=== PATIENT | male | born 1940 | race Caucasian/White ===

== ENCOUNTER 2019-06-27 17:51 | Emergency (ER) | payer OTHER, MEDICARE, SELFPAY ==
[2019-06-27 17:59] VITALS: BP 147/68; PULSE 63; RESP 18; TEMP 36.7; O2SAT 95; BMI 34.4
--- NOTE | 2019-06-27 18:07 | XRR_ITS ---
PROCEDURE INFORMATION: Exam: XR Chest, 1 View Exam date and time: 06/27/2019 6:09 PM Age: 79 years old Clinical indication: Shortness of breath; Prior surgery; Surgery date: 6+ months; Additional info: Chest pain TECHNIQUE: Imaging protocol: XR of the chest Views: 1 view. COMPARISON: CR Chest 1 [place] [id number] 08/31/2018 11:12 AM FINDINGS: Tubes, catheters and devices: Stable intact left subclavian pacemaker. Lungs: Linear atelectasis or scar in both lung bases. Pleural space: Unremarkable. No pleural effusion. No pneumothorax. Heart/Mediastinum: Unremarkable. No cardiomegaly. Bones/joints: Sternotomy changes. Degenerative left shoulder. XR/XR chest 1V portable [id number] IMPRESSION: No acute findings.
--- NOTE | 2019-06-27 18:07 | ECG_ITS ---
Measurements Intervals [place] Rate: 64 P: 171 [place]: 273 QRS: -37 QRSD: 97 T: 73 QT: 436 QTc: 451 ELECTRONIC ATRIAL PACEMAKER MARKED LEFT AXIS DEVIATION [QRS AXIS < -30] PATTERN CONSISTENT WITH PULMONARY DISEASE NONSPECIFIC T-WAVE ABNORMALITY Compared to ECG 08/31/2018 11:04:35 Left-axis deviation now present T-wave abnormality now present Incomplete right bundle-branch block no longer present Myocardial infarct finding no longer present Electronically Signed On 06-28-2019 11:27:41 HALF SOLE FITTER by Daniel Pena M.D. [id number]
[2019-06-27 18:33] LABS: Basophils % 0.6 %; Eosinophils # 0.3 10^3/uL (0.0-0.8); Eosinophils % 5.2 %; Lymphocytes # 1.7 10^3/uL (0.8-4.8); Mean Corpuscular HGB Conc 33.3 g/dL (30.0-36.0); Mean Corpuscular Hemoglobin 28.4 pg (28.0-34.0); Mean Corpuscular Volume 85.3 fL (80-94); Mean Platelet Volume 9.9 fL (7.4-10.4); Monocytes # 0.9 10^3/uL (0.2-0.9); Monocytes % 16.1 %; Neutrophils # 2.6 10^3/uL (1.8-7.7); Neutrophils % 46.9 %; Nucleated Red Blood Cells % 0 %; Platelet Count 145 10^3/cmm (130-400); Red Blood Count 5.63 10^6/uL (4.1-5.3); Red Cell Distribution Width 14.9 % (12.1-15.1); White Blood Count 5.4 10^3/uL (4.0-10.0)
[2019-06-27 18:45] LABS: Partial Thromboplastin Time 40.7 SECONDS (23.9-36.7)
[2019-06-27 18:55] LABS: Slide Review Slide Review Perform
[2019-06-27 19:08] LABS: Alanine Aminotransferase 18 U/L (0-41); Albumin Level 4.4 g/dL (3.5-5.2); Alkaline Phosphatase 49 IU/L (40-130); Anion Gap 17.2 (5-19); Blood Urea Nitrogen 38 mg/dL (8-23); Calcium 9.5 mg/Dl (8.8-10.2); Carbon Dioxide 23 mmol/L (22-29); Chloride 101 mmol/L (98-107); Creatine Phosphokinase 77 U/L (39-308); Globulin 3.3 g/dL (1.3-4.6); Glucose 170 mg/dL (74-106); NT Pro B Type Natriuretic Pept 449 pg/mL (0-450); Potassium 4.2 mmol/L (3.5-5.1); Sodium 137 mmol/L (136-145); Total Bilirubin 0.6 mg/dL (0.15-1.2); Total Protein 7.7 g/dL (6.6-8.7)
[2019-06-27 19:09] LABS: Aspartate Amino Transferase 23 U/L (0-40); Troponin(5th) Baseline 45 ng/mL (0-15)
[2019-06-27 19:14] LABS: Lipase 16 U/L (13-60)
--- NOTE | 2019-06-27 19:19 | ED_ITS ---
HPI - Chest Pain General: Chief Complaint: Chest Pain Stated Complaint: cp/sob Time Seen by Provider: 06/27/19 18:58 History of Present Illness: HPI narrative: Patient complains of chest pain x3 weeks. Patient does have daily chest pain/angina. Does take nitroglycerin. Patient episode yesterday where he sat on the commode and had vomiting and diarrhea and broke out in sweats. Feels better after that episode. Continues to have chest pain. 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 Onset (ago): week(s) Timing of current episode: constant Prior episodes: Yes Onset: during rest, during exertion and after eating Pain location: left chest and epigastric Pain radiation: none Relieving factors: nitroglycerin Exacerbating factors: exertion and eating Associated symptoms: Reports diaphoresis; Deny abdominal pain, dyspnea, nausea or vomiting Review of Systems Const: Reports: diaphoresis Eyes: Denies: change in vision or blurry vision ENMT: Denies: throat pain or nasal congestion Card: Reports: chest pain and swelling of feet/ankles; Denies: shortness of breath on exertion Resp: Denies: shortness of breath, productive cough or non-productive cough GI: Denies: abdominal pain, nausea or vomiting : Denies: difficulty urinating Musc: Denies: extremity pain Skin/Breast: Denies: rash Neuro: Denies: headache Psych: Denies: anxiety or depression Justin/Lymph: Denies: easy bruising PFSH ED PFSH: Statuses (acute, chronic, etc) shown below reflect problem list status as previously entered and may not be historically accurate Family History (Updated 06/18/19 @ 10:03 by Lisette Munson LPN) Other CAD (coronary artery disease) Cancer Diabetes Social History (Updated 06/18/19 @ 10:03 by Lisette Munson LPN) Smoking and tobacco status: former smoker Alcohol intake: never Physical Exam Const: COMMON NORMALS: no apparent distress, average body habitus and oriented x3 HENMT: COMMON NORMALS: normocephalic HEAD & SCALP: normal to inspection and normocephalic FACE & SINUS: normal facial exam Eye: COMMON NORMALS: conjunctivae normal GENERAL EYE: normal appearance of both eyes CONJUNCTIVA: Yes conjunctivae normal Neck/C-Spine: COMMON NORMALS: no JVD Chest: COMMONS NORMALS: inspection of chest normal Resp: COMMON NORMALS: normal respiratory effort and clear to auscultation bilaterally AUSCULTATION: clear to auscultation bilaterally Cardio: COMMON NORMALS: no JVD, regular rate and regular rhythm RATE: re gular rate RHYTHM: regular rhythm OTHER: 1+ bilateral pedal edema GI: COMMON NORMALS: normal to inspection, nondistended, normoactive bowel sounds Extremity: COMMON NORMALS: normal to inspection and full ROM Neuro: COMMON NORMALS: oriented x3 Course Vital Signs: Vital signs: Vital Signs Temperature 98.0 F 06/27/19 17:59 Pulse Rate 63 06/27/19 17:59 Respiratory Rate 18 06/27/19 17:59 Blood Pressure 147/68 06/27/19 17:59 Pulse Oximetry 95 06/27/19 17:59 MDM - Chest Pain Lab Data: Labs: Lab Results 06/27/19 06/27/19 06/27/19 Range/Units 18:20 18:20 18:20 WBC 5.4 (4.0-10.0) 10^3/ uL RBC 5.63 H (4.1-5.3) 10^6/u L Hgb 16.0 (11.7-16.6) g/dL Hct 48.0 (42.0-52.0) % MCV 85.3 (80-94) fL MCH 28.4 (28.0-34.0) pg MCHC 33.3 (30.0-36.0) g/dL RDW 14.9 (12.1-15.1) % Plt Count 145 (130-400) 10^3/c mm MPV 9.9 (7.4-10.4) fL Neut % (Auto) 46.9 % Lymph % (Auto) 31.0 % [place] % (Auto) 16.1 % Eos % (Auto) 5.2 % Baso % (Auto) 0.6 % Neut # (Auto) 2.6 (1.8-7.7) 10^3/u L Lymph # (Auto) 1.7 (0.8-4.8) 10^3/u L [place] # (Auto) 0.9 (0.2-0.9) 10^3/u L Eos # (Auto) 0.3 (0.0-0.8) 10^3/u L Baso # (Auto) 0.0 (0.0-0.1) 10^3/u L Nucleated RBC % (a uto) 0 % Nucleated RBCs # 0.0 /100WBC PT 15.60 H (10.5-13.3) SECO NDS INR 1.20 (0.8-1.2) APTT 40.7 H (23.9-36.7) SECO NDS Sodium 137 (136-145) mmol/L Potassium 4.2 (3.5-5.1) mmol/L Chloride 101 (98-107) mmol/L Carbon Dioxide 23 (22-29) mmol/L Anion Gap 17.2 (5-19) BUN 38 H (8-23) mg/dL Creatinine 1.6 H (0.7-1.2) mg/dL Glucose 170 H (74-106) mg/dL Calcium 9.5 (8.8-10.2) mg/Dl Total Bilirubin 0.6 (0.15-1.2) mg/dL AST 23 (0-40) U/L ALT 18 (0-41) U/L Alkaline Phosphata se 49 (40-130) IU/L Creatine Kinase 77 (39-308) U/L Troponin T Baselin e (0-15) ng/mL NT-Pro-B Natriuret Pep 449 (0-450) pg/mL Total Protein 7.7 (6.6-8.7) g/dL Albumin 4.4 (3.5-5.2) g/dL Globulin 3.3 (1.3-4.6) g/dL Lipase 16 (13-60) U/L 06/27/19 Range/Units 18:20 WBC (4.0-10.0) 10^3/ uL RBC (4.1-5.3) 10^6/u L Hgb (11.7-16.6) g/dL Hct (42.0-52.0) % MCV (80-94) fL MCH (28.0-34.0) pg MCHC (30.0-36.0) g/dL RDW (12.1-15.1) % Plt Count (130-400) 10^3/c mm MPV (7.4-10.4) fL Neut % (Auto) % Lymph % (Auto) % [place] % (Auto) % Eos % (Auto) % Baso % (Auto) % Neut # (Auto) (1.8-7.7) 10^3/u L Lymph # (Auto) (0.8-4.8) 10^3/u L [place] # (Auto) (0.2-0.9) 10^3/u L Eos # (Auto) (0.0-0.8) 10^3/u L Baso # (Auto) (0.0-0.1) 10^3/u L Nucleated RBC % (a uto) % Nucleated RBCs # /100WBC PT (10.5-13.3) SECO NDS INR (0.8-1.2) APTT (23.9-36.7) SECO NDS Sodium (136-145) mmol/L Potassium (3.5-5.1) mmol/L Chloride (98-107) mmol/L Carbon Dioxide (22-29) mmol/L Anion Gap (5-19) BUN (8-23) mg/dL Creatinine (0.7-1.2) mg/dL Glucose (74-106) mg/dL Calcium (8.8-10.2) mg/Dl Total Bilirubin (0.15-1.2) mg/dL AST (0-40) U/L ALT (0-41) U/L Alkaline Phosphata se (40-130) IU/L Creatine Kinase (39-308) U/L Troponin T Baselin e 45 H (0-15) ng/mL NT-Pro-B Natriuret Pep (0-450) pg/mL Total Protein (6.6-8.7) g/dL Albumin (3.5-5.2) g/dL Globulin (1.3-4.6) g/dL Lipase (13-60) U/L Discharge Plan Discharge Prescriptions: No Action furosemide 40 mg tablet 40 mg PO BID PRNRF: 0 tamsulosin 0.4 mg capsule 0.4 mg PO DAILY RF: 0 isosorbide mononitrate 60 mg tablet extended release 24 hr 60 mg PO QAM RF: 0 potassium chloride 20 mEq tablet,ER particles/crystals 20 meq PO DAILY RF: 0 epinephrine 0.3 mg/0.3 mL auto-injector 0.3 mg IM ONCE PRNRF: 0 azelastine 0.15 % (205.5 mcg) spray,non-aerosol 1 spray INTRANASAL BID RF: 0 Zyrtec 10 mg capsule PO DAILY PRNRF: 0 montelukast [Singulair] 10 mg tablet 10 mg PO DAILY RF: 0 albuterol sulfate 2.5 mg /3 mL (0.083 %) solution for nebulization 2.5 mg INHALATION Q4H PRNRF: 0 amlodipine 10 mg tablet 10 mg PO DAILY RF: 0 Symbicort 160-4.5 mcg/actuation HFA aerosol inhaler 2 puff INHALATION DAILY RF: 0 rivaroxaban 15 mg tablet 15 mg PO BID RF: 0 budesonide 0.5 mg/2 mL suspension for nebulization 0.25 mg INHALATION BID RF: 0 Lantus U-100 Insulin 100 unit/mL solution 42 unit SUBCUT DAILY RF: 0 cholecalciferol (vitamin D3) 2,000 unit tablet 2,000 unit PO DAILY RF: 0 sotalol 120 mg tablet 120 mg PO BID RF: 0 baclofen 10 mg tablet 10 mg PO DAILY RF: 0 Novolog U-100 Insulin aspart 100 unit/mL solution 5 unit SUBCUT TID RF: 0 lisinopril 5 mg tablet 5 mg PO DAILY RF: 0 isosorbide mononitrate 60 mg tablet extended release 24 hr 60 mg PO QAM RF: 0 glucosamine HCl 1,500 mg tablet 1,500 mg PO DAILY RF: 0 Coding Level of Care Code ED Mechanical Engineering Manager for Gudelia Stone
[2019-06-27 19:21] VITALS: O2SAT 94
--- NOTE | 2019-06-27 20:07 | ECG_ITS ---
Measurements Intervals [place] Rate: 61 P: 169 [place]: 260 QRS: -39 QRSD: 98 T: 74 QT: 469 QTc: 474 ELECTRONIC ATRIAL PACEMAKER LEFT AXIS DEVIATION [QRS AXIS < -30] PATTERN CONSISTENT WITH PULMONARY DISEASE NONSPECIFIC ST & T-WAVE ABNORMALITY PROLONGED QT INTERVAL Compared to ECG 08/31/2018 11:04:35 Left-axis deviation now present T-wave abnormality now present Prolonged QT interval now present Incomplete right bundle-branch block no longer present Myocardial infarct finding no longer present Electronically Signed On 06-28-2019 11:31:42 SMOKING TOBACCO PACKING MACHINE HAND by Daniel Pena M.D. [id number]
[2019-06-27 20:27] LABS: Troponin 5 2HR 44.64 ng/mL (0-15)
[2019-06-27 20:28] LABS: Troponin 5 2HR Delta -0.36 ABS# (0-10)
[2019-06-27 20:43] VITALS: BP 155/71; PULSE 68; RESP 16; O2SAT 96
== END 2019-06-27 20:48 | disposition home or self-care (01) ==
PROVIDERS: Emergency Medicine; Emergency Provider Nurse Practitioner Family; Family Provider Family Medicine; PCP Family Medicine
DX: R07.9 Chest pain, unspecified (principal); Z79.4 Long term (current) use of insulin; Z87.891 Personal history of nicotine dependence
CPT/HCPCS: 71045; 80053; 82550; 83690; 83880; 84484; 85025; 85610; 85730; 93005; 99282

== ENCOUNTER → 2019-08-07 08:35 | Outpatient (BNVA) | payer OTHER, SELFPAY | PROVIDERS: Family Provider Family Medicine; PCP Family Medicine; Visit Provider Specialist | DX: G43.711 Chronic migraine without aura, intractable, with status migrainosus (principal); Z87.891 Personal history of nicotine dependence | CPT/HCPCS: 64615; J0585 ==

== ENCOUNTER → 2019-10-30 08:41 | Outpatient (BNVA) | payer OTHER, SELFPAY | PROVIDERS: Family Provider Family Medicine; PCP Family Medicine; Visit Provider Specialist | DX: G43.711 Chronic migraine without aura, intractable, with status migrainosus (principal); Z87.891 Personal history of nicotine dependence | CPT/HCPCS: 64615; J0585 ==

== ENCOUNTER → 2019-11-04 09:08 | Outpatient (BNVA) | payer OTHER, SELFPAY | PROVIDERS: Family Provider Family Medicine; PCP Family Medicine; Visit Provider Urology | DX: N13.8 Other obstructive and reflux uropathy (principal); N40.1 Benign prostatic hyperplasia with lower urinary tract symptoms | CPT/HCPCS: 81001 ==

== ENCOUNTER → 2020-03-03 10:30 | Outpatient (BNVA) | payer MEDICARE, OTHER, SELFPAY | PROVIDERS: Family Provider Family Medicine; PCP Family Medicine; Visit Provider Nurse Practitioner Family | DX: J06.9 Acute upper respiratory infection, unspecified (principal); Z11.59 Encounter for screening for other viral diseases; Z20.828 Contact with and (suspected) exposure to other viral communicable diseases | CPT/HCPCS: 87635 ==

== ENCOUNTER → 2020-04-15 11:50 | Outpatient (BNVA) | payer MEDICARE, OTHER, SELFPAY | PROVIDERS: Family Provider Family Medicine; PCP Family Medicine; Visit Provider Specialist | DX: G43.711 Chronic migraine without aura, intractable, with status migrainosus (principal) | CPT/HCPCS: 64615; J0585 ==

== ENCOUNTER → 2020-05-18 08:53 | Outpatient (BNVA) | payer MEDICARE, OTHER, SELFPAY | PROVIDERS: Family Provider Family Medicine; PCP Family Medicine; Visit Provider Nurse Practitioner Family | DX: Z20.828 Contact with and (suspected) exposure to other viral communicable diseases (principal); J06.9 Acute upper respiratory infection, unspecified | CPT/HCPCS: 87635 ==

== ENCOUNTER 2020-05-20 11:40 | Emergency (ER) | payer OTHER, MEDICARE, SELFPAY ==
[2020-05-20] VITALS (11 sets, daily range): BP systolic 128–155; BP diastolic 62–73; PULSE 60–62; RESP 18–20; TEMP 36.3; O2SAT 87–94; BMI 31.1
--- NOTE | 2020-05-20 12:08 | XR_ITS ---
WS: [id number] PORTABLE CHEST HISTORY: sob COMPARISON: 06/27/2019 Dual lead LEFT subclavian pacer. Prior median sternotomy. Very minimal interstitial thickening at the lung bases. Otherwise no interval change. No pleural effu melissa or pneumothorax. Cardiac size: Normal. Mediastinum/Aorta: Mild atherosclerosis aorta. No osseous abnormality seen. XR/XR chest 1V portable [id number] IMPRESSION: 1. Minimal interstitial thickening at the lung bases is new. Probably on the b asis of edema. 2. No pneumonia.
--- NOTE | 2020-05-20 12:08 | ECG_ITS ---
[facility] Test Date: 2020-05-20 Pat Name: Panchito Macedo Department: Room: Gender: Male Perinatal Coordinator: : 1940 Requested By: Krystian Sher Order Number: [id number] Chey MD: Ashlyn Womack M.D. 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 [email or web address] ( [employer] ).[id number]
[2020-05-20] MEDS: sodium chloride 0.9% 1,000 ML 999 ML IV (12:25)
[2020-05-20 12:33] LABS: Basophils # 0.1 10^3/uL (0.0-0.1); Eosinophils # 0.6 10^3/uL (0.0-0.8); Eosinophils % 7.5 %; Hematocrit 39.8 % (42.0-52.0); Hemoglobin 13.2 g/dL (11.7-16.6); Lymphocytes # 1.6 10^3/uL (0.8-4.8); Lymphocytes % 21.4 %; Mean Corpuscular HGB Conc 33.2 g/dL (30.0-36.0); Mean Corpuscular Hemoglobin 28.3 pg (28.0-34.0); Mean Corpuscular Volume 85.2 fL (80-94); Mean Platelet Volume 9.7 fL (7.4-10.4); Neutrophils # 4.17 10^3/uL (1.8-7.7); Neutrophils % 56.8 %; Nucleated Red Blood Cells % 0 %; Platelet Count 217 10^3/cmm (130-400); Red Blood Count 4.67 10^6/uL (4.1-5.3); Red Cell Distribution Width 13.6 % (12.1-15.1); White Blood Count 7.3 10^3/uL (4.0-10.0)
--- NOTE | 2020-05-20 12:38 | W.ED.SOB ---
HPI - SOB/Dyspnea General: Chief Complaint: Shortness of Breath/Dyspnea Stated Complaint: FEVER, DIFF BREATHING Time Seen by Provider: 05/20/20 11:57 Source: patient Mode of arrival: ambulatory Limitations: no limitations History of Present Illness: HPI Narrative: 80-year-old male states he has a long history of COPD states that increasing slight cough and dyspnea over the last week. He states he had a Covid swab 2 days ago and today came back negative. States he is continued to have this dyspnea is worse with exertion. He is concerned he may have have pneumonia as he has had it in the past. Denies any fever. Associated symptoms: Deny abdominal pain, chest pain, fever(s), nausea or vomiting Review of Systems Const: Denies: fever(s), chills, body aches or change in appetite Eyes: Denies: blurry vision or eye discomfort ENMT: Denies: throat pain or dental pain Card: Denies: chest pain Resp: Reports: dyspnea and non-productive cough GI: Denies: abdominal pain, nausea, vomiting or diarrhea : Denies: dysuria Musc: Denies: neck pain or back pain Skin/Breast: Denies: rash Neuro: Denies: headache(s) Psych: Denies: depression Justin/Lymph: Denies: easy bruising All/Imm: Denies: urticaria PFSH ED PFSH: Medical History ASHD (arteriosclerotic heart disease) Atrial fibrillation Atypical chest pain BPH NOS w ur obs/LUTS Good response to TAMSULOSIN. Carotid stenosis CHF (congestive heart failure) Hyperlipemia Hypertension Leg swelling Pacemaker Peripheral vascular disease Sleep apnea TIA (transient ischemic attack) Trigeminal neuralgia Ventral hernia Surgical History H/O bilateral cataract extraction H/O four vessel coronary artery bypass graft H/O heart artery stent Status post cryoablation Family History Other CAD (coronary artery disease) Cancer Diabetes Family history of prostate cancer Social History Smoking and tobacco status: former smoker Alcohol intake: never Adopted: No Caregiver/support person: No Lives independently: No Household members: spouse Marital status: Current occupational status: retired History of recent travel: No Current gender identity: Male Physical Exam Const: COMMON NORMALS: no acute distress, patient oriented x3 and healthy appearing HENMT: COMMON NORMALS: normocephalic and atraumatic HEAD & SCALP: normocephalic and atraumatic Eye: COMMON NORMALS: Equal, round and reactive pupils present and EOMs intact bilaterally PUPIL: Yes Equal, round and reactive pupils present Neck/C-Spine: COMMON NORMALS: full ROM and supple Chest: COMMONS NORMALS: normal inspection of the chest and normal palpation of entire chest wall Resp: COMMON NORMALS: normal respiratory effort, No retractions, No use of accessory muscles and clear to auscultation bilaterally AUSCULTATION: clear to auscultation bilaterally Cardio: COMMON NORMALS: regular rate, regular rhythm and No murmurs present (Cardio) RATE: regular rate RHYTHM: regular rhythm GI: COMMON NORMALS: Normal to inspection, nondistended, normoactive bowel sounds present, Soft to palpation, non-tender and no masses PALPATION: Yes Soft to palpation Extremity: COMMON NORMALS: normal to inspection and full ROM Neuro: COMMON NORMALS: patient oriented x3, moves all extremities and no focal motor deficits Psych: COMMON NORMALS: mental status grossly normal, Normal thought process present and cooperative THOUGHT PROCESS: Normal thought process present Skin: COMMON NORMALS: no rashes or lesions noted and no wounds GENERAL SKIN EXAM: no rashes or lesions noted Course Vital Signs: Vital signs: Vital Signs Temperature 97.4 F L 05/20/20 11:51 Pulse Rate 62 05/20/20 13:11 Respiratory Rate 20 H 05/20/20 13:11 Blood Pressure 138/73 05/20/20 13:30 Pulse Oximetry 87 L 05/20/20 14:01 MDM - SOB/Dyspnea MDM Narrative: Medical decision making narrative: Patient presents here with dyspnea likely from chronic COPD and bronchitis. He states he used to be on oxygen did qualify for oxygen here again. I do not believe he needs to be admitted at this time and has no signs of any acute abnormalities. We will place him on steroids and set him up for home O2. He is to follow-up his PCP and return if worsening. Lab Data: Labs: Lab Results 05/20/20 05/20/20 05/20/20 Range/Units 12:23 12:23 12:23 WBC 7.3 (4.0-10.0) 10^3/ uL RBC 4.67 (4.1-5.3) 10^6/u L Hgb 13.2 (11.7-16.6) g/dL Hct 39.8 L (42.0-52.0) % MCV 85.2 (80-94) fL MCH 28.3 (28.0-34.0) pg MCHC 33.2 (30.0-36.0) g/dL RDW 13.6 (12.1-15.1) % Plt Count 217 (130-400) 10^3/c mm MPV 9.7 (7.4-10.4) fL Neut % (Auto) 56.8 % Lymph % (Auto) 21.4 % [place] % (Auto) 13.0 % Eos % (Auto) 7.5 % Baso % (Auto) 1.0 % Neut # (Auto) 4.17 (1.8-7.7) 10^3/u L Lymph # (Auto) 1.6 (0.8-4.8) 10^3/u L [place] # (Auto) 1.0 H (0.2-0.9) 10^3/u L Eos # (Auto) 0.6 (0.0-0.8) 10^3/u L Baso # (Auto) 0.1 (0.0-0.1) 10^3/u L Nucleated RBC % (a uto) 0 % Nucleated RBCs # 0.0 /100WBC PT 18.30 H (12.1-14.9) SECO NDS INR 1.47 H (0.8-1.2) Sodium 140 (136-145) mmol/L Potassium 4.0 (3.5-5.1) mmol/L Chloride 104 (98-107) mmol/L Carbon Dioxide 27 (22-29) mmol/L Anion Gap 13.0 (5-19) BUN 28 H (8-23) mg/dL Creatinine 1.1 (0.7-1.2) mg/dL GFR Calculation Not Reportable Glucose 133 H (65-115) mg/dL Calculated Osmolal ity 297 H (285-295) mOsm/k g Calcium 9.4 (8.5-10.5) mg/dL Total Bilirubin 0.5 (0.15-1.2) mg/dL AST 11 (0-40) U/L ALT < 5 (0-41) U/L Alkaline Phosphata se 58 (40-130) IU/L NT-Pro-B Natriuret Pep 1068 H (0-450) pg/mL Total Protein 6.9 (6.6-8.7) g/dL Albumin 3.3 L (3.5-5.2) g/dL Globulin 3.6 (1.3-4.6) g/dL Imaging Data^: CXR: Radiologist's impression: [address] [place] [address] XRay Report Signed Patient: Panchito Macedo Unit #: [id number] : 1940 Age/Sex: 80 / M ADM Date: 05/20/20 Loc: ER Room/Bed: Attending Dr: Ordering Provider/Ordering MD: Krystian Sher MD Date of Service: 05/20/20 Procedure(s): XR chest 1V portable [id number] Accession Number(s): [id number] Report Number: [id number] WS: [id number] PORTABLE CHEST HISTORY: sob COMPARISON: 06/27/2019 Dual lead LEFT subclavian pacer. Prior median sternotomy. Very minimal interstitial thickening at the lung bases. Otherwise no interval change. No pleural effusion or pneumothorax. Cardiac size: Normal. Mediastinum/Aorta: Mild atherosclerosis aorta. No osseous abnormality seen. XR/XR chest 1V portable [id number] IMPRESSION: 1. Minimal interstitial thickening at the lung bases is new. Probably on the basis of edema. 2. No pneumonia. EKG Data^: EKG 1: Attestation: I personally reviewed and interpreted this EKG as follows: EKG Interpretation Date: 05/20/20 EKG interpretation time: 12:25 Interpretation: paced no st or t wave abnormalities qrs 114 qtc 460 Discharge Plan Discharge Patient Disposition: Home Clinical Impression: Acute exacerbation of chronic obstructive airways disease Condition: Stable Prescriptions: New Keflex 500 mg capsule 500 mg PO Q6H 7 Days Qty: 28 RF: 0 prednisone 50 mg tablet 50 mg PO DAILY Qty: 5 RF: 0 No Action loteprednol etabonate [Lotemax] 0.5 % drops,suspension 1 drop ophthalmic (eye) BID RF: 0 Combigan 0.2-0.5 % drops 1 drop ophthalmic (eye) BID RF: 0 furosemide 40 mg tablet 40 mg PO BID PRNRF: 0 tamsulosin 0.4 mg capsule 0.4 mg PO DAILY RF: 0 isosorbide mononitrate 60 mg tablet extended release 24 hr 60 mg PO QAM RF: 0 potassium chloride 20 mEq tablet,ER particles/crystals 20 meq PO DAILY RF: 0 epinephrine 0.3 mg/0.3 mL auto-injector 0.3 mg IM ONCE PRNRF: 0 azelastine 0.15 % (205.5 mcg) spray,non-aerosol 1 spray INTRANASAL BID RF: 0 Zyrtec 10 mg capsule PO DAILY PRNRF: 0 montelukast [Singulair] 10 mg tablet 10 mg PO DAILY RF: 0 albuterol sulfate 2.5 mg /3 mL (0.083 %) solution for nebulization 2.5 mg INHALATION Q4H PRNRF: 0 amlodipine 10 mg tablet 10 mg PO DAILY RF: 0 Symbicort 160-4.5 mcg/actuation HFA aerosol inhaler 2 puff INHALATION DAILY RF: 0 rivaroxaban 15 mg tablet 15 mg PO BID RF: 0 budesonide 0.5 mg/2 mL suspension for nebulization 0.25 mg INHALATION BID RF: 0 Lantus U-100 Insulin 100 unit/mL solution 42 unit SUBCUT DAILY RF: 0 cholecalciferol (vitamin D3) 2,000 unit tablet 2,000 unit PO DAILY RF: 0 sotalol 120 mg tablet 120 mg PO BID RF: 0 baclofen 10 mg tablet 10 mg PO DAILY RF: 0 Novolog U-100 Insulin aspart 100 unit/mL solution 5 unit SUBCUT TID RF: 0 lisinopril 5 mg tablet 5 mg PO DAILY RF: 0 isosorbide mononitrate 60 mg tablet extended release 24 hr 60 mg PO QAM RF: 0 glucosamine HCl 1,500 mg tablet 1,500 mg PO DAILY RF: 0 Discharge Orders: Discharge ED (Routine); Ordered 05/20/20 Ordered By: Krystian Sher Other Ambulatory Orders: DME: Oxygen (Order) Location: None Selected Ordered By: Krystian Sher Referrals: Panchito Alston [Primary Care Provider] - 1-3 days Discharge Diet: Advance as tolerated Discharge Activity: Resume usual activity Patient Instructions: Chronic Obstructive Pulmonary Disease (ED) Coding Level of Care Code ED Customer Service Administrator for Tatog Fwd Exam Comprehensive
[2020-05-20 12:45] LABS: INR 1.47 (0.8-1.2)
[2020-05-20 13:02] LABS: Alanine Aminotransferase < 5 U/L (0-41); Albumin Level 3.3 g/dL (3.5-5.2); Alkaline Phosphatase 58 IU/L (40-130); Aspartate Amino Transferase 11 U/L (0-40); Blood Urea Nitrogen 28 mg/dL (8-23); Calcium 9.4 mg/dL (8.5-10.5); Carbon Dioxide 27 mmol/L (22-29); Chloride 104 mmol/L (98-107); Creatinine Clr Calc Pharmacy 57.3985; Globulin 3.6 g/dL (1.3-4.6); Glucose 133 mg/dL (65-115); NT Pro B Type Natriuretic Pept 1068 pg/mL (0-450); Osmolality Calculated 297 mOsm/kg (285-295); Sodium 140 mmol/L (136-145); Total Bilirubin 0.5 mg/dL (0.15-1.2); Total Protein 6.9 g/dL (6.6-8.7)
[2020-05-20] MEDS: ipratropium-albuterol 3 mL Neb INHALATION (13:02)
[2020-05-20 13:19] LABS: Slide Review Slide Review Perform
--- NOTE | 2020-05-20 14:16 | DCPLANNER ---
Addendum entered by Alisha Chopra 05/21/20 09:08: [facility] called rn case manager stating that they were not able to fill the order for home O2 due to the patient being in the ER with his medicare. When rn case manager went to speak with patient about this, that patient stated that he was a [facility], and that he wanted to go home. environmental programs manager spoke with physician and was told that patient would be ok to go home and that rn case manager could arrange oxygen for patient when he was at home. 05.21.20 - rn case manager emailed patients information to [facility] for the consult for oxygen to be started. Original Note: environmental programs manager was asked to arrange for home oxygen for patient. environmental programs manager spoke with patient, he stated that he would like to use [employer] for his oxygen, rn case manager signed Patient Choice letter for patient stating that he wanted to use [employer]. environmental programs manager faxed order and patients information to [employer]. The company will bring the oxygen to the ER.
== END 2020-05-20 16:07 | disposition home or self-care (01) ==
PROVIDERS: Emergency Provider Emergency Medicine; PCP Family Medicine
DX: J44.1 Chronic obstructive pulmonary disease with (acute) exacerbation (principal); Z79.4 Long term (current) use of insulin; I48.91 Unspecified atrial fibrillation; I11.0 Hypertensive heart disease with heart failure; I50.9 Heart failure, unspecified; E78.5 Hyperlipidemia, unspecified; Z95.0 Presence of cardiac pacemaker; Z86.73 Personal history of transient ischemic attack (TIA), and cerebral infarction without residual deficits; Z95.1 Presence of aortocoronary bypass graft; Z87.891 Personal history of nicotine dependence
CPT/HCPCS: 12345; 71045; 80053; 83880; 85025; 85610; 93005; 94640; 96361; 96374; 99282; 99283; J2930; J7030

== ENCOUNTER 2020-06-02 10:59 | Outpatient (CLI) | payer MEDICARE, OTHER, SELFPAY ==
--- NOTE | 2020-06-02 11:00 | USCV_ITS ---
Panchito Macedo Age: 80 Gender: M : 1940 Exam Date: 06/02/2020 11:25 Ordering Phys: Janett Lion MD ([email or web address]) Technologist: Gisselle Bernardo [place] [facility] [place] RT STENT Risk Factors: Previous Vascular Surgery: Right Brachial BP: / Left Brachial BP: / Right Left Velocity (cm/s) Spectral Plaque Velocity (cm/s) Spectral Plaque Syst/Diast Broadening Syst/Diast Broadening 70.10/ 7.70 Prox CCA 84.30 / 7.30 83.70/ 12.00 Mid CCA 110.30/ 11.10 61.80/ 10.50 Distal CCA 85.40 / 12.80 66.70/ 12.80 Prox ICA 96.70 / 10.40 75.60/ 13.90 Mid ICA 92.20 / 12.90 72.00/ 13.10 Distal ICA 63.70 / 10.10 201.10 ECA 143.60 0.90 ICA/CCA 0.88 Antegrade Vertebral Antegrade 38.80/ 7.90 cm/s 41.00/ 7.10 cm/s Tri Subclavian Tri 124.6 139.9 0 0 FINDINGS Moderate to heavy heterogeneous irregular plaques are noted in the right common carotid artery. The stent the right ICA was found to be patent Intimal thickening and minimal plaque in the left common carotid artery. Moderate intravenous plaquesnoted at the left bifurcation and proximal internal carotid artery Antegrade flow in the vertebral arteries bilaterally Elevated Doppler flow velocity in the right external carotid artery CONCLUSIONS The stent in the right internal carotid artery appeared to be patent with no significant stenosis. Moderate to heavy heterogeneous plaques were noted in the right common carotid artery. Moderate heterogeneous plaques at the left bifurcation and proximal internal carotid artery Elevated velocity in the external carotid artery on the right side, suggestive of hemodynamically significant stenosis. Compared to the study from 12/06/2017, there appears to be some worsening of stenosis in the right external carotid artery Dr Janett Lion MD [facility] (Electronically Signed) Final Date: 02 June 2020 20:19 S
== END 2020-06-02 11:00 | disposition home or self-care (01) ==
LOC: US 11:00
PROVIDERS: PCP Family Medicine; Visit Provider Internal Medicine Cardiovascular Disease
DX: I65.23 Occlusion and stenosis of bilateral carotid arteries (principal)
CPT/HCPCS: 93880

== ENCOUNTER 2020-06-08 14:32 | Emergency (ER) | payer OTHER, MEDICARE, SELFPAY ==
[2020-06-08] VITALS (7 sets, daily range): BP systolic 130–176; BP diastolic 49–85; PULSE 61–66; RESP 17–22; TEMP 36.3; O2SAT 93–97; BMI 30.8
--- NOTE | 2020-06-08 16:31 | XRR_ITS ---
PROCEDURE INFORMATION: Exam: XR Chest, 1 View Exam date and time: 06/08/2020 4:51 PM Age: 80 years old Clinical indication: Dyspnea and shortness of breath; Prior surgery; Surgery type: Pacemaker, open heart, stents TECHNIQUE: Imaging protocol: XR of the chest Views: 1 view. COMPARISON: CR XR chest 1V portable [id number] 05/20/2020 12:18 PM FINDINGS: Tubes, catheters and devices: A permanent sequential pacemaker is present intact. Lungs: There is stable interstitial fibrosis in the lung bases. No pneumonia is seen. Pleural space: Unremarkable. No pleural effusion. No pneumothorax. Heart/Mediastinum: Heart is normal for the AP projection. The patient has undergone coronary bypass surgery. Bones/joints: Unremarkable. XR/XR chest 1V portable [id number] IMPRESSION: No acute abnormalities are seen in the chest.
--- NOTE | 2020-06-08 16:37 | ED_ITS ---
HPI - SOB/Dyspnea General: Chief Complaint: Shortness of Breath/Dyspnea Stated Complaint: SOB Time Seen by Provider: 06/08/20 15:23 History of Present Illness: HPI Narrative: The patient is an 80-year-old male with past medical history COPD on 2 L nasal cannula, diabetes, congestive heart failure, CAD, A. fib, hypertension, pacemaker placement, TIAs. He comes to the ER complaining of 2 problems shortness of breath and abdominal pain. He has had abdominal cramping worse in the right lower quadrant for the past 5 days with soft serve consistency yellow feces. Yesterday evening he started to get short of breath as well and tried to take albuterol which did help his shortness of breath however this morning he tried that again and when he was walking around his saturation was 78% wearing his nasal cannula. MD elicited complaint: shortness of breath Pertinent past history: COPD, congestive heart failure and diabetes Context: recent illness Severity: moderate Exacerbating factors: exertion Relieving factors: bronchodilators Known history of: COPD, congestive heart failure and diabetes Associated symptoms: Reports abdominal pain; Deny chest pain, dizziness, extremity pain, orthopnea, palpitations or polyuria Review of Systems 2 General: Reports: 10 or more systems reviewed and unremarkable except in HPI and below Const: Denies: fatigue Eyes: Denies: change in vision, blurry vision or eye redness ENMT: Denies: throat pain, swelling of lips/tongue, ear or mastoid pain or nasal congestion Card: Denies: chest pain, palpitations, irregular heart rhythm, edema, dyspnea on exertion or orthopnea Resp: Reports: dyspnea; Denies: productive cough or non-productive cough GI: Reports: abdominal pain : Denies: flank pain, urinary frequency or urinary urgency Musc: Denies: neck pain, back pain, extremity pain, joint pain, joint redness, limited range of motion or muscle weakness Skin/Breast: Denies: rash, pruritus, erythema, skin pain or skin tenderness Neuro: Denies: headache(s), numbness in extremities, weakness in extremities, sensory changes, difficulty walking, dizziness, confusion or Slurred speech present Psych: Denies: anxiety or depression Endo: Denies: polyuria All/Imm: Denies: urticaria, throat swelling or tongue swelling PFSH ED PFSH: Medical History ASHD (arteriosclerotic heart disease) Atrial fibrillation Atypical chest pain BPH NOS w ur obs/LUTS Good response to TAMSULOSIN. Carotid stenosis CHF (congestive heart failure) Hyperlipemia Hypertension Leg swelling Pacemaker Peripheral vascular disease Sleep apnea TIA (transient ischemic attack) Trigeminal neuralgia Ventral hernia Surgical History H/O bilateral cataract extraction H/O four vessel coronary artery bypass graft H/O heart artery stent Status post cryoablation Family History Other CAD (coronary artery disease) Cancer Diabetes Family history of prostate cancer Social History Smoking and tobacco status: former smoker Alcohol intake: never Adopted: No Caregiver/support person: No Lives independently: No Household members: spouse Marital status: Current occupational status: retired History of recent travel: No Current gender identity: Male Physical Exam Const: COMMON NORMALS: no acute distress, average body habitus, patient oriented x3, no limitations, healthy appearing, alert and well nourished GENERAL APPEARANCE: cooperative, comfortable, well kempt and well developed ORIENTATION/CONSCIOUSNESS: Yes awake, Yes oriented to person, Yes oriented to place and Yes oriented to time HENMT: COMMON NORMALS: normocephalic, external ears normal and Normal external nose present HEAD & SCALP: normal to inspection and normocephalic NOSE: Normal external nose present EXTERNAL EAR: Yes external ears normal MOUTH: Normal oral and palatal mucosa present THROAT: posterior oropharynx normal Eye: COMMON NORMALS: Equal, round and reactive pupils present and EOMs intact bilaterally GENERAL EYE: appearance normal, both eyes and all related structures PUPIL: Yes Equal, round and reactive pupils present Neck/C-Spine: COMMON NORMALS: full ROM, no lymphadenopathy, no meningeal signs and no JVD GENERAL: Yes normal visual inspection Lymph: LYMPHATIC: no lymphadenopathy noted Chest: COMMONS NORMALS: normal inspection of the chest and normal palpation of entire chest wall Resp: COMMON NORMALS: normal respiratory effort, No retractions, No use of accessory muscles, clear to auscultation bilaterally and percussion normal EFFORT & INSPECTION: Yes able to speak in complete sentences AUSCULTATION: clear to auscultation bilaterally PERCUSSION: percussion normal Cardio: COMMON NORMALS: no JVD, regular rate, regular rhythm, S1 normal heart sound present, S2 normal heart sound present and Peripheral pulses 2+ throughout RATE: regular rate RHYTHM: regular rhythm HEART SOUNDS: S1 normal heart sound present and S2 normal heart sound present PERIPHERAL PULSES: Peripheral pulses 2+ throughout GI: COMMON NORMALS: Soft to palpation and no masses INSPECTION: Yes normal to inspection PALPATION: Yes Soft to palpation and Yes Tenderness to palpation present (GI) Details: RLQ GI image (male): 1. tenderness : COMMON NORMALS: Yes no CVA tenderness BLADDER/KIDNEY EXAM: Yes no CVA tenderness Back/Pelvis: COMMON NORMALS: no CVA tenderness, thoracic and lumbar spine normal to inspection, no thoracic nor lumbar tenderness and thoraco-lumbar ROM normal Extremity: COMMON NORMALS: normal to inspection, full ROM, capillary refill normal, no joint enlargement and no pedal edema GENERAL: Yes normal exam except as noted OTHER: 1+ edema to bilateral lower extremities to mid calf. Neuro: COMMON NORMALS: patient oriented x3, CN's II-XII intact bilaterally, moves all extremities, no focal motor deficits, no sensory deficits noted and gait normal SENSORIUM/ORIENTATION: Yes alert, Yes oriented to person, Yes oriented to place and Yes oriented to time MENINGEAL SIGNS: Yes no meningeal signs Psych: COMMON NORMALS: mental status grossly normal, Normal thought process present, cooperative, normal affect and speech normal APPEARANCE: Yes well kempt ATTITUDE: Yes calm SPEECH: Yes normal speech THOUGHT PROCESS: Normal thought process present Skin: COMMON NORMALS: no rashes or lesions noted GENERAL SKIN EXAM: no rashes or lesions noted Course Vital Signs: Vital signs: Vital Signs Temperature 97.4 F L 06/08/20 14:35 Pulse Rate 64 06/08/20 21:20 Respiratory Rate 18 06/08/20 21:20 Blood Pressure 176/49 06/08/20 21:20 Pulse Oximetry 93 06/08/20 21:20 MDM - SOB/Dyspnea MDM Narrative: Medical decision making narrative: The patient came in complaining of shortness of breath which she is just been recently placed on 2 L of oxygen. He was doing significant exertion which she had sats in the 80s. Recommended increasing oxygen for activities and limiting his significant activity so he does not get hypoxic. His diarrhea appears to be mild and manageable as an outpatient. Recommended drinking increased fluids during his diarrhea and stopping going back to his normal level of fluids after the diarrhea subsides. He may return to the ER at any time if his symptoms worsen of either of these conditions. Incidentally when evaluating his abdomen CT showed 2 masses which have increased in size significantly from a year ago imaging. Discussed with Dr. Yang oncology who recommended he see general surgery first for a biopsy. Discussed with Dr. Cook who will see him in office to evaluate for possible biopsy of mass. The patient and his understand the plan of care and will follow up. Lab Data: Labs: Lab Results 06/08/20 06/08/20 06/08/20 Range/Units 15:58 15:58 15:58 WBC 5.8 (4.0-10.0) 10^3/ uL RBC 4.03 L (4.1-5.3) 10^6/u L Hgb 11.5 L (11.7-16.6) g/dL Hct 35.5 L (42.0-52.0) % MCV 88.1 (80-94) fL MCH 28.5 (28.0-34.0) pg MCHC 32.4 (30.0-36.0) g/dL RDW 14.4 (12.1-15.1) % Plt Count 149 (130-400) 10^3/c mm MPV 10.8 H (7.4-10.4) fL Neut % (Auto) 48.0 % Lymph % (Auto) 31.4 % [place] % (Auto) 14.6 % Eos % (Auto) 5.3 % Baso % (Auto) 0.5 % Neut # (Auto) 2.80 (1.8-7.7) 10^3/u L Lymph # (Auto) 1.8 (0.8-4.8) 10^3/u L [place] # (Auto) 0.9 (0.2-0.9) 10^3/u L Eos # (Auto) 0.3 (0.0-0.8) 10^3/u L Baso # (Auto) 0.0 (0.0-0.1) 10^3/u L Nucleated RBC % (a uto) 0 % Nucleated RBCs # 0.0 /100WBC D-Dimer 0.72 H (0-0.59) ug/mIFE U Sodium 140 (136-145) mmol/L Potassium 3.9 (3.5-5.1) mmol/L Chloride 101 (98-107) mmol/L Carbon Dioxide 29 (22-29) mmol/L Anion Gap 13.9 (5-19) BUN 30 H (8-23) mg/dL Creatinine 1.2 (0.7-1.2) mg/dL GFR Calculation Not Reportable Glucose 125 H (65-115) mg/dL Calculated Osmolal ity 298 H (285-295) mOsm/k g Lactic Acid (0.5-2.2) mmol/L Calcium 8.7 (8.5-10.5) mg/dL Total Bilirubin 0.4 (0.15-1.2) mg/dL AST 14 (0-40) U/L ALT 11 (0-41) U/L Alkaline Phosphata se 61 (40-130) IU/L Troponin T Baselin e (0-15) ng/L Troponin T 120 Min osiel (0-15) ng/L Delta Troponin T (0-10) ABS# NT-Pro-B Natriuret Pep 984 H (0-450) pg/mL Total Protein 6.2 L (6.6-8.7) g/dL Albumin 3.2 L (3.5-5.2) g/dL Globulin 3.0 (1.3-4.6) g/dL Lipase 9 L (13-60) U/L 06/08/20 06/08/20 06/08/20 Range/Units 15:58 15:58 18:34 WBC (4.0-10.0) 10^3/ uL RBC (4.1-5.3) 10^6/u L Hgb (11.7-16.6) g/dL Hct (42.0-52.0) % MCV (80-94) fL MCH (28.0-34.0) pg MCHC (30.0-36.0) g/dL RDW (12.1-15.1) % Plt Count (130-400) 10^3/c mm MPV (7.4-10.4) fL Neut % (Auto) % Lymph % (Auto) % [place] % (Auto) % Eos % (Auto) % Baso % (Auto) % Neut # (Auto) (1.8-7.7) 10^3/u L Lymph # (Auto) (0.8-4.8) 10^3/u L [place] # (Auto) (0.2-0.9) 10^3/u L Eos # (Auto) (0.0-0.8) 10^3/u L Baso # (Auto) (0.0-0.1) 10^3/u L Nucleated RBC % (a uto) % Nucleated RBCs # /100WBC D-Dimer (0-0.59) ug/mIFE U Sodium (136-145) mmol/L Potassium (3.5-5.1) mmol/L Chloride (98-107) mmol/L Carbon Dioxide (22-29) mmol/L Anion Gap (5-19) BUN (8-23) mg/dL Creatinine (0.7-1.2) mg/dL GFR Calculation Glucose (65-115) mg/dL Calculated Osmolal ity (285-295) mOsm/k g Lactic Acid 1.4 (0.5-2.2) mmol/L Calcium (8.5-10.5) mg/dL Total Bilirubin (0.15-1.2) mg/dL AST (0-40) U/L ALT (0-41) U/L Alkaline Phosphata se (40-130) IU/L Troponin T Baselin e 41 H (0-15) ng/L Troponin T 120 Min osiel 40.50 H (0-15) ng/L Delta Troponin T -0.50 L (0-10) ABS# NT-Pro-B Natriuret Pep (0-450) pg/mL Total Protein (6.6-8.7) g/dL Albumin (3.5-5.2) g/dL Globulin (1.3-4.6) g/dL Lipase (13-60) U/L Discharge Plan Discharge Patient Disposition: Home Clinical Impression: Acute exacerbation of chronic obstructive airways disease Diarrhea Qualifiers: Diarrhea type: unspecified type Qualified Code(s): R19.7 - Diarrhea, unspecified Abdominal mass Qualifiers: Abdominal location: other location Qualified Code(s): R19.09 - Other intra- abdominal and pelvic swelling, mass and lump Condition: Stable Prescriptions: No Action loteprednol etabonate [Lotemax] 0.5 % drops,suspension 1 drop ophthalmic (eye) BID@0800,1800 RF: 0 Combigan 0.2-0.5 % drops 1 drop ophthalmic (eye) BID@0800,1800 RF: 0 furosemide 40 mg tablet 40 mg PO BID@0600,1800 PRN (Reason: Edema) RF: 0 tamsulosin 0.4 mg capsule 0.4 mg PO DAILY@0800 RF: 0 isosorbide mononitrate 60 mg tablet extended release 24 hr 60 mg PO DAILY@0800 RF: 0 potassium chloride 20 mEq tablet,ER particles/crystals 20 meq PO DAILY@0800 RF: 0 epinephrine 0.3 mg/0.3 mL auto-injector 0.3 mg IM ONCE PRN (Reason: UNKNOWN) RF: 0 Zyrtec 10 mg capsule 10 mg PO DAILY PRN (Reason: Allergy Symptoms) RF: 0 montelukast [Singulair] 10 mg tablet 10 mg PO DAILY@0800 RF: 0 albuterol sulfate 2.5 mg /3 mL (0.083 %) solution for nebulization 2.5 mg INHALATION Q4H PRN (Reason: Shortness Of Breath) RF: 0 amlodipine 10 mg tablet 10 mg PO DAILY@0800 RF: 0 Symbicort 160-4.5 mcg/actuation HFA aerosol inhaler 2 puff INHALATION DAILY@0800 RF: 0 rivaroxaban 15 mg tablet 15 mg PO BID@0800,1800 RF: 0 budesonide 0.5 mg/2 mL suspension for nebulization 0.25 mg INHALATION BID@0800,1800 RF: 0 Lantus U-100 Insulin 100 unit/mL solution 42 unit SUBCUT BEDTIME@2100 RF: 0 cholecalciferol (vitamin D3) 2,000 unit tablet 2,000 unit PO DAILY@0800 RF: 0 sotalol 120 mg tablet 120 mg PO BID@0800,1800 RF: 0 baclofen 10 mg tablet 10 mg PO DAILY@0800 RF: 0 Novolog U-100 Insulin aspart 100 unit/mL solution 5 unit SUBCUT TID@0800,1200,1700 RF: 0 lisinopril 5 mg tablet 5 mg PO DAILY@0800 RF: 0 glucosamine HCl 1,500 mg tablet 1,500 mg PO DAILY@0800 RF: 0 prednisone 50 mg tablet 50 mg PO DAILY@0800 RF: 0 Discharge Orders: Discharge ED (Routine); Ordered 06/08/20 Ordered By: Kurtis Salas Referrals: Panchito Alston [Primary Care Provider] - Discharge Diet: Advance as tolerated Discharge Activity: Increase activity as tolerated Patient Instructions: Chronic Obstructive Pulmonary Disease (ED), Acute Diarrhea (ED) Activity Restrictions/Additional Instructions: You have diarrhea. Please continue to drink lots of fluids to help with this temporarily until your diarrhea resolves. Return to the ER with worsening symptoms. You have chronic obstructive pulmonary disease, COPD, which is now requiring oxygen. Please continue to monitor your pulse ox at home and return to the ER with worsening symptoms. Follow-up with your primary care doctor in 3 to 5 days to monitor improvement of this condition and return to the ER with worsening symptoms such as shortness of breath, chest pain or any other worrisome symptoms. Also you have 2 abdominal masses. Each of which has increased in size. I discussed with Dr. Yang oncologist who will not see you until you have a biopsy of the tissue in question. I discussed with surgeon who is agreed to see you in his clinic to evaluate for a biopsy of this mass. Case management should be contacting you within a couple days to help you get an appointment with Dr. Cook. Coding Level of Care Code ED Behavioral Health Therapist for [place] Fwd Exam Comprehensive
--- NOTE | 2020-06-08 16:37 | ECG_ITS ---
[facility] Test Date: 2020-06-08 Pat Name: Panchito Macedo Department: Room: Gender: Male Check Processing Clerk: : 1940 Requested By: Kurtis Salas Order Number: [id number] Guerrier MD: Janett Lion M.D. Measurements Intervals [place] Rate: 62 P: 226 IA: 260 QRS: -30 QRSD: 96 T: 53 QT: 453 QTc: 461 Interpretive Statements A paced, V sensed rhythm INFERIOR MYOCARDIAL INFARCTION [40+ ms Q WAVE AND/OR ST/T ABNORMALITY IN II/aVF], OF INDETERMINATE AGE Compared to ECG 05/20/2020 12:25:26 Myocardial infarct finding now present Left-axis deviation no longer present Incomplete right bundle-branch block no longer present Electronically Signed On 06-08-2020 23:51:30 PUNCH CARD OPERATOR by Janett Lion M.D. [id number] f
[2020-06-08 17:01] LABS: Basophils % 0.5 %; Eosinophils # 0.3 10^3/uL (0.0-0.8); Eosinophils % 5.3 %; Hematocrit 35.5 % (42.0-52.0); Hemoglobin 11.5 g/dL (11.7-16.6); Lymphocytes # 1.8 10^3/uL (0.8-4.8); Lymphocytes % 31.4 %; Mean Corpuscular HGB Conc 32.4 g/dL (30.0-36.0); Mean Corpuscular Hemoglobin 28.5 pg (28.0-34.0); Mean Corpuscular Volume 88.1 fL (80-94); Mean Platelet Volume 10.8 fL (7.4-10.4); Monocytes # 0.9 10^3/uL (0.2-0.9); Monocytes % 14.6 %; Nucleated Red Blood Cells % 0 %; Platelet Count 149 10^3/cmm (130-400); Red Blood Count 4.03 10^6/uL (4.1-5.3); Red Cell Distribution Width 14.4 % (12.1-15.1); White Blood Count 5.8 10^3/uL (4.0-10.0)
[2020-06-08 17:08] LABS: D Dimer 0.72 ug/mIFEU (0-0.59)
[2020-06-08 17:16] LABS: Lactic Sepsis W/Reflex 1.4 mmol/L (0.5-2.2); Troponin(5th) Baseline 41 ng/L (0-15)
[2020-06-08 17:18] LABS: Slide Review Slide Review Perform
[2020-06-08 17:23] LABS: Alanine Aminotransferase 11 U/L (0-41); Albumin Level 3.2 g/dL (3.5-5.2); Alkaline Phosphatase 61 IU/L (40-130); Anion Gap 13.9 (5-19); Aspartate Amino Transferase 14 U/L (0-40); Blood Urea Nitrogen 30 mg/dL (8-23); Calcium 8.7 mg/dL (8.5-10.5); Carbon Dioxide 29 mmol/L (22-29); Chloride 101 mmol/L (98-107); Glucose 125 mg/dL (65-115); Lipase 9 U/L (13-60); NT Pro B Type Natriuretic Pept 984 pg/mL (0-450); Osmolality Calculated 298 mOsm/kg (285-295); Potassium 3.9 mmol/L (3.5-5.1); Sodium 140 mmol/L (136-145); Total Bilirubin 0.4 mg/dL (0.15-1.2); Total Protein 6.2 g/dL (6.6-8.7)
--- NOTE | 2020-06-08 18:06 | CTR_ITS ---
PROCEDURE INFORMATION: Exam: CT Abdomen And Pelvis With Contrast Exam date and time: 06/08/2020 6:31 PM Age: 80 years old Clinical indication: Abdominal pain; Localized; Right lower quadrant (rlq); Prior surgery; Surgery type: Cabg, stents; Additional info: Rlq abdominal tenderness TECHNIQUE: Imaging protocol: Computed tomography of the abdomen and pelvis with intravenous contrast. Radiation optimization: All CT scans at this facility use at least one of these dose optimization techniques: automated exposure control; mA and/or kV adjustment per patient size (includes targeted exams where dose is matched to clinical indication); or iterative reconstruction. Contrast material: VISI 320; Contrast volume: 95 ml; Contrast route: INTRAVENOUS (IV); COMPARISON: CT Abdomen/Pelvis Renal [id number] 09/06/2018 5:45 AM RADIATION DOSE METRICS: Total DLP (mGy-cm): 1271.93 FINDINGS: Lungs: There is bibasilar interstitial and ground-glass opacity in the lungs compatible with edema, pneumonitis and/or atelectasis. Liver: A few tiny hepatic hypodensities are too small to characterize. Gallbladder and bile ducts: Normal. No calcified stones. No ductal dilation. Pancreas: Normal. No ductal dilation. Spleen: The spleen is normal. An accessory splenule is present. Adrenal glands: Normal. No mass. Kidneys and ureters: There is no evidence of hydronephrosis. There is no evidence of renal calcifications. Stomach and bowel: There is also progressive reticular and soft tissue density in the mesentery with a mildly tethered appearance of the adjacent loops of bowel. The soft tissue density mass is poorly marginated but on image 38 for example, the mass measures approximately 13.2 x 6.3 cm compared to the prior exam where it measured 11.5 x 4.5 cm. There is no evidence of intestinal perforation or obstruction. There is moderately excessive colonic stool content. Extensive diverticulosis is present in the distal colon. There is no evidence of colitis/diverticulitis. Appendix: A normal appendix is identified. Intraperitoneal space: There is new/increased diffuse haziness of the fat in the mesentery that may reflect mild inflammatory changes/edema or desmoplastic type changes.. No free air. No significant fluid collection. Retroperitoneal space: The previously visualized retroperitoneal soft tissue density has increased since the prior exam now measuring on image 45 4.4 by 10.0 cm were previously at the same level it measured 4.3 x 6.8 cm. On sagittal images, the epicenter of the mass is superior to the L4-L5 disc space level and in particular is approximately anterior to the L3-L4 disc space level. 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 A small amount of soft tissue density associated with the mass is identified between the aorta and spine axial image 41. Vasculature: The aorta demonstrates moderate atherosclerotic calcification. Lymph nodes: Multiple subcentimeter lymph nodes are noted in the abdomen and pelvis. No pathologic adenopathy in the abdomen or pelvis. There is a pathologically enlarged right retrocrural lymph node image 2 measuring 1.5 cm in short axis. Urinary bladder: There is nonspecific bladder wall thickening. This may be related to incomplete distention. Reproductive: Unremarkable as visualized. Bones/joints: Osteopenia and moderate degenerative changes are noted. Soft tissues: There are small bilateral fat filled inguinal hernias. Other findings: There are moderate to severe emphysematous changes. CT/CT abdomen pelvis w con* [id number] IMPRESSION: 1. Increasing retroperitoneal soft tissue density mass and increasing infiltrative soft tissue density within the mesentery. There are several characteristics concerning for lymphoma including the involvement of the mesentery, after the center of the mass superior to the L4-L5 disc space level and soft tissue density between the aorta and spine. This is not a typical are classic appearance of retroperitoneal fibrosis. PET scan can be helpful for further evaluation. Right retrocrural adenopathy is noted in the lower chest. 2. No bowel thickening, ileus or obstruction. There is haziness of the mesenteric fat that may reflect trace edema or desmoplastic type changes concerning for lymphoma without definite colitis or bowel inflammatory changes. 3. There is bibasilar interstitial and ground-glass opacity in the lungs compatible with edema, pneumonitis and/or atelectasis. Radiation Dose CTDIVOL = (mGy): DLP = 1271.93 (mGy-cm)
--- NOTE | 2020-06-08 18:37 | ECG_ITS ---
Test Date: 2020-06-08 Pat Name: Panchito Macedo Department: Room: Gender: Male Pharmaceutical Officer: : 1940 Requested By: Kurtis Salas Order Number: [id number] Chey MD: Janett Lion M.D. Measurements Intervals [place] Rate: 62 P: 187 FL: 264 QRS: -33 QRSD: 103 T: 63 QT: 468 QTc: 478 Interpretive Statements ELECTRONIC ATRIAL PACEMAKER LEFT AXIS DEVIATION [QRS AXIS < -30] PATTERN CONSISTENT WITH PULMONARY DISEASE INCOMPLETE RIGHT BUNDLE BRANCH BLOCK [90+ ms QRS DURATION, TERMINAL R IN V1/V2, 40+ ms S IN I/aVL/V4/V5/V6] PROLONGED QT INTERVAL Compared to ECG 06/08/2020 14:43:24 Left-axis deviation now present Incomplete right bundle-branch block now present Prolonged QT interval now present Myocardial infarct finding no longer present Electronically Signed On 06-09-2020 0:11:29 MEDICAL DETAILIST by Janett Lion M.D. [id number]
[2020-06-08] MEDS: iodixanol 320 mg/mL 100mL Btl IV (19:07)
--- NOTE | 2020-06-09 08:45 | DCPLANNER ---
aquatic facility manager had message to schedule a follow up appointment for patient with general surgery. aquatic facility manager emailed Felix at general surgery, patients information. Patients information will be printed and reviewed. Clinic will call patient with appointment information.
--- NOTE | 2020-06-11 10:04 | DCPLANNER ---
Patient has a follow up appointment scheduled for , June 17, 2020 t 10:[address] Cook. Clinic will call patient with appointment information.
--- NOTE | 2020-07-15 13:51 | DCPLANNER ---
Patient had a follow up appointment scheduled for 06.17.20 with general surgery - patient did attend appointment.
== END 2020-06-08 21:29 | disposition home or self-care (01) ==
PROVIDERS: Emergency Provider Family Medicine; PCP Family Medicine
DX: J44.1 Chronic obstructive pulmonary disease with (acute) exacerbation (principal); R19.09 Other intra-abdominal and pelvic swelling, mass and lump; R19.7 Diarrhea, unspecified; Z79.4 Long term (current) use of insulin; I48.91 Unspecified atrial fibrillation; I11.0 Hypertensive heart disease with heart failure; I50.9 Heart failure, unspecified; E78.5 Hyperlipidemia, unspecified; Z95.0 Presence of cardiac pacemaker; Z86.73 Personal history of transient ischemic attack (TIA), and cerebral infarction without residual deficits; Z95.1 Presence of aortocoronary bypass graft; Z87.891 Personal history of nicotine dependence
CPT/HCPCS: 12345; 36415; 71045; 74177; 80053; 83605; 83690; 83880; 84484; 85025; 85378; 93005; 94640; 99283; 99284; J7611; Q9967

== ENCOUNTER 2020-06-28 10:10 | Outpatient (CLI) | payer MEDICARE, OTHER, SELFPAY ==
--- NOTE | 2020-06-28 10:30 | US_ITS ---
WS: [id number] ULTRASOUND SOFT TISSUES bilateral axilla. HISTORY: ENLARGED LYMPH NODES COMPARISON: None available. TECHNIQUE: 2-D and color Doppler imaging is submitted. Bilateral axillary lymph nodes are identified. These lymph nodes are mostly fatty replaced. Questiona ble enlargement of a lymph node in the LEFT axilla. This lymph node measures 2.1 x 1.5 x 0.9 cm. Not definitely abnormal. US/US soft tissue/extremity [id number] IMPRESSION: Bilateral small axillary lymph nodes. No definitely abnormal lymph nodes. One l ymph node in the LEFT axilla has very mild fatty replacement of nearly entire n ode but no replacement with tumor identified.
== END 2020-06-28 10:11 | disposition home or self-care (01) ==
LOC: RAD 10:15
PROVIDERS: PCP Family Medicine; Visit Provider Surgery
DX: R59.9 Enlarged lymph nodes, unspecified (principal)
CPT/HCPCS: 76882

== ENCOUNTER → 2020-07-08 11:56 | Outpatient (BNVA) | payer MEDICARE, OTHER, SELFPAY | PROVIDERS: PCP Family Medicine; Visit Provider Specialist | DX: G43.711 Chronic migraine without aura, intractable, with status migrainosus (principal); I65.23 Occlusion and stenosis of bilateral carotid arteries; Z87.891 Personal history of nicotine dependence | CPT/HCPCS: 64615; J0585 ==

== ENCOUNTER → 2020-07-15 08:55 | Outpatient (BNVA) | payer MEDICARE, OTHER, SELFPAY | PROVIDERS: PCP Family Medicine; Visit Provider Surgery | DX: Z20.828 Contact with and (suspected) exposure to other viral communicable diseases (principal); R19.00 Intra-abdominal and pelvic swelling, mass and lump, unspecified site | CPT/HCPCS: 87635 ==

== ENCOUNTER 2020-07-20 08:04 | Day surgery (SDC) | payer OTHER, MEDICARE, SELFPAY ==
[2020-07-19 11:07] VITALS: BMI 32.1
[2020-07-20] VITALS (14 sets, daily range): BP systolic 140–162; BP diastolic 65–85; PULSE 58–90; RESP 16–18; TEMP 36.1–36.4; O2SAT 90–97
[2020-07-20] MEDS: sodium chloride 0.9% 1,000 ML 30 ML IV (08:15)
[2020-07-20] MEDS: heparin 5,000 unit/mL INJ 1 mL 3000 UNIT SUBCUT (08:54)
[2020-07-20 09:09] LABS: Glucose Point of Care 117 mg/dL (70-110)
--- NOTE | 2020-07-20 09:29 | ANES.PREANE2 ---
Pre-Anesthetic Assessment Pre-Anesthetic Assessment: Height/Weight: Height 1.7 m Weight 92.986 kg Temp Pulse Resp BP Pulse Ox 97.6 F 73 18 140/65 97 07/20/20 08:40 07/20/20 08:40 07/20/20 08:40 07/20/20 08:40 07/20/20 08:40 Preop Diagnosis: ABDOMINAL MASS Proposed Procedure: Operation Date: 07/20/20 10:05 Proposed Procedures p Laparoscopy [id number] R19.00 poss open abdominal mass biopsy(Not Applicable) - Fransico Cook MD Was Beta Cabrera taken within 24 hours: Yes Last intake: Intake Last Liquid Date 07/19/20 Last Liquid Time 21:00 Last Solid Date 07/19/20 Last Solid Time 12:00 Social: Social History: No alcohol and No tobacco Exam: Pre-Anes Outpt Exam: alert, oriented x 3 and regular rate & rhythm Additional Exam Findings (including area of procedure): Decreased BS, rhonchi Airway: Submandibular: WNL Cervical ROM: WNL MP: 2 Dentition: False Pulmonary: Pulmonary: COPD Comments: Home O2 CV/HEM: CV/HEM: Afib, Anemia, Angina (Stable), Arrythmia, CAD, CHF, HTN and PVD : : Chronic renal Insufficiency Metabolic: Metabolic: Morbid obesity Musc/skel: Musc/skel: Weakness Neuropsych: Neuropsych: TIA Anesthetic Plan: ASA status: 4 Anesthesia: General Risk of > 500 ml blood loss (7ml/kg in children): No PFSH Anesthesia PFSH: Medical History ASHD (arteriosclerotic heart disease) Atrial fibrillation Atypical chest pain BPH NOS w ur obs/LUTS Good response to TAMSULOSIN. Carotid stenosis CHF (congestive heart failure) Hyperlipemia Hypertension Leg swelling Pacemaker Peripheral vascular disease Sleep apnea TIA (transient ischemic attack) Trigeminal neuralgia Ventral hernia Surgical History H/O bilateral cataract extraction H/O four vessel coronary artery bypass graft H/O heart artery stent Status post cryoablation Family History Other CAD (coronary artery disease) Cancer Diabetes Family history of prostate cancer Social History Smoking and tobacco status: former smoker Alcohol intake: never Adopted: No Caregiver/support person: No Lives independently: No Household members: spouse Marital status: Current occupational status: retired History of recent travel: No Current gender identity: Male Data Anesthesia Other Labs: Laboratory Results - last 48 hr 07/20/20 09:04 POC Glucose 117 H Cardiac Studies: No Data to Display
--- NOTE | 2020-07-20 09:55 | W.PM.OPSFHP ---
Same Day Surgery H&P Indication for Procedure/HPI DATE OF PROCEDURE: July 20, 2020 CHIEF COMPLAINT/INDICATIONFOR SURGICAL PROCEDURE: Am here for surgery PREOP DIAGNOSIS: ABDOMINAL MASS PLANNED PROCEDRUE: Operation Date: 07/20/20 10:05 Proposed Procedures p Laparoscopy [id number] R19.00 poss open abdominal mass biopsy(Not Applicable) - Fransico Cook MD This is a pleasant 80 years old gentleman with obesity and associated other medical morbidities COPD, diabetes, congestive heart failure, CAD, A. fib, hypertension, pacemaker placement, TIAs. on home O2. Presents to my practice as a referral from the emergency department as the patient did encounter some abdominal pain and went to the ER his pain was mostly cramping worse towards the right lower quadrant for few days in addition that he presented with shortness of breath. With regard to the abdominal pain nothing seems to make it better or worse A CT scan of the abdomen pelvis was obtained and showed: 1. Increasing retroperitoneal soft tissue density mass and increasing infiltrative soft tissue density within the mesentery. There are several characteristics concerning for lymphoma including the involvement of the mesentery, after the center of the mass superior to the L4-L5 disc space level and soft tissue density between the aorta and spine. This is not a typical are classic appearance of retroperitoneal fibrosis. PET scan can be helpful for further evaluation. Right retrocrural adenopathy is noted in the lower chest. 2. No bowel thickening, ileus or obstruction. There is haziness of the mesenteric fat that may reflect trace edema or desmoplastic type changes concerning for lymphoma without definite colitis or bowel inflammatory changes. 3. There is bibasilar interstitial and ground-glass opacity in the lungs compatible with edema, pneumonitis and/or atelectasis. According to the patient and his spouse that is escorting him today, he reports that he had about 5 years ago a mass that was found and apparently over time it grew and initially he had surgical consultation with CT surgery as he describes and was counseled to have follow-up imaging but apparently something along the line that there was disconnect in the patient did not have idea what happened after as [facility] But it does not seem that he had further follow-ups with any clinician there after with that regard. Patient comes today and apparently in comparison the mass has been increasing in size which involves retroperitoneal component. Patient is interested to have something done with that mass. Interim history 07/20/2020 Patient comes today for diagnostic laparoscopy possible laparotomy for a biopsy of the abdominal mass. This has been discussed at the tumor board and the consensus is to obtain soft tissue sample for diagnosis that likely matches with lymphoma. I did discuss with interventional radiology Dr. Mcintyre about trying to avoid the patient surgery and if were able to do the CT-guided and after looking into the images she felt that its not going to be safe trying to access and get the retroperitoneal lymph node as it is in the vicinity of the IVC. Certainly there would be no attempt to obtain tissues from the mesenteric adenopathy due to the nearby bowel. I did discuss with the patient and his spouse about the above dialogues and he agrees to proceed with surgery accordingly ROS All system review negative except as per the above or per problem list Medications/Allergies* Home Medications Medication Instructions Recorded Confirmed Type albuterol sulfate 2.5 mg INHALATION Q4H PRN 06/18/19 07/19/20 History amlodipine 10 mg tablet 10 mg PO DAILY@0800 tab 06/18/19 07/20/20 History baclofen 10 mg tablet 10 mg PO DAILY@0800 tab 06/18/19 07/20/20 History budesonide 0.5 mg/2 mL suspension 0.25 mg INHALATION BID@0800,1800 06/18/19 07/19/20 History for nebulization budesonide-formoterol HFA 160 2 puff INHALATION DAILY@0800 gm 06/18/19 07/19/20 History mcg-4.5 mcg/actuation aerosol inhaler cetirizine 10 mg capsule 10 mg PO DAILY PRN cap 06/18/19 07/20/20 History cholecalciferol (vitamin D3) 50 2,000 unit PO DAILY@0800 tab 06/18/19 07/20/20 History mcg (2,000 unit) tablet epinephrine 0.3 mg/0.3 mL 0.3 mg IM ONCE PRN 06/18/19 07/19/20 History injection, auto-injector furosemide 40 mg tablet 40 mg PO BID@0600,1800 PRN 06/18/19 07/20/20 History glucosamine HCl 1,500 mg tablet 1,500 mg PO DAILY@0800 tab 06/18/19 07/20/20 History insulin aspart U-100 100 unit/mL 5 unit SUBCUT TID@0800,1200,1700 06/18/19 07/20/20 History subcutaneous solution insulin glargine 100 unit/mL 42 unit SUBCUT BEDTIME@2100 ml 06/18/19 07/20/20 History subcutaneous solution isosorbide mononitrate 60 mg 60 mg PO DAILY@0800 06/18/19 07/20/20 History tablet,extended release 24 hr lisinopril 5 mg tablet 5 mg PO DAILY@0800 tab 06/18/19 07/20/20 History montelukast 10 mg tablet 10 mg PO DAILY@0800 tab 06/18/19 07/20/20 History potassium chloride 20 mEq 20 meq PO DAILY@0800 tab 06/18/19 07/20/20 History tablet,extended release(part/cryst) rivaroxaban 15 mg tablet 15 mg PO DAILY tab 06/18/19 07/19/20 History sotalol 120 mg tablet 120 mg PO BID@0800,1800 06/18/19 07/20/20 History tamsulosin 0.4 mg capsule 0.4 mg PO DAILY@0800 cap 06/18/19 07/20/20 History brimonidine 0.2 %-timolol 0.5 % 1 drop OPHTHALMIC (EYE) 11/04/19 07/20/20 History eye drops BID@0800,1800 loteprednol etabonate 0.5 % eye 1 drop OPHTHALMIC (EYE) 11/04/19 07/08/20 History drops,suspension BID@0800,1800 Allergies/Adverse Reactions Allergy/AdvReac Type Severity Reaction Status Date / Time acetaminophen [From Tylenol] Allergy unknown Verified 07/08/20 12:01 calcitriol Allergy unknown Verified 07/08/20 12:01 fish oil Allergy unknown Verified 07/08/20 12:01 gabapentin Allergy unknown Verified 07/08/20 12:01 hydrocodone Allergy itching Verified 07/08/20 12:01 rash oxycodone Allergy unknown Verified 07/08/20 12:01 red dye Allergy ALGY-Hives Verified 07/19/20 10:55 Vrlxpta-Tkb-Ozc Reductase Allergy unknown Verified 07/08/20 12:01 Inhibitor Sulfa (Sulfonamide Allergy urticaria Verified 07/08/20 12:01 Antibiotics) pruritis tramadol Allergy unknown Verified 07/08/20 12:01 Current Medications: Generic Name Dose Route Start Last Admin Trade Name Jennifer PRN Reason Stop Dose Admin Sodium Chloride 1,000 mls @ 30 mls/hr 07/20/20 08:15 07/20/20 08:15 Sodium Chloride 0.9% IV 07/21/20 08:14 30 mls/hr .Q24H CURRY Administration Pertinent History/Comorbid Conditions* Medical History (Updated 06/18/20 @ 12:26 by Fransico Cook MD) ASHD (arteriosclerotic heart disease) Atrial fibrillation Atypical chest pain BPH NOS w ur obs/LUTS Good response to TAMSULOSIN. Carotid stenosis CHF (congestive heart failure) Hyperlipemia Hypertension Leg swelling Pacemaker Peripheral vascular disease Sleep apnea TIA (transient ischemic attack) Trigeminal neuralgia Ventral hernia Surgical History (Updated 07/14/19 @ 11:09 by Janett Lion MD) H/O bilateral cataract extraction H/O four vessel coronary artery bypass graft H/O heart artery stent Status post cryoablation Family History (Updated 11/02/19 @ 15:29 by Kobe Hernandez MD) Family history of prostate cancer Diabetes CAD (coronary artery disease) Cancer Social History Smoking and tobacco status: former smoker Alcohol intake: never Adopted: No Caregiver/support person: No Lives independently: No Household members: spouse Marital status: Current occupational status: retired History of recent travel: No Current gender identity: Male Pertinent Exam Findings alert, oriented x 3, clear to auscultation bilaterally, regular rate & rhythm and procedure specific exam findings (Abdomen is soft nontender and left-sided abdominal masses appreciated, obes) Recommendations Surgery/Procedure today (Diagnostic laparoscopy possible laparotomy with biopsy of abdominal mass) Coding Level of Care Code Acute 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
--- NOTE | 2020-07-20 11:22 | PTH.FRZRPT ---
Frozen Section Notes Specimen(s): Mesenteric lymph node Gross: The specimen is received in 2 Telfa pads, labeled with the patient's name and MRN number and additionally labeled, mesenteric lymph node, abdominal mass and consists of 11-12 cores ranging in length from 0.7 to 0.9 cm, a couple of cores are sent for flow cytometry and the rest are submitted in formalin. Immediate touch prep interpretation is done on the telpha cores. Preliminary Impression: Lymph node, mesenteric, abdominal mass, immediate interpretation: ?Lymphoid tissue. ?No epithelial malignancy identified. ?Specimen sent for flow cytometry to rule out lymphoma. - Specimen Information Pathologist: Shahida Benavidez Date: 07/20/20 Specimen reported at what time: 11:16 - Clinician Specimen collection time: 11:07 Clinician reported to: Fransico Cook
[2020-07-20] MEDS: lidocaine 2% INJ 20 mL INJECTION (11:30)
--- NOTE | 2020-07-20 11:38 | P.OP_ITS ---
Operative Report Date of procedure: July 20, 2020 Pre-op Diagnosis: ABDOMINAL MASS Post-op Diagnosis: Mesenteric lymphadenopathy likely involving the mesentery of jejunal bowel loops Procedure Done: Diagnostic laparoscopy and biopsies of mesenteric mass Implants: Large piece of Surgicel Specimens removed/disposition: Multiple Miah-Cut needle biopsies of mesenteric mass sent for flow cytology and permanent pathology And more biopsies were sent for microbiology Surgeon: Fransico Cook Aircraft Systems Repairer: Anesthesia: General (Cici Leyva) Estimated blood loss (mL): 10 IV fluids (mL): 700 Urine output (mL): 500 Condition: stable Disposition: same day Procedure: After identifying the patient in the holding area, was taken to the operating room, placed in supine position, intubated by anesthesia, prophylactic IV antibiotics were given per protocol. Leung catheter was inserted by the circulating nurse revealing clear urine,time- out was done verifying the patient's name/date of /planned procedure and destination after the procedure, all were in agreement. Appropriate pharmacologic DVT prophylaxis were given to the patient with coordination with cardiac services. Patient was appropriately secured to the table, all pressure points were padded. Prep and drape of the abdomen was done under the usual sterile technique, a Veras trocar technique was used through an supraumbilical skin incision, to stay sutures were applied to the fascia, and safe entrance to the abdominal cavity was achieved, low flow followed by high flow of CO2 gas, started by 0 scope 10 mm, no injuries were detected, followed by that a 30? millimeter scope was inserted a.Flow at 30 L/min and pressure at 12 to 15 mmHg. A 5 mm trocar was inserted under direct vision in the right upper quadrant, followed by a another one at the right lower quadrant. There was no evidence of carcinomatosis or ascites or peritoneal deposits or liver metastatic disease Patient was noticed to have large mesenteric mass involving the mesentery of the jejunal loops and at that point I decided to perform Multiple Miah-Cut needle biopsies using 18-gauge needle 20 cm in length under direct visualization, multiple specimens were passed in saline for pathology for flow cytometry and the remaining of the specimens to be sent in formalin at the discretion of pathology. I did get a phone call from pathology that they have enough specimen to run for flow cytometry and permanent. Additional biopsies were sent for microbiology for cultures and sensitivities.And there is no need for additional biopsies. I was able to secure hemostasis alternating between Bovie cauterization and application of Surgicel.Followed by spreading the omentum on top of the site of the biopsies to keep the Surgicel in place. Final look laparoscopy showed no evidence of bleeding or injuries. Camera was switched to a 5 mm 30 degree and the Veras trocar fascial defect was closed using fascial closure device using #1 PDS sutures under direct visualization.All trochars were taken out under direct vision. And gas was allowed to escape. Leung catheter were taken out at the end of the procedure Patient tolerated the procedure well and got extubated, was taken to the recovery area in stable condition Count of instruments, needles and sponges were completed at the end of the procedure I was present for the whole entire procedure
--- NOTE | 2020-07-20 12:00 | SUR.PHASEI ---
PT SLEEPS IF NOT DISTURBED VSS MONITOR WITH MOSTLY PACED BEATS NOTED, OTHERWISE IRREGULAR BEATS, SATS ON 8L MASK 95% NO DISTRESS NOTED ABD SOFT WITH 3 SITES D/I BILAT SCDS ON.
[2020-07-20 12:16] LABS: Glucose Point of Care 127 mg/dL (70-110)
[2020-07-20] MEDS: fentaNYL 50 mcg/mL INJ 2mL IVP (12:22)
--- NOTE | 2020-07-20 12:34 | SUR.PHASEI ---
1222 PT MORE ALERT RATES PAIN AT 8 PT CANNOT TAKE PO PAIN MEDS, PT GIVEN FENTANYL IVP ORDERED PT HOPES TO TAKE MOTRIN AT HOME. PT HOB AT 30 PT INSTRUCTED TO COUGH AND DEEP BREATH SAT DOWN TO 85 BUT BACK UP NOW.TO 93
--- NOTE | 2020-07-20 13:19 | PC.NURSE ---
Pt stated is allergic to oxycodone, hydrocodone and tylenol and takes child dosage of Ibuprofen for pain relief. Bleeding risk regarding taking NSAIDS and lovenox given to pt and by Dr melton with me present. Teaching also done by me.pt stated understanding and written instructions given.
--- NOTE | 2020-07-20 15:06 | PC.NURSE ---
Pt vomited small amount of clear liquid when he sat on side of bed for the first time. He declined offer of oral Zofran. He stated he felt better and wanted to go home. Pt ambulated to bathroom with assistance and then discharged to home.
--- NOTE | 2020-07-20 16:10 | ANE.PACU2 ---
Inpatient post-anesthesia follow up: Airway intact: Yes Vital signs: Temperature 97 F Pulse Rate 75 Respiratory Rate 18 Blood Pressure 147/75 Pulse Oximetry 94 Oxygen Delivery Me thod Room Air Oxygen Flow Rate 3 Fraction of Inspir ed Oxygen Hydration adequate: Yes Nausea and vomiting: No Pain level: 1 Mental status: Baseline
[2020-07-22 09:20] LABS: Miscellaneous Test See Scanned Lab Rpt
== END 2020-07-20 14:45 | disposition home or self-care (01) ==
PROVIDERS: PCP Family Medicine; Visit Provider Surgery
PROC: (CPT 49320; principal; 2020-07-20 10:00)
DX: R19.09 Other intra-abdominal and pelvic swelling, mass and lump (principal); R59.1 Generalized enlarged lymph nodes; E66.01 Morbid (severe) obesity due to excess calories; Z68.32 Body mass index [BMI] 32.0-32.9, adult; J44.9 Chronic obstructive pulmonary disease, unspecified; I11.0 Hypertensive heart disease with heart failure; I50.9 Heart failure, unspecified; I25.10 Atherosclerotic heart disease of native coronary artery without angina pectoris; I48.91 Unspecified atrial fibrillation; Z95.0 Presence of cardiac pacemaker; Z86.73 Personal history of transient ischemic attack (TIA), and cerebral infarction without residual deficits; Z99.81 Dependence on supplemental oxygen; N40.1 Benign prostatic hyperplasia with lower urinary tract symptoms; N13.8 Other obstructive and reflux uropathy; E78.5 Hyperlipidemia, unspecified; G47.30 Sleep apnea, unspecified; Z87.891 Personal history of nicotine dependence; Z82.49 Family history of ischemic heart disease and other diseases of the circulatory system
CPT/HCPCS: 49320; 12345; 36416; 82962; 87070; 87176; 87205; 88184; 88185; 88309; 96372; J0690; J1100; J1644; J2405; J2704; J3010; J3490; J7030

== ENCOUNTER 2020-08-12 13:06 | Outpatient (CLI) | payer OTHER, MEDICARE, SELFPAY ==
--- NOTE | 2020-08-12 15:18 | ONC CON_ITS ---
Dr. Méndez New Patient Note Patient: Panchito Macedo Unit #: [id number]: [id number] Dicatated By: Kole Méndez M.D.Date of Visit: Aug 12, 2020 Onc MED New Patient/Consult Referring Physician: Dr. LA NENA COOK M.D. Chief Complaint: Lymphoma. History of Present Illness: This is an 80-year-old man who was recently diagnosed with marginal zone lymphoma. He had presented with abdominal pain which have been getting progressively worse over about [address] abdomen/pelvis on 06/08/2020 showed mesenteric mass with epicenter superior to the L4-L5 disc space level measuring 4.4 x 10.0 cm. It was noted to have enlarged compared to prior study from August 2018. Also noted was a pathologically enlarged right retrocrural lymph node measuring 1.5 cm. There was no associated bowel thickening, ileus, or obstruction. There was no hydronephrosis. Bibasilar interstitial and groundglass opacity in the lungs was felt to be compatible with edema, pneumonitis, and or atelectasis. He was referred to Dr. Cook. On 07/20/2020 he underwent diagnostic laparoscopy with biopsies of the mesenteric mass. 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 IHC stains showed positivity for CD20, and BCL-2. They were negative for CD10, BCL6, and cyclin D1. CD5 was negative in B cells and positive in T cells. The Ki-67 was low at less than 10%. He is seen now for further management. He has had limited activity tolerance since his stroke, and that has not changed significantly. He does walk regularly and he is able to do some light work. ECOG score is 1. His appetite has been good. He has been gaining weight. He has not had fever. For the past 3 months he has had night chills/sweating. They have been getting pretty bad during the past week or 2. He has shortness of breath and cough. He is on home oxygen. He has just occasional chest pain. He continues to have constant abdominal pain, and at times it is more severe. He has some nausea, and he has acid reflux. He also has constipation, but bowel function generally has been adequate with milk of magnesia. He has some hesitancy with urination, but bladder function also has been adequate. He has some joint pain, but it is managed pretty well with glucosamine. He is on Botox for chronic headaches. Recently he has been having episodes of dizziness. He has neuropathy in his hands and feet. Past Medical History: His medical history consists of atrial fibrillation, benign prostatic hypertrophy, carotid stenosis, cerebrovascular disease with history of TIAs and strokes, chronic obstructive pulmonary disease, congestive heart failure, coronary artery disease, gastroesophageal reflux disease, hypertension, obstructive sleep apnea, peripheral arterial disease, trigeminal neuralgia, and type II diabetes. Past Surgical History: His surgical/procedural history consists of cataract excision, coronary angioplasty/stent placement, coronary artery bypass surgery, placement of permanent pacemaker, and right carotid artery stent placement. Medications: Albuterol Sulfate ((2.5 mg/3ml) 0.083%) Nebulization solution Inhalation 8x/d, All Day Allergy Tablet Oral, Baclofen (10 mg) Tablet Oral daily, Betapace (120 mg) Tablet Oral b.i.d., Brimonidine Tartrate-Timolol (0.2-0.5 %) Solution Ophthalmic b.i.d., Budesonide (0.25 mg/2mL) Aerosol Powder, Breath Activated Inhalation b.i.d., Budesonide-Formoterol Fumarate (160-4.5 mcg/act) Aerosol Inhalation daily, Furosemide (40 mg) Tablet Oral b.i.d., Glucosamine HCl (1500 mg) Tablet Oral daily, Insulin Aspart (5 Units/mL) Subcutaneous ac (tid), Insulin Glargine (42 Units/mL) Subcutaneous at bedtime, Isosorbide Mononitrate ER (60 mg) Tablet SR 24 HR Oral daily, Klor-Con (20 meq) Capsule, controlled release Oral daily, Lisinopril (5 mg) Tablet Oral daily, Lotemax (0.5 %) Suspension Ophthalmic b.i.d., Montelukast Sodium (10 mg) Tablet Oral daily, Norvasc (10 mg) Tablet Oral daily, Rivaroxaban (15 mg) Tablet Oral daily, Tamsulosin HCl (0.4 mg) Capsule Oral daily, Vitamin D3 (2000 units ) Capsule Oral daily Allergies: Acetaminophen, Calcitriol, Fish Oil, Gabapentin, HYDROcodone-Acetaminophen, oxyCODONE HCl, Red Dye, Statins, Sulfa Antibiotics, and traMADol HCl. Social History: Mr. Macedo is . He had previously smoked 1 pack of cigarettes daily. He quit 35 years ago. He has had some alcohol use in the past, but never heavy. He quit drinking at least 50 years ago. Family History: Father of prostate cancer at age 77. Mother with lymphoma at age 76. A sister of lung cancer, also at age 76. 1 brother as result of a gunshot wound and another of suicide. Another brother with dementia at age 90. Review Of Symptoms: Constitutional - He has had limited activity tolerance since his strokes, but he does walk every day and he is able to do some light work. Appetite is good. He has been gaining weight. He has not had fever. For the past 3 months he has been having night chills/sweating, and for the past 1 to 2 weeks they have been getting bad. ECOG score is 1, Eyes - His vision is getting worse, ENMT - He has hearing loss and tinnitus. He has chronic sinus symptoms. No mouth sores. No sore throat or difficulty swallowing, Hematologic/Lymphatic - He has easy bruising., Respiratory - He has shortness of breath and cough. He is on oxygen at home. No pleuritic pain or hemoptysis, Cardiovascular - He has occasional chest pain. He has a pacemaker, Gastrointestinal - He has constant nausea pain. At times he gets worse. He has nausea, no vomiting. He is having acid reflux. He has some constipation, which is generally managed adequately with milk of magnesia. No blood in the stool or black stools, Genitourinary (M) - He has some hesitancy with urination. No dysuria or hematuria. No urinary frequency. No urgency or incontinence, Musculoskeletal - He has a little joint pain. It is managed adequately with glucosamine, Integumentary - No skin rash or other skin changes, Neurologic - He has headaches. He has been getting Botox injections. Recently he has been having dizziness which comes and goes. He has neuropathy in his hands and feet, Psychiatric - He has some anxiety. No depression. No insomnia. Vital Signs: Performed on Aug 12, 2020 13:56: 8, 6, 0.00, 0.00 sq.m, 93 % (LOW), 65 /min, 18 /min, 159/73 mm(hg) (HIGH), 97.8 F (LOW), and 217.2 lbs (HIGH). Physical Examination: Constitutional - He appears somewhat weak generally, Eyes - Sclerae nonicteric. Conjunctivae clear, ENMT - No lesions noted in the oral cavity, Neck - No mass or thyromegaly, Hematologic/Lymphatic - No cervical, clavicular, or axillary adenopathy, Respiratory - Lungs are clear with diminished air movement bilaterally, Cardiovascular - Heart rhythm is irregular. There is no murmur, gallop, or rub noted, Abdomen - Mildly distended but soft. There is mild abdominal tenderness. Liver and spleen are not enlarged. There is no abdominal mass or ascites noted and there is no inguinal adenopathy, Back/Spine - No spine or CVA tenderness noted, Extremities - Mild edema. Pedal pulses are palpable bilaterally, Integumentary - No rashes. No suspicious skin lesions noted, Neurologic - There is slight residual weakness on the left side. Problem List: 1. Patient with recently diagnosed marginal zone lymphoma presenting as large mesenteric mass. By CT scan there also appears to be involvement in a retrocrural lymph node, thus stage IIE. 2. Hypertension. 3. Type 2 diabetes with peripheral neuropathy. 4. Carotid stenosis with previous right carotid artery stent placement. 5. Coronary artery disease with history of coronary angioplasty/stent placement and subsequent coronary artery bypass surgery. 6. Atrial fibrillation. 7. Congestive heart failure. 8. Peripheral arterial disease. 9. GERD. 10. COPD. 11. Obstructive sleep apnea. 12. Benign prostatic hypertrophy. 13. Trigeminal neuralgia. Problems Addressed with this Encounter and Plan: Patient with recently diagnosed marginal zone lymphoma presenting as large mesenteric mass. By CT scan there also appears to be involvement in a retrocrural lymph node, thus stage IIE. Given the low Ki-67 and the interval from his prior CT scan, he does appear to have low-grade disease. The CT findings and pathology results were reviewed with the patient. We discussed the clinical implications. He has low-grade lymphoma, but it has shown significant progression and it is now clearly symptomatic. As such, he does require treatment. Under the circumstances I will recommend that he begin a course of chemotherapy with bendamustine/rituximab for 4-6 cycles. I reviewed anticipated side effects which may include nausea/vomiting, fatigue, alopecia, and low blood counts, among others. We discussed the risk of hypersensitivity type reactions associated with the rituximab and the fact that it will cause some degree of immunosuppression lasting at least 6 months after he completes treatment. He is advised that during that time period vaccinations may not be effective. He will have baseline laboratory studies today to include CBC, comprehensive metabolic profile, uric acid level, LDH level, and hepatitis B screening. He will need to start allopurinol prophylactically. I anticipate starting his treatment next week. Signed By: Kole Méndez M.D. <<Signature on File>>
[2020-08-12 15:36] LABS: Basophils # 0.1 10^3/uL (0.0-0.1); Basophils % 0.7 %; Eosinophils # 0.3 10^3/uL (0.0-0.8); Eosinophils % 3.4 %; Hemoglobin 12.9 g/dL (11.7-16.6); Lymphocytes % 25.7 %; Mean Corpuscular HGB Conc 33.1 g/dL (30.0-36.0); Mean Corpuscular Hemoglobin 28.9 pg (28.0-34.0); Mean Corpuscular Volume 87.2 fL (80-94); Mean Platelet Volume 10.4 fL (7.4-10.4); Monocytes # 0.7 10^3/uL (0.2-0.9); Monocytes % 9.5 %; Neutrophils # 4.64 10^3/uL (1.8-7.7); Neutrophils % 60.3 %; Nucleated Red Blood Cells % 0 %; Platelet Count 187 10^3/cmm (130-400); Red Blood Count 4.47 10^6/uL (4.1-5.3); Red Cell Distribution Width 14.7 % (12.1-15.1); White Blood Count 7.7 10^3/uL (4.0-10.0)
[2020-08-12 16:28] LABS: Alanine Aminotransferase 12 U/L (0-41); Albumin Level 3.8 g/dL (3.5-5.2); Alkaline Phosphatase 52 IU/L (40-130); Anion Gap 14.5 (5-19); Aspartate Amino Transferase 15 U/L (0-40); Blood Urea Nitrogen 27 mg/dL (8-23); Calcium 8.5 mg/dL (8.5-10.5); Carbon Dioxide 25 mmol/L (22-29); Chloride 106 mmol/L (98-107); Globulin 3.1 g/dL (1.3-4.6); Glucose 141 mg/dL (65-115); Lactate Dehydrogenase 160 U/L (135-225); Osmolality Calculated 301 mOsm/kg (285-295); Potassium 3.5 mmol/L (3.5-5.1); Sodium 142 mmol/L (136-145); Total Bilirubin 0.4 mg/dL (0.15-1.2); Total Protein 6.9 g/dL (6.6-8.7); Uric Acid 7.7 mg/dL (3.4-7.0)
[2020-08-12 17:13] LABS: Hepatitis B Core AB, Total Non-Reactive (Nonreactive); Hepatitis B Surface AB 3.5 (0-8.5); Hepatitis B Surface Antigen Non-Reactive (Nonreactive)
[2020-08-12 18:10] LABS: Slide Review Slide Review Perform
== END 2020-08-12 13:07 | disposition home or self-care (01) ==
LOC: ONCMED 13:08
PROVIDERS: PCP Family Medicine; Visit Provider Internal Medicine Medical Oncology
DX: C88.4 Extranodal marginal zone B-cell lymphoma of mucosa-associated lymphoid tissue [MALT-lymphoma] (principal); Z11.59 Encounter for screening for other viral diseases; Z01.812 Encounter for preprocedural laboratory examination
CPT/HCPCS: 36415; 80053; 83615; 84550; 85025; 86705; 86706; 87340; 99205

== ENCOUNTER 2020-08-24 13:08 | Outpatient (CLI) | payer OTHER, MEDICARE, SELFPAY ==
[2020-08-24 13:51] LABS: Hematocrit 40.8 % (42.0-52.0); Hemoglobin 13.6 g/dL (11.7-16.6); Mean Corpuscular HGB Conc 33.3 g/dL (30.0-36.0); Mean Corpuscular Hemoglobin 28.8 pg (28.0-34.0); Mean Corpuscular Volume 86.4 fL (80-94); Mean Platelet Volume 9.8 fL (7.4-10.4); Platelet Count 186 10^3/cmm (130-400); Red Blood Count 4.72 10^6/uL (4.1-5.3); Red Cell Distribution Width 14.6 % (12.1-15.1); White Blood Count 7.2 10^3/uL (4.0-10.0)
[2020-08-24 14:11] LABS: Alanine Aminotransferase 9 U/L (0-41); Albumin Level 3.9 g/dL (3.5-5.2); Alkaline Phosphatase 55 IU/L (40-130); Anion Gap 14.6 (5-19); Aspartate Amino Transferase 12 U/L (0-40); Blood Urea Nitrogen 26 mg/dL (8-23); Carbon Dioxide 27 mmol/L (22-29); Chloride 101 mmol/L (98-107); Globulin 3.2 g/dL (1.3-4.6); Glucose 140 mg/dL (65-115); Osmolality Calculated 295 mOsm/kg (285-295); Potassium 3.6 mmol/L (3.5-5.1); Sodium 139 mmol/L (136-145); Total Bilirubin 0.5 mg/dL (0.15-1.2); Total Protein 7.1 g/dL (6.6-8.7)
[2020-08-24 14:55] LABS: Slide Review Slide Review Perform
[2020-08-24 14:56] LABS: Absolute Eosinophils 0.5 10^3/cmm (0.0-0.7); Absolute Neutrophil 4.6 10^3/cmm (1.4-6.5); Absolute Segmented Neutrophil 4.6 10/cmm (1.6-7.1); Anisocytosis Trace; Basophils Absolute 0.1 10^3/cmm (0.0-0.2); Eosinophils 7 %; Lymphocytes 19 %; Monocytes Absolute 0.2 10^3/cmm (0.1-0.6); Platelet Estimate Normal (Normal); Segmented Neutrophils 64 %; Total Cells Counted 100 (0-100)
== END 2020-08-24 13:09 | disposition home or self-care (01) ==
LOC: ONCMED 13:12
PROVIDERS: PCP Family Medicine; Visit Provider Internal Medicine Hematology & Oncology
DX: C85.83 Other specified types of non-Hodgkin lymphoma, intra-abdominal lymph nodes (principal)
CPT/HCPCS: 36415; 80053; 85007; 85025

== ENCOUNTER 2020-09-01 05:30 | Outpatient (RCR) | payer OTHER, MEDICARE, SELFPAY ==
[2020-08-26] MEDS: sodium chloride 0.9% 1,000 ML 999 ML IV (09:57)
[2020-08-26] MEDS: ondansetron 2 mg/ML SDV 2 mL 8 MG IVP (09:57)
[2020-08-26] MEDS: diphenhydrAMINE 50 mg/mL SDV 1mL 25 MG IVP (10:23)
[2020-08-26] MEDS: sodium chloride 0.9% (100 ml) 100 ML 400 ML (10:23)
[2020-08-26] MEDS: ibuprofen Oral Susp 100 mg/5mL UDC 400 MG PO (11:20)
[2020-08-27] MEDS: sodium chloride 0.9% 250 ML 999 ML IV (09:15)
[2020-08-27] MEDS: palonosetron 0.25 mg/5 mL SDV IV (09:19)
[2020-09-01 13:47] LABS: Basophils % 0.5 %; Eosinophils # 0.4 10^3/uL (0.0-0.8); Eosinophils % 6.3 %; Hematocrit 36.8 % (42.0-52.0); Hemoglobin 12.1 g/dL (11.7-16.6); Lymphocytes # 0.2 10^3/uL (0.8-4.8); Lymphocytes % 3.2 %; Mean Corpuscular HGB Conc 32.9 g/dL (30.0-36.0); Mean Corpuscular Hemoglobin 28.7 pg (28.0-34.0); Mean Corpuscular Volume 87.2 fL (80-94); Mean Platelet Volume 10.5 fL (7.4-10.4); Monocytes # 0.7 10^3/uL (0.2-0.9); Monocytes % 10.4 %; Neutrophils % 79.1 %; Nucleated Red Blood Cells % 0 %; Platelet Count 176 10^3/cmm (130-400); Red Blood Count 4.22 10^6/uL (4.1-5.3); Red Cell Distribution Width 14.6 % (12.1-15.1); White Blood Count 6.6 10^3/uL (4.0-10.0)
[2020-09-01 14:24] LABS: Alanine Aminotransferase 6 U/L (0-41); Albumin Level 3.3 g/dL (3.5-5.2); Alkaline Phosphatase 46 IU/L (40-130); Anion Gap 14.2 (5-19); Aspartate Amino Transferase 8 U/L (0-40); Blood Urea Nitrogen 45 mg/dL (8-23); Calcium 8.8 mg/dL (8.5-10.5); Carbon Dioxide 26 mmol/L (22-29); Chloride 105 mmol/L (98-107); Globulin 2.8 g/dL (1.3-4.6); Glucose 207 mg/dL (65-115); Osmolality Calculated 310 mOsm/kg (285-295); Potassium 4.2 mmol/L (3.5-5.1); Sodium 141 mmol/L (136-145); Total Bilirubin 0.3 mg/dL (0.15-1.2); Total Protein 6.1 g/dL (6.6-8.7)
--- NOTE | 2020-09-09 09:27 | ONC FU_ITS ---
[facility] Patient Note Patient: Panchito Macedo Unit #: [id number]: [id number] Dictated By: Rayo KrishnanDate of Visit: Sep 01, 2020 Onc MED Follow-Up/Prog Note Chief Complaint: Lymphoma. History of Present Illness: Mr Macedo is an 80-year-old man who was recently diagnosed with marginal zone lymphoma. He had presented with abdominal pain which have been getting progressively worse over about [address] abdomen/pelvis on 06/08/2020 showed mesenteric mass with epicenter superior to the L4-L5 disc space level measuring 4.4 x 10.0 cm. It was noted to have enlarged compared to prior study from August 2018. Also noted was a pathologically enlarged right retrocrural lymph node measuring 1.5 cm. There was no associated bowel thickening, ileus, or obstruction. There was no hydronephrosis. Bibasilar interstitial and groundglass opacity in the lungs was felt to be compatible with edema, pneumonitis, and or atelectasis. He was referred to Dr. Cook. On 07/20/2020 he underwent diagnostic laparoscopy with biopsies of the mesenteric mass. 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 IHC stains showed positivity for CD20, and BCL-2. They were negative for CD10, BCL6, and cyclin D1. CD5 was negative in B cells and positive in T cells. The Ki-67 was low at less than 10%. He had PET/CT imaging on 08/14/2020 which reported mesenteric soft tissue thickenings that was reported on PET CT from 11/02/2018 was enlarged in size on the current study. Previously the area measured roughly 11 cm in the left/right axis and now measures 13.7 cm. Similarly retroperitoneal soft tissue was enlarged in the right and left para-aortic territories down to the level of the aortic bifurcation. There is low-grade activity in the lymphoma with an SUV of up to 3.6. It was negative for disease outside of the abdomen. Mr. Macedo was advised to pursue 4-6 cycles of chemotherapy with bendamustine rituximab. He began his first cycle on August 26, 2020. Then bendamustine was given over 2 doses on day 1 and 2. The Rituxan was given on day 1. Mr. Macedo is here today for follow-up. This is day 8. He is overall he is doing well. He states that the tumors are already gone . He states he had a little bit of nausea but it was controlled with taken a couple nausea meds here and there . He denies any fever or chills. He denies any cough or shortness of breath. He is eating good. His energy is fair. He denies any diarrhea or constipation. He states he has had no new pain. He states his sugars have been running high off and on but he has not symptoms and is currently utilizing his insulin. He denies any lower extremity edema. He denies any rash or skin changes. His ECOG is 1. Past Medical History: Atrial fibrillation Benign prostatic hypertrophy Carotid stenosis Cerebrovascular disease with history of TIAs and strokes Chronic obstructive pulmonary disease Congestive heart failure Coronary artery disease Gastroesophageal reflux disease Hypertension Obstructive sleep apnea Peripheral arterial disease Trigeminal neuralgia Type II diabetes Past Surgical History: Cataract excision Coronary angioplasty/stent placement Coronary artery bypass surgery Placement of permanent pacemaker Right carotid artery stent placement Allergies: Acetaminophen, Calcitriol, Fish Oil, Gabapentin, HYDROcodone-Acetaminophen, oxyCODONE HCl, Red Dye, Statins, Sulfa Antibiotics, and traMADol HCl. Medications: Albuterol Sulfate ((2.5 mg/3ml) 0.083%) Nebulization solution Inhalation 8x/d All Day Allergy Tablet Oral Amoxicillin 1 Tablet (of 875 mg) Oral b.i.d. Baclofen (10 mg) Tablet Oral daily Betapace (120 mg) Tablet Oral b.i.d. Brimonidine Tartrate-Timolol (0.2-0.5 %) Solution Ophthalmic b.i.d. Budesonide (0.25 mg/2mL) Aerosol Powder, Breath Activated Inhalation b.i.d. Budesonide-Formoterol Fumarate (160-4.5 mcg/act) Aerosol Inhalation daily Furosemide (40 mg) Tablet Oral b.i.d. Glucosamine HCl (1500 mg) Tablet Oral daily Insulin Aspart (5 Units/mL) Subcutaneous ac (tid) Insulin Glargine (42 Units/mL) Subcutaneous at bedtime Isosorbide Mononitrate ER (60 mg) Tablet SR 24 HR Oral daily Klor-Con (20 meq) Capsule, controlled release Oral daily levoFLOXacin (500 mg) Tablet Oral daily Lisinopril (5 mg) Tablet Oral daily Lotemax (0.5 %) Suspension Ophthalmic b.i.d. metroNIDAZOLE (500 mg) Tablet Oral t.i.d. Montelukast Sodium (10 mg) Tablet Oral daily Norvasc (10 mg) Tablet Oral daily Rivaroxaban (15 mg) Tablet Oral daily Tamsulosin HCl (0.4 mg) Capsule Oral daily Vitamin D3 (2000 units ) Capsule Oral daily Family History: Mr. Macedo's mother at age 76. Mr. Macedo's father at age 77: prostate canc. Mr. Macedo has 3 brothers: 3 . He has 1 sister who is . Father of prostate cancer at age 77. Mother with lymphoma at age 76. A sister of lung cancer, also at age 76. 1 brother as result of a gunshot wound and another of suicide. Another brother with dementia at age 90. Social History: Mr. Macedo is . Mr. Macedo no longer smokes. He has no history of drinking. He had previously smoked 1 pack of cigarettes daily. He quit 35 years ago. He has had some alcohol use in the past, but never heavy. He quit drinking at least 50 years ago. Review Of Symptoms: Constitutional Denies fevers, chills, night sweats, excessive fatigue or weight loss. Allergic/Immunologic No reactions. Eyes Denies significant visual changes. No diplopia. No amaurosis. ENMT Denies changes in hearing, sore throat, mouth sores, difficulty or changes in swallowing ability, and/or sinus drainage. Hematologic/Lymphatic Denies easy bruising or bleeding. The patient denies any tender or palpable lymph nodes. Respiratory Denies dyspnea on exertion, chest pain, cough or hemoptysis. Denies orthopnea. Cardiovascular Denies anginal chest pain, palpitations or orthopnea. Gastrointestinal see above Genitourinary (M) Denies hematuria, dysuria, increased frequency, urgency, hesitancy or incontinence. Musculoskeletal Denies joint pain, swelling or redness. No decreased range of motion. Integumentary Denies chronic rashes, inflammation, ulcerations or skin changes. Neurologic Denies headache, blurred vision, and no areas of focal weakness or numbness. Normal gait. No sensory problems. Psychiatric Denies insomnia, depression, donald or mood swings. Vital Signs: Performed on Sep 01, 2020 15:03 Height - 67.00 in Weight - 215.4 lbs (LOW) BSA - 2.09 sq.m BMI - 33.74 (HIGH) Temperature - 99.0 F (HIGH) Pulse - 72 /min Respiration - 19 /min BP - 148/74 mm(hg) (HIGH) O2 Sat - 93 % (LOW) Pain - 4,1 - No physically strenuous activity, but ambulatory and able to carry out light or sedentary work (e.g. office work, light house work). (ECOG) Physical Examination: Constitutional Alert, oriented, no acute distress. Skin pink, warm and dry. Head Normocephalic; atraumatic. Eyes Conjunctivae and sclerae are clear and without icterus. Pupils are reactive and equal. Neck Supple without masses or thyromegaly. No jugular venous distension. Hematologic/Lymphatic No petechiae or purpura. No tender or palpable lymph nodes in the cervical or supraclavicular areas. Respiratory Lungs are clear to auscultation without rhonchi or wheezing. Cardiovascular Regular rate and rhythm of heart without murmurs,clicks, gallops or rubs. Abdomen Non-tender, non-distended, no masses or ascites. Good bowel sounds noted in all quads. No guarding or rebound tenderness. No pulsatile masses. Back/Spine Non-tender to palpation. Extremities No visible deformities, no cyanosis, clubbing or edema. Musculoskeletal No tenderness or swelling, normal range of motion without obvious weakness. Integumentary No rashes or lesions. Neurologic No sensory or motor deficits, normal cerebellar function, normal gait. Psychiatric Alert and oriented times three. Coherent speech. Verbalizes understanding of our discussions today. Laboratory:Test performed on Sep 01, 2020 13:22 Sodium 141 mmol/L Potassium 4.2 mmol/L Chloride 105 mmol/L CO2 26 mmol/L Anion Gap 14.2 BUN 45 mg/dL Creatinine 1.3 mg/dL Cr Clearance (Est) 63.1600 mL/min Glucose 207 mg/dL Osmolality - Calculated 310 mOsm/kg Calcium 8.8 mg/dL Protein, Total 6.1 g/dL Albumin 3.3 g/dL Globulin 2.8 g/dL Bilirubin, Total 0.3 mg/dL ALT (SGPT) 6 U/L AST (SGOT) 8 U/L Alkaline Phosphatase 46 IU/L WBC 6.6 10 3/uL RBC 4.22 10 6/uL HGB 12.1 g/dL HCT 36.8 % MCV 87.2 fL MCH 28.7 pg MCHC 32.9 g/dL RDW 14.6 % Platelet Count 176 10 3/cmm MPV 10.5 fL Neutrophils 5.20 10 3/uL Lymphocytes 0.2 10 3/uL Monocytes 0.7 10 3/uL Eosinophils 0.4 10 3/uL Basophils 0.0 10 3/uL Neutrophil % 79.1 % Lymphocyte % 3.2 % Monocyte % 10.4 % Eosinophil % 6.3 % Basophils % 0.5 % NRBC % 0 % Test performed on Aug 12, 2020 15:00 LDH (Total) 160 U/L Uric Acid 7.7 mg/dL CBC Slide Review Slide Review Perform SLIDE REVIEW AGREES WITH AUTOMATED RESULTS Hepatitis B Surf Antigen Non-Reactive Hepatitis B Surface Ab 3.5 STATUS of IMMUINITY Inconsistent with Immunity 0.0 - 8.5 mIU/mL Consistent with Immunity >8.5 mIU/mL Hepatitis B Core Ab, Total Non-Reactive Impression: 1. Patient with recently diagnosed marginal zone lymphoma presenting as large mesenteric mass. By CT scan there also appears to be involvement in a retrocrural lymph node, thus stage IIE. 2. Hypertension. 3. Type 2 diabetes with peripheral neuropathy. 4. Carotid stenosis with previous right carotid artery stent placement. 5. Coronary artery disease with history of coronary angioplasty/stent placement and subsequent coronary artery bypass surgery. 6. Atrial fibrillation. 7. Congestive heart failure. 8. Peripheral arterial disease. 9. GERD. 10. COPD. 11. Obstructive sleep apnea. 12. Benign prostatic hypertrophy. 13. Trigeminal neuralgia. Plan: Patient with recently diagnosed marginal zone lymphoma presenting as large mesenteric mass. By CT scan there also appears to be involvement in a retrocrural lymph node, thus stage IIE. Given the low Ki-67 and the interval from his prior CT scan, he does appear to have low-grade disease. The CT findings, pathology results and the clinical implications were discussed with Mr Macedo per Dr Méndez. He has low-grade lymphoma, but it has shown significant progression and it is now clearly symptomatic. As such, he does require treatment. Under the circumstances Dr Méndez did recommend that he begin a course of chemotherapy with bendamustine/rituximab for 4-6 cycles. He began his first cycle on August 26, 2020. He has tolerated it well thus far. A. Proceed with cycle 1 bendamustine rituximab. This is day 8. Is a 28-day regimen. B. Today's labs reviewed in detail discussed with Mr. Boyd and a copy was given to him. WBC 6.6, hemoglobin 12.1, platelets 176,000 ANC is 5200. Potassium 4.2 random glucose 207 creatinine 1.3 which is stable on August 12, 2020 was 1.3. LFTs are normal. C. He may continue to take intermittent antiemetics as needed if he has further nausea. D. We will plan to see him back in 3 weeks with CBC CMP LDH. E. I have asked for interim CBC CMP weekly for monitoring of the bendamustine rituximab. F. Mr. Boyd was instructed to contact us in the interim should questions or problems arise. G. We did discuss diet and I have encouraged him to drink a lot of water/fluid if possible as his creatinine did increase a little from 08/24/2020 at which time was 1.1. Signed By: Rayo Krishnan-NADEEM, AOP Kole Méndez MD <<Signature on File>>
== END 2020-09-02 06:00 | disposition home or self-care (01) ==
LOC: ONCMED 05:30
PROVIDERS: PCP Family Medicine; Visit Provider Nurse Practitioner
DX: Z51.11 Encounter for antineoplastic chemotherapy (principal); Z51.12 Encounter for antineoplastic immunotherapy; C85.83 Other specified types of non-Hodgkin lymphoma, intra-abdominal lymph nodes; I10 Essential (primary) hypertension; E11.42 Type 2 diabetes mellitus with diabetic polyneuropathy; I65.23 Occlusion and stenosis of bilateral carotid arteries; E11.59 Type 2 diabetes mellitus with other circulatory complications; I25.10 Atherosclerotic heart disease of native coronary artery without angina pectoris; Z95.5 Presence of coronary angioplasty implant and graft; I48.91 Unspecified atrial fibrillation; I50.30 Unspecified diastolic (congestive) heart failure; I73.9 Peripheral vascular disease, unspecified; K21.9 Gastro-esophageal reflux disease without esophagitis; J44.9 Chronic obstructive pulmonary disease, unspecified; G47.33 Obstructive sleep apnea (adult) (pediatric); N40.0 Benign prostatic hyperplasia without lower urinary tract symptoms; G50.0 Trigeminal neuralgia; Z79.899 Other long term (current) drug therapy
CPT/HCPCS: 80053; 85025; 96367; 96372; 96375; 96413; 96415; 96417; 99214; J1100; J1200; J1815; J2405; J2469; J7030; J7040; J7050; J9034; J9312

== ENCOUNTER 2020-09-02 09:34 | Outpatient (CLI) | payer OTHER, MEDICARE, SELFPAY ==
--- NOTE | 2020-09-02 09:53 | USCV_ITS ---
Panchito Macedo Age: 80 Gender: M : 1940 Exam Date: 09/02/2020 10:03 Ordering Phys: Kole Mendoza MD Technologist: Sejal Ely Exam Location: [facility] [place] Indication: CORONARY ARTER DZ BP: / HR: 60 Rhythm: Sinus Technical Quality: Adequate MEASUREMENTS (Male / Female) Normal Values 2D ECHO LV Diastolic Diameter PLAX 5.0 cm 4.2 - 5.9 / 3.9 - 5.3 cm LV Systolic Diameter PLAX 3.1 cm LV Chamber Size 3.5 cm IVS Diastolic Thickness 1.5 cm 0.6 - 1.0 / 0.6 - 0.9 cm IVS Systolic Thickness 1.6 cm LVPW Diastolic Thickness 1.9 cm 0.6 - 1.0 / 0.6 - 0.9 cm LVPW Systolic Thickness 2.2 cm RV Chamber Size 3.0 cm LVOT Diameter 2.0 cm LV Ejection Fraction 2D Teich 66.8 % LV Ejection Fraction MOD 2C 54.7 % LV Ejection Fraction 2C AL 53.5 % LA Diameter 4.2 cm LA Width 3.7 cm LA Height 5.1 cm RA Width 3.9 cm RA Height 4.1 cm M-MODE LV Diastolic Diameter MM 6.0 cm 4.2 - 5.9 / 3.9 - 5.3 cm LV Systolic Diameter MM 3.8 cm LV Ejection Fraction MM Teich 64.9 % IVS Diastolic Thickness MM 0.8 cm 0.6 - 1.0 / 0.6 - 0.9 cm IVS Systolic Thickness MM 1.2 cm LVPW Diastolic Thickness MM 0.9 cm 0.6 - 1.0 / 0.6 - 0.9 cm LVPW Systolic Thickness MM 1.4 cm Aortic Annulus Diameter 3.5 cm LA Ao Ratio MM 1.4 MV E Point Septal Separation 0.7 cm DOPPLER AV Peak Velocity 126.0 cm/s LVOT Peak Velocity 99.0 cm/s AV Area Cont Eq vti 2.6 cm squared AV Area Cont Eq pk 2.5 cm squared MV Area PHT 4.1 cm squared Mitral E to A Ratio 3.5 MV E' Velocity 80.5 cm/s Mitral E to MV E' Ratio 14.7 Mitral E to LV E' Lateral Ratio 15.1 Mitral E to LV E' Septal Ratio 14.4 TR Peak Velocity 369.7 cm/s TR Peak Gradient 54.7 mmHg TR Mean Velocity 256.5 cm/s TR Mean Gradient 29.6 mmHg TR Velocity Time Integral 126.1 cm TV Peak E Velocity 65.0 cm/s Right Atrial Pressure 3.0 mmHg Pulmonary Artery Systolic Pressu 57.7 mmHg PV Peak Velocity 78.0 cm/s RV Acceleration Time 0.2 s RV Ejection Time 0.5 s RV AcT/ET 0.4 FINDINGS Left Ventricle Normal left ventricular size and systolic function, EF 59 %. Moderate left ventricular hypertrophy. Mild hypokinesia of the apical septal segment . grade III/IV diastolic dysfunction (restrictive filling pattern), severely elevated filling pressures. Right Ventricle Right Atrium Mildly increased right atrial size. Left Atrium Mildly increased left atrial size. Mitral Valve Thickened mitral valve. Moderate mitral annular calcification. Trace mitral valve regurgitation. Aortic Valve Thickened aortic valve. Tricuspid Valve Mild tricuspid valve regurgitation. Pulmonic Valve Mild pulmonary valve regurgitation. Pericardium No pericardial effusion. Aorta Normal aortic annulus size. CONCLUSIONS Normal left ventricular size and systolic function, EF 59 %. Moderate left ventricular hypertrophy. Mild hypokinesia of the apical septal segment . Grade III/IV diastolic dysfunction (restrictive filling pattern), severely elevated filling pressures. Thickened aortic and mitral valves. Moderate mitral annular calcification Mild tricuspid valve regurgitation. Trace mitral valve regurgitation. Moderate pulmonary hypertension with an estimated peak pulmonary artery systolic pressure of 58 mmHg with a mean pressure of 30 mm Hg There is no pericardial effusion. There are no intracardiac masses. Comparison to the previous study from 09/13/2016 is difficult because of the poor Doppler signals. The pulmonary hypertension appears to be new Dr Janett Lion MD FAC (Electronically Signed) Final Date: 02 September 2020 20:08 S
[2020-09-02 10:57] LABS: Add Urine Microscopic? NO
[2020-09-02 11:17] LABS: Alanine Aminotransferase 6 U/L (0-41); Albumin Level 3.6 g/dL (3.5-5.2); Alkaline Phosphatase 51 IU/L (40-130); Anion Gap 12.4 (5-19); Aspartate Amino Transferase 10 U/L (0-40); Blood Urea Nitrogen 40 mg/dL (8-23); Calcium 8.5 mg/dL (8.5-10.5); Carbon Dioxide 27 mmol/L (22-29); Chloride 103 mmol/L (98-107); Globulin 3.3 g/dL (1.3-4.6); Glucose 160 mg/dL (65-115); Osmolality Calculated 299 mOsm/kg (285-295); Potassium 4.4 mmol/L (3.5-5.1); Sodium 138 mmol/L (136-145); Total Bilirubin 0.4 mg/dL (0.15-1.2); Total Protein 6.9 g/dL (6.6-8.7)
[2020-09-02 11:21] LABS: Bilirubin Urine Neg (Negative); Blood Urine Neg (Negative); Glucose Urine UA Norm (Normal); Ketones Urine Negative (Negative); Leukocyte Esterase Urine Negative (Negative); Nitrate Urine Negative (Negative); Protein Urine Neg (Negative); Urine Appearance Clear (CLEAR); Urine Color Yellow (Yellow); Urobilinogen Urine Norm (Negative); pH Urine 5 (5-7)
== END 2020-09-02 09:35 | disposition home or self-care (01) ==
PROVIDERS: PCP Family Medicine; Visit Provider Orthopaedic Surgery
DX: I25.10 Atherosclerotic heart disease of native coronary artery without angina pectoris (principal); E11.9 Type 2 diabetes mellitus without complications
CPT/HCPCS: 36415; 80053; 81003; 93306

== ENCOUNTER 2020-09-04 19:05 | Emergency (ER) | payer OTHER, MEDICARE, SELFPAY ==
[2020-09-04 19:11] VITALS: BP 101/51; PULSE 97; RESP 18; TEMP 37.7; O2SAT 91; BMI 32.8
[2020-09-04 19:33] VITALS: TEMP 39.3
--- NOTE | 2020-09-04 19:56 | XRR_ITS ---
PROCEDURE INFORMATION: Exam: XR Chest Exam date and time: 09/04/2020 8:11 PM Age: 80 years old Clinical indication: Fever; Prior surgery; Surgery date: 6+ months; Surgery type: Cabg, stents, pacemaker; Patient HX: HX lymphoma, had first chemo treatment 2 weeks ago. TECHNIQUE: Imaging protocol: XR of the chest Views: 1 view. COMPARISON: CR XR chest 1V portable [id number] 06/08/2020 4:39 PM FINDINGS: Tubes, catheters and devices: Left chest ICD. Lungs: Mild central pulmonary vascular dilation. Mild scattered hazy bilateral infrahilar lung opacities. Pleural spaces: Unremarkable. No pleural effusion. No pneumothorax. Heart/Mediastinum: Moderate cardiac enlargement. Prior CABG. Vasculature: Scattered atherosclerosis. Bones/joints: Unremarkable. XR/XR chest 1V portable [id number] IMPRESSION: No significant changes in exam from prior seen although there are somewhat more conspicuous infrahilar bronchovascular lung markings. Pneumonia or pulmonary edema cannot be confidently excluded.
[2020-09-04 20:36] LABS: Basophils # 0.1 10^3/uL (0.0-0.1); Basophils % 0.6 %; Eosinophils # 0.4 10^3/uL (0.0-0.8); Hematocrit 38.6 % (42.0-52.0); Hemoglobin 12.9 g/dL (11.7-16.6); Lymphocytes # 0.3 10^3/uL (0.8-4.8); Lymphocytes % 2.8 %; Mean Corpuscular HGB Conc 33.4 g/dL (30.0-36.0); Mean Corpuscular Hemoglobin 28.9 pg (28.0-34.0); Mean Corpuscular Volume 86.4 fL (80-94); Mean Platelet Volume 10.9 fL (7.4-10.4); Monocytes # 0.9 10^3/uL (0.2-0.9); Monocytes % 9.9 %; Neutrophils # 7.31 10^3/uL (1.8-7.7); Neutrophils % 81.9 %; Nucleated Red Blood Cells % 0 %; Platelet Count 180 10^3/cmm (130-400); Red Blood Count 4.47 10^6/uL (4.1-5.3); Red Cell Distribution Width 14.9 % (12.1-15.1); White Blood Count 8.9 10^3/uL (4.0-10.0)
[2020-09-04 20:55] LABS: Influenza A by IFA Negative (Negative); Influenza B by IFA Negative (Negative); SARS Covid-2 Antigen Negative (Negative)
[2020-09-04 20:59] LABS: Procalcitonin 0.28 ng/mL (0-0.5)
[2020-09-04 21:05] LABS: Add Urine Microscopic? NO
[2020-09-04 21:07] LABS: Bilirubin Urine Neg (Negative); Blood Urine Neg (Negative); Glucose Urine UA Norm (Normal); Ketones Urine 1+ (Negative); Leukocyte Esterase Urine Negative (Negative); Nitrate Urine Negative (Negative); Protein Urine Neg (Negative); Specific Gravity, Urine 1.015 (1.005-1.030); Urine Appearance Clear (CLEAR); Urine Color Yellow (Yellow); Urobilinogen Urine Norm (Negative); pH Urine 5 (5-7)
[2020-09-04 21:10] LABS: Alanine Aminotransferase 9 U/L (0-41); Albumin Level 3.1 g/dL (3.5-5.2); Alkaline Phosphatase 51 IU/L (40-130); Anion Gap 15.5 (5-19); Aspartate Amino Transferase 10 U/L (0-40); Blood Urea Nitrogen 36 mg/dL (8-23); C Reactive Protein 78.9 mg/L (0.0-4.9); Calcium 8.1 mg/dL (8.5-10.5); Carbon Dioxide 21 mmol/L (22-29); Chloride 99 mmol/L (98-107); Creatine Phosphokinase 20 U/L (39-308); Globulin 3.1 g/dL (1.3-4.6); Glucose 190 mg/dL (65-115); Osmolality Calculated 285 mOsm/kg (285-295); Potassium 4.5 mmol/L (3.5-5.1); Sodium 131 mmol/L (136-145); Total Bilirubin 0.6 mg/dL (0.15-1.2); Total Protein 6.2 g/dL (6.6-8.7)
[2020-09-04 21:14] LABS: Lactate (Lactic Acid level) 1.5 mmol/L (0.5-2.2)
--- NOTE | 2020-09-04 21:16 | CTR_ITS ---
PROCEDURE INFORMATION: Exam: CT Maxillofacial Without Contrast, Sinus Exam date and time: 09/04/2020 9:32 PM Age: 80 years old Clinical indication: Fever; Face pain; Additional info: Sinusitis TECHNIQUE: Imaging protocol: CT Maxillofacial without contrast. Focus on the sinuses. Radiation optimization: All CT scans at this facility use at least one of these dose optimization techniques: automated exposure control; mA and/or kV adjustment per patient size (includes targeted exams where dose is matched to clinical indication); or iterative reconstruction. COMPARISON: No relevant prior studies available. RADIATION DOSE METRICS: Total DLP (mGy-cm): 572.46 FINDINGS: Frontal sinuses: Mostly opacified frontal sinuses. Ethmoid air cells: Diffuse mucosal thickening. Probably partial ethmoidectomy. Sphenoid sinuses: Diffuse opacification. Maxillary sinuses: Moderate to severe circumferential mucosal thickening. Evidence of medial wall antrostomy bilaterally. Nasal cavity/Septum: Mild leftward osseous nasal septal deviation. Chronic wall thickening of maxillary sinus william. No facial bone fractures. Middle turbinectomy. Orbital cavity: Bilateral lens replacements. Orbits are symmetric without acute finding. Bones/joints: Temporomandibular joints have unremarkable alignment. No aggressive bone lesions. Soft tissues: Unremarkable. Brain: Moderately atrophic brain parenchyma. CT/CT sinus wo con* [id number] IMPRESSION: Extensive nonspecific paranasal sinus disease. Evidence of prior paranasal sinus surgeries. Radiation Dose CTDIVOL = (mGy): DLP = 572.46 (mGy-cm)
--- NOTE | 2020-09-04 22:34 | ED_ITS ---
HPI - Fever General: Chief Complaint: Fever Stated Complaint: FEVER Time Seen by Provider: 09/04/20 19:12 Source: patient and family () Mode of arrival: EMS Limitations: no limitations History of Present Illness: HPI Narrative: Patient is an 80-year-old male with a history of COPD, recent diagnosis of lymphoma and completed his first round of chemotherapy about 2 weeks ago. He has a history of chronic sinusitis with recurrent flares for which she requires long episodes of antibiotics. He has been on amoxicillin for about a week now for sinus infection. He has greenish nasal discharge with headache. Denies he had a temperature of 103.5 and took some ibuprofen which dropped his temperature down to 99. He also reports myalgias. He feels the amoxicillin is not working and wants to be evaluated. MD elicited complaint: fever Pertinent past history: diabetes and immunosuppression Onset (ago): day(s) (1) Context: on chemotherapy Exacerbating factors: nothing Relieving factors: ibuprofen Associated symptoms: Reports chills, headache(s), myalgias and nasal congestion; Deny abdominal pain, flank pain, chest pain, confusion, cough, diarrhea, dysuria, extremity pain, nausea, night sweats, rash, rhinorrhea, short of breath, sinus pain, stiffness, sore throat, vaginal discharge, vomiting or weight loss Treatments prior to arrival fever: ibuprofen Review of Systems General: Reports: 10 or more systems reviewed and unremarkable except in HPI and below Const: Reports: chills; Denies: night sweats ENMT: Reports: nasal congestion; Denies: sinus pain Card: Denies: chest pain GI: Denies: abdominal pain, nausea, vomiting or diarrhea : Denies: flank pain or dysuria Musc: Denies: extremity pain Neuro: Reports: headache(s); Denies: confusion PFSH ED PFSH: Medical History (Reviewed 09/04/20 @ 23:55 by Gela Sanchez MD, [facility] [place]) ASHD (arteriosclerotic heart disease) Atrial fibrillation Atypical chest pain BPH NOS w ur obs/LUTS Good response to TAMSULOSIN. Carotid stenosis CHF (congestive heart failure) Hyperlipemia Hypertension Leg swelling Pacemaker Peripheral vascular disease Sleep apnea TIA (transient ischemic attack) Trigeminal neuralgia Ventral hernia Surgical History (Reviewed 09/04/20 @ 23:55 by Gela Sanchez MD, [facility] [place]) H/O bilateral cataract extraction H/O four vessel coronary artery bypass graft H/O heart artery stent Status post cryoablation Family History (Reviewed 09/04/20 @ 23:55 by Gela Sanchez MD, [facility] [place]) Other CAD (coronary artery disease) Cancer Diabetes Family history of prostate cancer Social History (Reviewed 09/04/20 @ 23:55 by Gela Sanchez MD, [facility] [place]) Smoking and tobacco status: former smoker Alcohol intake: never Adopted: No Caregiver/support person: No Lives independently: No Household members: spouse Marital status: Current occupational status: retired History of recent travel: No Current gender identity: Male Physical Exam Const: COMMON NORMALS: no acute distress, average body habitus, patient oriented x3, no limitations, healthy appearing, alert and well nourished HENMT: COMMON NORMALS: normocephalic, atraumatic and moist oral mucous membranes HEAD & SCALP: normocephalic and atraumatic FACE & SINUS: sinuses nontender Eye: COMMON NORMALS: Equal, round and reactive pupils present, EOMs intact bilaterally, conjunctivae normal and no scleral icterus CONJUNCTIVA: Yes conjunctivae normal PUPIL: Yes Equal, round and reactive pupils present Neck/C-Spine: COMMON NORMALS: full ROM, supple, no meningeal signs, no JVD and No carotid bruits Resp: COMMON NORMALS: normal respiratory effort, No retractions, No use of accessory muscles, clear to auscultation bilaterally and percussion normal AUSCULTATION: clear to auscultation bilaterally PERCUSSION: percussion normal Cardio: COMMON NORMALS: no JVD, regular rate, regular rhythm, S1 normal heart sound present, S2 normal heart sound present, No gallops present (Cardio), No clicks present (Cardio), No murmurs present (Cardio), No rub (Cardio) and Peripheral pulses 2+ throughout RATE: regular rate RHYTHM: regular rhythm HEART SOUNDS: S1 normal heart sound present and S2 normal heart sound present PERIPHERAL PULSES: Peripheral pulses 2+ throughout GI: COMMON NORMALS: Normal to inspection, nondistended, normoactive bowel sounds present, Soft to palpation, non-tender, No hepatosplenomegaly present, no masses and no bruits PALPATION: Yes Soft to palpation and Yes No hepatosplenomegaly present Extremity: COMMON NORMALS: normal to inspection, full ROM, capillary refill normal, no calf tenderness and no pedal edema Neuro: COMMON NORMALS: patient oriented x3 SENSORIUM/ORIENTATION: Yes alert MENINGEAL SIGNS: Yes no meningeal signs Skin: COMMON NORMALS: no rashes or lesions noted, no wounds, turgor normal, no jaundice, no petechiae and no mottling GENERAL SKIN EXAM: no rashes or lesions noted and turgor normal Course Reevaluation(s): Reevaluation #1: Discussed his lab and imaging findings with him. Unremarkable findings so far. CT scan shows sinusitis. Since he is not improving with amoxicillin, and since there is a question of pneumonia on chest x-ray we will discharge him home with a prescription for Levaquin and metronidazole. He voiced understanding and is in agreement with the plan. He is to follow-up with his primary care provider Time: 22:34 Vital Signs: Vital signs: Vital Signs Temperature 98.2 F 09/04/20 23:43 Pulse Rate 74 09/04/20 23:43 Respiratory Rate 18 09/04/20 23:43 Blood Pressure 119/64 09/04/20 23:43 Pulse Oximetry 92 09/04/20 23:43 MDM - Fever MDM Narrative: Medical decision making narrative: 80-year-old male with a history of lymphoma and chronic sinusitis presents to the emergency department with a fever. He has been on antibiotics for sinusitis but he feels it is not working. In the emergency department his evaluation was negative for influenza and COVID- 19, chest x-ray shows possible pneumonia, CT scan of his sinuses show sinusitis. He is discharged home on his antibiotics change to Levaquin and metronidazole. He will follow-up with his primary care provider. Medical Records: Attestation: I reviewed the patient's medical records. Lab Data: Attestation: I reviewed the patient's lab results. Labs: Lab Results 09/04/20 09/04/20 09/04/20 Range/Units 18:48 18:48 20:26 WBC 8.9 (4.0-10.0) 10^3/ uL RBC 4.47 (4.1-5.3) 10^6/u L Hgb 12.9 (11.7-16.6) g/dL Hct 38.6 L (42.0-52.0) % MCV 86.4 (80-94) fL MCH 28.9 (28.0-34.0) pg MCHC 33.4 (30.0-36.0) g/dL RDW 14.9 (12.1-15.1) % Plt Count 180 (130-400) 10^3/c mm MPV 10.9 H (7.4-10.4) fL Neut % (Auto) 81.9 % Lymph % (Auto) 2.8 % Kay % (Auto) 9.9 % Eos % (Auto) 4.0 % Baso % (Auto) 0.6 % Neut # (Auto) 7.31 (1.8-7.7) 10^3/u L Lymph # (Auto) 0.3 L (0.8-4.8) 10^3/u L Kay # (Auto) 0.9 (0.2-0.9) 10^3/u L Eos # (Auto) 0.4 (0.0-0.8) 10^3/u L Baso # (Auto) 0.1 (0.0-0.1) 10^3/u L Nucleated RBC % (a uto) 0 % Nucleated RBCs # 0.0 /100WBC Sodium 131 L (136-145) mmol/L Potassium 4.5 (3.5-5.1) mmol/L Chloride 99 (98-107) mmol/L Carbon Dioxide 21 L (22-29) mmol/L Anion Gap 15.5 (5-19) BUN 36 H (8-23) mg/dL Creatinine 1.5 H (0.7-1.2) mg/dL GFR Calculation Not Reportable Glucose 190 H (65-115) mg/dL Calculated Osmolal ity 285 (285-295) mOsm/k g Lactate (0.5-2.2) mmol/L Calcium 8.1 L (8.5-10.5) mg/dL Total Bilirubin 0.6 (0.15-1.2) mg/dL AST 10 (0-40) U/L ALT 9 (0-41) U/L Alkaline Phosphata se 51 (40-130) IU/L Creatine Kinase 20 L (39-308) U/L C-Reactive Protein 78.9 H (0.0-4.9) mg/L Total Protein 6.2 L (6.6-8.7) g/dL Albumin 3.1 L (3.5-5.2) g/dL Globulin 3.1 (1.3-4.6) g/dL Procalcitonin 0.28 (0-0.5) ng/mL Urine Color (Yellow) Urine Appearance (CLEAR) Urine pH (5-7) Ur Specific Gravit y (1.005-1.030) Urine Protein (Negative) Urine Glucose (UA) (Normal) Urine Ketones (Negative) Urine Blood (Negative) Urine Nitrate (Negative) Urine Bilirubin (Negative) Urine Urobilinogen (Negative) mg/dL Ur Leukocyte Alayna ase (Negative) Influenza Type A A g Negative (Negative) Influenza Type B A g Negative (Negative) SARS-CoV-2 Ag (Rap id) (Negative) 09/04/20 09/04/20 09/04/20 Range/Units 20:26 20:30 20:50 WBC (4.0-10.0) 10^3/ uL RBC (4.1-5.3) 10^6/u L Hgb (11.7-16.6) g/dL Hct (42.0-52.0) % MCV (80-94) fL MCH (28.0-34.0) pg MCHC (30.0-36.0) g/dL RDW (12.1-15.1) % Plt Count (130-400) 10^3/c mm MPV (7.4-10.4) fL Neut % (Auto) % Lymph % (Auto) % Kay % (Auto) % Eos % (Auto) % Baso % (Auto) % Neut # (Auto) (1.8-7.7) 10^3/u L Lymph # (Auto) (0.8-4.8) 10^3/u L Kay # (Auto) (0.2-0.9) 10^3/u L Eos # (Auto) (0.0-0.8) 10^3/u L Baso # (Auto) (0.0-0.1) 10^3/u L Nucleated RBC % (a uto) % Nucleated RBCs # /100WBC Sodium (136-145) mmol/L Potassium (3.5-5.1) mmol/L Chloride (98-107) mmol/L Carbon Dioxide (22-29) mmol/L Anion Gap (5-19) BUN (8-23) mg/dL Creatinine (0.7-1.2) mg/dL GFR Calculation Glucose (65-115) mg/dL Calculated Osmolal ity (285-295) mOsm/k g Lactate 1.5 (0.5-2.2) mmol/L Calcium (8.5-10.5) mg/dL Total Bilirubin (0.15-1.2) mg/dL AST (0-40) U/L ALT (0-41) U/L Alkaline Phosphata se (40-130) IU/L Creatine Kinase (39-308) U/L C-Reactive Protein (0.0-4.9) mg/L Total Protein (6.6-8.7) g/dL Albumin (3.5-5.2) g/dL Globulin (1.3-4.6) g/dL Procalcitonin (0-0.5) ng/mL Urine Color Yellow (Yellow) Urine Appearance Clear (CLEAR) Urine pH 5 (5-7) Ur Specific Gravit y 1.015 (1.005-1.030) Urine Protein Neg (Negative) Urine Glucose (UA) Norm (Normal) Urine Ketones 1+ H (Negative) Urine Blood Neg (Negative) Urine Nitrate Negative (Negative) Urine Bilirubin Neg (Negative) Urine Urobilinogen Norm (Negative) mg/dL Ur Leukocyte Alayna ase Negative (Negative) Influenza Type A A g (Negative) Influenza Type B A g (Negative) SARS-CoV-2 Ag (Rap id) Negative (Negative) Imaging Data^: Other CT: Attestation: I personally reviewed and interpreted this imaging study as follows: Radiologist's impression: [address] [place] [address] CT Scan Report Signed Patient: Panchito Macedo #: [id number] : 1940Acct#:[id number] Age/Sex: 80 / MADM Date: 09/04/20 Loc: ERRoom/Bed: Attending Dr: Ordering Provider/Ordering MD: Gela Sanchez MD, [facility] [place] Date of Service: 09/04/20 Procedure(s): CT sinus wo con* [id number] Accession Number(s): [id number] Report Number: [id number] PROCEDURE INFORMATION: Exam: CT Maxillofacial Without Contrast, Sinus Exam date and time: 09/04/2020 9:32 PM Age: 80 years old Clinical indication: Fever; Face pain; Additional info: Sinusitis TECHNIQUE: Imaging protocol: CT Maxillofacial without contrast. Focus on the sinuses. Radiation optimization: All CT scans at this facility use at least one of these dose optimization techniques: automated exposure control; mA and/or kV adjustment per patient size (includes targeted exams where dose is matched to clinical indication); or iterative reconstruction. COMPARISON: No relevant prior studies available. RADIATION DOSE METRICS: Total DLP (mGy-cm): 572.46 FINDINGS: Frontal sinuses: Mostly opacified frontal sinuses. Ethmoid air cells: Diffuse mucosal thickening. Probably partial ethmoidectomy. Sphenoid sinuses: Diffuse opacification. Maxillary sinuses: Moderate to severe circumferential mucosal thickening. Evidence of medial wall antrostomy bilaterally. Nasal cavity/Septum: Mild leftward osseous nasal septal deviation. Chronic wall thickening of maxillary sinus william. No facial bone fractures. Middle turbinectomy. Orbital cavity: Bilateral lens replacements. Orbits are symmetric without acute finding. Bones/joints: Temporomandibular joints have unremarkable alignment. No aggressive bone lesions. Soft tissues: Unremarkable. Brain: Moderately atrophic brain parenchyma. CT/CT sinus wo con* [id number] IMPRESSION: Extensive nonspecific paranasal sinus disease. Evidence of prior paranasal sinus surgeries. Radiation Dose CTDIVOL = (mGy): DLP = 572.46 (mGy-cm) Dictated By:Daniel Mercado Signed By:Hannah Mercado Date/Time:09/04/202208 DD/ 07 CXR: Attestation: I personally reviewed and interpreted this imaging study as follows: Radiologist's impression: [address] [address] XRay Report Signed Patient: Panchito Macedo #: [id number] : 1940Acct#:[id number] Age/Sex: 80 / MADM Date: 09/04/20 Loc: ERRoom/Bed: Attending Dr: Ordering Provider/Ordering MD: Gela Sanchez MD, [facility] [place] Date of Service: 09/04/20 Procedure(s): XR chest 1V portable [id number] Accession Number(s): [id number] Report Number: [id number] PROCEDURE INFORMATION: Exam: XR Chest Exam date and time: 09/04/2020 8:11 PM Age: 80 years old Clinical indication: Fever; Prior surgery; Surgery date: 6+ months; Surgery type: Cabg, stents, pacemaker; Patient HX: HX lymphoma, had first chemo treatment 2 weeks ago. TECHNIQUE: Imaging protocol: XR of the chest Views: 1 view. COMPARISON: CR XR chest 1V portable [id number] 06/08/2020 4:39 PM FINDINGS: Tubes, catheters and devices: Left chest ICD. Lungs: Mild central pulmonary vascular dilation. Mild scattered hazy bilateral infrahilar lung opacities. Pleural spaces: Unremarkable. No pleural effusion. No pneumothorax. Heart/Mediastinum: Moderate cardiac enlargement. Prior CABG. Vasculature: Scattered atherosclerosis. Bones/joints: Unremarkable. XR/XR chest 1V portable [id number] IMPRESSION: No significant changes in exam from prior seen although there are somewhat more conspicuous infrahilar bronchovascular lung markings. Pneumonia or pulmonary edema cannot be confidently excluded. Dictated By:Daniel Mercado Signed By:Hannah Mercado Date/Time:09/04/202052 DD/ 51 Discharge Plan Discharge Patient Disposition: Home Clinical Impression: Chronic recurrent sinusitis Community acquired pneumonia Qualifiers: Laterality: unspecified laterality Qualified Code(s): J18.9 - Pneumonia, unspecified organism Condition: Stable Prescriptions: New metronidazole 500 mg tablet 500 mg PO TID 7 Days Qty: 21 RF: 0 levofloxacin 750 mg tablet 750 mg PO DAILY 7 Days Qty: 7 RF: 0 Continued allopurinol 100 mg tablet 100 mg PO DAILY RF: 0 loteprednol etabonate [Lotemax] 0.5 % drops,suspension 1 drop ophthalmic (eye) BID@0800,1800 RF: 0 Combigan 0.2-0.5 % drops 1 drop ophthalmic (eye) BID@0800,1800 RF: 0 furosemide 40 mg tablet 40 mg PO BID@0600,1800 PRN (Reason: Edema) RF: 0 tamsulosin 0.4 mg capsule 0.4 mg PO DAILY@0800 RF: 0 isosorbide mononitrate 60 mg tablet extended release 24 hr 60 mg PO DAILY@0800 RF: 0 potassium chloride 20 mEq tablet,ER particles/crystals 20 meq PO DAILY@0800 RF: 0 epinephrine 0.3 mg/0.3 mL auto-injector 0.3 mg IM ONCE PRN (Reason: UNKNOWN) RF: 0 Zyrtec 10 mg capsule 10 mg PO DAILY PRN (Reason: Allergy Symptoms) RF: 0 montelukast [Singulair] 10 mg tablet 10 mg PO DAILY@0800 RF: 0 albuterol sulfate 2.5 mg /3 mL (0.083 %) solution for nebulization 2.5 mg INHALATION Q4H PRN (Reason: Shortness Of Breath) RF: 0 amlodipine 10 mg tablet 10 mg PO DAILY@0800 RF: 0 Symbicort 160-4.5 mcg/actuation HFA aerosol inhaler 2 puff INHALATION DAILY@0800 RF: 0 rivaroxaban 15 mg tablet 15 mg PO DAILY RF: 0 Hold Instructions: Resume on 07/23/20. budesonide 0.5 mg/2 mL suspension for nebulization 0.25 mg INHALATION BID@0800,1800 RF: 0 Lantus U-100 Insulin 100 unit/mL solution 42 unit SUBCUT BEDTIME@2100 RF: 0 cholecalciferol (vitamin D3) 2,000 unit tablet 2,000 unit PO DAILY@0800 RF: 0 sotalol 120 mg tablet 120 mg PO BID@0800,1800 RF: 0 baclofen 10 mg tablet 10 mg PO DAILY@0800 RF: 0 Novolog U-100 Insulin aspart 100 unit/mL solution 5 unit SUBCUT TID@0800,1200,1700 RF: 0 lisinopril 5 mg tablet 5 mg PO DAILY@0800 RF: 0 glucosamine HCl 1,500 mg tablet 1,500 mg PO DAILY@0800 RF: 0 Discharge Orders: Discharge ED (Routine); Ordered 09/04/20 Ordered By: Gela Sanchez Referrals: Sandrita Almaguer MD [Primary Care Provider] - 1-3 days Discharge Diet: Usual diet Discharge Activity: Increase activity as tolerated Patient Instructions: Acute Bacterial Rhinosinusitis (ED), Community-acquired Pneumonia (ED), Sinusitis - Chronic Activity Restrictions/Additional Instructions: Return for any new or worsening symptoms. Follow-up with your primary care provider within 3 days. Take the antibiotics as prescribed. Drink plenty of fluids to keep well-hydrated. Coding Level of Care Code ED Medical Care Evaluation Specialist for Gudelia Stone
[2020-09-04] MEDS: cefTRIAXone 1,000 MG in sodium chloride 0.9% (plus) 50 ML 100 MG IV (22:52)
--- NOTE | 2020-09-04 23:10 | PC.NURSE ---
report received from edmundo soto and care transferred to EDMUNDO Lopez
[2020-09-04 23:15] VITALS: BP 101/51; PULSE 79; RESP 18; O2SAT 92
[2020-09-04 23:43] VITALS: BP 119/64; PULSE 74; RESP 18; TEMP 36.8; O2SAT 92
--- NOTE | 2020-09-06 03:37 | PC.NURSE ---
Dr. Bales notified of 2 of 4 blood cultures with gram positive cocci & cluster; patient discharged on ABX; will wait for final report.
[2020-09-06 14:05] LABS: Coronavirus Test Green County Not Detected
--- NOTE | 2020-09-07 09:27 | PC.NURSE ---
PT WAS CALLED AND GIVEN THE RESULTS OF HIS COVID TEST
== END 2020-09-04 23:35 | disposition home or self-care (01) ==
PROVIDERS: Emergency Provider Family Medicine; PCP Family Medicine
DX: J18.9 Pneumonia, unspecified organism (principal); J32.8 Other chronic sinusitis; Z79.4 Long term (current) use of insulin; I48.91 Unspecified atrial fibrillation; I11.0 Hypertensive heart disease with heart failure; I50.9 Heart failure, unspecified; E78.5 Hyperlipidemia, unspecified; Z95.0 Presence of cardiac pacemaker; Z86.73 Personal history of transient ischemic attack (TIA), and cerebral infarction without residual deficits; Z95.1 Presence of aortocoronary bypass graft; Z87.891 Personal history of nicotine dependence
CPT/HCPCS: 70486; 71045; 80053; 81003; 82550; 83605; 84145; 85025; 86140; 87040; 87186; 87205; 87426; 87635; 87804; 96365; 99284; J0696

== ENCOUNTER 2020-09-08 06:18 | Outpatient (RCR) | payer OTHER, MEDICARE, SELFPAY ==
[2020-09-08 15:35] LABS: Basophils % 0.3 %; Eosinophils # 0.5 10^3/uL (0.0-0.8); Eosinophils % 6.2 %; Hematocrit 33.6 % (42.0-52.0); Hemoglobin 11.2 g/dL (11.7-16.6); Lymphocytes # 0.2 10^3/uL (0.8-4.8); Lymphocytes % 3.1 %; Mean Corpuscular HGB Conc 33.3 g/dL (30.0-36.0); Mean Corpuscular Hemoglobin 28.6 pg (28.0-34.0); Mean Corpuscular Volume 85.7 fL (80-94); Mean Platelet Volume 10.7 fL (7.4-10.4); Monocytes # 0.8 10^3/uL (0.2-0.9); Monocytes % 10.7 %; Neutrophils # 5.89 10^3/uL (1.8-7.7); Neutrophils % 79.6 %; Nucleated Red Blood Cells % 0 %; Platelet Count 151 10^3/cmm (130-400); Red Blood Count 3.92 10^6/uL (4.1-5.3); Red Cell Distribution Width 15.4 % (12.1-15.1); White Blood Count 7.4 10^3/uL (4.0-10.0)
[2020-09-08 15:58] LABS: Alanine Aminotransferase 31 U/L (0-41); Alkaline Phosphatase 111 IU/L (40-130); Anion Gap 16.3 (5-19); Aspartate Amino Transferase 18 U/L (0-40); Blood Urea Nitrogen 77 mg/dL (8-23); Carbon Dioxide 20 mmol/L (22-29); Chloride 98 mmol/L (98-107); Globulin 2.8 g/dL (1.3-4.6); Glucose 170 mg/dL (65-115); Osmolality Calculated 297 mOsm/kg (285-295); Potassium 4.3 mmol/L (3.5-5.1); Sodium 130 mmol/L (136-145); Total Bilirubin 0.3 mg/dL (0.15-1.2); Total Protein 5.8 g/dL (6.6-8.7)
== END 2020-09-08 23:59 | disposition home or self-care (01) ==
LOC: ONCMED 06:18
PROVIDERS: PCP Family Medicine; Visit Provider Nurse Practitioner
DX: C85.83 Other specified types of non-Hodgkin lymphoma, intra-abdominal lymph nodes (principal); Z51.81 Encounter for therapeutic drug level monitoring; Z79.899 Other long term (current) drug therapy
CPT/HCPCS: 36415; 80053; 85025

== ENCOUNTER 2020-09-09 08:04 | Outpatient (RCR) | payer OTHER, MEDICARE, SELFPAY ==
--- NOTE | 2020-09-09 09:36 | ONC CON_ITS ---
Dr. Méndez New Patient Note Patient: Panchito Macedo Unit #: [id number]: 1940 Dicatated By: Kole Méndez M.D.Date of Visit: Sep 09, 2020 Onc MED New Patient/Consult Referring Physician: Dr. LA NENA COOK M.D. Chief Complaint: Lymphoma. 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 He had presented with abdominal pain which have been getting progressively worse over about [address] abdomen/pelvis on 06/08/2020 showed mesenteric mass with epicenter superior to the L4-L5 disc space level measuring 4.4 x 10.0 cm. It was noted to have enlarged compared to prior study from August 2018. Also noted was a pathologically enlarged right retrocrural lymph node measuring 1.5 cm. There was no associated bowel thickening, ileus, or obstruction. There was no hydronephrosis. Bibasilar interstitial and groundglass opacity in the lungs was felt to be compatible with edema, pneumonitis, and or atelectasis. He was referred to Dr. Cook. On 07/20/2020 he underwent diagnostic laparoscopy with biopsies of the mesenteric mass. 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 IHC stains showed positivity for CD20, and BCL-2. They were negative for CD10, BCL6, and cyclin D1. CD5 was negative in B cells and positive in T cells. The Ki-67 was low at less than 10%. I had seen him initially on 08/12/2020. By clinical evaluation his disease appeared to be stage IIE and in the setting of a low-grade lymphoma, he was recommended to begin treatment with bendamustine/rituximab for 4-6 cycles. He began cycle 1 on 08/26/2020. He was administered via peripheral IV. He tolerated his first 2 days of treatment without acute toxicity. On 09/04/2020 he was seen in the emergency room with fever of 103.1 degrees. His CBC showed normal white count of 8900 with 81% neutrophils, so that he was clearly not neutropenic. Chest x-ray showed no acute findings. His sinus CT showed extensive nonspecific paranasal sinus disease. He began empiric antibiotic therapy with Levaquin with a presumptive diagnosis of sinusitis. He now has multiple positive blood cultures growing coagulase-negative staph. He is feeling very weak generally. He has virtually no activity. ECOG score is 3. Appetite has not been good. He has been forcing himself to eat. He has been gaining weight, though, presumably from fluid retention. He has continued to run fever every night up to 102.7 degrees. He has chills and sweating. He has had sore mouth and throat. He also has cough and he complains that his breathing is labored. He has had a couple of episodes of chest pain. He has been having nausea and constipation. Bladder function has been okay, he has noted decreased urine output. He is having intermittent severe pain in multiple areas, though just transiently. He has sharp pains in his head. Is a lot of dizziness/lightheadedness. He has tingling all throughout his body. Past Medical History: His medical history includes atrial fibrillation, benign prostatic hypertrophy, carotid stenosis, cerebrovascular disease with history of TIAs and strokes, chronic obstructive pulmonary disease, congestive heart failure, coronary artery disease, gastroesophageal reflux disease, hypertension, obstructive sleep apnea, peripheral arterial disease, trigeminal neuralgia, and type II diabetes. Past Surgical History: His surgical/procedural history includes cataract excision, coronary angioplasty/stent placement, coronary artery bypass surgery, placement of permanent pacemaker, and right carotid artery stent placement. Medications: Albuterol Sulfate ((2.5 mg/3ml) 0.083%) Nebulization solution Inhalation 8x/d, All Day Allergy Tablet Oral, Amoxicillin 1 Tablet (of 875 mg) Oral b.i.d., Baclofen (10 mg) Tablet Oral daily, Betapace (120 mg) Tablet Oral b.i.d., Brimonidine Tartrate-Timolol (0.2-0.5 %) Solution Ophthalmic b.i.d., Budesonide (0.25 mg/2mL) Aerosol Powder, Breath Activated Inhalation b.i.d., Budesonide-Formoterol Fumarate (160-4.5 mcg/act) Aerosol Inhalation daily, Furosemide (40 mg) Tablet Oral b.i.d., Glucosamine HCl (1500 mg) Tablet Oral daily, Insulin Aspart (5 Units/mL) Subcutaneous ac (tid), Insulin Glargine (42 Units/mL) Subcutaneous at bedtime, Isosorbide Mononitrate ER (60 mg) Tablet SR 24 HR Oral daily, Klor-Con (20 meq) Capsule, controlled release Oral daily, levoFLOXacin (500 mg) Tablet Oral daily, Lisinopril (5 mg) Tablet Oral daily, Lotemax (0.5 %) Suspension Ophthalmic b.i.d., metroNIDAZOLE (500 mg) Tablet Oral t.i.d., Montelukast Sodium (10 mg) Tablet Oral daily, Norvasc (10 mg) Tablet Oral daily, Rivaroxaban (15 mg) Tablet Oral daily, Tamsulosin HCl (0.4 mg) Capsule Oral daily, Vitamin D3 (2000 units ) Capsule Oral daily Allergies: Acetaminophen, Calcitriol, Fish Oil, Gabapentin, HYDROcodone-Acetaminophen, oxyCODONE HCl, Red Dye, Statins, Sulfa Antibiotics, and traMADol HCl. Social History: Mr. Macedo is . He had previously smoked 1 pack of cigarettes daily. He quit 35 years ago. He has had some alcohol use in the past, but never heavy. He quit drinking at least 50 years ago. Family History: Father of prostate cancer at age 77. Mother with lymphoma at age 76. A sister of lung cancer, also at age 76. 1 brother as result of a gunshot wound and another of suicide. Another brother with dementia at age 90. Review Of Symptoms: As above. Vital Signs: Performed on Sep 09, 2020 09:00: 10, 4, 35.40 (HIGH), 2.13 sq.m, 67.00 in, 94 % (LOW), 84 /min, 18 /min, 116/71 mm(hg), 98.1 F (LOW), and 226 lbs (HIGH). Physical Examination: Constitutional - He appears generally weak, Eyes - Sclerae nonicteric. Conjunctivae clear, ENMT - No lesions noted in the oral cavity, Hematologic/Lymphatic - No cervical, clavicular, or axillary adenopathy, Respiratory - Lungs are clear with diminished air movement bilaterally, Cardiovascular - Heart tones are distant. The rhythm is irregular. There is no murmur, gallop, or rub noted, Abdomen - Soft. There is mild abdominal tenderness. Liver and spleen are not enlarged. There is no abdominal mass or ascites noted and there is no inguinal adenopathy, Extremities - There is 1 to 2+ lower extremity edema, Neurologic - There is slight residual weakness on the left side. Lab/Imaging: Test performed on Sep 01, 2020 13:22 Sodium 141 mmol/L Potassium 4.2 mmol/L Chloride 105 mmol/L CO2 26 mmol/L Anion Gap 14.2 BUN 45 mg/dL Creatinine 1.3 mg/dL Cr Clearance (Est) 63.1600 mL/min Glucose 207 mg/dL Osmolality - Calculated 310 mOsm/kg Calcium 8.8 mg/dL Protein, Total 6.1 g/dL Albumin 3.3 g/dL Globulin 2.8 g/dL Bilirubin, Total 0.3 mg/dL ALT (SGPT) 6 U/L AST (SGOT) 8 U/L Alkaline Phosphatase 46 IU/L WBC 6.6 10 3/uL RBC 4.22 10 6/uL HGB 12.1 g/dL HCT 36.8 % MCV 87.2 fL MCH 28.7 pg MCHC 32.9 g/dL RDW 14.6 % Platelet Count 176 10 3/cmm MPV 10.5 fL Neutrophils 5.20 10 3/uL Lymphocytes 0.2 10 3/uL Monocytes 0.7 10 3/uL Eosinophils 0.4 10 3/uL Basophils 0.0 10 3/uL Neutrophil % 79.1 % Lymphocyte % 3.2 % Monocyte % 10.4 % Eosinophil % 6.3 % Basophils % 0.5 % NRBC % 0 % Problem List: 1. Patient with recently diagnosed marginal zone lymphoma presenting as large mesenteric mass. By CT scan there also appears to be involvement in a retrocrural lymph node, thus stage IIE. 2. Hypertension. 3. Type 2 diabetes with peripheral neuropathy. 4. Carotid stenosis with previous right carotid artery stent placement. 5. Coronary artery disease with history of coronary angioplasty/stent placement and subsequent coronary artery bypass surgery. 6. Atrial fibrillation. 7. Congestive heart failure. 8. Peripheral arterial disease. 9. GERD. 10. COPD. 11. Obstructive sleep apnea. 12. Benign prostatic hypertrophy. 13. Trigeminal neuralgia. Problems Addressed with this Encounter and Plan: 1. Patient with marginal zone lymphoma presenting as large mesenteric mass. By CT scan there also appears to be involvement in a retrocrural lymph node, thus stage IIE. Given the low Ki-67 and the interval from his prior CT scan, he does appear to have low-grade disease. He began cycle 1 of chemotherapy with bendamustine/Rituxan on 08/25/2020. He tolerated it without acute toxicity. He has not yet been evaluated for response. 2. He was seen in the emergency room on 09/04/2020 with fever of 103.1 degrees. He has been on empiric antibiotic coverage with Levaquin. He now has multiple blood cultures growing coagulase-negative staph. The source of this is uncertain, as he was not neutropenic and he does not have a Port-A-Cath. Nonetheless, his fever has persisted and he has had a significant decline in his renal function. Arrangements are being made for direct admission to the hospital. Signed By: Kole Méndez M.D. <<Signature on File>>
== END 2020-09-09 11:30 | disposition home or self-care (01) ==
LOC: ONCMED 08:04
PROVIDERS: PCP Family Medicine; Visit Provider Internal Medicine Medical Oncology
DX: C85.83 Other specified types of non-Hodgkin lymphoma, intra-abdominal lymph nodes (principal); Z51.81 Encounter for therapeutic drug level monitoring; Z79.899 Other long term (current) drug therapy; R50.9 Fever, unspecified; N28.9 Disorder of kidney and ureter, unspecified; B95.7 Other staphylococcus as the cause of diseases classified elsewhere
CPT/HCPCS: 99215

== ENCOUNTER 2020-09-09 11:47 | Inpatient (IN) | payer OTHER, MEDICARE, SELFPAY ==
--- NOTE | 2020-09-09 12:34 | XR_ITS ---
WS: [id number] PA and lateral chest, 09/09/2020 Clinical Data: fever Comparison: Portable chest, 09/04/2020. Findings: No nodules, masses or effusions are seen. The heart is normal. Bilateral lower lobe opaciti es are present and these could represent atelectasis and/or minimal pneumonia. No pneumothorax is see n. The aortic arch and descending aorta show calcification and tortuosity. A 2-lead pacemaker is in g ood position with the generator overlying the lateral left chest. Midline sternotomy sutures are pres ent. XR/XR chest 2V* [id number] Impression: 1. No change in bilateral lower lobe pulmonary opacities. 2. Atherosclerosis and permanent pacemaker.
--- NOTE | 2020-09-09 12:43 | CT_ITS ---
WS: [id number] CT HEAD NONCONTRAST HISTORY: confusion TECHNIQUE: Contiguous axial imaging performed through the brain in 2.5 mm imaging. Bone and soft tiss ue windows. Sagittal and coronal reformats reviewed. All CT scans at [facility] use at le ast one of these dose optimization techniques: automated exposure control; mA and/or kV adjustment pe r patient size (includes targeted exams where dose is matched to clinical indication); or iterative r econstruction. DLP: 1007.21 mGy.cm COMPARISON: 03/18/2017 No acute intracranial hemorrhage, midline shift or mass effect. Mild atrophy and mild chronic microvascular ischemic disease. Prior infarcts in the RIGHT frontal and RIGHT parieto-occipital lobes. These have not changed. No new area of sulcal effacement. Ventricles: Normal size with no hydrocephalus. Paranasal sinuses: Prior endoscopic sinus surgery. There is continued diffuse mucoperiosteal thickeni ng throughout the sinus cavities. No air-fluid levels. Mastoid air cells: Well pneumatized. Calvarium and scalp: Skull is intact with no soft tissue edema or swelling. Severe atherosclerosis intracranial carotid arteries. CT/CT head wo con* [id number] IMPRESSION: 1. No acute intracranial hemorrhage or edema. 2. 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 3. Mild atrophy and chronic ischemic disease. 4. Chronic sinusitis.
--- NOTE | 2020-09-09 12:49 | PM.HP ---
Providers/Chief Complaint Admitting Physician: Ricky Green MD Primary Care Provider: Sandrita Almaguer MD Chief Complaint: bacteria chemo therapy History of Present Illness Panchito Macedo is a 80 year old male with history of marginal cell lymphoma who is undergoing chemotherapy with bendamustine and rituximab with his last treatment being either August 26 or September 01 who presents with history of fever. He has felt ill for the last week with intermittent fevers, one as high as 103 ?F. He has had nasal congestion and a cough. He has been seen in the emergency department, on September 04. Blood culture from that date demonstrated staph epidermidis 4 out of 4 bottles. He has no port, or foreign bodies other than his pacemaker which was placed 4 to 5 years ago. He reports he has had some hallucinations. Mild headache. No neck pain. Some generalized body aching. Lots of nasal congestion. In the emergency department a sinus CT was done demonstrating significant sinus disease/sinusitis. He was tested for Covid with a PCR which was negative as well. Occasional cough. No vomiting. Some constipation. Some sore throat lately. He reports he believes he has thrush. Review of Systems General: Reports: 10 or more systems reviewed and unremarkable except in HPI and below Const: Reports: chills, body aches, fatigue and change in sleep pattern; Denies: fever(s) Eyes: Denies: change in vision ENMT: Denies: throat pain Card: Denies: chest pain Resp: Reports: non-productive cough; Denies: dyspnea GI: Denies: abdominal pain : Denies: flank pain Musc: Denies: neck pain Skin/Breast: Denies: rash Neuro: Reports: headache(s) Psych: Denies: anxiety Endo: Denies: polyuria Justin/Lymph: Denies: easy bruising All/Imm: Denies: urticaria Medications/Allergies Home Medications Medication Instructions Recorded Confirmed Last Taken Type albuterol sulfate 2.5 mg INHALATION Q4H PRN 06/18/19 08/19/20 Unknown History amlodipine 10 mg tablet 10 mg PO DAILY@0800 tab 06/18/19 08/19/20 1 Day Ago History ~07/19/20 baclofen 10 mg tablet 10 mg PO DAILY@0800 tab 06/18/19 08/19/20 1 Day Ago History ~07/19/20 budesonide 0.5 mg/2 mL suspension 0.25 mg INHALATION BID@0800,1800 06/18/19 08/19/20 06/08/20 History for nebulization budesonide-formoterol HFA 160 2 puff INHALATION DAILY@0800 gm 06/18/19 08/19/20 06/08/20 History mcg-4.5 mcg/actuation aerosol inhaler cetirizine 10 mg capsule 10 mg PO DAILY PRN cap 06/18/19 08/19/20 1 Day Ago History ~07/19/20 cholecalciferol (vitamin D3) 50 2,000 unit PO DAILY@0800 tab 06/18/19 08/19/20 1 Day Ago History mcg (2,000 unit) tablet ~07/19/20 epinephrine 0.3 mg/0.3 mL 0.3 mg IM ONCE PRN 06/18/19 08/19/20 Unknown History injection, auto-injector furosemide 40 mg tablet 40 mg PO BID@0600,1800 PRN 06/18/19 08/19/20 1 Day Ago History ~07/19/20 glucosamine HCl 1,500 mg tablet 1,500 mg PO DAILY@0800 tab 06/18/19 08/19/20 1 Day Ago History ~07/19/20 insulin aspart U-100 100 unit/mL 5 unit SUBCUT TID@0800,1200,1700 06/18/19 08/19/20 07/19/20 08:00 History subcutaneous solution insulin glargine 100 unit/mL 42 unit SUBCUT BEDTIME@2100 ml 06/18/19 08/19/20 07/19/20 18:00 History subcutaneous solution isosorbide mononitrate 60 mg 60 mg PO DAILY@0800 06/18/19 08/19/20 07/19/20 History tablet,extended release 24 hr lisinopril 5 mg tablet 5 mg PO DAILY@0800 tab 06/18/19 08/19/20 07/20/20 07:00 History montelukast 10 mg tablet 10 mg PO DAILY@0800 tab 06/18/19 08/19/20 07/19/20 History potassium chloride 20 mEq 20 meq PO DAILY@0800 tab 06/18/19 08/19/20 07/19/20 History tablet,extended release(part/cryst) rivaroxaban 15 mg tablet 15 mg PO DAILY tab 06/18/19 08/19/20 07/15/20 22:00 History sotalol 120 mg tablet 120 mg PO BID@0800,1800 06/18/19 08/19/20 07/19/20 07:00 History tamsulosin 0.4 mg capsule 0.4 mg PO DAILY@0800 cap 06/18/19 08/19/20 07/19/20 History brimonidine 0.2 %-timolol 0.5 % 1 drop OPHTHALMIC (EYE) 11/04/19 08/19/20 1 Day Ago History eye drops BID@0800,1800 ~07/19/20 loteprednol etabonate 0.5 % eye 1 drop OPHTHALMIC (EYE) 11/04/19 08/19/20 07/19/20 History drops,suspension BID@0800,1800 allopurinol 100 mg tablet 100 mg PO DAILY 08/18/20 08/19/20 Unknown History levofloxacin 750 mg PO DAILY 7 Days #7 tab 09/04/20 Unknown Rx metronidazole 500 mg PO TID 7 Days #21 tab 09/04/20 Unknown Rx Allergies Allergy/AdvReac Type Severity Reaction Status Date / Time acetaminophen [From Tylenol] Allergy unknown Verified 09/04/20 19:18 calcitriol Allergy unknown Verified 09/04/20 19:18 fish oil Allergy unknown Verified 09/04/20 19:18 gabapentin Allergy unknown Verified 09/04/20 19:18 hydrocodone Allergy itching Verified 09/04/20 19:18 rash oxycodone Allergy unknown Verified 09/04/20 19:18 red dye Allergy ALGY-Hives Verified 09/04/20 19:18 Pgjrxjd-Dec-Dhj Reductase Allergy unknown Verified 09/04/20 19:18 Inhibitor Sulfa (Sulfonamide Allergy urticaria Verified 09/04/20 19:18 Antibiotics) pruritis tramadol Allergy unknown Verified 09/04/20 19:18 PFSH Acute PFSH: Medical History (Updated 09/09/20 @ 13:33 by Ricky Green MD) ASHD (arteriosclerotic heart disease) Atrial fibrillation Atypical chest pain BPH NOS w ur obs/LUTS Good response to TAMSULOSIN. Carotid stenosis CHF (congestive heart failure) Hyperlipemia Hypertension Leg swelling Pacemaker Peripheral vascular disease Sleep apnea TIA (transient ischemic attack) Trigeminal neuralgia Ventral hernia Surgical History (Updated 09/09/20 @ 13:29 by Ricky Green MD) H/O bilateral cataract extraction H/O four vessel coronary artery bypass graft H/O heart artery stent History of pacemaker Status post cryoablation Family History Other CAD (coronary artery disease) Cancer Diabetes Family history of prostate cancer Social History Smoking and tobacco status: former smoker Alcohol intake: never Adopted: No Caregiver/support person: No Lives independently: No Household members: spouse Marital status: Current occupational status: retired History of recent travel: No Current gender identity: Male Physical Exam Narrative: EXAM NARRATIVE: General exam is a male in no apparent distress, who appears weak HEENT: Pupils equally round. Oropharynx clear. Some erythema in hard palate and scattered whitish material consistent with thrush Neck is supple no lymphadenopathy or thyromegaly Cardiovascular regular rate and rhythm without murmur. No S3 or S4. Pacemaker site without erythema or fluctuance Lungs clear no wheezing or crackles. Abdomen is soft nontender with positive bowel sounds. No obvious organomegaly this deferred Extremities trace edema bilaterally. No cyanosis or clubbing Skin no rash Neuro no obvious focal deficits Data Other data: Laboratory from the was reviewed with creatinine of 2.8 up from his baseline of 1.3. White blood cell count was 7.4 and platelet count 151. All previous labs from the and the of this month were reviewed in detail in addition to other studies. A&P Assessment and plan (1) Bacteremia: Repeat blood cultures Initiate vancomycin Continue his Levaquin which was started for sinusitis demonstrated on CT Status: Acute (2) Fever: Likely secondary to above but cannot rule out the possibility lymphoma is causing fevers as well. Check chest x-ray, CBC, CMP, UA with micro Status: Acute (3) Chronic recurrent sinusitis: Continue Levaquin Status: Acute (4) Hallucinations: This may herald some encephalopathy. Check CT head. Status: Acute (5) Thrush: Nystatin 4 times daily swish and swallow Status: Acute (6) CHF (congestive heart failure): Recent echocardiogram was performed September 02 demonstrating EF of 60%, 3/4 diastolic dysfunction, hypokinesis apical septal segment, moderate pulmonary hypertension. Status: Acute Qualifiers: Heart failure type: diastolic Heart failure chronicity: chronic Qualified Code(s): I50.32 - Chronic diastolic (congestive) heart failure (7) Acute kidney injury: Noted on laboratory yesterday. Cautious hydration and holding diuresis. Bladder scan as needed Check urinalysis Status: Acute Additional A&P Information Allow natural Heparin will suffice for DVT prophylaxis Attestations Medical Necessity Statement*: Will need greater than 2 midnight stay for treatment of acute kidney injury, bacteremia, fever. Coding Level of Care Code Acute Healthcare Network Consultant for [facility] Fwd Diagnoses Bacteremia R78.81 Fever R50.9 Chronic recurrent sinusitis J32.9 Hallucinations R44.3 Thrush B37.0 CHF (congestive heart failure) I50.32 Heart failure type: diastolic Heart failure chronicity: chronic Acute kidney injury N17.9
[2020-09-09 13:18] VITALS: BMI 35.4
[2020-09-09 14:17] LABS: Basophils # 0.1 10^3/uL (0.0-0.1); Basophils % 0.6 %; Eosinophils # 0.5 10^3/uL (0.0-0.8); Eosinophils % 5.9 %; Hematocrit 36.7 % (42.0-52.0); Hemoglobin 12.1 g/dL (11.7-16.6); Lymphocytes # 0.1 10^3/uL (0.8-4.8); Lymphocytes % 1.7 %; Mean Corpuscular Hemoglobin 28.5 pg (28.0-34.0); Mean Corpuscular Volume 86.4 fL (80-94); Mean Platelet Volume 10.4 fL (7.4-10.4); Monocytes # 0.9 10^3/uL (0.2-0.9); Monocytes % 11.4 %; Neutrophils # 6.57 10^3/uL (1.8-7.7); Neutrophils % 80.2 %; Nucleated Red Blood Cells % 0 %; Platelet Count 176 10^3/cmm (130-400); Red Blood Count 4.25 10^6/uL (4.1-5.3); Red Cell Distribution Width 15.4 % (12.1-15.1); White Blood Count 8.2 10^3/uL (4.0-10.0)
[2020-09-09 14:48] LABS: Alanine Aminotransferase 23 U/L (0-41); Albumin Level 3.1 g/dL (3.5-5.2); Alkaline Phosphatase 106 IU/L (40-130); Anion Gap 16.4 (5-19); Aspartate Amino Transferase 12 U/L (0-40); Calcium 9.2 mg/dL (8.5-10.5); Carbon Dioxide 21 mmol/L (22-29); Chloride 99 mmol/L (98-107); Globulin 2.7 g/dL (1.3-4.6); Glucose 194 mg/dL (65-115); Magnesium 2.2 mg/dL (1.7-2.3); Osmolality Calculated 304 mOsm/kg (285-295); Potassium 4.4 mmol/L (3.5-5.1); Sodium 132 mmol/L (136-145); Total Bilirubin 0.3 mg/dL (0.15-1.2); Total Protein 5.8 g/dL (6.6-8.7)
[2020-09-09] MEDS: heparin 5,000 unit/mL INJ 1 mL 5000 UNIT SUBCUT (15:19)
[2020-09-09 15:28] VITALS: BP 104/57; PULSE 82; RESP 18; TEMP 36.4; O2SAT 91
[2020-09-09 15:29] LABS: Blood Urea Nitrogen 82 mg/dL (8-23)
[2020-09-09] MEDS: sodium chloride 0.9% 1,000 ML 50 ML IV (15:36)
[2020-09-09 16:51] VITALS: PULSE 72; RESP 17; O2SAT 93
[2020-09-09 17:05] LABS: Glucose Point of Care 259 mg/dL (70-110)
[2020-09-09 17:11] LABS: Bacteria Urine TRACE /hpf; Bilirubin Urine Neg (Negative); Blood Urine Neg (Negative); Glucose Urine UA Norm (Normal); Ketones Urine Negative (Negative); Leukocyte Esterase Urine Negative (Negative); Nitrate Urine Negative (Negative); Protein Urine Neg (Negative); RBC Urine RARE /hpf (0-2); Squamous Epithelial Cell Urine RARE /hpf (0-5); Urine Appearance Clear (CLEAR); Urine Color Yellow (Yellow); Urobilinogen Urine Norm (Negative); WBC Urine RARE /hpf (0-5); pH Urine 5 (5-7)
--- NOTE | 2020-09-09 19:16 | PC.NURSE ---
Pt informed this nurse he had taken all of his medications for the day. Pt had medication box at bedside along with baclofen. This nurse locked meds in Pyxis and informed Dr. Green of refused PM meds.
[2020-09-09 19:57] VITALS: BP 112/69; PULSE 66; RESP 17; TEMP 36.3; O2SAT 94
[2020-09-09 20:48] LABS: Glucose Point of Care 308 mg/dL (70-110)
[2020-09-10] VITALS (11 sets, daily range): BP systolic 101–108; BP diastolic 57–66; PULSE 60–83; RESP 17–18; TEMP 36.3–36.8; O2SAT 86–93
[2020-09-10 06:12] LABS: Basophils % 0.5 %; Eosinophils # 0.5 10^3/uL (0.0-0.8); Eosinophils % 6.1 %; Hematocrit 33.3 % (42.0-52.0); Hemoglobin 10.9 g/dL (11.7-16.6); Lymphocytes # 0.1 10^3/uL (0.8-4.8); Lymphocytes % 1.6 %; Mean Corpuscular HGB Conc 32.7 g/dL (30.0-36.0); Mean Corpuscular Hemoglobin 28.6 pg (28.0-34.0); Mean Corpuscular Volume 87.4 fL (80-94); Mean Platelet Volume 10.1 fL (7.4-10.4); Monocytes % 12.8 %; Neutrophils # 6.29 10^3/uL (1.8-7.7); Neutrophils % 78.5 %; Nucleated Red Blood Cells % 0 %; Platelet Count 182 10^3/cmm (130-400); Red Blood Count 3.81 10^6/uL (4.1-5.3); Red Cell Distribution Width 15.6 % (12.1-15.1)
[2020-09-10 06:30] LABS: Anion Gap 16.6 (5-19); Blood Urea Nitrogen 80 mg/dL (8-23); Calcium 8.6 mg/dL (8.5-10.5); Carbon Dioxide 20 mmol/L (22-29); Chloride 103 mmol/L (98-107); Glucose 180 mg/dL (65-115); Osmolality Calculated 309 mOsm/kg (285-295); Potassium 4.6 mmol/L (3.5-5.1); Sodium 135 mmol/L (136-145)
[2020-09-10 06:38] LABS: Glucose Point of Care 193 mg/dL (70-110)
--- NOTE | 2020-09-10 09:31 | USR_ITS ---
PROCEDURE INFORMATION: Exam: US Retroperitoneal; Complete; Kidneys and Bladder Exam date and time: 09/10/2020 3:42 PM Age: 80 years old Clinical indication: Other: Renal failure TECHNIQUE: Imaging protocol: Real-time ultrasound of the retroperitoneum with image documentation. Complete exam focused on the kidneys and bladder. COMPARISON: CT abdomen w con* [id number] 04/09/2019 9:25 AM FINDINGS: Right kidney: 11.3 cm in length. No stones. No hydronephrosis. Left kidney: 11.6 cm in length. No stones. No hydronephrosis. Urinary bladder: Unremarkable. US/US renal BI* [id number] IMPRESSION: No acute sonographic findings.
[2020-09-10] MEDS: sotalol 80 mg Tablet 120 MG PO ×2 (10:08→18:42)
[2020-09-10] MEDS: rivaroxaban 10 mg Tablet 15 MG PO (10:09)
[2020-09-10] MEDS: tamsulosin 0.4 mg Capsule PO (10:09)
[2020-09-10] MEDS: allopurinol 100 mg Tablet PO (10:09)
[2020-09-10] MEDS: linezolid premix 600 MG/300 ML PREMIX 300 MG IV ×2 (10:15→22:53)
[2020-09-10 10:40] LABS: C Reactive Protein 44.9 mg/L (0.0-4.9)
[2020-09-10 10:43] LABS: Glucose Point of Care 346 mg/dL (70-110)
[2020-09-10 10:57] LABS: Erythrocyte Sedimentation Rate 47 mm/hr (0-10)
--- NOTE | 2020-09-10 12:21 | P.PN_ITS ---
Subjective Subjective: Interval history: Panchito reports he is doing okay with the exception of swelling. He reports his legs are more swollen, and he is short of breath when he lays down. No fever or chills last night. Medications: Reviewed: Yes Vitals/I&O/Wt Last Vital Signs Temp 97.7 F 09/10/20 12:00 Pulse 68 09/10/20 12:00 Resp 18 09/10/20 12:00 BP 108/61 09/10/20 12:00 Pulse Ox 90 09/10/20 12:00 09/09/20 09/10/20 09/10/20 22:59 06:59 14:59 Intake Total 500 / 500 240 / 740 360 / 360 Output Total 300 / 300 100 / 100 Balance 500 / 500 -60 / 440 260 / 260 Weight last 48 hrs Weight 102.739 kg Weight 102.739 kg Physical Exam Narrative: EXAM NARRATIVE: General exam is a male in no apparent distress, appears stronger today Neck is supple no lymphadenopathy or thyromegaly Cardiovascular regular rate and rhythm without murmur. No S3 or S4. Pacemaker site without erythema or fluctuance Lungs diminished breath sounds at the bases. Abdomen is soft nontender with positive bowel sounds. No obvious organomegaly this deferred Extremities 2+ bilateral edema Data : 09/10/20 06:00 09/10/20 06:00 Micro: Microbiology 09/09/20 14:00 Blood Culture - Preliminary Blood SPECIMEN COLLECTED 09/09/20 14:00 Blood Culture - Preliminary Blood SPECIMEN COLLECTED A&P Assessment and plan (1) Bacteremia: Repeat blood cultures drawn yesterday no growth at this time Discontinue vancomycin secondary to worsening renal function and initiate linezolid Continue his Levaquin which was started for sinusitis demonstrated on CT ESR 47, CRP 45 Cardiology consult for ALEN Status: Acute (2) Fever: Likely secondary to above but cannot rule out the possibility lymphoma is causing fevers as well. Chest x-ray did not demonstrate new changes. UA with micro negative Status: Acute (3) Chronic recurrent sinusitis: Continue Levaquin Status: Acute (4) Hallucinations: This may herald some encephalopathy. CT head was checked and prior occipital strokes noted but no hemorrhage or new changes. Denies any hallucinations currently. Status: Acute (5) Thrush: Initiate fluconazole Status: Acute (6) CHF (congestive heart failure): Recent echocardiogram was performed September 02 demonstrating EF of 60%, 3/4 diastolic dysfunction, hypokinesis apical septal segment, moderate pulmonary hypertension. He has some acute decompensation secondary fluids given. Discontinue fluids. Lasix 40 mg IV x1. Holding long-acting nitrates secondary to lower blood pressures Status: Acute Qualifiers: Heart failure type: diastolic Heart failure chronicity: chronic Qualified Code(s): I50.32 - Chronic diastolic (congestive) heart failure (7) Acute kidney injury: Cautious hydration did not help. Check renal ultrasound Change vancomycin to linezolid Status: Acute Additional A&P Information Diabetes mellitus. I had Levemir 10 units at night. Continue sliding scale. Much lower dose than used at home secondary to concern of renal dysfunction History of hypertension. Holding amlodipine secondary to lower blood pressures Allow natural Xarelto will suffice for DVT prophylaxis Continue physical therapy Attestations Medical Necessity Statement*: Needs continued hospitalization for further treatment of acute kidney injury, superimposed on chronic renal failure as well as treatment of bacteremia. Coding Level of Care Code Acute Nutrition Representative for [facility] Diagnoses Bacteremia R78.81 Fever R50.9 Chronic recurrent sinusitis J32.9 Hallucinations R44.3 Thrush B37.0 CHF (congestive heart failure) I50.32 Heart failure type: diastolic Heart failure chronicity: chronic Acute kidney injury N17.9
--- NOTE | 2020-09-10 12:30 | PC.CHAP ---
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 [] Patient/Family/Request visit [] Outpatient visit [] Follow-up visit [] Physician referral [] Code/Alert [xx] Routine visit [] Staff referral [] Actively dying [] Patient sleeping [] Family support [] [] Out of room [] Palliative care [] [] Receiving care in room [] Pre-surgical visit [] Trauma [] Long length of stay [] ICU visit [] Other: Relational/Emotional Strength [xx] Patient feels connected with others/family/visitors/staff [] Distress [] Loneliness/isolation [] Abandonment Spirituality of Patient [xx] Person of Brianna [xx] Attends [employer] of their [place] [xx] Believes in Prayer [xx] Reads Bible or Orthodoxy materials [] There are Spiritual issues to be addressed Skein Drier Interventions [xx] Prayer [xx] Active listening [xx] Non-anxious presence [] Spiritual/emotional support [] Crisis/trauma care [] Spiritual counseling [] Bereavement support [] Provided bereavement packet [xx] Provided Bible/devotional materials [] Provided toy/stuffed animal, coloring book to patient or family member [] Provided Communion [] Anointing/Moffat [] Salvation [xx] Completed spiritual assessment [] Other: Impact on Illness or Injury [] Angry [] Fearful [] Anxious [] Often cries [] Exhaustion [] Unable to work [] Unable to attend latter-day [] Unable to walk/stand [] Unable to read [] Unable to drive [] Unable to eat/drink [] Unable to sleep [] Unable to be with family [] Patient intubated [] Other: Summary Great man of God. Author, keeley pederson, loves to witness and talk. Expects to visit this day. He accepted [employer] devotional. Time spent with patient 30 minutes.
[2020-09-10] MEDS: fluconazole 100 mg Tablet PO (12:35)
[2020-09-10] MEDS: FUROsemide 10 mg/mL SDV 4mL 40 MG IVP (12:35)
[2020-09-10 16:52] LABS: Glucose Point of Care 294 mg/dL (70-110)
--- NOTE | 2020-09-10 18:42 | PM.CONSULT ---
Providers/Reason For Consult Consulting Physican/Specialty*: GEMMA Lion MD/audiology Reason for Consult*: Patient with a history of coronary artery disease, symptomatic bradycardia, status post permanent pacer implantation, atrial fibrillation, diastolic heart failure, is admitted to hospital with intermittent fever and gram-positive bacteremia. He was found to have some features of decompensated heart failure. He also is complaining of left-sided chest pain. Cardiology consult is requested for further cardiac evaluation and recommendations. Consider ALEN to rule out endocarditis Mr. Boyd is known to have coronary artery disease, multiple PCI's and coronary artery bypass surgery. He had a three-vessel bypass surgery in 2003-a SANTIAGO to the left anterior descending artery, free radial arterial graft to the obtuse marginal and a saphenous venous graft to the posterior descending artery. The most recent cardiac catheterization in 2014 revealed patent venous graft and the arterial grafts. He has severe three-vessel coronary artery disease. No other revascularizable lesions were noted. He had a myocardial perfusion imaging in 2017 which was essentially unremarkable. 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 He has a large mesenteric mass and retroperitoneal lymphadenopathy. He was started on chemotherapy with bendamustine/rituximab. He received his first dose 2 weeks ago. According the patient, he has been having a low-grade fever for the last more than a week. He presented to the emergency room with fever and shortness of breath. His temperature was 103. Blood culture from the emergency room showed staph epidermidis growth in all the 4 bottles. Currently he is on IV antibiotics. Patient also is having shortness of breath and increasing swelling of the extremities. He has the baseline shortness of breath for a long time. But for the last more than a week, the shortness of breath seems to be getting worse. He has some epigastric discomfort. Also has some amount of orthopnea. He is complaining of tight feeling in the left side of the chest, especially at night when he lies down. This is a feeling of constant tightness. Usually as he gets up and move around, it goes away. Denies any nausea or vomiting. No sweating, dizziness or syncopal episode. He had the permanent pacer implantation for symptomatic bradycardia and atrial fibrillation. He has been compliant with the pacemaker follow-ups. Function was found to be appropriate. He is known to have multiple other medical problems including COPD, obstructive sleep apnea, carotid artery disease, status post right carotid stenting, history of CVA, high blood pressure and dyslipidemia. Attending Physician: Ricky Green MD Primary Care Provider: Sandrita Almaguer MD History of Present Illness History of Present Illness Panchito Macedo is a 80 year old male Review of Systems Narrative: CONSTITUTIONAL: Intermittent fever and chills as mentioned above. Has not had any fever for the last 24 hours. Generalized weakness/fatigue EYES: No blurring of vision or other visual disturbances lately. ENT: No hoarseness of voice, auditory disturbances or sore throat. CARDIOVASCULAR: As mentioned above. RESPIRATORY: Shortness of breath present GASTROINTESTINAL: No hematemesis or melena. GENITOURINARY: No dysuria or hematuria. INTEGUMENTARY: No skin rashes or history of skin cancer. NEURO: History of CVA PSYCHIATRIC: No history of psychosis or major depression. HEMATOLOGIC: No bleeding disorders or significant anemia. ENDOCRINE: No history of polyuria or polydipsia. MUSCULOSKELETAL: No recent joint pain or swelling. ALLERGY/IMMUNOLOGY: As mentioned above. Meds/Allergies Home Medications and Allergies Home Medications Medication Instructions Recorded Confirmed Last Taken Type albuterol sulfate 2.5 mg INHALATION Q4H PRN 06/18/19 09/09/20 09/09/20 08:00 History amlodipine 10 mg tablet 10 mg PO DAILY@0800 tab 06/18/19 09/09/20 09/09/20 08:00 History baclofen 10 mg tablet 10 mg PO DAILY@0800 tab 06/18/19 09/09/20 09/09/20 08:00 History budesonide 0.5 mg/2 mL suspension 0.25 mg INHALATION BID@0800,1800 06/18/19 09/09/20 09/09/20 08:00 History for nebulization budesonide-formoterol HFA 160 2 puff INHALATION DAILY@0800 gm 06/18/19 09/09/20 09/09/20 08:00 History mcg-4.5 mcg/actuation aerosol inhaler cetirizine 10 mg capsule 10 mg PO DAILY PRN cap 06/18/19 09/09/20 09/09/20 08:00 History cholecalciferol (vitamin D3) 50 2,000 unit PO DAILY@0800 tab 06/18/19 09/09/20 09/09/20 08:00 History mcg (2,000 unit) tablet epinephrine 0.3 mg/0.3 mL 0.3 mg IM ONCE PRN 06/18/19 09/09/20 Unknown History injection, auto-injector furosemide 40 mg tablet 40 mg PO BID@0600,1800 PRN 06/18/19 09/09/20 09/09/20 08:00 History glucosamine HCl 1,500 mg tablet 1,500 mg PO DAILY@0800 tab 06/18/19 09/09/20 09/09/20 08:00 History insulin aspart U-100 100 unit/mL 5 unit SUBCUT TID@0800,1200,1700 06/18/19 09/09/20 09/09/20 08:00 History subcutaneous solution insulin glargine 100 unit/mL 42 unit SUBCUT BEDTIME@2100 ml 06/18/19 09/09/20 09/08/20 20:00 History subcutaneous solution isosorbide mononitrate 60 mg 60 mg PO DAILY@0800 06/18/19 09/09/20 09/09/20 08:00 History tablet,extended release 24 hr lisinopril 5 mg tablet 5 mg PO DAILY@0800 tab 06/18/19 09/09/20 09/09/20 08:00 History montelukast 10 mg tablet 10 mg PO DAILY@0800 tab 06/18/19 09/09/20 09/09/20 08:00 History potassium chloride 20 mEq 20 meq PO DAILY@0800 tab 06/18/19 09/09/20 09/09/20 08:00 History tablet,extended release(part/cryst) rivaroxaban 15 mg tablet 15 mg PO DAILY tab 06/18/19 09/09/20 09/09/20 08:00 History sotalol 120 mg tablet 120 mg PO BID@0800,1800 06/18/19 09/09/20 09/09/20 08:00 History tamsulosin 0.4 mg capsule 0.4 mg PO DAILY@0800 cap 06/18/19 09/09/20 09/09/20 08:00 History brimonidine 0.2 %-timolol 0.5 % 1 drop OPHTHALMIC (EYE) 11/04/19 09/09/20 09/09/20 08:00 History eye drops BID@0800,1800 loteprednol etabonate 0.5 % eye 1 drop OPHTHALMIC (EYE) 11/04/19 09/09/20 09/09/20 08:00 History drops,suspension BID@0800,1800 allopurinol 100 mg tablet 100 mg PO DAILY 08/18/20 09/09/20 09/09/20 08:00 History levofloxacin 750 mg PO DAILY 7 Days #7 tab 09/04/20 09/09/20 09/09/20 08:00 Rx metronidazole 500 mg PO TID 7 Days #21 tab 09/04/20 09/09/20 09/09/20 08:00 Rx Allergies Allergy/AdvReac Type Severity Reaction Status Date / Time acetaminophen [From Tylenol] Allergy unknown Verified 09/04/20 19:18 calcitriol Allergy unknown Verified 09/04/20 19:18 fish oil Allergy unknown Verified 09/04/20 19:18 gabapentin Allergy unknown Verified 09/04/20 19:18 hydrocodone Allergy itching Verified 09/04/20 19:18 rash oxycodone Allergy unknown Verified 09/04/20 19:18 red dye Allergy ALGY-Hives Verified 09/04/20 19:18 Hrarjre-Xob-Mpy Reductase Allergy unknown Verified 09/04/20 19:18 Inhibitor Sulfa (Sulfonamide Allergy urticaria Verified 09/04/20 19:18 Antibiotics) pruritis tramadol Allergy unknown Verified 09/04/20 19:18 Current Medications Current Medications Generic Name Dose Route Start Last Admin Trade Name Freq PRN Reason Stop Dose Admin Allopurinol 100 mg 09/10/20 09:00 09/10/20 10:09 Allopurinol 100 Mg Tablet PO 100 mg DAILY [facility] Administration Fluconazole 100 mg 09/10/20 12:30 09/10/20 12:35 Fluconazole 100 Mg Tablet PO 100 mg DAILY [facility] Administration Linezolid 600 mg in 300 mls @ 300 mls/hr 09/10/20 10:30 09/10/20 12:36 Zyvox Premix IV Infused Q12H [facility] Infusion Protocol Insulin Aspart 0 unit 09/09/20 18:00 09/10/20 12:35 Insulin Aspart 100 Unit/1 Ml SUBCUT 10 unit WM&BEDTIME [facility] Administration Protocol Insulin Detemir 10 unit 09/10/20 12:30 09/10/20 12:36 Insulin Detemir 100 Units/1 Ml SUBCUT Not Given BEDTIME [facility] Nystatin 500,000 unit 09/09/20 17:00 09/10/20 12:36 Nystatin 100,000 Unit/Ml Udc 5 Ml PO Not Given QID [facility]RY Rivaroxaban 15 mg 09/10/20 09:00 09/10/20 10:09 Rivaroxaban 10 Mg Tablet PO 15 mg DAILY [facility] Administration Fluticasone/Salmeterol 1 puff 09/10/20 08:00 09/10/20 07:42 Fluticasone-Salmeterol 500-50 Diskus INHALATION 1 puff DAILY.RESPIRATORY [facility]RY Administration Sotalol HCl 120 mg 09/09/20 18:00 09/10/20 10:08 Sotalol 80 Mg Tablet PO 120 mg BID@0800,1800 [facility] Administration Tamsulosin HCl 0.4 mg 09/10/20 08:00 09/10/20 10:09 Tamsulosin 0.4 Mg Capsule PO 0.4 mg DAILY@0800 [facility] Administration PFSH Acute PFSH: Medical History (Updated 09/10/20 @ 18:59 by Janett Lion MD) ASHD (arteriosclerotic heart disease) Atrial fibrillation Atypical chest pain BPH NOS w ur obs/LUTS Good response to TAMSULOSIN. Carotid stenosis CHF (congestive heart failure) Hyperlipemia Hypertension Leg swelling Pacemaker Peripheral vascular disease Sleep apnea TIA (transient ischemic attack) Trigeminal neuralgia Ventral hernia Surgical History (Updated 09/10/20 @ 18:59 by Janett Lion MD) H/O bilateral cataract extraction H/O four vessel coronary artery bypass graft H/O heart artery stent History of pacemaker Status post cryoablation Family History Other CAD (coronary artery disease) Cancer Diabetes Family history of prostate cancer Social History Smoking and tobacco status: former smoker Alcohol intake: never Adopted: No Caregiver/support person: No Lives independently: No Household members: spouse Marital status: Current occupational status: retired History of recent travel: No Current gender identity: Male Vitals/I&O/Wt Last Vital Signs Temp 97.4 F L 09/10/20 15:26 Pulse 60 09/10/20 15:26 Resp 18 09/10/20 15:26 BP 101/57 09/10/20 15:26 Pulse Ox 90 09/10/20 15:26 09/10/20 09/10/20 09/10/20 06:59 14:59 22:59 Intake Total 240 / 740 1900 / 1900 120 / 2020 Output Total 300 / 300 100 / 100 Balance -60 / 440 1800 / 1800 120 / 1920 Weight last 48 hrs Weight 226 lb 8 oz Weight 226 lb 8 oz Physical Exam Narrative: EXAM NARRATIVE: GENERAL: The patient is alert and oriented times three. Not in any acute distress. Somewhat ill looking. HEENT: Moderate pallor, no icterus or lymphadenopathy. The pupils are reactant to light. Oral cavity: There are no mucous membrane lesions. Funduscopic examination: Fundus is not visualized NECK: Trachea appears to be central. No masses noted. No JVD or thyromegaly appreciated. No carotid bruit. RESPIRATORY: Chest is symmetrical. No intercostals muscle retraction or any accessory muscle activation. There is no chest wall tenderness. Breath sounds are heard bilaterally. Diminished density of breath sounds in the bases. Few fine rales BREASTS: Deferred. HEART: The PMI could not be palpated. First and second heart sounds are normal. No S3. Short systolic murmur in the left sternal border. No diastolic murmurs. No pericardial rub or any click heard. ABDOMEN: No vessel pulsations or distention. Minimal tenderness in the epigastric area no organomegaly appreciated. No abdominal bruit. Bowel sounds are normally heard. : Deferred. RECTAL: Deferred. LYMPHATIC: No lymphadenopathy noted in the neck . EXTREMITIES: 2+ edema both lower extremities. No cyanosis. MUSCULOSKELETAL: No acute joint deformities or swelling SKIN: There are no significant scars or skin rash noted. NEUROPSYCHIATRIC: The patient is alert and oriented x3. Appears to be in a good mood. The higher functions are grossly within normal limits. No tremors or rigidity noted. Data Labs: Other Labs: Laboratory Last Values WBC 8.0 10^3/uL (4.0- 10.0) 09/10/20 06:00 RBC 3.81 10^6/uL (4.1 -5.3) L 09/10/20 06:00 Hgb 10.9 g/dL (11.7-1 6.6) L 09/10/20 06:00 Hct 33.3 % (42.0-52.0 ) L 09/10/20 06:00 MCV 87.4 fL (80-94) 09/10/20 06:00 MCH 28.6 pg (28.0-34. 0) 09/10/20 06:00 MCHC 32.7 g/dL (30.0-3 6.0) 09/10/20 06:00 RDW 15.6 % (12.1-15.1 ) H 09/10/20 06:00 Plt Count 182 10^3/cmm (130 -400) 09/10/20 06:00 MPV 10.1 fL (7.4-10.4 ) 09/10/20 06:00 Neut % (Auto) 78.5 % 09/10/20 06:00 Lymph % (Auto) 1.6 % 09/10/20 06:00 [place] % (Auto) 12.8 % 09/10/20 06:00 Eos % (Auto) 6.1 % 09/10/20 06:00 Baso % (Auto) 0.5 % 09/10/20 06:00 Neut # (Auto) 6.29 10^3/uL (1.8 -7.7) 09/10/20 06:00 Lymph # (Auto) 0.1 10^3/uL (0.8- 4.8) L 09/10/20 06:00 [place] # (Auto) 1.0 10^3/uL (0.2- 0.9) H 09/10/20 06:00 Eos # (Auto) 0.5 10^3/uL (0.0- 0.8) 09/10/20 06:00 Baso # (Auto) 0.0 10^3/uL (0.0- 0.1) 09/10/20 06:00 Nucleated RBC % (a uto) 0 % 09/10/20 06:00 Nucleated RBCs # 0.0 /100WBC 09/10/20 06:00 ESR 47 mm/hr (0-10) H 09/10/20 06:00 Sodium 135 mmol/L (136-1 45) L 09/10/20 06:00 Potassium 4.6 mmol/L (3.5-5 .1) 09/10/20 06:00 Chloride 103 mmol/L (98-10 7) 09/10/20 06:00 Carbon Dioxide 20 mmol/L (22-29) L 09/10/20 06:00 Anion Gap 16.6 (5-19) 09/10/20 06:00 BUN 80 mg/dL (8-23) H 09/10/20 06:00 Creatinine 2.8 mg/dL (0.7-1. 2) H 09/10/20 06:00 GFR Calculation Not Reportable 09/10/20 06:00 Glucose 180 mg/dL (65-115 ) H 09/10/20 06:00 POC Glucose 242 mg/dL (70-110 ) H 09/10/20 19:49 Calculated Osmolal ity 309 mOsm/kg (285- 295) H 09/10/20 06:00 Calcium 8.6 mg/dL (8.5-10 .5) 09/10/20 06:00 Magnesium 2.2 mg/dL (1.7-2. 3) 09/09/20 14:00 Total Bilirubin 0.3 mg/dL (0.15-1 .2) 09/09/20 14:00 AST 12 U/L (0-40) 09/09/20 14:00 ALT 23 U/L (0-41) 09/09/20 14:00 Alkaline Phosphata se 106 IU/L (40-130) 09/09/20 14:00 C-Reactive Protein 44.9 mg/L (0.0-4. 9) H 09/10/20 06:00 Total Protein 5.8 g/dL (6.6-8.7 ) L 09/09/20 14:00 Albumin 3.1 g/dL (3.5-5.2 ) L 09/09/20 14:00 Globulin 2.7 g/dL (1.3-4.6 ) 09/09/20 14:00 TSH 1.60 uIU/mL (0.27 -4.20) 09/09/20 14:00 Urine Color Yellow (Yellow) 09/09/20 17:00 Urine Appearance Clear (CLEAR) 09/09/20 17:00 Urine pH 5 (5-7) 09/09/20 17:00 Ur Specific Gravit y 1.010 (1.005-1.0 30) 09/09/20 17:00 Urine Protein Neg (Negative) 09/09/20 17:00 Urine Glucose (UA) Norm (Normal) 09/09/20 17:00 Urine Ketones Negative (Negati ve) 09/09/20 17:00 Urine Blood Neg (Negative) 09/09/20 17:00 Urine Nitrate Negative (Negati ve) 09/09/20 17:00 Urine Bilirubin Neg (Negative) 09/09/20 17:00 Urine Urobilinogen Norm mg/dL (Negat shanell) 09/09/20 17:00 Ur Leukocyte Alayna ase Negative (Negati ve) 09/09/20 17:00 Urine RBC Rare /hpf (0-2) 09/09/20 17:00 Urine WBC Rare /hpf (0-5) 09/09/20 17:00 Ur Squamous Epith Cells Rare /hpf (0-5) 09/09/20 17:00 Amorphous Sediment Not Reportable 09/09/20 17:00 Urine Bacteria Trace /hpf (NONE) 09/09/20 17:00 Micro: Micro: Microbiology 09/09/20 14:00 Blood Culture - Pr eliminary Blood NEGATIVE TO OLIVIER E 09/09/20 14:00 Blood Culture - Pr eliminary Blood NEGATIVE TO OLIVIER E A&P Assessment and plan (1) Bacteremia: The source of infection is not clear at this time. The pacemaker wire could be a nidus for the bacteremia. This may need to be looked into. Status: Acute (2) Acute kidney injury: This could be multifactorial. Since he is on the sotalol, we will be watching the QTC closely. We will do an EKG now and the dose of the sotalol may need to be adjusted The QTC was found to be 523. I may hold the sotalol tonight. Repeat EKG in the morning. The dose of the medicine will be adjusted accordingly Status: Acute (3) Acute on chronic diastolic heart failure: Patient may be carefully treated with IV diuretics. We will go ahead and do a BNP Status: Acute (4) Carotid stenosis: Status post stenting in the right ICA. May continue on the current management. Consider doing a repeat Doppler examination, if he has not had one recently. Status: Acute Qualifiers: Laterality: bilateral Qualified Code(s): I65.23 - Occlusion and stenosis of bilateral carotid arteries (5) Atrial fibrillation: May continue on the current medications. Heart rate is under control. Currently he is in a regular rhythm. Status: Acute Qualifiers: Atrial fibrillation type: unspecified Qualified Code(s): I48.91 - Unspecified atrial fibrillation (6) ASHD (arteriosclerotic heart disease): Patient has some atypical chest pain. Most likely is noncardiac. I may do a troponin T to evaluate for any significant elevation Status: Acute (7) History of pacemaker: Pacemaker function appears to be appropriate. Will consider ALEN, to look for any vegetations in the pacemaker wire Status: Acute Additional A&P Information Based on the patient's clinical progress, further recommendations will be made. 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
--- NOTE | 2020-09-10 19:05 | ECG_ITS ---
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 Measurements Intervals [place] Rate: 61 P: [place]: QRS: 197 QRSD: 196 T: 45 QT: 525 QTc: 532 Interpretive Statements ELECTRONIC VENTRICULAR PACEMAKER ABNORMAL RHYTHM ECG Compared to ECG 06/08/2020 18:25:18 Atrial-paced complex(es) or rhythm no longer present Left-axis deviation no longer present Incomplete right bundle-branch block no longer present Prolonged QT interval no longer present Electronically Signed On 09-16-2020 22:40:08 CDT by Ashlyn Womack M.D. [id number]
[2020-09-10 20:07] LABS: Glucose Point of Care 242 mg/dL (70-110)
[2020-09-10 20:54] LABS: Troponin T (5th) Once 40 ng/L (0-15)
[2020-09-10 21:02] LABS: NT Pro B Type Natriuretic Pept 10567 pg/mL (0-450)
[2020-09-11] VITALS (11 sets, daily range): BP systolic 106–115; BP diastolic 51–74; PULSE 60–70; RESP 17–18; TEMP 36.3–36.6; O2SAT 92–97
[2020-09-11 06:28] LABS: Basophils # 0.1 10^3/uL (0.0-0.1); Basophils % 0.7 %; Eosinophils # 0.6 10^3/uL (0.0-0.8); Eosinophils % 7.7 %; Hematocrit 35.1 % (42.0-52.0); Hemoglobin 11.5 g/dL (11.7-16.6); Lymphocytes # 0.2 10^3/uL (0.8-4.8); Lymphocytes % 2.1 %; Mean Corpuscular HGB Conc 32.8 g/dL (30.0-36.0); Mean Corpuscular Hemoglobin 28.8 pg (28.0-34.0); Mean Corpuscular Volume 87.8 fL (80-94); Mean Platelet Volume 9.6 fL (7.4-10.4); Monocytes # 1.2 10^3/uL (0.2-0.9); Monocytes % 17.2 %; Neutrophils # 5.08 10^3/uL (1.8-7.7); Neutrophils % 71.6 %; Nucleated Red Blood Cells % 0 %; Platelet Count 199 10^3/cmm (130-400); Red Cell Distribution Width 15.4 % (12.1-15.1); White Blood Count 7.1 10^3/uL (4.0-10.0)
[2020-09-11 06:48] LABS: Glucose Point of Care 116 mg/dL (70-110)
[2020-09-11 06:49] LABS: Anion Gap 13.6 (5-19); Carbon Dioxide 19 mmol/L (22-29); Chloride 106 mmol/L (98-107); Glucose 112 mg/dL (65-115); Potassium 4.6 mmol/L (3.5-5.1); Sodium 134 mmol/L (136-145)
[2020-09-11 06:50] LABS: Calcium 8.7 mg/dL (8.5-10.5); Osmolality Calculated 304 mOsm/kg (285-295)
[2020-09-11 06:56] LABS: Blood Urea Nitrogen 83 mg/dL (8-23)
--- NOTE | 2020-09-11 10:00 | ECG_ITS ---
[facility] ED Test Date: 2020-09-11 Pat Name: Panchito Macedo Department: Room: 257 Gender: Male Entry Level: : 1940 Requested By: Janett Lion Order Number: [id number] Guerrier MD: Ashlyn Womack M.D. Measurements Intervals [place] Rate: 67 P: [place]: QRS: -44 QRSD: 110 T: 93 QT: 427 QTc: 453 Interpretive Statements ATRIAL FIBRILLATION MARKED LEFT AXIS DEVIATION [QRS AXIS < -30] POSSIBLE ANTERIOR MYOCARDIAL INFARCTION, OF INDETERMINATE AGE Compared to ECG 09/10/2020 19:36:12 Left-axis deviation now present Myocardial infarct finding now present Ventricular-paced complex(es) or rhythm no longer present Electronically Signed On 10-19-2020 17:49:29 CDT by Ashlyn Womack M.D. [id number]
--- NOTE | 2020-09-11 11:19 | P.PN_ITS ---
Subjective Subjective: Interval history: The patient reports peripheral severe swelling. Denies any chest pain, shortness of breath, cough, palpitations. No fever or chills. No nausea or vomiting. Medications: Reviewed: Yes Medication Review Details: Generic Name Dose Route Start Last Admin Trade Name Jennifer PRN Reason Stop Dose Admin Allopurinol 100 mg 09/10/20 09:00 09/10/20 10:09 Allopurinol 100 Mg Tablet PO 100 mg DAILY CURRY Administration Fluconazole 100 mg 09/10/20 12:30 09/10/20 12:35 Fluconazole 100 Mg Tablet PO 100 mg DAILY CURRY Administration Linezolid 600 mg in 300 mls @ 300 mls/hr 09/10/20 10:30 09/11/20 00:00 Zyvox Premix IV Infused Q12H [facility] Infusion Protocol Insulin Aspart 0 unit 09/09/20 18:00 09/11/20 08:37 Insulin Aspart 1 00 Unit/1 Ml SUBCUT Not Given WM&BEDTIME [facility] Protocol Insulin Detemir 10 unit 09/10/20 21:00 09/10/20 22:54 Insulin Detemir 100 Units/1 Ml SUBCUT Not Given BEDTIME CURRY Nystatin 500,000 unit 09/09/20 17:00 09/10/20 22:47 Nystatin 100,000 Unit/Ml Udc 5 Ml PO Not Given QID CURRY Rivaroxaban 15 mg 09/10/20 09:00 09/10/20 10:09 Rivaroxaban 10 M g Tablet PO 15 mg DAILY CURRY Administration Fluticasone/Salmet cindy 1 puff 09/10/20 08:00 09/11/20 09:20 Fluticasone-Salm eterol 500-50 Disk us INHALATION 1 puff DAILY.RESPIRATORY CURRY Administration Sotalol HCl 120 mg 09/09/20 18:00 09/10/20 18:42 Sotalol 80 Mg Ta blet PO 120 mg BID@0800,1800 CURRY Administration Tamsulosin HCl 0.4 mg 09/10/20 08:00 09/10/20 10:09 Tamsulosin 0.4 M g Capsule PO 0.4 mg DAILY@0800 CURRY Administration Vitals/I&O/Wt Last Vital Signs Temp 97.4 F L 09/11/20 08:00 Pulse 70 09/11/20 09:24 Resp 18 09/11/20 09:24 BP 115/72 09/11/20 08:00 Pulse Ox 94 09/11/20 09:24 09/10/20 09/11/20 09/11/20 22:59 06:59 14:59 Intake Total 2019 300 / 2320 420 / 420 Output Total 0 / 100 Balance 120 / 1920 300 / 2220 420 / 420 Weight last 48 hrs Weight 102.739 kg Weight 102.739 kg Physical Exam Narrative: EXAM NARRATIVE: Awake alert oriented. No acute distress. Mood and affect are appropriate. Skin is warm and dry. Moist mucous membranes. Tongue is pink without white patches. Neck supple. No JVD Lungs clear. No respiratory distress Heart S1, S2, regular. No murmur. Abdomen soft, obese, nontender, bowel sounds are present Extremities 3+ pitting edema. No cyanosis or calf tenderness bilaterally Eyes PERRL, extraocular muscles are intact Normal speech No focal muscle weakness. Data : 09/11/20 06:14 09/11/20 06:14 Micro: Microbiology 09/09/20 14:00 Blood Culture - Preliminary Blood NEGATIVE TO DATE 09/09/20 14:00 Blood Culture - Preliminary Blood NEGATIVE TO DATE A&P Assessment and plan (1) Bacteremia: Repeat blood cultures drawn yesterday no growth at this time Discontinue vancomycin secondary to worsening renal function and initiate linezolid Continue his Levaquin which was started for sinusitis demonstrated on CT ESR 47, CRP 45 Cardiology consult for ALEN Status: Acute (2) Fever: Likely secondary to above but cannot rule out the possibility lymphoma is causing fevers as well. Chest x-ray did not demonstrate new changes. UA with micro negative Status: Acute (3) Chronic recurrent sinusitis: Continue Levaquin Status: Acute (4) Hallucinations: This may herald some encephalopathy. CT head was checked and prior occipital strokes noted but no hemorrhage or new changes. Denies any hallucinations currently. Status: Acute (5) Thrush: Initiate fluconazole Status: Acute (6) CHF (congestive heart failure): Recent echocardiogram was performed September 02 demonstrating EF of 60%, 3/4 diastolic dysfunction, hypokinesis apical septal segment, moderate pulmonary hypertension. He has some acute decompensation secondary fluids given. Discontinue fluids. Lasix 40 mg IV x1. Holding long-acting nitrates secondary to lower blood pressures Status: Acute Qualifiers: Heart failure type: diastolic Heart failure chronicity: chronic Qualified Code(s): I50.32 - Chronic diastolic (congestive) heart failure (7) Acute kidney injury: Cautious hydration did not help. Check renal ultrasound Change vancomycin to linezolid Status: Acute Additional A&P Information Diabetes mellitus. I had Levemir 10 units at night. Continue sliding scale. Much lower dose than used at home secondary to concern of renal dysfunction History of hypertension. Holding amlodipine secondary to lower blood pressures Allow natural Xarelto will suffice for DVT prophylaxis Continue physical therapy [place] Staph epi bacteremia. The source is suspected to be sinus infection. Currently on linezolid and Levaquin. Repeat cultures are pending. Dr. Lion is consulted for ALEN. His recommendations are pending. Original transthoracic echo was negative for vegetations. Thrush. Improving. Currently on fluconazole and nystatin. Acute kidney injury. Improving. Diastolic dysfunction. EF is within normal range. Continue gentle diuresis. Pulmonary hypertension. Currently respiratory function is stable. No evidence of respiratory failure. Anemia. Stable. Continue monitoring. Diabetes. Continue current insulin management. Acute metabolic encephalopathy. Could be due to infection. Currently resolved. History of lymphoma and chemotherapy. Immunosuppressed state. Serial atrial fibrillation. Rate controlled. Continue Xarelto. DVT prophylaxis. On Xarelto. The plan of care was discussed with the patient. He verbalized understanding and agreement. Attestations Medical Necessity Statement*: Requires IV antibiotics, follow-up testing, ALEN. Coding Level of Care Code Acute Financial Aid Counselor for [facility] Fwd Diagnoses Bacteremia R78.81 Fever R50.9 Chronic recurrent sinusitis J32.9 Hallucinations R44.3 Thrush B37.0 CHF (congestive heart failure) I50.32 Heart failure type: diastolic Heart failure chronicity: chronic Acute kidney injury N17.9
[2020-09-11] MEDS: nystatin 100,000 unit/mL UDC 5 mL 500000 UNIT PO ×3 (11:25→21:59)
[2020-09-11] MEDS: allopurinol 100 mg Tablet PO (11:26)
[2020-09-11] MEDS: tamsulosin 0.4 mg Capsule PO (11:27)
[2020-09-11] MEDS: fluconazole 100 mg Tablet PO (11:27)
[2020-09-11] MEDS: rivaroxaban 10 mg Tablet 15 MG PO (11:28)
[2020-09-11] MEDS: linezolid premix 600 MG/300 ML PREMIX 300 MG IV ×2 (11:32→21:58)
[2020-09-11 11:58] LABS: Glucose Point of Care 304 mg/dL (70-110)
--- NOTE | 2020-09-11 12:17 | PM.PN ---
Subjective Subjective: Interval history: Patient denies any chest pain or unusual shortness of breath. Continues to have swelling of the lower extremities. Medications: Reviewed: Yes Medication Review Details: Current Medications Albuterol Sulfate (Albuterol 2.5 Mg/0.5 Ml Neb) 2.5 mg INHALATION Q4H PRN PRN Reason: Shortness Of Breath Allopurinol (Allopurinol 100 Mg Tablet) 100 mg PO DAILY [facility] Last Admin: 09/11/20 11:26 Dose: 100 mg Documented by: Dextrose (Dextrose 50% Syringe 50 Ml) 25 ml IVP ONCE PRN; Protocol PRN Reason: hypoglycemia protocol Dextrose (Dextrose 50% Syringe 50 Ml) 50 ml IVP PRN PRN; Protocol PRN Reason: hypoglycemia protocol Fluconazole (Fluconazole 100 Mg Tablet) 100 mg PO DAILY [facility] Last Admin: 09/11/20 11:27 Dose: 100 mg Documented by: Furosemide (Furosemide 20 Mg Tablet) 20 mg PO BID@08,16 CURRY Glucagon (Glucagon 1 Mg/Ml Inj 1 Ml) 1 mg IM ONCE PRN; Protocol PRN Reason: Adult Acute Hypoglycemia Prot. Dextrose (D5w) 500 mls @ 100 mls/hr IV ONCE PRN; Protocol PRN Reason: Adult Acute Hypoglycemia Prot Linezolid (Zyvox Premix) 600 mg in 300 mls @ 300 mls/hr IV Q12H [facility]RY; Protocol Last Admin: 09/11/20 11:32 Dose: 300 mls/hr Documented by: Insulin Aspart (Insulin Aspart 100 Unit/1 Ml) 0 unit SUBCUT WM&BEDTIME CURRY; Protocol Last Admin: 09/11/20 08:37 Dose: Not Given Documented by: Insulin Detemir (Insulin Detemir 100 Units/1 Ml) 10 unit SUBCUT BEDTIME CURRY Last Admin: 09/10/20 22:54 Dose: Not Given Documented by: Levofloxacin (Levofloxacin 750 Mg Tablet) 750 mg PO Q48H [facility]RY; Protocol Nystatin (Nystatin 100,000 Unit/Ml Udc 5 Ml) 500,000 unit PO QID [facility] Last Admin: 09/11/20 11:25 Dose: 500,000 unit Documented by: Rivaroxaban (Rivaroxaban 10 Mg Tablet) 15 mg PO DAILY [facility] Last Admin: 09/11/20 11:28 Dose: 15 mg Documented by: Fluticasone/Salmeterol (Fluticasone-Salmeterol 500-50 Diskus) 1 puff INHALATION DAILY.RESPIRATORY [facility] Last Admin: 09/11/20 09:20 Dose: 1 puff Documented by: Sotalol HCl (Sotalol 80 Mg Tablet) 120 mg PO BID@0800,1800 [facility] Last Admin: 09/10/20 18:42 Dose: 120 mg Documented by: Tamsulosin HCl (Tamsulosin 0.4 Mg Capsule) 0.4 mg PO DAILY@0800 [facility] Last Admin: 09/11/20 11:27 Dose: 0.4 mg Documented by: Vitals/I&O/Wt Last Vital Signs Temp 97.4 F L 09/11/20 11:56 Pulse 65 09/11/20 11:56 Resp 18 09/11/20 11:56 BP 112/74 09/11/20 11:56 Pulse Ox 95 09/11/20 11:56 09/10/20 09/11/20 09/11/20 22:59 06:59 14:59 Intake Total 120 / 2020 300 / 2320 420 / 420 Output Total 0 / 100 Balance 120 / 1920 300 / 2220 420 / 420 Weight last 48 hrs Weight 226 lb 8 oz Weight 226 lb 8 oz Physical Exam Narrative: EXAM NARRATIVE: GENERAL: The patient is alert and oriented times three. Not in any acute distress. Somewhat ill looking. HEENT: Moderate pallor, no icterus or lymphadenopathy. The pupils are reactant to light. Oral cavity: There are no mucous membrane lesions. NECK: Trachea appears to be central. No masses noted. No JVD or thyromegaly appreciated. No carotid bruit. RESPIRATORY: Chest is symmetrical. No intercostals muscle retraction or any accessory muscle activation. There is no chest wall tenderness. Breath sounds are heard bilaterally. Diminished density of breath sounds in the bases. Few fine rales BREASTS: Deferred. HEART: The PMI could not be palpated. First and second heart sounds are normal. No S3. Short systolic murmur in the left sternal border. No diastolic murmurs. No pericardial rub or any click heard. ABDOMEN: No vessel pulsations or distention. Minimal tenderness in the epigastric area no organomegaly appreciated. No abdominal bruit. Bowel sounds are normally heard. : Deferred. RECTAL: Deferred. LYMPHATIC: No lymphadenopathy noted in the neck . EXTREMITIES: 2+ edema both lower extremities. No cyanosis. MUSCULOSKELETAL: No acute joint deformities or swelling SKIN: There are no significant scars or skin rash noted. NEUROPSYCHIATRIC: The patient is alert and oriented x3. Appears to be in a good mood. The higher functions are grossly within normal limits. No tremors or rigidity noted. Data : 09/11/20 06:14 09/11/20 06:14 Other Labs: Laboratory Last Values WBC 7.1 10^3/uL (4.0-10.0) 09/11/20 06:14 RBC 4.00 10^6/uL (4.1-5.3) L 09/11/20 06:14 Hgb 11.5 g/dL (11.7-16.6) L 09/11/20 06:14 Hct 35.1 % (42.0-52.0) L 09/11/20 06:14 MCV 87.8 fL (80-94) 09/11/20 06:14 MCH 28.8 pg (28.0-34.0) 09/11/20 06:14 MCHC 32.8 g/dL (30.0-36.0) 09/11/20 06:14 RDW 15.4 % (12.1-15.1) H 09/11/20 06:14 Plt Count 199 10^3/cmm (130-400) 09/11/20 06:14 MPV 9.6 fL (7.4-10.4) 09/11/20 06:14 Neut % (Auto) 71.6 % 09/11/20 06:14 Lymph % (Auto) 2.1 % 09/11/20 06:14 Moody % (Auto) 17.2 % 09/11/20 06:14 Eos % (Auto) 7.7 % 09/11/20 06:14 Baso % (Auto) 0.7 % 09/11/20 06:14 Neut # (Auto) 5.08 10^3/uL (1.8-7.7) 09/11/20 06:14 Lymph # (Auto) 0.2 10^3/uL (0.8-4.8) L 09/11/20 06:14 Moody # (Auto) 1.2 10^3/uL (0.2-0.9) H 09/11/20 06:14 Eos # (Auto) 0.6 10^3/uL (0.0-0.8) 09/11/20 06:14 Baso # (Auto) 0.1 10^3/uL (0.0-0.1) 09/11/20 06:14 Nucleated RBC % (auto) 0 % 09/11/20 06:14 Nucleated RBCs # 0.0 /100WBC 09/11/20 06:14 ESR 47 mm/hr (0-10) H 09/10/20 06:00 Sodium 134 mmol/L (136-145) L 09/11/20 06:14 Potassium 4.6 mmol/L (3.5-5.1) 09/11/20 06:14 Chloride 106 mmol/L (98-107) 09/11/20 06:14 Carbon Dioxide 19 mmol/L (22-29) L 09/11/20 06:14 Anion Gap 13.6 (5-19) 09/11/20 06:14 BUN 83 mg/dL (8-23) H* 09/11/20 06:14 Creatinine 2.3 mg/dL (0.7-1.2) H 09/11/20 06:14 GFR Calculation Not Reportable 09/11/20 06:14 Glucose 112 mg/dL (65-115) 09/11/20 06:14 POC Glucose 304 mg/dL (70-110) H 09/11/20 11:52 Calculated Osmolality 304 mOsm/kg (285-295) H 09/11/20 06:14 Calcium 8.7 mg/dL (8.5-10.5) 09/11/20 06:14 Magnesium 2.2 mg/dL (1.7-2.3) 09/09/20 14:00 Total Bilirubin 0.3 mg/dL (0.15-1.2) 09/09/20 14:00 AST 12 U/L (0-40) 09/09/20 14:00 ALT 23 U/L (0-41) 09/09/20 14:00 Alkaline Phosphatase 106 IU/L (40-130) 09/09/20 14:00 Troponin T Gen 5 ng/L 40 ng/L (0-15) H 09/10/20 20:36 C-Reactive Protein 44.9 mg/L (0.0-4.9) H 09/10/20 06:00 NT-Pro-B Natriuret Pep 94399 pg/mL (0-450) H 09/10/20 20:36 Total Protein 5.8 g/dL (6.6-8.7) L 09/09/20 14:00 Albumin 3.1 g/dL (3.5-5.2) L 09/09/20 14:00 Globulin 2.7 g/dL (1.3-4.6) 09/09/20 14:00 TSH 1.60 uIU/mL (0.27-4.20) 09/09/20 14:00 Urine Color Yellow (Yellow) 09/09/20 17:00 Urine Appearance Clear (CLEAR) 09/09/20 17:00 Urine pH 5 (5-7) 09/09/20 17:00 Ur Specific [place] 1.010 (1.005-1.030) 09/09/20 17:00 Urine Protein Neg (Negative) 09/09/20 17:00 Urine Glucose (UA) Norm (Normal) 09/09/20 17:00 Urine Ketones Negative (Negative) 09/09/20 17:00 Urine Blood Neg (Negative) 09/09/20 17:00 Urine Nitrate Negative (Negative) 09/09/20 17:00 Urine Bilirubin Neg (Negative) 09/09/20 17:00 Urine Urobilinogen Norm mg/dL (Negative) 09/09/20 17:00 Ur Leukocyte Esterase Negative (Negative) 09/09/20 17:00 Urine RBC Rare /hpf (0-2) 09/09/20 17:00 Urine WBC Rare /hpf (0-5) 09/09/20 17:00 Ur Squamous Epith Cells Rare /hpf (0-5) 09/09/20 17:00 Amorphous Sediment Not Reportable 09/09/20 17:00 Urine Bacteria Trace /hpf (NONE) 09/09/20 17:00 Micro: Microbiology 09/09/20 14:00 Blood Culture - Preliminary Blood NEGATIVE TO DATE 09/09/20 14:00 Blood Culture - Preliminary Blood NEGATIVE TO DATE A&P Assessment and plan (1) Bacteremia: The source of infection is not clear at this time. The pacemaker wire could be a nidus for the bacteremia. This may need to be looked into. He also has sinusitis. Dr. Dutton is planning to get an E consult, for further management. This seems to be appropriate. I do not strongly feel that the patient has endocarditis. After the ID consult, we may discuss the need for ALEN. Status: Acute (2) Acute kidney injury: Patient has consistently high BUN/creatinine ratio. The Betapace was held last night because of the prolonged QTC. The repeat EKG from this morning is pending. Status: Acute (3) Acute on chronic diastolic heart failure: Patient may be carefully treated with IV diuretics. The BNP was 10,567. The dose of the IV diuretics need to be adjusted based on the clinical response. Status: Acute (4) Carotid stenosis: Status post stenting in the right ICA. May continue on the current management. Consider doing a repeat Doppler examination, if he has not had one recently. Status: Acute Qualifiers: Laterality: bilateral Qualified Code(s): I65.23 - Occlusion and stenosis of bilateral carotid arteries (5) Atrial fibrillation: May continue on the current medications. Heart rate is under control. Currently he is in a regular rhythm. Status: Acute Qualifiers: Atrial fibrillation type: unspecified Qualified Code(s): I48.91 - Unspecified atrial fibrillation (6) ASHD (arteriosclerotic heart disease): Patient has some atypical chest pain. Most likely is noncardiac. I may do a troponin T to evaluate for any significant elevation Status: Acute (7) History of pacemaker: Pacemaker function appears to be appropriate. May continue on the current measures. Status: Acute Additional A&P Information Based on the patient's clinical progress, further recommendations will be made. Attestations Medical Necessity Statement*: Deferred to the primary. Coding Level of Care Code Acute Superintendent Compressor Stations for Chg Fwd History Detailed Exam Detailed Medical Decision Making Moderate Complexity Diagnoses Bacteremia R78.81 Acute kidney injury N17.9 Acute on chronic diastolic heart failure I50.33 Carotid stenosis I65.23 Laterality: bilateral Atrial fibrillation I48.91 Atrial fibrillation type: unspecified ASHD (arteriosclerotic heart disease) I25.10 History of pacemaker Z95.0
[2020-09-11] MEDS: levoFLOXacin 750 mg Tablet PO (15:09)
[2020-09-11] MEDS: FUROsemide 10 mg/mL SDV 10mL 80 MG IVP ×2 (15:09→23:51)
[2020-09-11 16:50] LABS: Glucose Point of Care 389 mg/dL (70-110)
[2020-09-11 21:21] LABS: Glucose Point of Care 270 mg/dL (70-110)
[2020-09-12] VITALS (10 sets, daily range): BP systolic 116–137; BP diastolic 68–79; PULSE 64–82; RESP 18; TEMP 36.3–36.4; O2SAT 91–96
--- NOTE | 2020-09-12 06:00 | ECG_ITS ---
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 Measurements Intervals [place] Rate: 58 P: ME: QRS: -49 QRSD: 96 T: 98 QT: 442 QTc: 438 Interpretive Statements ATRIAL FIBRILLATION ELECTRONIC VENTRICULAR PACEMAKER LEFT ANTERIOR FASCICULAR BLOCK ANTEROSEPTAL MYOCARDIAL INFARCTION, OF INDETERMINATE AGE MODERATE T-WAVE ABNORMALITY, CONSIDER LATERAL ISCHEMIA Compared to ECG 09/11/2020 12:50:51 Left anterior fascicular block now present T-wave abnormality now present Left-axis deviation no longer present Myocardial infarct finding still present Electronically Signed On 10-05-2020 21:36:55 CDT by Ashlyn Womack M.D. [email or web address]
[2020-09-12 06:51] LABS: Glucose Point of Care 150 mg/dL (70-110)
[2020-09-12 07:04] LABS: Basophils # 0.1 10^3/uL (0.0-0.1); Basophils % 0.7 %; Eosinophils # 0.5 10^3/uL (0.0-0.8); Eosinophils % 6.4 %; Hematocrit 35.3 % (42.0-52.0); Hemoglobin 11.5 g/dL (11.7-16.6); Lymphocytes # 0.2 10^3/uL (0.8-4.8); Lymphocytes % 2.6 %; Mean Corpuscular HGB Conc 32.6 g/dL (30.0-36.0); Mean Corpuscular Hemoglobin 28.5 pg (28.0-34.0); Mean Corpuscular Volume 87.4 fL (80-94); Mean Platelet Volume 10.2 fL (7.4-10.4); Monocytes # 1.5 10^3/uL (0.2-0.9); Monocytes % 20.4 %; Neutrophils # 4.95 10^3/uL (1.8-7.7); Neutrophils % 69.1 %; Nucleated Red Blood Cells % 0 %; Platelet Count 209 10^3/cmm (130-400); Red Blood Count 4.04 10^6/uL (4.1-5.3); Red Cell Distribution Width 15.6 % (12.1-15.1); White Blood Count 7.2 10^3/uL (4.0-10.0)
--- NOTE | 2020-09-12 07:13 | PC.SOCIAL ---
*IMM* Patient received IMM, copy placed in the chart, initialled by SS.
[2020-09-12 07:37] LABS: Albumin Level 3.1 g/dL (3.5-5.2); Anion Gap 12.2 (5-19); Blood Urea Nitrogen 77 mg/dL (8-23); C Reactive Protein 16.7 mg/L (0.0-4.9); Calcium 8.8 mg/dL (8.5-10.5); Carbon Dioxide 22 mmol/L (22-29); Chloride 106 mmol/L (98-107); Glucose 144 mg/dL (65-115); Magnesium 2.1 mg/dL (1.7-2.3); NT Pro B Type Natriuretic Pept 6053 pg/mL (0-450); Phosphorus 4.1 mg/dL (2.5-4.5); Potassium 4.2 mmol/L (3.5-5.1); Sodium 136 mmol/L (136-145)
--- NOTE | 2020-09-12 08:32 | PC.SOCIAL ---
*IMM* Patient received IMM. Copy gave to patient. Initialled by SS in chart.
[2020-09-12] MEDS: nystatin 100,000 unit/mL UDC 5 mL 500000 UNIT PO ×4 (09:21→21:47)
[2020-09-12] MEDS: fluconazole 100 mg Tablet PO (09:21)
[2020-09-12] MEDS: rivaroxaban 10 mg Tablet 15 MG PO (09:21)
[2020-09-12] MEDS: allopurinol 100 mg Tablet PO (09:21)
[2020-09-12] MEDS: tamsulosin 0.4 mg Capsule PO (09:22)
[2020-09-12] MEDS: linezolid premix 600 MG/300 ML PREMIX 300 MG IV ×2 (09:22→21:51)
--- NOTE | 2020-09-12 11:11 | P.PN_ITS ---
Subjective Subjective: Interval history: The patient reports feeling better. Lost 5 pounds since yesterday. Reports improved swelling. Reports improved breathing. Was able to sleep on a straight bed last night. No fever or chills. No nausea or vomiting. Medications: Reviewed: Yes Medication Review Details: Generic Name Dose Route Start Last Admin Trade Name Jennifer PRN Reason Stop Dose Admin Allopurinol 100 mg 09/10/20 09:00 09/12/20 09:21 Allopurinol 100 Mg Tablet PO 100 mg DAILY [facility] Administration Fluconazole 100 mg 09/10/20 12:30 09/12/20 09:21 Fluconazole 100 Mg Tablet PO 100 mg DAILY [facility] Administration Furosemide 80 mg 09/11/20 12:30 09/11/20 23:51 Furosemide 10 Mg /Ml Sdv 10ml IVP 80 mg Q12H CURRY Administration Linezolid 600 mg in 300 mls @ 300 mls/hr 09/10/20 10:30 09/12/20 10:52 Zyvox Premix IV Infused Q12H [facility] Infusion Protocol Insulin Aspart 0 unit 09/09/20 18:00 09/12/20 09:23 Insulin Aspart 1 00 Unit/1 Ml SUBCUT 2 unit WM&BEDTIME [facility]RY Administration Protocol Insulin Detemir 10 unit 09/10/20 21:00 09/11/20 21:59 Insulin Detemir 100 Units/1 Ml SUBCUT 10 unit BEDTIME [facility] Administration Nystatin 500,000 unit 09/09/20 17:00 09/12/20 09:21 Nystatin 100,000 Unit/Ml Udc 5 Ml PO 500,000 unit QID [facility] Administration Rivaroxaban 15 mg 09/10/20 09:00 09/12/20 09:21 Rivaroxaban 10 M g Tablet PO 15 mg DAILY [facility] Administration Fluticasone/Salmet cindy 1 puff 09/10/20 08:00 09/12/20 09:28 Fluticasone-Salm eterol 500-50 Disk us INHALATION Not Given DAILY.RESPIRATORY CURRY Tamsulosin HCl 0.4 mg 09/10/20 08:00 09/12/20 09:22 Tamsulosin 0.4 M g Capsule PO 0.4 mg DAILY@0800 [facility]RY Administration Vitals/I&O/Wt Last Vital Signs Temp 97.4 F L 09/12/20 08:00 Pulse 66 09/12/20 08:00 Resp 18 09/12/20 08:00 BP 119/69 09/12/20 08:00 Pulse Ox 94 09/12/20 04:00 09/11/20 09/12/20 09/12/20 22:59 06:59 14:59 Intake Total 240 / 1560 550 / 2110 300 / 300 Output Total 2500 / 2850 Balance 240 / 1210 -1950 / -740 300 / 300 Physical Exam Narrative: EXAM NARRATIVE: Awake alert oriented. No acute distress. Mood and affect are appropriate. Skin is warm and dry. Moist mucous membranes. Tongue is pink without white patches. Neck supple. No JVD Lungs clear. No respiratory distress Heart S1, S2, regular. No murmur. Abdomen soft, obese, nontender, bowel sounds are present Extremities 2+ pitting edema. No cyanosis or calf tenderness bilaterally Eyes PERRL, extraocular muscles are intact Normal speech No focal muscle weakness. Data : 09/12/20 06:16 09/12/20 06:16 A&P Assessment and plan (1) Bacteremia: Repeat blood cultures drawn yesterday no growth at this time Discontinue vancomycin secondary to worsening renal function and initiate linezolid Continue his Levaquin which was started for sinusitis demonstrated on CT ESR 47, CRP 45 Cardiology consult for ALEN Status: Acute (2) Fever: Likely secondary to above but cannot rule out the possibility lymphoma is causing fevers as well. Chest x-ray did not demonstrate new changes. UA with micro negative Status: Acute (3) Chronic recurrent sinusitis: Continue Levaquin Status: Inactive (4) Hallucinations: This may herald some encephalopathy. CT head was checked and prior occipital strokes noted but no hemorrhage or new changes. Denies any hallucinations currently. Status: Acute (5) Thrush: Initiate fluconazole Status: Acute (6) CHF (congestive heart failure): Recent echocardiogram was performed September 02 demonstrating EF of 60%, 3/4 diastolic dysfunction, hypokinesis apical septal segment, moderate pulmonary hy pertension. He has some acute decompensation secondary fluids given. Discontinue fluids. Lasix 40 mg IV x1. Holding long-acting nitrates secondary to lower blood pressures Status: Acute Qualifiers: Heart failure type: diastolic Heart failure chronicity: chronic Qualified Code(s): I50.32 - Chronic diastolic (congestive) heart failure (7) Acute kidney injury: Cautious hydration did not help. Check renal ultrasound Change vancomycin to linezolid Status: Acute Additional A&P Information Diabetes mellitus. I had Levemir 10 units at night. Continue sliding scale. Much lower dose than used at home secondary to concern of renal dysfunction History of hypertension. Holding amlodipine secondary to lower blood pressures Allow natural Xarelto will suffice for DVT prophylaxis Continue physical therapy [place] Staph epi bacteremia. The source is suspected to be sinus infection. Stop Levaquin. Concerned about possible arrhythmias. We will continue linezolid. Repeat cultures are pending. Discussed with Dr. Lion yesterday: His TTE was negative for vegetations. We are not completely sure about need for ALEN. Will wait for Dr. Michael's recommendations. Thrush. Improving. Currently on fluconazole and nystatin. Acute kidney injury. Improving. Continue monitoring. Diastolic dysfunction. EF is within normal range. Continuing diuresis per Dr. Duff recommendations. Improving. Pulmonary hypertension. Currently respiratory function is stable. No evidence of respiratory failure. Anemia. Stable. Continue monitoring. Diabetes. Continue current insulin management. Acute metabolic encephalopathy. Could be due to infection. Currently resolved. History of lymphoma and chemotherapy. Immunosuppressed state. Serial atrial fibrillation. Rate controlled. Continue Xarelto. DVT prophylaxis. On Xarelto. The plan of care was discussed with the patient. He verbalized understanding and agreement. Attestations Medical Necessity Statement*: Still requires aggressive diuresis and IV antibiotics. Requires additional testing and close monitoring. Coding Level of Care Code Acute Gas Appliance Servicer Helper for [facility] Fwd Diagnoses Bacteremia R78.81 Fever R50.9 Chronic recurrent sinusitis J32.9 Hallucinations R44.3 Thrush B37.0 CHF (congestive heart failure) I50.32 Heart failure type: diastolic Heart failure chronicity: chronic Acute kidney injury N17.9
[2020-09-12 11:13] LABS: Glucose Point of Care 354 mg/dL (70-110)
--- NOTE | 2020-09-12 13:02 | PC.NURSE ---
patient refuses his sotalol and said I want to know why he wants me to take it since my blood pressure and heart rate are fine.
[2020-09-12] MEDS: FUROsemide 10 mg/mL SDV 10mL 80 MG IVP (13:54)
--- NOTE | 2020-09-12 14:40 | PC.NURSE ---
Dr Lion talked to patient and patient agrees to take the sotalol. put order in for one time sotalol to start now.
[2020-09-12] MEDS: sotalol 80 mg Tablet PO ×2 (14:50→21:48)
[2020-09-12 17:30] LABS: Glucose Point of Care 288 mg/dL (70-110)
--- NOTE | 2020-09-12 20:50 | P.PN_ITS ---
Subjective Subjective: Interval history: Patient denies any chest pain or chest tightness. No unusual shortness of breath. He seems to be diuresing properly. Medications: Reviewed: Yes Medication Review Details: Current Medications Albuterol Sulfate (Albuterol 2.5 Mg/0.5 Ml Neb) 2.5 mg INHALATION Q4H PRN PRN Reason: Shortness Of Breath Allopurinol (Allopurinol 100 Mg Tablet) 100 mg PO DAILY [facility] Last Admin: 09/12/20 09:21 Dose: 100 mg Documented by: Dextrose (Dextrose 50% Syringe 50 Ml) 25 ml IVP ONCE PRN; Protocol PRN Reason: hypoglycemia protocol Dextrose (Dextrose 50% Syringe 50 Ml) 50 ml IVP PRN PRN; Protocol PRN Reason: hypoglycemia protocol Fluconazole (Fluconazole 100 Mg Tablet) 100 mg PO DAILY [facility] Last Admin: 09/12/20 09:21 Dose: 100 mg Documented by: Furosemide (Furosemide 10 Mg/Ml Sdv 10ml) 80 mg IVP Q12H [facility] Last Admin: 09/12/20 13:54 Dose: 80 mg Documented by: Glucagon (Glucagon 1 Mg/Ml Inj 1 Ml) 1 mg IM ONCE PRN; Protocol PRN Reason: Adult Acute Hypoglycemia Prot. Dextrose (D5w) 500 mls @ 100 mls/hr IV ONCE PRN; Protocol PRN Reason: Adult Acute Hypoglycemia Prot Linezolid (Zyvox Premix) 600 mg in 300 mls @ 300 mls/hr IV Q12H [facility]; Protocol Last Infusion: 09/12/20 10:52 Dose: Infused Documented by: Insulin Aspart (Insulin Aspart 100 Unit/1 Ml) 0 unit SUBCUT WM&BEDTIME [facility]; Protocol Last Admin: 09/12/20 17:53 Dose: 8 unit Documented by: Insulin Detemir (Insulin Detemir 100 Units/1 Ml) 10 unit SUBCUT BEDTIME [facility] Last Admin: 09/11/20 21:59 Dose: 10 unit Documented by: Nystatin (Nystatin 100,000 Unit/Ml Udc 5 Ml) 500,000 unit PO QID [facility] Last Admin: 09/12/20 17:54 Dose: 500,000 unit Documented by: Rivaroxaban (Rivaroxaban 10 Mg Tablet) 15 mg PO DAILY [facility] Last Admin: 09/12/20 09:21 Dose: 15 mg Documented by: Fluticasone/Salmeterol (Fluticasone-Salmeterol 500-50 Diskus) 1 puff INHALATION DAILY.RESPIRATORY [facility] Last Admin: 09/12/20 09:28 Dose: Not Given Documented by: Sotalol HCl (Sotalol 80 Mg Tablet) 80 mg PO BID@0900,2100 [facility] Last Admin: 09/12/20 13:30 Dose: Not Given Documented by: Tamsulosin HCl (Tamsulosin 0.4 Mg Capsule) 0.4 mg PO DAILY@0800 [facility] Last Admin: 09/12/20 09:22 Dose: 0.4 mg Documented by: Vitals/I&O/Wt Last Vital Signs Temp 97.5 F L 09/12/20 17:54 Pulse 70 09/12/20 20:43 Resp 18 09/12/20 20:43 BP 116/73 09/12/20 17:54 Pulse Ox 92 09/12/20 20:43 09/12/20 09/12/20 09/12/20 06:59 14:59 22:59 Intake Total 550 / 2110 300 / 300 120 / 420 Output Total 2500 / 2850 950 / 950 Balance -1950 / -740 -650 / -650 120 / -530 Physical Exam Narrative: EXAM NARRATIVE: GENERAL: The patient is alert and oriented times three. Not in any acute distress. Somewhat ill looking. HEENT: Moderate pallor, no icterus or lymphadenopathy. NECK: Trachea appears to be central. No masses noted. No JVD or thyromegaly appreciated. No carotid bruit. RESPIRATORY: Chest is symmetrical. No intercostals muscle retraction or any accessory muscle activation. There is no chest wall tenderness. Breath sounds are heard bilaterally. Diminished density of breath sounds in the bases. No rales or rhonchi BREASTS: Deferred. HEART: The PMI could not be palpated. First and second heart sounds are normal. No S3. Short systolic murmur in the left sternal border. No diastolic murmurs. No pericardial rub or any click heard. ABDOMEN: No vessel pulsations or distention. Minimal tenderness in the epigastric area no organomegaly appreciated. No abdominal bruit. Bowel sounds are normally heard. : Deferred. RECTAL: Deferred. LYMPHATIC: No lymphadenopathy noted in the neck . EXTREMITIES: 2+ edema both lower extremities. No cyanosis. MUSCULOSKELETAL: No acute joint deformities or swelling SKIN: There are no significant scars or skin rash noted. NEUROPSYCHIATRIC: The patient is alert and oriented x3. Appears to be in a good mood. The higher functions are grossly within normal limits. No tremors or rigidity noted. Data : 09/12/20 06:16 09/12/20 06:16 A&P Assessment and plan (1) High risk medication use: The repeat EKG showed normal QTC. The dose of the Betapace was cut back to 80 mg p.o. twice daily and was started this morning. May continue on this dose for the time being. We will repeat the EKG tomorrow. Status: Acute (2) Bacteremia: Source of infection is not clear. Repeat blood culture results are pending. ID consult is pending. May continue on the current medications. Will decide on ALEN after the ID consult. Status: Acute (3) Acute kidney injury: The etiology of the abnormal kidney function could be multifactorial. His baseline chronic kidney disease coupled with the recent chemotherapy could be a major contributing factor. It appears to be stable Status: Acute (4) Acute on chronic diastolic heart failure: Patient seems to be appropriately responding to the IV diuretics. We will continue the Lasix for the time being. BMP in the morning Status: Acute (5) Carotid stenosis: Status post stenting in the right ICA. May continue on the current management. The most recent duplex admission was done on 05/30/2020 the findings are as follows Status: Acute Qualifiers: Laterality: bilateral Qualified Code(s): I65.23 - Occlusion and stenosis of bilateral carotid arteries (6) Atrial fibrillation: Continue on the Betapace as mentioned above Status: Acute Qualifiers: Atrial fibrillation type: unspecified Qualified Code(s): I48.91 - Unspecified atrial fibrillation (7) ASHD (arteriosclerotic heart disease): Patient has some atypical chest pain. Most likely is noncardiac. The troponin T was slightly elevated. Repeat it in the morning Status: Acute (8) History of pacemaker: Pacemaker function appears to be appropriate. May continue on the current measures. Status: Acute Additional A&P Information Based on the patient's clinical progress, further recommendations will be made. 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
[2020-09-12 21:32] LABS: Glucose Point of Care 303 mg/dL (70-110)
[2020-09-13] VITALS (13 sets, daily range): BP systolic 104–157; BP diastolic 52–85; PULSE 62–78; RESP 16–18; TEMP 36.4–36.7; O2SAT 90–99
[2020-09-13] MEDS: FUROsemide 10 mg/mL SDV 10mL 80 MG IVP ×2 (00:24→11:48)
[2020-09-13 06:35] LABS: Glucose Point of Care 183 mg/dL (70-110)
[2020-09-13 07:01] LABS: Basophils # 0.1 10^3/uL (0.0-0.1); Basophils % 1.2 %; Eosinophils # 0.4 10^3/uL (0.0-0.8); Eosinophils % 7.3 %; Hematocrit 35.9 % (42.0-52.0); Hemoglobin 11.5 g/dL (11.7-16.6); Lymphocytes # 0.2 10^3/uL (0.8-4.8); Mean Corpuscular Hemoglobin 28.3 pg (28.0-34.0); Mean Corpuscular Volume 88.4 fL (80-94); Mean Platelet Volume 9.2 fL (7.4-10.4); Monocytes # 1.4 10^3/uL (0.2-0.9); Monocytes % 24.3 %; Neutrophils # 3.56 10^3/uL (1.8-7.7); Nucleated Red Blood Cells % 0 %; Platelet Count 181 10^3/cmm (130-400); Red Blood Count 4.06 10^6/uL (4.1-5.3); Red Cell Distribution Width 15.5 % (12.1-15.1); White Blood Count 5.8 10^3/uL (4.0-10.0)
[2020-09-13 07:21] LABS: Albumin Level 3.1 g/dL (3.5-5.2); Anion Gap 14.7 (5-19); Blood Urea Nitrogen 63 mg/dL (8-23); Calcium 8.7 mg/dL (8.5-10.5); Carbon Dioxide 22 mmol/L (22-29); Chloride 103 mmol/L (98-107); Glucose 169 mg/dL (65-115); Magnesium 2.1 mg/dL (1.7-2.3); Phosphorus 4.1 mg/dL (2.5-4.5); Potassium 3.7 mmol/L (3.5-5.1); Sodium 136 mmol/L (136-145)
[2020-09-13 07:23] LABS: Troponin T (5th) Once 41 ng/L (0-15)
--- NOTE | 2020-09-13 08:54 | P.PN_ITS ---
Subjective Subjective: Interval history: Patient continues to remain afebrile. He was seen by the ID today. Denies any chest pain or chest tightness. No unusual shortness of breath. No other specific complaints. Medications: Reviewed: Yes Medication Review Details: Current Medications Albuterol Sulfate (Albuterol 2.5 Mg/0.5 Ml Neb) 2.5 mg INHALATION Q4H PRN PRN Reason: Shortness Of Breath Allopurinol (Allopurinol 100 Mg Tablet) 100 mg PO DAILY [facility] Last Admin: 09/12/20 09:21 Dose: 100 mg Documented by: Dextrose (Dextrose 50% Syringe 50 Ml) 25 ml IVP ONCE PRN; Protocol PRN Reason: hypoglycemia protocol Dextrose (Dextrose 50% Syringe 50 Ml) 50 ml IVP PRN PRN; Protocol PRN Reason: hypoglycemia protocol Fluconazole (Fluconazole 100 Mg Tablet) 100 mg PO DAILY [facility] Last Admin: 09/12/20 09:21 Dose: 100 mg Documented by: Furosemide (Furosemide 10 Mg/Ml Sdv 10ml) 80 mg IVP Q12H [facility] Last Admin: 09/13/20 00:24 Dose: 80 mg Documented by: Glucagon (Glucagon 1 Mg/Ml Inj 1 Ml) 1 mg IM ONCE PRN; Protocol PRN Reason: Adult Acute Hypoglycemia Prot. Dextrose (D5w) 500 mls @ 100 mls/hr IV ONCE PRN; Protocol PRN Reason: Adult Acute Hypoglycemia Prot Linezolid (Zyvox Premix) 600 mg in 300 mls @ 300 mls/hr IV Q12H [facility]; Protocol Last Infusion: 09/12/20 23:06 Dose: Infused Documented by: Insulin Aspart (Insulin Aspart 100 Unit/1 Ml) 0 unit SUBCUT WM&BEDTIME [facility]; Protocol Last Admin: 09/12/20 21:46 Dose: 10 unit Documented by: Insulin Detemir (Insulin Detemir 100 Units/1 Ml) 10 unit SUBCUT BEDTIME [facility] Last Admin: 09/12/20 21:47 Dose: 10 unit Documented by: Nystatin (Nystatin 100,000 Unit/Ml Udc 5 Ml) 500,000 unit PO QID [facility] Last Admin: 09/12/20 21:47 Dose: 500,000 unit Documented by: Rivaroxaban (Rivaroxaban 10 Mg Tablet) 15 mg PO DAILY [facility] Last Admin: 09/12/20 09:21 Dose: 15 mg Documented by: Fluticasone/Salmeterol (Fluticasone-Salmeterol 500-50 Diskus) 1 puff INHALATION DAILY.RESPIRATORY [facility] Last Admin: 09/13/20 08:00 Dose: 1 puff Documented by: Sotalol HCl (Sotalol 80 Mg Tablet) 80 mg PO BID@0900,2100 [facility] Last Admin: 09/12/20 21:48 Dose: 80 mg Documented by: Tamsulosin HCl (Tamsulosin 0.4 Mg Capsule) 0.4 mg PO DAILY@0800 [facility] Last Admin: 09/12/20 09:22 Dose: 0.4 mg Documented by: Vitals/I&O/Wt Last Vital Signs Temp 97.8 F 09/13/20 07:57 Pulse 78 09/13/20 08:03 Resp 16 09/13/20 08:01 BP 134/85 09/13/20 07:57 Pulse Ox 97 09/13/20 08:01 09/12/20 09/13/20 09/13/20 22:59 06:59 14:59 Intake Total 120 / 420 300 / 720 360 / 360 Output Total 900 / 1850 650 / 2500 Balance -780 / -1430 -350 / -1780 360 / 360 Physical Exam Narrative: EXAM NARRATIVE: GENERAL: The patient is alert and oriented times three. Not in any acute distress. HEENT: Moderate pallor, no icterus or lymphadenopathy. NECK: Trachea appears to be central. No masses noted. No JVD or thyromegaly appreciated. No carotid bruit. RESPIRATORY: Chest is symmetrical. No intercostals muscle retraction or any accessory muscle activation. There is no chest wall tenderness. Breath sounds are heard bilaterally. Diminished density of breath sounds in the bases. No rales or rhonchi BREASTS: Deferred. HEART: The PMI could not be palpated. First and second heart sounds are normal. No S3. Short systolic murmur in the left sternal border. No diastolic murmurs. No pericardial rub or any click heard. ABDOMEN: No vessel pulsations or distention. Minimal tenderness in the epig astric area no organomegaly appreciated. No abdominal bruit. Bowel sounds are normally heard. : Deferred. RECTAL: Deferred. LYMPHATIC: No lymphadenopathy noted in the neck . EXTREMITIES:1- 2+ edema both lower extremities. No cyanosis. MUSCULOSKELETAL: No acute joint deformities or swelling SKIN: There are no significant scars or skin rash noted. NEUROPSYCHIATRIC: The patient is alert and oriented x3. Appears to be in a good mood. The higher functions are grossly within normal limits. No tremors or rigidity noted. Data : 09/13/20 06:49 09/13/20 06:49 Other Labs: Laboratory Last Values WBC 5.8 10^3/uL (4.0-10.0) 09/13/20 06:49 RBC 4.06 10^6/uL (4.1-5.3) L 09/13/20 06:49 Hgb 11.5 g/dL (11.7-16.6) L 09/13/20 06:49 Hct 35.9 % (42.0-52.0) L 09/13/20 06:49 MCV 88.4 fL (80-94) 09/13/20 06:49 MCH 28.3 pg (28.0-34.0) 09/13/20 06:49 MCHC 32.0 g/dL (30.0-36.0) 09/13/20 06:49 RDW 15.5 % (12.1-15.1) H 09/13/20 06:49 Plt Count 181 10^3/cmm (130-400) 09/13/20 06:49 MPV 9.2 fL (7.4-10.4) 09/13/20 06:49 Neut % (Auto) 62.0 % 09/13/20 06:49 Lymph % (Auto) 4.0 % 09/13/20 06:49 [place] % (Auto) 24.3 % 09/13/20 06:49 Eos % (Auto) 7.3 % 09/13/20 06:49 Baso % (Auto) 1.2 % 09/13/20 06:49 Neut # (Auto) 3.56 10^3/uL (1.8-7.7) 09/13/20 06:49 Lymph # (Auto) 0.2 10^3/uL (0.8-4.8) L 09/13/20 06:49 [place] # (Auto) 1.4 10^3/uL (0.2-0.9) H 09/13/20 06:49 Eos # (Auto) 0.4 10^3/uL (0.0-0.8) 09/13/20 06:49 Baso # (Auto) 0.1 10^3/uL (0.0-0.1) 09/13/20 06:49 Nucleated RBC % (auto) 0 % 09/13/20 06:49 Nucleated RBCs # 0.0 /100WBC 09/13/20 06:49 ESR 47 mm/hr (0-10) H 09/10/20 06:00 Sodium 136 mmol/L (136-145) 09/13/20 06:49 Potassium 3.7 mmol/L (3.5-5.1) 09/13/20 06:49 Chloride 103 mmol/L (98-107) 09/13/20 06:49 Carbon Dioxide 22 mmol/L (22-29) 09/13/20 06:49 Anion Gap 14.7 (5-19) 09/13/20 06:49 BUN 63 mg/dL (8-23) H 09/13/20 06:49 Creatinine 1.7 mg/dL (0.7-1.2) H 09/13/20 06:49 GFR Calculation Not Reportable 09/13/20 06:49 Glucose 169 mg/dL (65-115) H 09/13/20 06:49 POC Glucose 183 mg/dL (70-110) H 09/13/20 06:29 Calculated Osmolality 304 mOsm/kg (285-295) H 09/11/20 06:14 Calcium 8.7 mg/dL (8.5-10.5) 09/13/20 06:49 Phosphorus 4.1 mg/dL (2.5-4.5) 09/13/20 06:49 Magnesium 2.1 mg/dL (1.7-2.3) 09/13/20 06:49 Total Bilirubin 0.3 mg/dL (0.15-1.2) 09/09/20 14:00 AST 12 U/L (0-40) 09/09/20 14:00 ALT 23 U/L (0-41) 09/09/20 14:00 Alkaline Phosphatase 106 IU/L (40-130) 09/09/20 14:00 Troponin T Gen 5 ng/L 41 ng/L (0-15) H 09/13/20 06:49 C-Reactive Protein 16.7 mg/L (0.0-4.9) H 09/12/20 06:16 NT-Pro-B Natriuret Pep 6053 pg/mL (0-450) H 09/12/20 06:16 Total Protein 5.8 g/dL (6.6-8.7) L 09/09/20 14:00 Albumin 3.1 g/dL (3.5-5.2) L 09/13/20 06:49 Globulin 2.7 g/dL (1.3-4.6) 09/09/20 14:00 TSH 1.60 uIU/mL (0.27-4.20) 09/09/20 14:00 Urine Color Yellow (Yellow) 09/09/20 17:00 Urine Appearance Clear (CLEAR) 09/09/20 17:00 Urine pH 5 (5-7) 09/09/20 17:00 Ur Specific [place] 1.010 (1.005-1.030) 09/09/20 17:00 Urine Protein Neg (Negative) 09/09/20 17:00 Urine Glucose (UA) Norm (Normal) 09/09/20 17:00 Urine Ketones Negative (Negative) 09/09/20 17:00 Urine Blood Neg (Negative) 09/09/20 17:00 Urine Nitrate Negative (Negative) 09/09/20 17:00 Urine Bilirubin Neg (Negative) 09/09/20 17:00 Urine Urobilinogen Norm mg/dL (Negative) 09/09/20 17:00 Ur Leukocyte Esterase Negative (Negative) 09/09/20 17:00 Urine RBC Rare /hpf (0-2) 09/09/20 17:00 Urine WBC Rare /hpf (0-5) 09/09/20 17:00 Ur Squamous Epith Cells Rare /hpf (0-5) 09/09/20 17:00 Amorphous Sediment Not Reportable 09/09/20 17:00 Urine Bacteria Trace /hpf (NONE) 09/09/20 17:00 A&P Assessment and plan (1) High risk medication use: Patient had a follow-up EKG this morning. EKG showed normal sinus rhythm with a QTC of 467. Occasional PVCs. Some nonspecific T wave changes. We will continue on the current dose of Betapace. Repeat EKG in the morning. Status: Acute (2) Bacteremia: Discussed with Dr. Ledesma. Most likely the source of infection might be the skin. Clinically the patient does not appear to have endocarditis. But th at possibility cannot be excluded. According the patient, he has a difficult time to recover from anesthesia from the past experience. He prefers not to have the ALEN if at all possible. In view of the patient multiple comorbidities, it was thought to be appropriate to continue IV antibiotics for 6 weeks . If the patient has any recurrence of fever afterwards, it might be worthwhile considering the ALEN. Since he is remaining afebrile with no recurrence of fever after 24 hours of antibiotics, it might be appropriate to hold off on the ALEN at this point. Status: Acute (3) Acute kidney injury: The etiology of the abnormal kidney function could be multifactorial. His baseline chronic kidney disease coupled with the recent chemotherapy could be a major contributing factor. It appears to be stable Status: Acute (4) Acute on chronic diastolic heart failure: Patient seems to be appropriately responding to the IV diuretics. We will continue the Lasix for the time being. BMP in the morning Status: Acute (5) Carotid stenosis: Status post stenting in the right ICA. May continue on the current management. The most recent duplex examination was done on 05/30/2020- the findings are as follows Status: Acute Qualifiers: Laterality: bilateral Qualified Code(s): I65.23 - Occlusion and stenosis of bilateral carotid arteries (6) Atrial fibrillation: Continue on the Betapace as mentioned above. He is remaining in sinus rhythm Status: Acute Qualifiers: Atrial fibrillation type: unspecified Qualified Code(s): I48.91 - Unspecified atrial fibrillation (7) ASHD (arteriosclerotic heart disease): Patient has some atypical chest pain. Most likely is noncardiac. May continue on the current measures Status: Acute (8) History of pacemaker: Pacemaker function appears to be appropriate. May continue on the current measures. Status: Acute Additional A&P Information Based on the patient's clinical progress, further recommendations will be made. 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
[2020-09-13] MEDS: tamsulosin 0.4 mg Capsule PO (08:56)
[2020-09-13] MEDS: nystatin 100,000 unit/mL UDC 5 mL 500000 UNIT PO ×3 (08:56→17:37)
[2020-09-13] MEDS: allopurinol 100 mg Tablet PO (08:56)
[2020-09-13] MEDS: sotalol 80 mg Tablet PO ×2 (08:56→22:07)
[2020-09-13] MEDS: fluconazole 100 mg Tablet PO (08:56)
[2020-09-13] MEDS: rivaroxaban 10 mg Tablet 15 MG PO (08:56)
--- NOTE | 2020-09-13 10:00 | ECG_ITS ---
[facility] ED Test Date: 2020-09-13 Pat Name: Panchito Macedo Department: Room: 257 Gender: Male Mri Tech: : 1940 Requested By: Janett Lion Order Number: [id number] Chey MD: Ashlyn Womack M.D. Measurements Intervals [place] Rate: 76 P: NC: QRS: -38 QRSD: 106 T: 99 QT: 415 QTc: 468 Interpretive Statements SINUS RHYTHM WITH VENTRICULAR PREMATURE COMPLEXES MARKED LEFT AXIS DEVIATION [QRS AXIS < -30] MODERATE T-WAVE ABNORMALITY, CONSIDER LATERAL ISCHEMIA Compared to ECG 09/12/2020 06:29:16 Left-axis deviation now present Incomplete right bundle-branch block no longer present Left anterior fascicular block no longer present Myocardial infarct finding no longer present T-wave abnormality still present Possible ischemia still present Electronically Signed On 09-16-2020 22:39:26 CDT by Ashlyn Womack M.D. [email or web address]
[2020-09-13 10:54] LABS: Glucose Point of Care 268 mg/dL (70-110)
[2020-09-13] MEDS: linezolid premix 600 MG/300 ML PREMIX 300 MG IV (11:34)
[2020-09-13 17:14] LABS: Glucose Point of Care 265 mg/dL (70-110)
--- NOTE | 2020-09-13 17:52 | P.PN_ITS ---
Subjective Subjective: Interval history: Afebrile, hemodynamically stable, blood culture remains negative from September 09, 2020. Creatinine improving to 1.7 today. Complains of generalized weakness Medications: Reviewed: Yes Medication Review Details: Current Medications Albuterol Sulfate (Albuterol 2.5 Mg/0.5 Ml Neb) 2.5 mg INHALATION Q4H PRN PRN Reason: Shortness Of Breath Allopurinol (Allopurinol 100 Mg Tablet) 100 mg PO DAILY [facility] Last Admin: 09/12/20 09:21 Dose: 100 mg Documented by: Dextrose (Dextrose 50% Syringe 50 Ml) 25 ml IVP ONCE PRN; Protocol PRN Reason: hypoglycemia protocol Dextrose (Dextrose 50% Syringe 50 Ml) 50 ml IVP PRN PRN; Protocol PRN Reason: hypoglycemia protocol Fluconazole (Fluconazole 100 Mg Tablet) 100 mg PO DAILY [facility] Last Admin: 09/12/20 09:21 Dose: 100 mg Documented by: Furosemide (Furosemide 10 Mg/Ml Sdv 10ml) 80 mg IVP Q12H [facility] Last Admin: 09/13/20 00:24 Dose: 80 mg Documented by: Glucagon (Glucagon 1 Mg/Ml Inj 1 Ml) 1 mg IM ONCE PRN; Protocol PRN Reason: Adult Acute Hypoglycemia Prot. Dextrose (D5w) 500 mls @ 100 mls/hr IV ONCE PRN; Protocol PRN Reason: Adult Acute Hypoglycemia Prot Linezolid (Zyvox Premix) 600 mg in 300 mls @ 300 mls/hr IV Q12H [facility]; Protocol Last Infusion: 09/12/20 23:06 Dose: Infused Documented by: Insulin Aspart (Insulin Aspart 100 Unit/1 Ml) 0 unit SUBCUT WM&BEDTIME [facility]; Protocol Last Admin: 09/12/20 21:46 Dose: 10 unit Documented by: Insulin Detemir (Insulin Detemir 100 Units/1 Ml) 10 unit SUBCUT BEDTIME [facility] Last Admin: 09/12/20 21:47 Dose: 10 unit Documented by: Nystatin (Nystatin 100,000 Unit/Ml Udc 5 Ml) 500,000 unit PO QID [facility] Last Admin: 09/12/20 21:47 Dose: 500,000 unit Documented by: Rivaroxaban (Rivaroxaban 10 Mg Tablet) 15 mg PO DAILY [facility] Last Admin: 09/12/20 09:21 Dose: 15 mg Documented by: Fluticasone/Salmeterol (Fluticasone-Salmeterol 500-50 Diskus) 1 puff INHALATION DAILY.RESPIRATORY [facility] Last Admin: 09/13/20 08:00 Dose: 1 puff Documented by: Sotalol HCl (Sotalol 80 Mg Tablet) 80 mg PO BID@0900,2100 [facility] Last Admin: 09/12/20 21:48 Dose: 80 mg Documented by: Tamsulosin HCl (Tamsulosin 0.4 Mg Capsule) 0.4 mg PO DAILY@0800 [facility] Last Admin: 09/12/20 09:22 Dose: 0.4 mg Documented by: Vitals/I&O/Wt Last Vital Signs Temp 97.6 F 09/13/20 16:00 Pulse 76 09/13/20 16:00 Resp 18 09/13/20 16:00 BP 138/76 09/13/20 16:00 Pulse Ox 90 09/13/20 16:00 09/13/20 09/13/20 09/13/20 06:59 14:59 22:59 Intake Total 300 / 720 660 / 660 Output Total 650 / 2500 975 / 975 Balance -350 / -1780 660 / 660 -975 / -315 Physical Exam Narrative: EXAM NARRATIVE: GEN: Awake, alert and oriented, no acute distress CVS: S1S2 N RS: CTA B/L Abd: Soft, nt/nd , bs+ [employer]: no focal neuro deficits Data : 09/13/20 06:49 09/13/20 06:49 A&P Assessment and plan (1) Bacteremia: Blood culture from September 04 4 out of 4 positive for staph epidermidis. Possibly skin source from extensive excoriation in bilateral groin from candidiasis versus mucositis after recent chemotherapy. Blood culture clear as of September 09, 2020 Lower suspicion for possibility of pacemaker infection given that bacteremia cleared quickly, ESR and CRP not significantly elevated, TTE without any gross vegetations. Patient reports he has had issues with getting anesthesia in the past, has required prolonged intubation thereafter. His current goals of care are DNR/DNI. Think this in mind we will defer ALEN for now, and plan to treat patient as a possible endovascular infection with course of IV vancomycin over the next 4 to 6 weeks. In case patient is to get any port for chemotherapy in the future, would like to give him an extended course of antibiotics to ensure clear cultures. At the end of 4-week course, will plan for surveillance culture 2 weeks off of antibiotics to ensure clearance. A WBC tagged study is unlikely to be helpful in the presence of. We will try to obtain PET scan that was recently obtained prior to starting chemotherapy. PICC line placement to facilitate above. Above discussed with Dr. Lion. ESR 47, CRP 45 Status: Acute (2) Fever: Patient reports he has been having ongoing fevers at least since April 2020, usually up to 101 Fahrenheit at home, recently worsened today which prompted visit to the ER. Uncertain if this is related to underlying lymphoma versus acute infection at this present time. Patient has been afebrile during course of admission here. Status: Acute (3) Chronic recurrent sinusitis: Discontinue levofloxacin. Status: Inactive (4) Hallucinations: This may herald some encephalopathy. CT head was checked and prior occipital strokes noted but no hemorrhage or new changes. Denies any hallucinations currently. Status: Acute (5) Thrush: Initiate fluconazole, add Chlortrimazole ointment locally Status: Acute (6) CHF (congestive heart failure): Recent echocardiogram was performed September 02 demonstrating EF of 60%, 3/4 diastolic dysfunction, hypokinesis apical septal segment, moderate pulmonary hypertension. He has some acute decompensation secondary fluids given. Currently on 80 mg IV every 12 of Lasix, appears to be better today, reduce Lasix to 60 IV every 12 Status: Acute Qualifiers: Heart failure type: diastolic Heart failure chronicity: chronic Qualified Code(s): I50.32 - Chronic diastolic (congestive) heart failure (7) Acute kidney injury: Renal ultrasound without evidence of hydronephrosis Status: Acute Additional A&P Information Diabetes mellitus: Requiring between 38 to 40 units of insulin over 24 hours, change to Lantus 20 units at nighttime, 5 units premeal insulin, change sliding scale to mild insulin sliding scale. Change linezolid to vancomycin, would avoid linezolid for long-term use in this patient given that he is planned to undergo more chemotherapy, possibility of developing neutropenia and thrombocytopenia will be exacerbated with linezolid compared to vancomycin. Will dose according to renal function. 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
[2020-09-13] MEDS: clotrimazole 1% cream 30 gm 1 APPLIC TOPICAL (18:21)
[2020-09-13] MEDS: vancomycin 1,500 MG/300 ML PIGGYBACK 200 MG IV (20:37)
[2020-09-13 21:45] LABS: Glucose Point of Care 243 mg/dL (70-110)
[2020-09-13] MEDS: insulin glargine 100 units/1 mL 20 UNIT SUBCUT (22:07)
[2020-09-14] VITALS (10 sets, daily range): BP systolic 107–145; BP diastolic 57–76; PULSE 63–80; RESP 17–18; TEMP 36.4–36.7; O2SAT 92–97
[2020-09-14] MEDS: FUROsemide 10 mg/mL SDV 10mL 60 MG IVP ×2 (00:33→13:33)
[2020-09-14 05:13] LABS: Basophils # 0.1 10^3/uL (0.0-0.1); Basophils % 0.9 %; Eosinophils # 0.4 10^3/uL (0.0-0.8); Eosinophils % 6.5 %; Hematocrit 35.4 % (42.0-52.0); Hemoglobin 11.6 g/dL (11.7-16.6); Lymphocytes # 0.2 10^3/uL (0.8-4.8); Lymphocytes % 3.1 %; Mean Corpuscular HGB Conc 32.8 g/dL (30.0-36.0); Mean Corpuscular Hemoglobin 28.2 pg (28.0-34.0); Mean Corpuscular Volume 86.1 fL (80-94); Mean Platelet Volume 9.3 fL (7.4-10.4); Monocytes # 1.3 10^3/uL (0.2-0.9); Monocytes % 24.3 %; Neutrophils # 3.54 10^3/uL (1.8-7.7); Neutrophils % 64.1 %; Nucleated Red Blood Cells % 0 %; Platelet Count 160 10^3/cmm (130-400); Red Blood Count 4.11 10^6/uL (4.1-5.3); Red Cell Distribution Width 15.3 % (12.1-15.1); White Blood Count 5.5 10^3/uL (4.0-10.0)
[2020-09-14 05:32] LABS: Alanine Aminotransferase 11 U/L (0-41); Albumin Level 3.1 g/dL (3.5-5.2); Alkaline Phosphatase 70 IU/L (40-130); Anion Gap 14.7 (5-19); Aspartate Amino Transferase 11 U/L (0-40); Blood Urea Nitrogen 57 mg/dL (8-23); Calcium 8.8 mg/dL (8.5-10.5); Carbon Dioxide 24 mmol/L (22-29); Chloride 101 mmol/L (98-107); Globulin 2.6 g/dL (1.3-4.6); Glucose 195 mg/dL (65-115); Osmolality Calculated 303 mOsm/kg (285-295); Potassium 3.7 mmol/L (3.5-5.1); Sodium 136 mmol/L (136-145); Total Bilirubin 0.3 mg/dL (0.15-1.2); Total Protein 5.7 g/dL (6.6-8.7)
[2020-09-14 06:40] LABS: Glucose Point of Care 254 mg/dL (70-110)
--- NOTE | 2020-09-14 08:56 | XR_ITS ---
WS: [id number] CHEST XRAY TECHNIQUE: Portable chest. CLINICAL INFORMATION: PICC PLACEMENT COMPARISON: None. FINDINGS: Right PICC line with tip in the mid SVC. No pneumothorax. Cardiac pacer. Sternotomy. Bypass grafting. Heart: Cardiomegaly. Lungs: Chronic emphysematous changes bibasilar atelectasis. Bones: Normal visualized bony structures. XR/XR chest 1V portable [id number] IMPRESSION: Right PICC line with tip in the mid SVC
--- NOTE | 2020-09-14 09:06 | P.PN_ITS ---
Subjective Subjective: Interval history: Patient denies any chest pain or chest tightness. No unusual shortness of breath. No fever or chills. No cough. He had the PICC line placement today Medications: Reviewed: Yes Medication Review Details: Current Medications Albuterol Sulfate (Albuterol 2.5 Mg/0.5 Ml Neb) 2.5 mg INHALATION Q4H PRN PRN Reason: Shortness Of Breath Allopurinol (Allopurinol 100 Mg Tablet) 100 mg PO DAILY [facility] Last Admin: 09/13/20 08:56 Dose: 100 mg Documented by: Clotrimazole (Clotrimazole 1% Cream 30 Gm) 1 applic TOPICAL BID [facility] Last Admin: 09/13/20 18:21 Dose: 1 applic Documented by: Dextrose (Dextrose 50% Syringe 50 Ml) 25 ml IVP ONCE PRN; Protocol PRN Reason: hypoglycemia protocol Dextrose (Dextrose 50% Syringe 50 Ml) 50 ml IVP PRN PRN; Protocol PRN Reason: hypoglycemia protocol Fluconazole (Fluconazole 100 Mg Tablet) 100 mg PO DAILY [facility] Last Admin: 09/13/20 08:56 Dose: 100 mg Documented by: Furosemide (Furosemide 10 Mg/Ml Sdv 10ml) 60 mg IVP Q12H [facility] Last Admin: 09/14/20 00:33 Dose: 60 mg Documented by: Glucagon (Glucagon 1 Mg/Ml Inj 1 Ml) 1 mg IM ONCE PRN; Protocol PRN Reason: Adult Acute Hypoglycemia Prot. Dextrose (D5w) 500 mls @ 100 mls/hr IV ONCE PRN; Protocol PRN Reason: Adult Acute Hypoglycemia Prot Vancomycin/PEG/[place]/Lysine/Water (Vancocin) 1,500 mg in 300 mls @ 200 mls/hr IV Q24H [facility] Last Infusion: 09/13/20 23:01 Dose: Infused Documented by: Insulin Aspart (Insulin Aspart 100 Unit/1 Ml) 0 unit SUBCUT WM&BEDTIME [facility]; Protocol Last Admin: 09/13/20 22:07 Dose: 6 unit Documented by: Insulin Aspart (Insulin Aspart 100 Unit/1 Ml) 5 unit SUBCUT AC [facility] Last Admin: 09/14/20 06:36 Dose: 5 unit Documented by: Insulin Glargine (Insulin Glargine 100 Units/1 Ml) 20 unit SUBCUT BEDTIME [facility] Last Admin: 09/13/20 22:07 Dose: 20 unit Documented by: Rivaroxaban (Rivaroxaban 10 Mg Tablet) 15 mg PO DAILY [facility] Last Admin: 09/13/20 08:56 Dose: 15 mg Documented by: Fluticasone/Salmeterol (Fluticasone-Salmeterol 500-50 Diskus) 1 puff INHALATION DAILY.RESPIRATORY [facility] Last Admin: 09/14/20 08:08 Dose: 1 puff Documented by: Sotalol HCl (Sotalol 80 Mg Tablet) 80 mg PO BID@0900,2100 [facility] Last Admin: 09/13/20 22:07 Dose: 80 mg Documented by: Tamsulosin HCl (Tamsulosin 0.4 Mg Capsule) 0.4 mg PO DAILY@0800 [facility] Last Admin: 09/13/20 08:56 Dose: 0.4 mg Documented by: Vitals/I&O/Wt Last Vital Signs Temp 97.6 F 09/14/20 07:52 Pulse 79 09/14/20 08:10 Resp 18 09/14/20 08:08 BP 130/74 09/14/20 07:52 Pulse Ox 96 09/14/20 08:08 09/13/20 09/14/20 09/14/20 22:59 06:59 14:59 Intake Total 120 / 780 300 / 1080 Output Total 1375 / 1375 1125 / 2500 Balance -1255 / -595 -825 / -1420 Physical Exam Narrative: EXAM NARRATIVE: GENERAL: The patient is alert and oriented times three. Not in any acute distress. HEENT: Moderate pallor, no icterus or lymphadenopathy. NECK: Trachea appears to be central. No masses noted. No JVD or thyromegaly appreciated. No carotid bruit. RESPIRATORY: Chest is symmetrical. No intercostals muscle retraction or any accessory muscle activation. There is no chest wall tenderness. Breath sounds are heard bilaterally. Diminished density of breath sounds in the bases. No rales or rhonchi BREASTS: Deferred. HEART: The PMI could not be palpated. First and second heart sounds are normal. No S3. Short systolic murmur in the left sternal border. No diastolic murmurs. No pericardial rub or any click heard. ABDOMEN: No vessel pulsations or distention. Minimal tenderness in the epigast elizabet area no organomegaly appreciated. No abdominal bruit. Bowel sounds are normally heard. : Deferred. RECTAL: Deferred. LYMPHATIC: No lymphadenopathy noted in the neck . EXTREMITIES:1- 2+ edema both lower extremities. No cyanosis. MUSCULOSKELETAL: No acute joint deformities or swelling SKIN: There are no significant scars or skin rash noted. NEUROPSYCHIATRIC: The patient is alert and oriented x3. Appears to be in a good mood. The higher functions are grossly within normal limits. No tremors or rigidity noted. Data : 09/14/20 04:50 09/14/20 04:50 Other Labs: Laboratory Last Values WBC 5.5 10^3/uL (4.0-10.0) 09/14/20 04:50 RBC 4.11 10^6/uL (4.1-5.3) 09/14/20 04:50 Hgb 11.6 g/dL (11.7-16.6) L 09/14/20 04:50 Hct 35.4 % (42.0-52.0) L 09/14/20 04:50 MCV 86.1 fL (80-94) 09/14/20 04:50 MCH 28.2 pg (28.0-34.0) 09/14/20 04:50 MCHC 32.8 g/dL (30.0-36.0) 09/14/20 04:50 RDW 15.3 % (12.1-15.1) H 09/14/20 04:50 Plt Count 160 10^3/cmm (130-400) 09/14/20 04:50 MPV 9.3 fL (7.4-10.4) 09/14/20 04:50 Neut % (Auto) 64.1 % 09/14/20 04:50 Lymph % (Auto) 3.1 % 09/14/20 04:50 [place] % (Auto) 24.3 % 09/14/20 04:50 Eos % (Auto) 6.5 % 09/14/20 04:50 Baso % (Auto) 0.9 % 09/14/20 04:50 Neut # (Auto) 3.54 10^3/uL (1.8-7.7) 09/14/20 04:50 Lymph # (Auto) 0.2 10^3/uL (0.8-4.8) L 09/14/20 04:50 [place] # (Auto) 1.3 10^3/uL (0.2-0.9) H 09/14/20 04:50 Eos # (Auto) 0.4 10^3/uL (0.0-0.8) 09/14/20 04:50 Baso # (Auto) 0.1 10^3/uL (0.0-0.1) 09/14/20 04:50 Nucleated RBC % (auto) 0 % 09/14/20 04:50 Nucleated RBCs # 0.0 /100WBC 09/14/20 04:50 ESR 47 mm/hr (0-10) H 09/10/20 06:00 Sodium 136 mmol/L (136-145) 09/14/20 04:50 Potassium 3.7 mmol/L (3.5-5.1) 09/14/20 04:50 Chloride 101 mmol/L (98-107) 09/14/20 04:50 Carbon Dioxide 24 mmol/L (22-29) 09/14/20 04:50 Anion Gap 14.7 (5-19) 09/14/20 04:50 BUN 57 mg/dL (8-23) H 09/14/20 04:50 Creatinine 1.6 mg/dL (0.7-1.2) H 09/14/20 04:50 GFR Calculation Not Reportable 09/14/20 04:50 Glucose 195 mg/dL (65-115) H 09/14/20 04:50 POC Glucose 254 mg/dL (70-110) H 09/14/20 06:26 Calculated Osmolality 303 mOsm/kg (285-295) H 09/14/20 04:50 Calcium 8.8 mg/dL (8.5-10.5) 09/14/20 04:50 Phosphorus 4.1 mg/dL (2.5-4.5) 09/13/20 06:49 Magnesium 2.1 mg/dL (1.7-2.3) 09/13/20 06:49 Total Bilirubin 0.3 mg/dL (0.15-1.2) 09/14/20 04:50 AST 11 U/L (0-40) 09/14/20 04:50 ALT 11 U/L (0-41) 09/14/20 04:50 Alkaline Phosphatase 70 IU/L (40-130) 09/14/20 04:50 Troponin T Gen 5 ng/L 41 ng/L (0-15) H 09/13/20 06:49 C-Reactive Protein 16.7 mg/L (0.0-4.9) H 09/12/20 06:16 NT-Pro-B Natriuret Pep 6053 pg/mL (0-450) H 09/12/20 06:16 Total Protein 5.7 g/dL (6.6-8.7) L 09/14/20 04:50 Albumin 3.1 g/dL (3.5-5.2) L 09/14/20 04:50 Globulin 2.6 g/dL (1.3-4.6) 09/14/20 04:50 TSH 1.60 uIU/mL (0.27-4.20) 09/09/20 14:00 Urine Color Yellow (Yellow) 09/09/20 17:00 Urine Appearance Clear (CLEAR) 09/09/20 17:00 Urine pH 5 (5-7) 09/09/20 17:00 Ur Specific [place] 1.010 (1.005-1.030) 09/09/20 17:00 Urine Protein Neg (Negative) 09/09/20 17:00 Urine Glucose (UA) Norm (Normal) 09/09/20 17:00 Urine Ketones Negative (Negative) 09/09/20 17:00 Urine Blood Neg (Negative) 09/09/20 17:00 Urine Nitrate Negative (Negative) 09/09/20 17:00 Urine Bilirubin Neg (Negative) 09/09/20 17:00 Urine Urobilinogen Norm mg/dL (Negative) 09/09/20 17:00 Ur Leukocyte Esterase Negative (Negative) 09/09/20 17:00 Urine RBC Rare /hpf (0-2) 09/09/20 17:00 Urine WBC Rare /hpf (0-5) 09/09/20 17:00 Ur Squamous Epith Cells Rare /hpf (0-5) 09/09/20 17:00 Amorphous Sediment Not Reportable 09/09/20 17:00 Urine Bacteria Trace /hpf (NONE) 09/09/20 17:00 A&P Assessment and plan (1) High risk medication use: The EKG was not done today. We will go ahead and do one. The dose of the medication will be adjusted accordingly Status: Acute (2) Bacteremia: Discussed with Dr. Ledesma. Most likely the source of infection might be the skin. Clinically the patient does not appear to have endocarditis. But that possibility cannot be excluded. According the patient, he has a difficult time to recover from anesthesia from the past experience. He prefers not to have the ALEN if at all possible. In view of the patient multiple comorbidities, it was thought to be appropriate to continue IV antibiotics for 6 weeks . If the patient has any recurrence of fever afterwards, it might be worthwhile considering the ALEN. Since he is remaining afebrile with no recurrence of fever after 24 hours of antibiotics, it might be appropriate to hold off on the ALEN at this point. Status: Acute (3) Acute kidney injury: The etiology of the abnormal kidney function could be multifactorial. His baseline chronic kidney disease coupled with the recent chemotherapy could be a major contributing factor. It appears to be stable Status: Acute (4) Acute on chronic diastolic heart failure: May discontinue IV Lasix and change to p.o. 60 mg twice daily. Status: Acute (5) Carotid stenosis: Status post stenting in the right ICA. May continue on the current management. The most recent duplex examination was done on 05/30/2020- the findings are as follows Status: Acute Qualifiers: Laterality: bilateral Qualified Code(s): I65.23 - Occlusion and stenosis of bilateral carotid arteries (6) Atrial fibrillation: Continue on the [place] as mentioned above. He is remaining in sinus rhythm. Continue the oral anticoagulation Status: Acute Qualifiers: Atrial fibrillation type: unspecified Qualified Code(s): I48.91 - Unspecified atrial fibrillation (7) ASHD (arteriosclerotic heart disease): Patient currently has no specific symptoms. Advised to continue on the current treatment measures. Status: Acute (8) History of pacemaker: Pacemaker function appears to be appropriate. May continue on the current measures. Status: Acute Additional A&P Information If the patient continues remain stable, may be discharged home from a cardiac standpoint. I may see him in the office in 2 weeks. 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
[2020-09-14] MEDS: tamsulosin 0.4 mg Capsule PO (09:13)
[2020-09-14] MEDS: allopurinol 100 mg Tablet PO (09:13)
[2020-09-14] MEDS: fluconazole 100 mg Tablet PO (09:13)
[2020-09-14] MEDS: sotalol 80 mg Tablet PO ×2 (09:13→20:40)
--- NOTE | 2020-09-14 10:48 | PC.SOCIAL ---
IMM Update Pg.2 of IMM updated and reviewed with patient, who verbalized understanding. Copy provided.
[2020-09-14 12:17] LABS: Glucose Point of Care 253 mg/dL (70-110)
[2020-09-14] MEDS: clotrimazole 1% cream 30 gm 1 APPLIC TOPICAL ×2 (12:23→18:08)
[2020-09-14 17:05] LABS: Glucose Point of Care 196 mg/dL (70-110)
--- NOTE | 2020-09-14 17:21 | P.PN_ITS ---
Subjective Subjective: Interval history: Received PICC line earlier this morning, hemodynamically stable, afebrile, blood culture thus far remaining negative from September 09 Medications: Reviewed: Yes Medication Review Details: Current Medications Albuterol Sulfate (Albuterol 2.5 Mg/0.5 Ml Neb) 2.5 mg INHALATION Q4H PRN PRN Reason: Shortness Of Breath Allopurinol (Allopurinol 100 Mg Tablet) 100 mg PO DAILY [facility] Last Admin: 09/13/20 08:56 Dose: 100 mg Documented by: Clotrimazole (Clotrimazole 1% Cream 30 Gm) 1 applic TOPICAL BID [facility] Last Admin: 09/13/20 18:21 Dose: 1 applic Documented by: Dextrose (Dextrose 50% Syringe 50 Ml) 25 ml IVP ONCE PRN; Protocol PRN Reason: hypoglycemia protocol Dextrose (Dextrose 50% Syringe 50 Ml) 50 ml IVP PRN PRN; Protocol PRN Reason: hypoglycemia protocol Fluconazole (Fluconazole 100 Mg Tablet) 100 mg PO DAILY [facility] Last Admin: 09/13/20 08:56 Dose: 100 mg Documented by: Furosemide (Furosemide 10 Mg/Ml Sdv 10ml) 60 mg IVP Q12H [facility] Last Admin: 09/14/20 00:33 Dose: 60 mg Documented by: Glucagon (Glucagon 1 Mg/Ml Inj 1 Ml) 1 mg IM ONCE PRN; Protocol PRN Reason: Adult Acute Hypoglycemia Prot. Dextrose (D5w) 500 mls @ 100 mls/hr IV ONCE PRN; Protocol PRN Reason: Adult Acute Hypoglycemia Prot Vancomycin/PEG/NADA/Lysine/Water (Vancocin) 1,500 mg in 300 mls @ 200 mls/hr IV Q24H [facility] Last Infusion: 09/13/20 23:01 Dose: Infused Documented by: Insulin Aspart (Insulin Aspart 100 Unit/1 Ml) 0 unit SUBCUT WM&BEDTIME CURRY; Pr otocol Last Admin: 09/13/20 22:07 Dose: 6 unit Documented by: Insulin Aspart (Insulin Aspart 100 Unit/1 Ml) 5 unit SUBCUT AC [facility] Last Admin: 09/14/20 06:36 Dose: 5 unit Documented by: Insulin Glargine (Insulin Glargine 100 Units/1 Ml) 20 unit SUBCUT BEDTIME [facility] Last Admin: 09/13/20 22:07 Dose: 20 unit Documented by: Rivaroxaban (Rivaroxaban 10 Mg Tablet) 15 mg PO DAILY [facility] Last Admin: 09/13/20 08:56 Dose: 15 mg Documented by: Fluticasone/Salmeterol (Fluticasone-Salmeterol 500-50 Diskus) 1 puff INHALATION DAILY.RESPIRATORY [facility] Last Admin: 09/14/20 08:08 Dose: 1 puff Documented by: Sotalol HCl (Sotalol 80 Mg Tablet) 80 mg PO BID@0900,2100 [facility] Last Admin: 09/13/20 22:07 Dose: 80 mg Documented by: Tamsulosin HCl (Tamsulosin 0.4 Mg Capsule) 0.4 mg PO DAILY@0800 [facility] Last Admin: 09/13/20 08:56 Dose: 0.4 mg Documented by: Vitals/I&O/Wt Last Vital Signs Temp 98.0 F 09/14/20 15:57 Pulse 79 09/14/20 15:57 Resp 18 09/14/20 15:57 BP 145/69 09/14/20 15:57 Pulse Ox 96 09/14/20 15:57 09/14/20 09/14/20 09/14/20 06:59 14:59 22:59 Intake Total 300 / 1080 230 / 230 Output Total 1125 / 2500 300 / 300 Balance -825 / -1420 -70 / -70 Physical Exam Narrative: EXAM NARRATIVE: GEN: Awake, alert and oriented, no acute distress CVS: S1S2 N RS: CTA B/L Abd: Soft, nt/nd , bs+ 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 Possibly skin source from extensive excoriation in bilateral groin from candidiasis versus mucositis after recent chemotherapy. Blood culture clear as of September 09, 2020 Lower suspicion for possibility of pacemaker infection given that bacteremia cleared quickly, ESR and CRP not significantly elevated, TTE without any gross vegetations. Patient reports he has had issues with getting anesthesia in the past, has requi red prolonged intubation thereafter. His current goals of care are DNR/DNI. Think this in mind we will defer ALEN for now, and plan to treat patient as a possible endovascular infection with course of IV vancomycin over the next 4 to 6 weeks. In case patient is to get any port for chemotherapy in the future, would like to give him an extended course of antibiotics to ensure clear cultures. At the end of 4-week course, will plan for surveillance culture 2 weeks off of antibiotics to ensure clearance. PICC line placement to facilitate above. Plan discharge with daptomycin 6 mg/kg IV every 24 hours for total 6 weeks (09/09- 10/23) ESR 47, CRP 45 Status: Acute (2) Fever: Patient reports he has been having ongoing fevers at least since April 2020, usually up to 101 Fahrenheit at home, recently worsened today which prompted visit to the ER. Uncertain if this is related to underlying lymphoma versus acute infection at this present time. Patient has been afebrile during course of admission here. Status: Acute (3) Chronic recurrent sinusitis: Discontinue levofloxacin. Status: Inactive (4) Hallucinations: This may herald some encephalopathy. CT head was checked and prior occipital strokes noted but no hemorrhage or new changes. Denies any hallucinations currently. Status: Acute (5) Thrush: Initiate fluconazole, add Chlortrimazole ointment locally Status: Acute (6) CHF (congestive heart failure): Recent echocardiogram was performed September 02 demonstrating EF of 60%, 3/4 diastolic dysfunction, hypokinesis apical septal segment, moderate pulmonary hyp ertension. He has some acute decompensation secondary fluids given. Currently on 80 mg IV every 12 of Lasix, appears to be better today, reduce Lasix to 60 IV every 12 Status: Acute Qualifiers: Heart failure type: diastolic Heart failure chronicity: chronic Qualified Code(s): I50.32 - Chronic diastolic (congestive) heart failure (7) Acute kidney injury: Renal ultrasound without evidence of hydronephrosis Status: Acute Additional A&P Information Diabetes mellitus: Requiring between 38 to 40 units of insulin over 24 hours, change to Lantus 20 units at nighttime, 5 units premeal insulin, change sliding scale to mild insulin sliding scale. Change linezolid to vancomycin, would avoid linezolid for long-term use in this patient given that he is planned to undergo more chemotherapy, possibility of developing neutropenia and thrombocytopenia will be exacerbated with linezolid c ompared to vancomycin. Will dose according to renal function. DVT prophylaxis resume Xarelto Attestations Medical Necessity Statement*: PICC line placed today, plan discharged on IV daptomycin, sent over to insurance for approval, awaiting arranging home health prior to discharge, likely in the upcoming 24 hours Coding Level of Care Code Acute [facility]ment Folder for [facility] Fwd Diagnoses Bacteremia R78.81 Fever R50.9 Chronic recurrent sinusitis J32.9 Hallucinations R44.3 Thrush B37.0 CHF (congestive heart failure) I50.32 Heart failure type: diastolic Heart failure chronicity: chronic Acute kidney injury N17.9
[2020-09-14 20:18] LABS: Glucose Point of Care 303 mg/dL (70-110)
[2020-09-14] MEDS: vancomycin 1,500 MG/300 ML PIGGYBACK 200 MG IV (20:39)
[2020-09-14] MEDS: trazodone 50 mg Tablet PO (20:40)
[2020-09-14] MEDS: insulin glargine 100 units/1 mL 20 UNIT SUBCUT (20:41)
[2020-09-15] VITALS (8 sets, daily range): BP systolic 126–162; BP diastolic 74–78; PULSE 68–78; RESP 16–18; TEMP 36.5–37.3; O2SAT 94–97
[2020-09-15 06:32] LABS: Glucose Point of Care 202 mg/dL (70-110)
[2020-09-15 06:51] LABS: Alanine Aminotransferase 11 U/L (0-41); Alkaline Phosphatase 64 IU/L (40-130); Anion Gap 14.7 (5-19); Aspartate Amino Transferase 15 U/L (0-40); Blood Urea Nitrogen 44 mg/dL (8-23); Calcium 9.1 mg/dL (8.5-10.5); Carbon Dioxide 24 mmol/L (22-29); Chloride 103 mmol/L (98-107); Globulin 2.5 g/dL (1.3-4.6); Glucose 208 mg/dL (65-115); Osmolality Calculated 303 mOsm/kg (285-295); Potassium 3.7 mmol/L (3.5-5.1); Sodium 138 mmol/L (136-145); Total Bilirubin 0.3 mg/dL (0.15-1.2); Total Protein 5.5 g/dL (6.6-8.7)
--- NOTE | 2020-09-15 07:00 | ECG_ITS ---
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1940 Requested By: Janett Lion Order Number: [id number] Reading MD: LORIE CASTILLO Measurements Intervals [place] Rate: 73 P: [place]: QRS: -44 QRSD: 105 T: 73 QT: 427 QTc: 471 Interpretive Statements ATRIAL FIBRILLATION WITH ABERRANT CONDUCTION OR VENTRICULAR PREMATURE COMPLEXES MARKED LEFT AXIS DEVIATION [QRS AXIS < -30] PATTERN CONSISTENT WITH PULMONARY DISEASE INCOMPLETE RIGHT BUNDLE BRANCH BLOCK [90+ ms QRS DURATION, TERMINAL R IN V1/V2, 40+ ms S IN I/aVL/V4/V5/V6] NONSPECIFIC T-WAVE ABNORMALITY Compared to ECG 09/13/2020 10:35:14 Incomplete right bundle-branch block now present Atrial flutter no longer present Possible ischemia no longer present T-wave abnormality still present Electronically Signed On 09-15-2020 20:27:00 CDT by LORIE CASTILLO [id number]
[2020-09-15] MEDS: tamsulosin 0.4 mg Capsule PO (10:29)
[2020-09-15] MEDS: fluconazole 100 mg Tablet PO (10:29)
[2020-09-15] MEDS: allopurinol 100 mg Tablet PO (10:29)
[2020-09-15] MEDS: sotalol 80 mg Tablet PO (10:29)
[2020-09-15] MEDS: FUROsemide 40 mg Tablet 60 MG PO (10:30)
[2020-09-15] MEDS: rivaroxaban 10 mg Tablet 15 MG PO (10:32)
[2020-09-15] MEDS: clotrimazole 1% cream 30 gm 1 APPLIC TOPICAL (10:33)
[2020-09-15 10:46] LABS: Glucose Point of Care 220 mg/dL (70-110)
--- NOTE | 2020-09-15 12:20 | P.DS_ITS ---
Discharge Providers Date of Admission: 09/09/20 11:47 Date of Discharge: September 15, 2020 Attending Provider at Admission: Ricky Green MD Attending Provider at Discharge: Pauline Michael MD Primary Care Provider: Sandrita Almaguer MD Diagnoses at Discharge Discharge Diagnosis (1) High risk medication use: Status: Acute (2) Bacteremia: Status: Acute (3) Acute kidney injury: Status: Acute (4) Acute on chronic diastolic heart failure: Status: Acute (5) Carotid stenosis: Status: Acute Permanent problem details: Doppler examination on 05/30/2020 The stent in the right internal carotid artery appeared to be patent with no significant stenosis. Moderate to heavy heterogeneous plaques were noted in the right common carotid artery. Moderate heterogeneous plaques at the left bifurcation and proximal internal carotid artery Elevated velocity in the external carotid artery on the right side, suggestive of hemodynamically significant stenosis. Compared to the study from 12/06/2017, there appears to be some worsening of stenosis in the right external carotid artery Qualifiers: Laterality: bilateral Qualified Code(s): I65.23 - Occlusion and stenosis of bilateral carotid arteries (6) Atrial fibrillation: Status: Acute Qualifiers: Atrial fibrillation type: unspecified Qualified Code(s): I48.91 - Unspecified atrial fibrillation (7) ASHD (arteriosclerotic heart disease): Status: Acute (8) History of pacemaker: Status: Acute Reason for Visit Reason for Visit: bacteria chemo therapy Hospital Course Hospital Course Panchito Macedo is a 80 year old male with history of marginal cell lymphoma who is undergoing chemotherapy with bendamustine and rituximab with his last treatment being either August 26 or September 01 who presented with history of fever up to 103 Fahrenheit at home.He has been seen in the emergency department, on September 04. Blood culture from that date demonstrated staph epidermidis 4 out of 4 bottles. He has no port, or foreign bodies other than his pacemaker which was placed 4 to 5 years ago. Hospital course as noted below: (1) CoNs Bacteremia: Blood culture from September 04 4 out of 4 positive for staph epidermidis. Possibly skin source from extensive excoriation in bilateral groin from candidiasis versus mucositis after recent chemotherapy. Blood culture clear as of September 09, 2020 Lower suspicion for possibility of pacemaker infection given that bacteremia cleared quickly, ESR and CRP not significantly elevated, TTE without any gross vegetations. However fever resolved quickly after initiation of abx, therefore possibility of endocarditis/lead infection cannot completely be excluded with certainty. Patient reports he has had issues with getting anesthesia in the past, has required prolonged intubation thereafter. His current goals of care are DNR/DNI. with this in mind we will defer ALEN for now to evalute for PPM infection, and plan to treat patient as a possible endovascular infection with course of IV daptomycin 6mg/kg q24h over the next 6 weeks(09/09-10/23). In case patient is to get any port for chemotherapy in the future, would like to give him an extended course of antibiotics to ensure clear cultures prior to any line placement. Daptomycin chosen over vancomycin given fluctuating renal function and difficul ty with trough monitoring after discharge to home. PICC line placement to facilitate above course of abx weekly CBC, CMP and CPK while on above abx. Baseline CPK at 16 F/up in ID clinic on 10/19. (2) Fever: Patient reports he has been having ongoing fevers at least since April 2020, usually up to 101 Fahrenheit at home, recently worsened which prompted visit to the ER. Uncertain if this is related to underlying lymphoma versus acute infection at this present time. Patient has been afebrile during course of admission here. \ (3) Chronic recurrent sinusitis: Discontinue levofloxacin as had appropriate treatment course for the same. (4) Hallucinations: This may herald some encephalopathy. CT head was checked and prior occipital strokes noted but no hemorrhage or new changes. Denies any hallucinations currently. (5) Thrush: treated with fluconazole, nystatin swish and swallow Clotrimazole recommnded for application to groin folds (6) CHF (congestive heart failure), acute on chronic diastolic : Recent echocardiogram was performed September 02 demonstrating EF of 60%, 3/4 diastolic dysfunction, hypokinesis apical septal segment, moderate pulmonary hypertension. He has some acute decompensation secondary fluids given. 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 Discharge Data Data Completed and Pending: Completed Studies During Hospitalization Category Date Time Status CT head wo con* 7 0450 Routine Cat Scan 09/09/20 12:43 Completed CXRP [XR chest 1V portable 29281] R outine Exams 09/14/20 08:56 Completed XR chest 2V* 7104 6 Routine Exams 09/09/20 12:34 Completed US renal BI* 7677 0 Routine Ultrasound 09/10/20 09:31 Completed Pending at discharge Category Date Time Status Creatine Phosphok inase Routine Lab 09/15/20 12:11 Ordered Labs from last 24 hours 09/15/20 09/15/20 09/15/20 10:41 06:27 05:36 Sodium 138 Potassium 3.7 Chloride 103 Carbon Dioxide 24 Anion Gap 14.7 BUN 44 H Creatinine 1.3 H GFR Calculation Not Reportable Glucose 208 H POC Glucose 220 H 202 H Calculated Osmolal ity 303 H Calcium 9.1 Total Bilirubin 0.3 AST 15 ALT 11 Alkaline Phosphata se 64 Total Protein 5.5 L Albumin 3.0 L Globulin 2.5 09/14/20 09/14/20 20:11 17:02 Sodium Potassium Chloride Carbon Dioxide Anion Gap BUN Creatinine GFR Calculation Glucose POC Glucose 303 H 196 H Calculated Osmolal ity Calcium Total Bilirubin AST ALT Alkaline Phosphata se Total Protein Albumin Globulin Addt'l Data from Hospital Stay: Laboratory Results WBC 5.5 10^3/uL (4.0- 10.0) 09/14/20 04:50 RBC 4.11 10^6/uL (4.1 -5.3) 09/14/20 04:50 Hgb 11.6 g/dL (11.7-1 6.6) L 09/14/20 04:50 Hct 35.4 % (42.0-52.0 ) L 09/14/20 04:50 MCV 86.1 fL (80-94) 09/14/20 04:50 MCH 28.2 pg (28.0-34. 0) 09/14/20 04:50 MCHC 32.8 g/dL (30.0-3 6.0) 09/14/20 04:50 RDW 15.3 % (12.1-15.1 ) H 09/14/20 04:50 Plt Count 160 10^3/cmm (130 -400) 09/14/20 04:50 MPV 9.3 fL (7.4-10.4) 09/14/20 04:50 Neut % (Auto) 64.1 % 09/14/20 04:50 Lymph % (Auto) 3.1 % 09/14/20 04:50 [place] % (Auto) 24.3 % 09/14/20 04:50 Eos % (Auto) 6.5 % 09/14/20 04:50 Baso % (Auto) 0.9 % 09/14/20 04:50 Neut # (Auto) 3.54 10^3/uL (1.8 -7.7) 09/14/20 04:50 Lymph # (Auto) 0.2 10^3/uL (0.8- 4.8) L 09/14/20 04:50 [place] # (Auto) 1.3 10^3/uL (0.2- 0.9) H 09/14/20 04:50 Eos # (Auto) 0.4 10^3/uL (0.0- 0.8) 09/14/20 04:50 Baso # (Auto) 0.1 10^3/uL (0.0- 0.1) 09/14/20 04:50 Nucleated RBC % (a uto) 0 % 09/14/20 04:50 Nucleated RBCs # 0.0 /100WBC 09/14/20 04:50 ESR 47 mm/hr (0-10) H 09/10/20 06:00 Sodium 138 mmol/L (136-1 45) 09/15/20 05:36 Potassium 3.7 mmol/L (3.5-5 .1) 09/15/20 05:36 Chloride 103 mmol/L (98-10 7) 09/15/20 05:36 Carbon Dioxide 24 mmol/L (22-29) 09/15/20 05:36 Anion Gap 14.7 (5-19) 09/15/20 05:36 BUN 44 mg/dL (8-23) H 09/15/20 05:36 Creatinine 1.3 mg/dL (0.7-1. 2) H 09/15/20 05:36 GFR Calculation Not Reportable 09/15/20 05:36 Glucose 208 mg/dL (65-115 ) H 09/15/20 05:36 POC Glucose 220 mg/dL (70-110 ) H 09/15/20 10:41 Calculated Osmolal ity 303 mOsm/kg (285- 295) H 09/15/20 05:36 Calcium 9.1 mg/dL (8.5-10 .5) 09/15/20 05:36 Phosphorus 4.1 mg/dL (2.5-4. 5) 09/13/20 06:49 Magnesium 2.1 mg/dL (1.7-2. 3) 09/13/20 06:49 Total Bilirubin 0.3 mg/dL (0.15-1 .2) 09/15/20 05:36 AST 15 U/L (0-40) 09/15/20 05:36 ALT 11 U/L (0-41) 09/15/20 05:36 Alkaline Phosphata se 64 IU/L (40-130) 09/15/20 05:36 Creatine Kinase 16 U/L (39-308) L 09/15/20 05:36 Troponin T Gen 5 n g/L 41 ng/L (0-15) H 09/13/20 06:49 C-Reactive Protein 16.7 mg/L (0.0-4. 9) H 09/12/20 06:16 NT-Pro-B Natriuret Pep 6053 pg/mL (0-450 ) H 09/12/20 06:16 Total Protein 5.5 g/dL (6.6-8.7 ) L 09/15/20 05:36 Albumin 3.0 g/dL (3.5-5.2 ) L 09/15/20 05:36 Globulin 2.5 g/dL (1.3-4.6 ) 09/15/20 05:36 TSH 1.60 uIU/mL (0.27 -4.20) 09/09/20 14:00 Urine Color Yellow (Yellow) 09/09/20 17:00 Urine Appearance Clear (CLEAR) 09/09/20 17:00 Urine pH 5 (5-7) 09/09/20 17:00 Ur Specific Gravit y 1.010 (1.005-1.0 30) 09/09/20 17:00 Urine Protein Neg (Negative) 09/09/20 17:00 Urine Glucose (UA) Norm (Normal) 09/09/20 17:00 Urine Ketones Negative (Negati ve) 09/09/20 17:00 Urine Blood Neg (Negative) 09/09/20 17:00 Urine Nitrate Negative (Negati ve) 09/09/20 17:00 Urine Bilirubin Neg (Negative) 09/09/20 17:00 Urine Urobilinogen Norm mg/dL (Negat shanell) 09/09/20 17:00 Ur Leukocyte Alayna ase Negative (Negati ve) 09/09/20 17:00 Urine RBC Rare /hpf (0-2) 09/09/20 17:00 Urine WBC Rare /hpf (0-5) 09/09/20 17:00 Ur Squamous Epith Cells Rare /hpf (0-5) 09/09/20 17:00 Amorphous Sediment Not Reportable 09/09/20 17:00 Urine Bacteria Trace /hpf (NONE) 09/09/20 17:[address] 09/09/20 12:43 IMPRESSION: 1. No acute intracranial hemorrhage or edema. 2. 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 3. Mild atrophy and chronic ischemic disease. 4. Chronic sinusitis. Renal Ultrasound 09/10/20 09:31 IMPRESSION: No acute sonographic findings. Chest X-Ray 09/14/20 08:56 IMPRESSION: Right PICC line with tip in the mid SVC Microbiology 09/09/20 14:00 Blood Blood Culture - Final NO GROWTH AFTER 5 DAYS 09/09/20 14:00 Blood Blood Culture - Final NO GROWTH AFTER 5 DAYS 09/04: 4/ staph epidermidis M.I.C. RX --------- ------ * Ampicillin 8 R * Ciprofloxacin <=1 S * Clindamycin <=0.5 S * Erythromycin >4 R * Gentamicin <=4 S * Levofloxacin <=1 S * Linezolid 2 S * Oxacillin >2 R * Penicillin >8 R * Rifampin <=1 S * Tetracycline <=4 S * Trimethoprim/Sulfamethoxazole <=0.5/9.5 S Vancomycin 2 S Daptomycin <=0.5 S Vitals: Last Vital Signs Temp 99.2 F 09/15/20 11:00 Pulse 76 09/15/20 11:00 Resp 18 04/07/21 08:38 BP 162/74 09/15/20 11:00 Pulse Ox 97 09/15/20 11:00 Discharge Plan Discharge Patient Disposition: Home Health Service Condition: Stable Prescriptions: New clotrimazole 1 % Cream 1 applic topical BID 30 Days Qty: 100 RF: 0 nystatin 500,000 unit tablet 500,000 unit PO TID Qty: 14 RF: 0 sotalol 80 mg tablet 80 mg PO BID 30 Days Qty: 60 RF: 0 Continued allopurinol 100 mg tablet 100 mg PO DAILY RF: 0 loteprednol etabonate [Lotemax] 0.5 % drops,suspension 1 drop ophthalmic (eye) BID@0800,1800 RF: 0 Combigan 0.2-0.5 % drops 1 drop ophthalmic (eye) BID@0800,1800 RF: 0 tamsulosin 0.4 mg capsule 0.4 mg PO DAILY@0800 RF: 0 isosorbide mononitrate 60 mg tablet extended release 24 hr 60 mg PO DAILY@0800 RF: 0 potassium chloride 20 mEq tablet,ER particles/crystals 20 meq PO DAILY@0800 RF: 0 epinephrine 0.3 mg/0.3 mL auto-injector 0.3 mg IM ONCE PRN (Reason: UNKNOWN) RF: 0 Zyrtec 10 mg capsule 10 mg PO DAILY PRN (Reason: Allergy Symptoms) RF: 0 montelukast [Singulair] 10 mg tablet 10 mg PO DAILY@0800 RF: 0 albuterol sulfate 2.5 mg /3 mL (0.083 %) solution for nebulization 2.5 mg INHALATION Q4H PRN (Reason: Shortness Of Breath) RF: 0 amlodipine 10 mg tablet 10 mg PO DAILY@0800 RF: 0 Symbicort 160-4.5 mcg/actuation HFA aerosol inhaler 2 puff INHALATION DAILY@0800 RF: 0 rivaroxaban 15 mg tablet 15 mg PO DAILY RF: 0 Hold Instructions: Resume on 07/23/20. budesonide 0.5 mg/2 mL suspension for nebulization 0.25 mg INHALATION BID@0800,1800 RF: 0 Lantus U-100 Insulin 100 unit/mL solution 42 unit SUBCUT BEDTIME@2100 RF: 0 cholecalciferol (vitamin D3) 2,000 unit tablet 2,000 unit PO DAILY@0800 RF: 0 baclofen 10 mg tablet 10 mg PO DAILY@0800 RF: 0 Novolog U-100 Insulin aspart 100 unit/mL solution 5 unit SUBCUT TID@0800,1200,1700 RF: 0 glucosamine HCl 1,500 mg tablet 1,500 mg PO DAILY@0800 RF: 0 Changed furosemide 40 mg tablet 60 mg PO BID@0600,1800 PRN (Reason: Edema) Qty: 0 RF: 0 Discontinued sotalol 120 mg tablet 120 mg PO BID@0800,1800 RF: 0 lisinopril 5 mg tablet 5 mg PO DAILY@0800 RF: 0 metronidazole 500 mg tablet 500 mg PO TID 7 Days Qty: 21 RF: 0 levofloxacin 750 mg tablet 750 mg PO DAILY 7 Days Qty: 7 RF: 0 Discharge Orders: Discharge Order (Routine); Ordered 09/15/20 Ordered By: Pauline Michael Other Ambulatory Orders: DME: Miscellaneous (Order) Location: None Selected Ordered By: Ricky Green Referrals: [facility] [Outside] Pauline Michael MD [Hospitalist] - 10/19/20 10:20 am ([address] [facility] [phone] ) Kole Méndez MD [Hospitalist] - 09/22/20 8:00 am (LABS AT 8:00 THEN APPOINTMENT AT 9:30 ON SEPTEMBER 12) [facility] - 09/22/20 9:00 am Discharge Diet: Usual diet Discharge Activity: Resume usual activity Patient Instructions: Nystatin (By mouth), Clotrimazole (Into the mouth), Peripherally Inserted Central Catheters and Midline Catheters (GEN) Discharge Attestations Time Spent in Discharge Care*: greater than 30 min Quality Metrics Clinical Quality Measures During this hospital stay, did patient experience: None Coding Level of Care Code Acute Chg FW DC note Diagnoses High risk medication use Z79.899 Bacteremia R78.81 Acute kidney injury N17.9 Acute on chronic diastolic heart failure I50.33 Carotid stenosis I65.23 Laterality: bilateral Atrial fibrillation I48.91 Atrial fibrillation type: unspecified ASHD (arteriosclerotic heart disease) I25.10 History of pacemaker Z95.0
[2020-09-15] MEDS: DAPTOmycin 500 MG in sodium chloride 0.9% (100 ml) 100 ML 100 MG IV (12:58)
[2020-09-15 13:17] LABS: Creatine Phosphokinase 16 U/L (39-308)
== END 2020-09-15 14:50 | disposition home health service (06) | DRG 682 ==
PROVIDERS: Internal Medicine; Internal Medicine Cardiovascular Disease; Admitting Provider Internal Medicine; PCP Family Medicine; Visit Provider Student in an Organized Health Care Education/Training Program
DX: N17.9 Acute kidney failure, unspecified (principal); I50.33 Acute on chronic diastolic (congestive) heart failure; G93.41 Metabolic encephalopathy; C83.03 Small cell B-cell lymphoma, intra-abdominal lymph nodes; B37.0 Candidal stomatitis; I13.0 Hypertensive heart and chronic kidney disease with heart failure and stage 1 through stage 4 chronic kidney disease, or unspecified chronic kidney disease; Z79.899 Other long term (current) drug therapy; Z95.0 Presence of cardiac pacemaker; J32.9 Chronic sinusitis, unspecified; K59.00 Constipation, unspecified; T45.1X5A Adverse effect of antineoplastic and immunosuppressive drugs, initial encounter; I25.10 Atherosclerotic heart disease of native coronary artery without angina pectoris; Z95.5 Presence of coronary angioplasty implant and graft; Z95.1 Presence of aortocoronary bypass graft; I48.91 Unspecified atrial fibrillation; N40.1 Benign prostatic hyperplasia with lower urinary tract symptoms; I65.23 Occlusion and stenosis of bilateral carotid arteries; N18.9 Chronic kidney disease, unspecified; E11.22 Type 2 diabetes mellitus with diabetic chronic kidney disease; E78.5 Hyperlipidemia, unspecified; E11.51 Type 2 diabetes mellitus with diabetic peripheral angiopathy without gangrene; G47.33 Obstructive sleep apnea (adult) (pediatric); Z86.73 Personal history of transient ischemic attack (TIA), and cerebral infarction without residual deficits; G50.0 Trigeminal neuralgia; Z79.4 Long term (current) use of insulin; B37.2 Candidiasis of skin and nail; S30.811A Abrasion of abdominal wall, initial encounter; X58.XXXA Exposure to other specified factors, initial encounter; D63.1 Anemia in chronic kidney disease; I27.20 Pulmonary hypertension, unspecified; B95.8 Unspecified staphylococcus as the cause of diseases classified elsewhere; J44.9 Chronic obstructive pulmonary disease, unspecified; Z66 Do not resuscitate; Z87.891 Personal history of nicotine dependence; K43.9 Ventral hernia without obstruction or gangrene
CPT/HCPCS: 36415; 36416; 36569; 70450; 71045; 71046; 76770; 76857; 80048; 80053; 80069; 81001; 82550; 82962; 83735; 83880; 84443; 84484; 85025; 85651; 86140; 87040; 93005; 94640; 96372; 97110; 97116; 97161; 97530; J0878; J1644; J1815 ×2; J1940; J2020; J3370; J7030; J7040

== ENCOUNTER 2020-09-22 05:50 | Outpatient (RCR) | payer OTHER, MEDICARE, SELFPAY ==
[2020-09-21 09:52] LABS: Basophils # 0.1 10^3/uL (0.0-0.1); Basophils % 1.3 %; Eosinophils # 0.3 10^3/uL (0.0-0.8); Eosinophils % 6.9 %; Hematocrit 35.3 % (42.0-52.0); Hemoglobin 11.6 g/dL (11.7-16.6); Lymphocytes # 0.2 10^3/uL (0.8-4.8); Lymphocytes % 4.8 %; Mean Corpuscular HGB Conc 32.9 g/dL (30.0-36.0); Mean Corpuscular Hemoglobin 28.6 pg (28.0-34.0); Mean Corpuscular Volume 87.2 fL (80-94); Mean Platelet Volume 10.4 fL (7.4-10.4); Monocytes # 0.7 10^3/uL (0.2-0.9); Monocytes % 17.5 %; Neutrophils # 2.72 10^3/uL (1.8-7.7); Nucleated Red Blood Cells % 0 %; Platelet Count 64 10^3/cmm (130-400); Red Blood Count 4.05 10^6/uL (4.1-5.3); Red Cell Distribution Width 16.2 % (12.1-15.1); White Blood Count 3.9 10^3/uL (4.0-10.0)
[2020-09-21 10:12] LABS: Alanine Aminotransferase 15 U/L (0-41); Albumin Level 3.2 g/dL (3.5-5.2); Alkaline Phosphatase 65 IU/L (40-130); Anion Gap 9.9 (5-19); Aspartate Amino Transferase 24 U/L (0-40); Blood Urea Nitrogen 23 mg/dL (8-23); Calcium 8.5 mg/dL (8.5-10.5); Carbon Dioxide 33 mmol/L (22-29); Chloride 97 mmol/L (98-107); Globulin 2.2 g/dL (1.3-4.6); Glucose 189 mg/dL (65-115); Lactate Dehydrogenase 182 U/L (135-225); Osmolality Calculated 291 mOsm/kg (285-295); Potassium 3.9 mmol/L (3.5-5.1); Sodium 136 mmol/L (136-145); Total Bilirubin 0.6 mg/dL (0.15-1.2); Total Protein 5.4 g/dL (6.6-8.7)
[2020-09-21 16:02] LABS: Basophils % 0.6 %; Eosinophils # 0.2 10^3/uL (0.0-0.8); Eosinophils % 6.3 %; Hematocrit 34.2 % (42.0-52.0); Hemoglobin 11.3 g/dL (11.7-16.6); Lymphocytes # 0.2 10^3/uL (0.8-4.8); Lymphocytes % 5.7 %; Mean Corpuscular Volume 87.7 fL (80-94); Mean Platelet Volume 11.3 fL (7.4-10.4); Monocytes # 0.7 10^3/uL (0.2-0.9); Monocytes % 19.6 %; Neutrophils # 2.26 10^3/uL (1.8-7.7); Neutrophils % 67.2 %; Nucleated Red Blood Cells % 0 %; Platelet Count 66 10^3/cmm (130-400); Red Cell Distribution Width 16.2 % (12.1-15.1); White Blood Count 3.4 10^3/uL (4.0-10.0)
[2020-09-21 17:16] LABS: Alanine Aminotransferase 15 U/L (0-41); Albumin Level 3.1 g/dL (3.5-5.2); Alkaline Phosphatase 64 IU/L (40-130); Anion Gap 10.7 (5-19); Aspartate Amino Transferase 23 U/L (0-40); Blood Urea Nitrogen 24 mg/dL (8-23); Calcium 8.5 mg/dL (8.5-10.5); Carbon Dioxide 33 mmol/L (22-29); Chloride 98 mmol/L (98-107); Creatine Phosphokinase 20 U/L (39-308); Globulin 1.9 g/dL (1.3-4.6); Glucose 114 mg/dL (65-115); Osmolality Calculated 291 mOsm/kg (285-295); Potassium 3.7 mmol/L (3.5-5.1); Sodium 138 mmol/L (136-145); Total Bilirubin 0.5 mg/dL (0.15-1.2)
--- NOTE | 2020-09-23 06:06 | ONC FU_ITS ---
Dr. Méndez Patient Follow-Up Note Patient: Panchito Macedo Unit #: [id number]: 1940 Dicatated By: Kole Méndze M.D.Date of Visit:Sep 22, 2020 Onc Med Follow-up/Prog Note Chief Complaint: Lymphoma. 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 He had presented with abdominal pain which have been getting progressively worse over about [address] abdomen/pelvis on 06/08/2020 showed mesenteric mass with epicenter superior to the L4-L5 disc space level measuring 4.4 x 10.0 cm. It was noted to have enlarged compared to prior study from August 2018. Also noted was a pathologically enlarged right retrocrural lymph node measuring 1.5 cm. There was no associated bowel thickening, ileus, or obstruction. There was no hydronephrosis. Bibasilar interstitial and groundglass opacity in the lungs was felt to be compatible with edema, pneumonitis, and or atelectasis. He was referred to Dr. Cook. On 07/20/2020 he underwent diagnostic laparoscopy with biopsies of the mesenteric mass. 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 IHC stains showed positivity for CD20, and BCL-2. They were negative for CD10, BCL6, and cyclin D1. CD5 was negative in B cells and positive in T cells. The Ki-67 was low at less than 10%. I had seen him initially on 08/12/2020. By clinical evaluation his disease appeared to be stage IIE and in the setting of a low-grade lymphoma, he was recommended to begin treatment with bendamustine/rituximab for 4-6 cycles. He began cycle 1 on 08/26/2020. It was administered via peripheral IV. He tolerated his first 2 days of treatment without acute toxicity. On 09/04/2020 he was seen in the emergency room with fever of 103.1 degrees. His CBC showed normal white count of 8900 with 81% neutrophils, so that he was clearly not neutropenic. Chest x-ray showed no acute findings. His sinus CT showed extensive nonspecific paranasal sinus disease. He began empiric antibiotic therapy with Levaquin with a presumptive diagnosis of sinusitis. He was seen for a follow-up visit on 09/09/2020. At that point he is still having fever up to 102.7 degrees. Multiple blood cultures were growing coagulase-negative staph, which turned out to be staph epidermidis. The source of the infection was uncertain, though the possibility of infection associated with his pacemaker or endocarditis were entertained. During the hospitalization he underwent placement of a PICC line to continue a 6-week course of outpatient antibiotic therapy with daptomycin. His medical history is otherwise significant for coronary artery disease, congestive heart failure, and atrial fibrillation and for cerebrovascular disease with prior TIAs and strokes. His other medical illnesses include hypertension, type 2 diabetes, peripheral arterial disease, carotid stenosis, COPD, obstructive sleep apnea, GERD, trigeminal neuralgia, and benign prostatic hypertrophy. He has had prior coronary angioplasty/stent placement and coronary artery bypass surgery, pacemaker implantation, and right carotid artery stent placement. He has a history of smoking 1 pack of cigarettes daily, but he quit smoking 35 years ago. He is seen for a follow-up visit. He is feeling a little better generally, though he still has very limited activity. He is able to ambulate with a walker, but he is mostly sedentary. ECOG score is 3. Appetite is a little better now. He is not having fever now, but he does have sweating at night. He still has big time sinus symptoms, but that is chronic. His breathing is pretty good on oxygen. He says he always has a little cough. He does not complain of chest pain. He has a little bit of acid reflux. Bowel function is fair. He has pretty good bladder function. He has generalized pain, which is chronic. He also complains that he has a lot of head pain, described as a sharp pain in his sikhism area. He has dizziness he also reports having numbness/paresthesia, but that is also a longstanding complaint. Medications: Albuterol Sulfate ((2.5 mg/3ml) 0.083%) Nebulization solution Inhalation 8x/d, All Day Allergy Tablet Oral, Amoxicillin 1 Tablet (of 875 mg) Oral b.i.d., Baclofen (10 mg) Tablet Oral daily, Brimonidine Tartrate-Timolol (0.2-0.5 %) Solution Ophthalmic b.i.d., Budesonide (0.25 mg/2mL) Aerosol Powder, Breath Activated Inhalation b.i.d., Budesonide-Formoterol Fumarate (160-4.5 mcg/act) Aerosol Inhalation daily, Furosemide 1 (60 mg) Tablet Oral b.i.d. PRN, Glucosamine HCl (1500 mg) Tablet Oral daily, Insulin Aspart (5 Units/mL) Subcutaneous ac (tid), Insulin Glargine (42 Units/mL) Subcutaneous at bedtime, Isosorbide Mononitrate ER (60 mg) Tablet SR 24 HR Oral daily, Klor-Con (20 meq) Capsule, controlled release Oral daily, Lotemax (0.5 %) Suspension Ophthalmic b.i.d., Montelukast Sodium (10 mg) Tablet Oral daily, Norvasc (10 mg) Tablet Oral daily, Rivaroxaban (15 mg) Tablet Oral daily, Sotalol HCl 1 (80 mg) Tablet Oral b.i.d., Tamsulosin HCl (0.4 mg) Capsule Oral daily, Vitamin D3 (2000 units ) Capsule Oral daily Allergies: Acetaminophen, Calcitriol, Fish Oil, Gabapentin, HYDROcodone-Acetaminophen, oxyCODONE HCl, Red Dye, Statins, Sulfa Antibiotics, and traMADol HCl. Vital Signs: Performed on Sep 22, 2020 09:31 Height - 67.00 in Weight - 209.8 lbs (LOW) BSA - 2.06 sq.m BMI - 32.86 (HIGH) Temperature - 98.2 F (LOW) Pulse - 94 /min Respiration - 18 /min BP - 132/68 mm(hg) O2 Sat - 98 % Pain - 1 Fatigue - 8 Physical Examination: Constitutional - He still appears generally weak, Eyes - Sclerae nonicteric. Conjunctivae clear, ENMT - No lesions noted in the oral cavity, Hematologic/Lymphatic - No cervical, clavicular, or axillary adenopathy, Respiratory - Lungs are clear with diminished air movement bilaterally, Cardiovascular - Heart rhythm is irregular. There is no murmur, gallop, or rub noted, Abdomen - Soft. Liver and spleen are not enlarged. There is no abdominal mass or ascites noted and there is no inguinal adenopathy, Extremities - There is currently no edema, Neurologic - He has mild weakness on the left side. Lab/Imaging: CBC shows hemoglobin 11.6 g, white blood cell count 3900, and platelet count 64,000. Comprehensive metabolic profile shows stable renal function with BUN 23 and creatinine 1.1 mg/dL. Bilirubin and liver enzymes are normal. The LDH is normal at 182 U/L. Problem List: 1. Marginal zone lymphoma presenting as large mesenteric mass. By CT scan there also appears to be involvement in a retrocrural lymph node, thus stage IIE. 2. Hypertension. 3. Type 2 diabetes with peripheral neuropathy. 4. Carotid stenosis with previous right carotid artery stent placement. 5. Coronary artery disease with history of coronary angioplasty/stent placement and subsequent coronary artery bypass surgery. 6. Atrial fibrillation. 7. Congestive heart failure. 8. Peripheral arterial disease. 9. GERD. 10. COPD. 11. Obstructive sleep apnea. 12. Benign prostatic hypertrophy. 13. Trigeminal neuralgia. Problems Addressed with this Encounter and Plan: Patient with marginal zone lymphoma presenting as large mesenteric mass. By CT scan there also appeared to be involvement in a retrocrural lymph node, thus stage IIE. Given the low Ki-67 and the interval from his prior CT scan, he appeared to have low-grade disease. He began cycle 1 of chemotherapy with bendamustine/Rituxan on 08/25/2020. He tolerated it without acute toxicity. He had subsequently presented with fever up to 103 degrees. He was admitted to the hospital after multiple blood cultures were found to be positive for staph epidermidis. The source of the infection is not known for certain, as he was not neutropenic and he did not have any type of indwelling device other than his pacemaker. He has now completing a 6-course of outpatient IV antibiotic therapy with daptomycin administered through a PICC line. He has not yet been evaluated for response to the chemotherapy. Concerning his overall condition, his further treatment will be deferred until he completes his antibiotic therapy. As such, I will just plan to see him again in 6 weeks. I did request that the PICC line be left in place, if possible, for further chemotherapy administration. Signed By: Kole Méndez M.D. <<Signature on File>>
== END 2020-10-08 23:59 | disposition home or self-care (01) ==
LOC: ONCMED 05:50
PROVIDERS: Internal Medicine Hematology & Oncology; PCP Family Medicine; Visit Provider Internal Medicine Medical Oncology
DX: C85.83 Other specified types of non-Hodgkin lymphoma, intra-abdominal lymph nodes (principal); I10 Essential (primary) hypertension; E11.42 Type 2 diabetes mellitus with diabetic polyneuropathy; E11.59 Type 2 diabetes mellitus with other circulatory complications; I25.10 Atherosclerotic heart disease of native coronary artery without angina pectoris; I65.23 Occlusion and stenosis of bilateral carotid arteries; Z95.5 Presence of coronary angioplasty implant and graft; I48.20 Chronic atrial fibrillation, unspecified; I50.9 Heart failure, unspecified; I73.9 Peripheral vascular disease, unspecified; K21.9 Gastro-esophageal reflux disease without esophagitis; J44.9 Chronic obstructive pulmonary disease, unspecified; G47.33 Obstructive sleep apnea (adult) (pediatric); N40.0 Benign prostatic hyperplasia without lower urinary tract symptoms; G50.0 Trigeminal neuralgia; Z79.899 Other long term (current) drug therapy
CPT/HCPCS: 36592; 80053; 82550; 83615; 85025; 99214

== ENCOUNTER 2020-11-04 08:00 | Outpatient (RCR) | payer OTHER, MEDICARE, SELFPAY ==
[2020-11-03] MEDS: acetaminophen 325 mg Tablet 650 MG PO (09:34)
[2020-11-03] MEDS: sodium chloride 0.9% 1,000 ML 999 ML IV (09:40)
[2020-11-03] MEDS: diphenhydrAMINE 50 mg/mL SDV 1mL 25 MG IVP (09:41)
[2020-11-03] MEDS: ondansetron 2 mg/ML SDV 2 mL 8 MG IVP (09:45)
[2020-11-04] MEDS: sodium chloride 0.9% 250 ML 999 ML IV (11:10)
[2020-11-04] MEDS: palonosetron 0.25 mg/5 mL SDV IVP (11:10)
--- NOTE | 2020-11-06 14:32 | ONC FU_ITS ---
Dr. Méndez Patient Follow-Up Note Patient: Panchito Macedo Unit #: [id number]: 1940 Dicatated By: Kole Méndez M.D.Date of Visit:November 03, 2020 Onc Med Follow-up/Prog Note Chief Complaint: Lymphoma. 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 He had presented with abdominal pain which have been getting progressively worse over about [address] abdomen/pelvis on 06/08/2020 showed mesenteric mass with epicenter superior to the L4-L5 disc space level measuring 4.4 x 10.0 cm. It was noted to have enlarged compared to prior study from August 2018. Also noted was a pathologically enlarged right retrocrural lymph node measuring 1.5 cm. There was no associated bowel thickening, ileus, or obstruction. There was no hydronephrosis. Bibasilar interstitial and groundglass opacity in the lungs was felt to be compatible with edema, pneumonitis, and or atelectasis. He was referred to Dr. Cook. On 07/20/2020 he underwent diagnostic laparoscopy with biopsies of the mesenteric mass. 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 IHC stains showed positivity for CD20, and BCL-2. They were negative for CD10, BCL6, and cyclin D1. CD5 was negative in B cells and positive in T cells. The Ki-67 was low at less than 10%. I had seen him initially on 08/12/2020. By clinical evaluation his disease appeared to be stage IIE and in the setting of a low-grade lymphoma, he was recommended to begin treatment with bendamustine/rituximab for 4-6 cycles. He began cycle 1 on 08/26/2020. It was administered via peripheral IV. He tolerated his first 2 days of treatment without acute toxicity. On 09/04/2020 he was seen in the emergency room with fever of 103.1 degrees. His CBC showed normal white count of 8900 with 81% neutrophils, so that he was clearly not neutropenic. Chest x-ray showed no acute findings. His sinus CT showed extensive nonspecific paranasal sinus disease. He began empiric antibiotic therapy with Levaquin with a presumptive diagnosis of sinusitis. He was seen for a follow-up visit on 09/09/2020. At that point he was still having fever up to 102.7 degrees. Multiple blood cultures were growing coagulase-negative staph, which turned out to be staph epidermidis. A specific source of the infection was not deterimined. During the hospitalization he underwent placement of a PICC line and he subsequently completed a 6-week course of outpatient antibiotic therapy with daptomycin. His medical history is otherwise significant for coronary artery disease, congestive heart failure, and atrial fibrillation and for cerebrovascular disease with prior TIAs and strokes. His other medical illnesses include hypertension, type 2 diabetes, peripheral arterial disease, carotid stenosis, COPD, obstructive sleep apnea, GERD, trigeminal neuralgia, and benign prostatic hypertrophy. He has had prior coronary angioplasty/stent placement and coronary artery bypass surgery, pacemaker implantation, and right carotid artery stent placement. He has a history of smoking 1 pack of cigarettes daily, but he quit smoking 35 years ago. He is seen for a follow-up visit. He is feeling better now after completing 6 weeks of antibiotic therapy, though at times he still has slight fever up to 99 degrees and he is still having sweating every night. He continues to have limited activity, though he is doing some walking. His ECOG score is 2. He has pretty good appetite. He has had some decline in vision. He says he always has sinus drainage and he has a little bit of cough with it. He has shortness of breath, and he is on continuous oxygen. He does not complain of chest pain. He has acid reflux, which he manages with Pepto-Bismol and Rolaids. He has no other GI or complaints. He has a neuropathic quality pain which he describes as a severe pain lasting only a nanosecond. The pain occurs here and there , but in a generalized distribution. He has headaches and he sometimes has dizziness. He has a little bit of numbness/tingling in his hands and feet and he also describes having a chronic buzzing sensation throughout his whole body. Medications: Albuterol Sulfate ((2.5 mg/3ml) 0.083%) Nebulization solution Inhalation 8x/d, All Day Allergy Tablet Oral, Baclofen (10 mg) Tablet Oral daily, Brimonidine Tartrate-Timolol (0.2-0.5 %) Solution Ophthalmic b.i.d., Budesonide (0.25 mg/2mL) Aerosol Powder, Breath Activated Inhalation b.i.d., Budesonide-Formoterol Fumarate (160-4.5 mcg/act) Aerosol Inhalation daily, Furosemide 1 (60 mg) Tablet Oral b.i.d. PRN, Glucosamine HCl (1500 mg) Tablet Oral daily, Insulin Aspart (5 Units/mL) Subcutaneous ac (tid), Insulin Glargine (42 Units/mL) Subcutaneous at bedtime, Isosorbide Mononitrate ER (60 mg) Tablet SR 24 HR Oral daily, Klor-Con (20 meq) Capsule, controlled release Oral daily, Lotemax (0.5 %) Suspension Ophthalmic b.i.d., Montelukast Sodium (10 mg) Tablet Oral daily, Norvasc (10 mg) Tablet Oral daily, Rivaroxaban (15 mg) Tablet Oral daily, Sotalol HCl 1 (80 mg) Tablet Oral b.i.d., Tamsulosin HCl (0.4 mg) Capsule Oral daily, Vitamin D3 (2000 units ) Capsule Oral daily Allergies: Acetaminophen, Calcitriol, Fish Oil, Gabapentin, HYDROcodone-Acetaminophen, oxyCODONE HCl, Red Dye, Statins, Sulfa Antibiotics, and traMADol HCl. Vital Signs: Performed on November 03, 2020 09:01 Height - 67.00 in Weight - 211.2 lbs (HIGH) BSA - 2.07 sq.m BMI - 33.08 (HIGH) Temperature - 98.6 F Pulse - 69 /min Respiration - 18 /min BP - 149/72 mm(hg) (HIGH) O2 Sat - 93 % (LOW) Pain - 2 Physical Examination: Constitutional - He appears generally weak, but not acutely ill, Eyes - Sclerae nonicteric. Conjunctivae clear, ENMT - No lesions noted in the oral cavity, Hematologic/Lymphatic - No cervical, clavicular, or axillary adenopathy, Respiratory - Lungs are clear with diminished air movement bilaterally, Cardiovascular - Heart rhythm is irregular. There is no murmur, gallop, or rub noted, Abdomen - Soft. Liver and spleen are not enlarged. There is no abdominal mass or ascites noted and there is no inguinal adenopathy, Extremities - Mild edema, Neurologic - He has mild weakness on the left side. Lab/Imaging: Test performed on October 25, 2020 12:05 Glucose 169 mg/dL BUN 25 mg/dL Creatinine 1.38 mg/dL Cr Clearance (Est) 59.49 mL/min Sodium 139 mmol/L Potassium 4.2 mmol/L Chloride 102 mmol/L CO2 25 mmol/L Calcium 8.3 mg/dL Protein, Total 6.1 g/dL Albumin 3.8 g/dL Bilirubin, Total 0.5 mg/dL Alkaline Phosphatase 71 IU/L AST (SGOT) 25 IU/L ALT (SGPT) 25 IU/L WBC 7.3 10^9/L RBC 4.05 10^12/L HGB 11.8 g/dL HCT 35.2 % MCV 86.9 fl MCH 29.1 pg MCHC 33.5 g/dL RDW 15.9 % Platelet Count 213 10^9/L MPV 11.2 fL Neutrophils (Gran) 2.70 10^9/L Lymphocytes 2.44 10^9/L Monocytes 1.34 10^9/L Eosinophils 0.74 10^9/L Basophils 0.06 10^9/L Manual Lymphocytes 33.3 % Manual Monocytes 18.3 % Manual Eosinophils 10.1 % Manual Basophils 0.8 % Problem List: 1. Marginal zone lymphoma presenting as large mesenteric mass. By CT scan there also appears to be involvement in a retrocrural lymph node, thus stage IIE. 2. Hypertension. 3. Type 2 diabetes with peripheral neuropathy. 4. Carotid stenosis with previous right carotid artery stent placement. 5. Coronary artery disease with history of coronary angioplasty/stent placement and subsequent coronary artery bypass surgery. 6. Atrial fibrillation. 7. Congestive heart failure. 8. Peripheral arterial disease. 9. GERD. 10. COPD. 11. Obstructive sleep apnea. 12. Benign prostatic hypertrophy. 13. Trigeminal neuralgia. Problems Addressed with this Encounter and Plan: Patient with marginal zone lymphoma presenting as large mesenteric mass. By CT scan there also appeared to be involvement in a retrocrural lymph node, thus stage IIE. Given the low Ki-67 and the interval from his prior CT scan, he appeared to have low-grade disease. He began cycle 1 of chemotherapy with bendamustine/Rituxan on 08/25/2020. He tolerated it without acute toxicity. He had subsequently presented with fever up to 103 degrees. He was admitted to the hospital after multiple blood cultures were found to be positive for staph epidermidis. The source of the infection wa not determined, but he was not neutropenic and he did not have any type of indwelling device other than his pacemaker. He has completed a 6-course of outpatient IV antibiotic therapy with daptomycin administered through a PICC line. He has not yet been evaluated for response to the chemotherapy. However, since he completed only 1 cycle of treatment, he will continue now with a second cycle of bendamustine/rituximab. The dosages will remain the same. He will call if there is any recurrence of fever or other significant change in his condition. He will be scheduled for a follow-up visit in 4 weeks. Signed By: Kole Méndez M.D. <<Signature on File>>
== END 2020-11-08 23:59 | disposition home or self-care (01) ==
LOC: ONCMED 08:00
PROVIDERS: PCP Family Medicine; Visit Provider Internal Medicine Medical Oncology
DX: Z51.12 Encounter for antineoplastic immunotherapy (principal); Z51.11 Encounter for antineoplastic chemotherapy; C85.83 Other specified types of non-Hodgkin lymphoma, intra-abdominal lymph nodes; E11.42 Type 2 diabetes mellitus with diabetic polyneuropathy; I65.23 Occlusion and stenosis of bilateral carotid arteries; E11.59 Type 2 diabetes mellitus with other circulatory complications; I25.10 Atherosclerotic heart disease of native coronary artery without angina pectoris; Z95.5 Presence of coronary angioplasty implant and graft; I48.20 Chronic atrial fibrillation, unspecified; I50.9 Heart failure, unspecified; I73.9 Peripheral vascular disease, unspecified; K21.9 Gastro-esophageal reflux disease without esophagitis; J44.9 Chronic obstructive pulmonary disease, unspecified; G47.33 Obstructive sleep apnea (adult) (pediatric); N40.0 Benign prostatic hyperplasia without lower urinary tract symptoms; G50.0 Trigeminal neuralgia; Z79.899 Other long term (current) drug therapy
CPT/HCPCS: 96367; 96375; 96413; 96415; 96417; 99214; J1100; J1200; J2405; J2469; J7030; J7040; J7050; J9034; J9312

== ENCOUNTER 2020-11-26 09:51 | Outpatient (CLI) | payer OTHER, SELFPAY ==
--- NOTE | 2020-11-26 10:41 | ECG_ITS ---
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 Measurements Intervals [place] Rate: 65 P: MA: QRS: -79 QRSD: 175 T: 79 QT: 479 QTc: 502 Interpretive Statements ELECTRONIC VENTRICULAR PACEMAKER ABNORMAL RHYTHM ECG WARNING: DATA QUALITY MAY AFFECT INTERPRETATION Compared to ECG 09/15/2020 06:20:54 Atrial fibrillation no longer present Ventricular premature complex(es) no longer present Aberrant conduction of supraventricular beat(s) no longer present Left-axis deviation no longer present Incomplete right bundle-branch block no longer present T-wave abnormality no longer present Electronically Signed On 11-26-2020 22:25:38 CDT by Ashlyn Womack M.D. [id number]
== END 2020-11-26 09:52 | disposition home or self-care (01) ==
PROVIDERS: PCP Family Medicine; Visit Provider Orthopaedic Surgery
DX: I25.10 Atherosclerotic heart disease of native coronary artery without angina pectoris (principal); R94.31 Abnormal electrocardiogram [ECG] [EKG]; Z95.0 Presence of cardiac pacemaker
CPT/HCPCS: 93005

== ENCOUNTER 2020-12-07 05:52 | Outpatient (RCR) | payer OTHER, MEDICARE, SELFPAY ==
[2020-11-29 11:02] LABS: Basophils % 0.5 %; Eosinophils # 0.3 10^3/uL (0.0-0.8); Hematocrit 35.3 % (42.0-52.0); Hemoglobin 11.5 g/dL (11.7-16.6); Lymphocytes # 0.5 10^3/uL (0.8-4.8); Lymphocytes % 12.6 %; Mean Corpuscular HGB Conc 32.6 g/dL (30.0-36.0); Mean Corpuscular Hemoglobin 27.2 pg (28.0-34.0); Mean Corpuscular Volume 83.5 fL (80-94); Mean Platelet Volume 10.5 fL (7.4-10.4); Monocytes % 23.9 %; Neutrophils # 2.37 10^3/uL (1.8-7.7); Neutrophils % 56.5 %; Nucleated Red Blood Cells % 0 %; Platelet Count 94 10^3/cmm (130-400); Red Blood Count 4.23 10^6/uL (4.1-5.3); Red Cell Distribution Width 13.7 % (12.1-15.1); White Blood Count 4.2 10^3/uL (4.0-10.0)
[2020-11-29 11:27] LABS: Alanine Aminotransferase 19 U/L (0-41); Albumin Level 3.8 g/dL (3.5-5.2); Alkaline Phosphatase 54 IU/L (40-130); Anion Gap 13.9 (5-19); Aspartate Amino Transferase 21 U/L (0-40); Blood Urea Nitrogen 29 mg/dL (8-23); Calcium 8.1 mg/dL (8.5-10.5); Carbon Dioxide 28 mmol/L (22-29); Chloride 102 mmol/L (98-107); Globulin 1.8 g/dL (1.3-4.6); Glucose 246 mg/dL (65-115); Osmolality Calculated 304 mOsm/kg (285-295); Potassium 3.9 mmol/L (3.5-5.1); Sodium 140 mmol/L (136-145); Total Bilirubin 0.5 mg/dL (0.15-1.2); Total Protein 5.6 g/dL (6.6-8.7)
[2020-11-29 11:43] LABS: Lactate Dehydrogenase 200 U/L (135-225)
[2020-12-01] MEDS: acetaminophen 325 mg Tablet 650 MG PO (09:53)
[2020-12-01] MEDS: sodium chloride 0.9% 1,000 ML 999 ML IV (09:53)
[2020-12-01] MEDS: diphenhydrAMINE 50 mg/mL SDV 1mL 25 MG IVP (09:53)
[2020-12-01] MEDS: ondansetron 2 mg/ML SDV 2 mL 8 MG IVP (09:53)
[2020-12-02] MEDS: sodium chloride 0.9% (100 ml) 100 ML 30 ML (08:41)
[2020-12-02] MEDS: palonosetron 0.25 mg/5 mL SDV IV (08:41)
--- NOTE | 2020-12-05 07:59 | ONC FU_ITS ---
Dr. Méndez Patient Follow-Up Note Patient: Panchito Macedo Unit #: [id number]: 1940 Dicatated By: Kole Méndez M.D.Date of Visit:Dec 01, 2020 Onc Med Follow-up/Prog Note Chief Complaint: Lymphoma. 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 He had presented with abdominal pain which have been getting progressively worse over about [address] abdomen/pelvis on 06/08/2020 showed mesenteric mass with epicenter superior to the L4-L5 disc space level measuring 4.4 x 10.0 cm. It was noted to have enlarged compared to prior study from August 2018. Also noted was a pathologically enlarged right retrocrural lymph node measuring 1.5 cm. There was no associated bowel thickening, ileus, or obstruction. There was no hydronephrosis. Bibasilar interstitial and groundglass opacity in the lungs was felt to be compatible with edema, pneumonitis, and or atelectasis. He was referred to Dr. Cook. On 07/20/2020 he underwent diagnostic laparoscopy with biopsies of the mesenteric mass. 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 IHC stains showed positivity for CD20, and BCL-2. They were negative for CD10, BCL6, and cyclin D1. CD5 was negative in B cells and positive in T cells. The Ki-67 was low at less than 10%. I had seen him initially on 08/12/2020. By clinical evaluation his disease appeared to be stage IIE and in the setting of a low-grade lymphoma, he was recommended to begin treatment with bendamustine/rituximab for 4-6 cycles. He began cycle 1 on 08/26/2020. It was administered via peripheral IV. He tolerated his first 2 days of treatment without acute toxicity. On 09/04/2020 he was seen in the emergency room with fever of 103.1 degrees. His CBC showed normal white count of 8900 with 81% neutrophils, so that he was clearly not neutropenic. Chest x-ray showed no acute findings. His sinus CT showed extensive nonspecific paranasal sinus disease. He began empiric antibiotic therapy with Levaquin with a presumptive diagnosis of sinusitis. He was seen for a follow-up visit on 09/09/2020. At that point he was still having fever up to 102.7 degrees. Multiple blood cultures were growing coagulase-negative staph, which turned out to be staph epidermidis. A specific source of the infection was not deterimined. During the hospitalization he underwent placement of a PICC line and he subsequently completed a 6-week course of outpatient antibiotic therapy with daptomycin. His medical history is otherwise significant for coronary artery disease, congestive heart failure, and atrial fibrillation and for cerebrovascular disease with prior TIAs and strokes. His other medical illnesses include hypertension, type 2 diabetes, peripheral arterial disease, carotid stenosis, COPD, obstructive sleep apnea, GERD, trigeminal neuralgia, and benign prostatic hypertrophy. He has had prior coronary angioplasty/stent placement and coronary artery bypass surgery, pacemaker implantation, and right carotid artery stent placement. He has a history of smoking 1 pack of cigarettes daily, but he quit smoking 35 years ago. INTERIM HISTORY: He returned and continued with cycle 2 of bendamustine/rituximab on on 11/03/2020. He again tolerated the treatment without acute toxicity. He is seen for a follow-up visit. He has been feeling pretty good generally. He still does not have a whole lot of energy and his activity is also limited by his vision. His ECOG score is 2. He has good appetite now. He has gained a little weight. He has not had any recurrence of fever. He still has some sweating, but not a lot. He has some sinus drainage and cough. His breathing is fair. He is using oxygen as needed. He does not complain of chest pain. He has not been having nausea. He is still having some abdominal pain and constipation. He is managing it adequately with milk of magnesia. He has some hesitancy with urination, but bladder function remains adequate. He has no significant joint or bone pain. He has been having headache and he complains that he is really dizzy. He has mild neuropathy symptoms associated with his diabetes. Medications: Albuterol Sulfate ((2.5 mg/3ml) 0.083%) Nebulization solution Inhalation 8x/d, All Day Allergy Tablet Oral, Baclofen (10 mg) Tablet Oral daily, Brimonidine Tartrate-Timolol (0.2-0.5 %) Solution Ophthalmic b.i.d., Budesonide (0.25 mg/2mL) Aerosol Powder, Breath Activated Inhalation b.i.d., Budesonide-Formoterol Fumarate (160-4.5 mcg/act) Aerosol Inhalation daily, Furosemide 1 (60 mg) Tablet Oral b.i.d. PRN, Glucosamine HCl (1500 mg) Tablet Oral daily, Insulin Aspart (5 Units/mL) Subcutaneous ac (tid), Insulin Glargine (42 Units/mL) Subcutaneous at bedtime, Isosorbide Mononitrate ER (60 mg) Tablet SR 24 HR Oral daily, Klor-Con (20 meq) Capsule, controlled release Oral daily, Lotemax (0.5 %) Suspension Ophthalmic b.i.d., Montelukast Sodium (10 mg) Tablet Oral daily, Norvasc (10 mg) Tablet Oral daily, Rivaroxaban (15 mg) Tablet Oral daily, Sotalol HCl 1 (80 mg) Tablet Oral b.i.d., Tamsulosin HCl (0.4 mg) Capsule Oral daily, Vitamin D3 (2000 units ) Capsule Oral daily Allergies: Acetaminophen, Calcitriol, Fish Oil, Gabapentin, HYDROcodone-Acetaminophen, oxyCODONE HCl, Red Dye, Statins, Sulfa Antibiotics, and traMADol HCl. Vital Signs: Performed on Dec 01, 2020 09:22 Height - 67.00 in Weight - 314.2 lbs (HIGH) BSA - 2.45 sq.m BMI - 49.21 (HIGH) Temperature - 98.2 F (LOW) Pulse - 68 /min Respiration - 18 /min BP - 121/66 mm(hg) O2 Sat - 95 % (LOW) Pain - 2 Fatigue - 8 Physical Examination: Constitutional - He appears somewhat weak generally, Eyes - Sclerae nonicteric. Conjunctivae clear, ENMT - No lesions noted in the oral cavity, Hematologic/Lymphatic - No cervical, clavicular, or axillary adenopathy, Respiratory - Lungs are clear with diminished air movement bilaterally, Cardiovascular - Heart rhythm is irregular. There is no murmur, gallop, or rub noted, Abdomen - Soft. Liver and spleen are not enlarged. There is no abdominal mass or ascites noted and there is no inguinal adenopathy, Extremities - No edema, Neurologic - No focal neurologic deficits noted. Lab/Imaging: CBC shows hemoglobin 11.5 g, white blood cell count 4200, and platelet count 94,000. Comprehensive metabolic profile shows stable renal function with BUN 29 and creatinine 1.3 mg/dL. Bilirubin and liver enzymes are normal. LDH is normal at 200 U/L. Problem List: 1. Marginal zone lymphoma presenting as large mesenteric mass. By CT scan there also appears to be involvement in a retrocrural lymph node, thus stage IIE. 2. Hypertension. 3. Type 2 diabetes with peripheral neuropathy. 4. Carotid stenosis with previous right carotid artery stent placement. 5. Coronary artery disease with history of coronary angioplasty/stent placement and subsequent coronary artery bypass surgery. 6. Atrial fibrillation. 7. Congestive heart failure. 8. Peripheral arterial disease. 9. GERD. 10. COPD. 11. Obstructive sleep apnea. 12. Benign prostatic hypertrophy. 13. Trigeminal neuralgia. Problems Addressed with this Encounter and Plan: Patient with marginal zone lymphoma presenting as large mesenteric mass. By CT scan there also appeared to be involvement in a retrocrural lymph node, thus stage IIE. Given the low Ki-67 and the interval from his prior CT scan, he appeared to have low-grade disease. He began cycle 1 of chemotherapy with bendamustine/Rituxan on 08/25/2020. He tolerated it without acute toxicity. He had subsequently presented with fever up to 103 degrees. He was admitted to the hospital after multiple blood cultures were found to be positive for staph epidermidis. The source of the infection wa not determined, but he was not neutropenic and he did not have any type of indwelling device other than his pacemaker. He has completed a 6-course of outpatient IV antibiotic therapy with daptomycin administered through a PICC line. He continued with cycle 2 of bendamustine/rituximab on 11/03/2020. He tolerated that treatment with acceptable toxicity. He has not been evaluated for objective response, but he has been showing clinical improvement. He will continue now with cycle 3 of bendamustine/rituximab. Dosages remain the same. His blood counts will be monitored weekly. He will be scheduled for follow-up visit in 4 weeks. Signed By: Kole Méndez M.D. <<Signature on File>>
[2020-12-07 13:37] LABS: Basophils % 0.5 %; Eosinophils # 0.2 10^3/uL (0.0-0.8); Hematocrit 37.1 % (42.0-52.0); Hemoglobin 11.8 g/dL (11.7-16.6); Lymphocytes # 0.2 10^3/uL (0.8-4.8); Lymphocytes % 9.3 %; Mean Corpuscular HGB Conc 31.8 g/dL (30.0-36.0); Mean Corpuscular Hemoglobin 25.9 pg (28.0-34.0); Mean Corpuscular Volume 81.4 fL (80-94); Mean Platelet Volume 9.1 fL (7.4-10.4); Monocytes # 0.5 10^3/uL (0.2-0.9); Monocytes % 25.1 %; Neutrophils % 52.6 %; Nucleated Red Blood Cells % 0 %; Platelet Count 117 10^3/cmm (130-400); Red Blood Count 4.56 10^6/uL (4.1-5.3); Red Cell Distribution Width 13.6 % (12.1-15.1); White Blood Count 1.8 10^3/uL (4.0-10.0)
[2020-12-07 13:49] LABS: Neutrophils # 0.96 10^3/uL (1.8-7.7)
== END 2020-12-08 23:59 | disposition home or self-care (01) ==
LOC: ONCMED 05:52
PROVIDERS: PCP Family Medicine; Visit Provider Internal Medicine Medical Oncology
DX: Z51.12 Encounter for antineoplastic immunotherapy (principal); C83.03 Small cell B-cell lymphoma, intra-abdominal lymph nodes; I25.10 Atherosclerotic heart disease of native coronary artery without angina pectoris; Z95.5 Presence of coronary angioplasty implant and graft; Z95.1 Presence of aortocoronary bypass graft; I50.9 Heart failure, unspecified; I11.0 Hypertensive heart disease with heart failure; I48.91 Unspecified atrial fibrillation; Z86.73 Personal history of transient ischemic attack (TIA), and cerebral infarction without residual deficits; E11.42 Type 2 diabetes mellitus with diabetic polyneuropathy; E11.51 Type 2 diabetes mellitus with diabetic peripheral angiopathy without gangrene; I65.21 Occlusion and stenosis of right carotid artery; J44.9 Chronic obstructive pulmonary disease, unspecified; G47.33 Obstructive sleep apnea (adult) (pediatric); K21.9 Gastro-esophageal reflux disease without esophagitis; G50.0 Trigeminal neuralgia; N40.1 Benign prostatic hyperplasia with lower urinary tract symptoms; R39.11 Hesitancy of micturition; Z87.891 Personal history of nicotine dependence; Z99.81 Dependence on supplemental oxygen; Z79.4 Long term (current) use of insulin; Z79.51 Long term (current) use of inhaled steroids
CPT/HCPCS: 36415; 36592; 80053; 83615; 85025; 96367; 96375; 96413; 96415; 96417; 99214; J1100; J1200; J2405; J2469; J7030; J7040; J9034; J9312

== ENCOUNTER 2020-12-30 08:16 | Outpatient (RCR) | payer OTHER, MEDICARE, SELFPAY ==
[2020-12-14 13:35] LABS: Basophils % 0.7 %; Eosinophils # 0.1 10^3/uL (0.0-0.8); Eosinophils % 3.2 %; Hematocrit 35.5 % (42.0-52.0); Hemoglobin 11.2 g/dL (11.7-16.6); Lymphocytes # 0.5 10^3/uL (0.8-4.8); Lymphocytes % 18.9 %; Mean Corpuscular HGB Conc 31.5 g/dL (30.0-36.0); Mean Corpuscular Hemoglobin 26.1 pg (28.0-34.0); Mean Corpuscular Volume 82.8 fL (80-94); Mean Platelet Volume 9.8 fL (7.4-10.4); Monocytes # 0.7 10^3/uL (0.2-0.9); Monocytes % 26.3 %; Neutrophils # 1.42 10^3/uL (1.8-7.7); Neutrophils % 50.5 %; Nucleated Red Blood Cells % 0 %; Platelet Count 110 10^3/cmm (130-400); Red Blood Count 4.29 10^6/uL (4.1-5.3); Red Cell Distribution Width 14.9 % (12.1-15.1); White Blood Count 2.8 10^3/uL (4.0-10.0)
[2020-12-21 13:42] LABS: Basophils % 1.1 %; Eosinophils # 0.1 10^3/uL (0.0-0.8); Eosinophils % 3.2 %; Hematocrit 38.1 % (42.0-52.0); Lymphocytes # 0.9 10^3/uL (0.8-4.8); Lymphocytes % 25.1 %; Mean Corpuscular HGB Conc 31.5 g/dL (30.0-36.0); Mean Corpuscular Hemoglobin 26.1 pg (28.0-34.0); Monocytes % 25.6 %; Neutrophils # 1.66 10^3/uL (1.8-7.7); Neutrophils % 44.7 %; Nucleated Red Blood Cells % 0 %; Platelet Count 108 10^3/cmm (130-400); Red Blood Count 4.59 10^6/uL (4.1-5.3); Red Cell Distribution Width 15.5 % (12.1-15.1); White Blood Count 3.7 10^3/uL (4.0-10.0)
[2020-12-27 13:40] LABS: Basophils # 0.1 10^3/uL (0.0-0.1); Eosinophils # 0.2 10^3/uL (0.0-0.8); Hemoglobin 12.5 g/dL (11.7-16.6); Lymphocytes # 1.3 10^3/uL (0.8-4.8); Lymphocytes % 26.4 %; Mean Corpuscular HGB Conc 32.1 g/dL (30.0-36.0); Mean Corpuscular Hemoglobin 26.1 pg (28.0-34.0); Mean Corpuscular Volume 81.4 fL (80-94); Mean Platelet Volume 10.2 fL (7.4-10.4); Monocytes # 1.2 10^3/uL (0.2-0.9); Monocytes % 24.1 %; Neutrophils # 2.21 10^3/uL (1.8-7.7); Neutrophils % 43.9 %; Nucleated Red Blood Cells % 0 %; Platelet Count 123 10^3/cmm (130-400); Red Blood Count 4.79 10^6/uL (4.1-5.3); Red Cell Distribution Width 15.8 % (12.1-15.1)
--- NOTE | 2020-12-29 18:23 | ONC FU_ITS ---
Dr. Méndez Patient Follow-Up Note Patient: Panchito Macedo Unit #: [id number]: 1940 Dicatated By: Kole Méndez M.D.Date of Visit:Dec 29, 2020 Onc Med Follow-up/Prog Note Chief Complaint: Lymphoma. 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 He had presented with abdominal pain which have been getting progressively worse over about [address] abdomen/pelvis on 06/08/2020 showed mesenteric mass with epicenter superior to the L4-L5 disc space level measuring 4.4 x 10.0 cm. It was noted to have enlarged compared to prior study from August 2018. Also noted was a pathologically enlarged right retrocrural lymph node measuring 1.5 cm. There was no associated bowel thickening, ileus, or obstruction. There was no hydronephrosis. Bibasilar interstitial and groundglass opacity in the lungs was felt to be compatible with edema, pneumonitis, and or atelectasis. He was referred to Dr. Cook. On 07/20/2020 he underwent diagnostic laparoscopy with biopsies of the mesenteric mass. 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 IHC stains showed positivity for CD20, and BCL-2. They were negative for CD10, BCL6, and cyclin D1. CD5 was negative in B cells and positive in T cells. The Ki-67 was low at less than 10%. I had seen him initially on 08/12/2020. By clinical evaluation his disease appeared to be stage IIE and in the setting of a low-grade lymphoma, he was recommended to begin treatment with bendamustine/rituximab for 4-6 cycles. He began cycle 1 on 08/26/2020. It was administered via peripheral IV. He tolerated his first 2 days of treatment without acute toxicity. On 09/04/2020 he was seen in the emergency room with fever of 103.1 degrees. His CBC showed normal white count of 8900 with 81% neutrophils, so that he was clearly not neutropenic. Chest x-ray showed no acute findings. His sinus CT showed extensive nonspecific paranasal sinus disease. He began empiric antibiotic therapy with Levaquin with a presumptive diagnosis of sinusitis. He was seen for a follow-up visit on 09/09/2020. At that point he was still having fever up to 102.7 degrees. Multiple blood cultures were growing coagulase-negative staph, which turned out to be staph epidermidis. A specific source of the infection was not deterimined. During the hospitalization he underwent placement of a PICC line and he subsequently completed a 6-week course of outpatient antibiotic therapy with daptomycin. His medical history is otherwise significant for coronary artery disease, congestive heart failure, and atrial fibrillation and for cerebrovascular disease with prior TIAs and strokes. His other medical illnesses include hypertension, type 2 diabetes, peripheral arterial disease, carotid stenosis, COPD, obstructive sleep apnea, GERD, trigeminal neuralgia, and benign prostatic hypertrophy. He has had prior coronary angioplasty/stent placement and coronary artery bypass surgery, pacemaker implantation, and right carotid artery stent placement. He has a history of smoking 1 pack of cigarettes daily, but he quit smoking 35 years ago. INTERIM HISTORY: He continued with cycle 2 of bendamustine/rituximab on 11/03/2020 and with cycle 3 on 12/01/2020. He is seen for a follow-up visit. He has not been feeling very good. He has been having pain in his lower abdomen radiating into the groin area and he also has been having loose stools. Those started over the weekend. The maximum has been 5 stools per 24 hours, but typically 2-3 stools per day. They are not watery yet, but they are getting worse. He has limited activity. ECOG score is 2. His appetite has been okay. He says he felt a little flushed yesterday. He has not had any documented fever. He was having sweating at night, but that is better now. He has chronic sinus drainage. He has only a little bit of cough. He has shortness of breath, and he is on continuous oxygen. He has had some nausea, but no vomiting. He says his bladder function is sporadic, but he is able to go. He has no significant joint or bone pain. He has had some headaches and he has had dizziness at times. He developed some numbness/tingling in his hands and feet. Medications: Albuterol Sulfate ((2.5 mg/3ml) 0.083%) Nebulization solution Inhalation 8x/d, All Day Allergy Tablet Oral, Baclofen (10 mg) Tablet Oral daily, Brimonidine Tartrate-Timolol (0.2-0.5 %) Solution Ophthalmic b.i.d., Budesonide (0.25 mg/2mL) Aerosol Powder, Breath Activated Inhalation b.i.d., Budesonide-Formoterol Fumarate (160-4.5 mcg/act) Aerosol Inhalation daily, Furosemide 1 (60 mg) Tablet Oral b.i.d. PRN, Glucosamine HCl (1500 mg) Tablet Oral daily, Insulin Aspart (5 Units/mL) Subcutaneous ac (tid), Insulin Glargine (42 Units/mL) Subcutaneous at bedtime, Isosorbide Mononitrate ER (60 mg) Tablet SR 24 HR Oral daily, Klor-Con (20 meq) Capsule, controlled release Oral daily, Lotemax (0.5 %) Suspension Ophthalmic b.i.d., Montelukast Sodium (10 mg) Tablet Oral daily, Norvasc (10 mg) Tablet Oral daily, Rivaroxaban (15 mg) Tablet Oral daily, Sotalol HCl 1 (80 mg) Tablet Oral b.i.d., Tamsulosin HCl (0.4 mg) Capsule Oral daily, Vitamin D3 (2000 units ) Capsule Oral daily Allergies: Acetaminophen, Calcitriol, Fish Oil, Gabapentin, HYDROcodone-Acetaminophen, oxyCODONE HCl, Red Dye, Statins, Sulfa Antibiotics, and traMADol HCl. Vital Signs: Performed on Dec 29, 2020 09:13 Height - 67.00 in Weight - 215.2 lbs (LOW) BSA - 2.09 sq.m BMI - 33.71 (HIGH) Temperature - 98.3 F (LOW) Pulse - 80 /min Respiration - 18 /min BP - 131/73 mm(hg) O2 Sat - 95 % (LOW) Pain - 4 Fatigue - 8 Physical Examination: Constitutional - He appears somewhat weak generally, Eyes - Sclerae nonicteric. Conjunctivae clear, ENMT - No lesions noted in the oral cavity, Hematologic/Lymphatic - No cervical, clavicular, or axillary adenopathy, Respiratory - Lungs are clear with diminished air movement bilaterally, Cardiovascular - Heart rhythm is irregular. There is no murmur, gallop, or rub noted, Abdomen - Mildly distended. Liver and spleen are not enlarged. There is no abdominal mass or ascites noted and there is no inguinal adenopathy, Extremities - No edema, Neurologic - No focal neurologic deficits noted. Lab/Imaging: CBC shows hemoglobin 12.5 g, white blood cell count 5000, and platelet count 123,000. Problem List: 1. Marginal zone lymphoma presenting as large mesenteric mass. By CT scan there also appears to be involvement in a retrocrural lymph node, thus stage IIE. 2. Hypertension. 3. Type 2 diabetes with peripheral neuropathy. 4. Carotid stenosis with previous right carotid artery stent placement. 5. Coronary artery disease with history of coronary angioplasty/stent placement and subsequent coronary artery bypass surgery. 6. Atrial fibrillation. 7. Congestive heart failure. 8. Peripheral arterial disease. 9. GERD. 10. COPD. 11. Obstructive sleep apnea. 12. Benign prostatic hypertrophy. 13. Trigeminal neuralgia. Problems Addressed with this Encounter and Plan: Patient with marginal zone lymphoma presenting as large mesenteric mass. By CT scan there also appeared to be involvement in a retrocrural lymph node, thus stage IIE. Given the low Ki-67 and the interval from his prior CT scan, he appeared to have low-grade disease. He began cycle 1 of chemotherapy with bendamustine/Rituxan on 08/25/2020. He tolerated it without acute toxicity. He had subsequently presented with fever up to 103 degrees. He was admitted to the hospital after multiple blood cultures were found to be positive for staph epidermidis. The source of the infection wa not determined, but he was not neutropenic and he did not have any type of indwelling device other than his pacemaker. He has completed a 6-course of outpatient IV antibiotic therapy with daptomycin administered through a PICC line. He continued with cycle 2 of bendamustine/rituximab on 11/03/2020. He tolerated that treatment with acceptable toxicity. He then continue with cycle 3 on 12/01/2020. He comes in now with recent onset of lower abdominal pain and loose stools. The cause is uncertain. It is possible that it is treatment related, but that would be very unusual, particularly at this time interval from his last treatment. His symptoms are significant enough that I am going to put his treatment on hold. I will have him bring in a stool sample for culture and to check for C. difficile. He will be scheduled for CT abdomen/pelvis. He will have further evaluation as indicated. In the meantime, if symptoms worsen he is to go to the emergency room. Signed By: Kole Méndez M.D. <<Signature on File>>
== END 2021-01-08 23:59 | disposition home or self-care (01) ==
LOC: ONCMED 08:16
PROVIDERS: PCP Family Medicine; Visit Provider Internal Medicine Medical Oncology
DX: C85.83 Other specified types of non-Hodgkin lymphoma, intra-abdominal lymph nodes (principal); I10 Essential (primary) hypertension; E11.42 Type 2 diabetes mellitus with diabetic polyneuropathy; E11.59 Type 2 diabetes mellitus with other circulatory complications; I25.10 Atherosclerotic heart disease of native coronary artery without angina pectoris; I65.21 Occlusion and stenosis of right carotid artery; Z95.5 Presence of coronary angioplasty implant and graft; I48.20 Chronic atrial fibrillation, unspecified; I50.9 Heart failure, unspecified; I73.9 Peripheral vascular disease, unspecified; K21.9 Gastro-esophageal reflux disease without esophagitis; J44.9 Chronic obstructive pulmonary disease, unspecified; G47.33 Obstructive sleep apnea (adult) (pediatric); N40.0 Benign prostatic hyperplasia without lower urinary tract symptoms; G50.0 Trigeminal neuralgia; Z79.899 Other long term (current) drug therapy
CPT/HCPCS: 36415; 85025; 87493; 99214

== ENCOUNTER 2021-01-06 08:16 | Outpatient (CLI) | payer OTHER, MEDICARE, SELFPAY ==
--- NOTE | 2021-01-06 08:32 | CT_ITS ---
WS: [id number] Exam: CT abdomen pelvis w con* [id number] Date/Time of Exam: 01/06/2021 8:32 AM Reason For Exam: LYMPHOMA, PAIN LOWER ABDOMEN DLP: 1193.[address] scans at [facility] use at least one of these dose optimization techniques: automat ed exposure control; mA and/or kV adjustment per patient size (includes targeted exams where dose is matched to clinical indication); or iterative reconstruction. Comparison 06/08/2020. Mild groundglass densities noted in the left lower lung zone. The right lung base is clear. Small hia susan hernia. The heart is enlarged. Moderate amount of abdominal and pelvic ascites noted. The liver i s somewhat lobulated in contour which might represent cirrhosis. The spleen, stomach and gallbladder are unremarkable. The pancreas is atrophic. Unremarkable kidneys and adrenal glands. The abdominal ao rta is normal in caliber. The portal vein and IVC are patent. Previously noted conglomerate retroperi toneal lymphadenopathy has almost completely resolved. There is residual fibrosis and several fatty r eplaced lymph nodes still visualized. Small bowel loops are normal in caliber. Moderate diverticulosi s of the transverse, descending and sigmoid colon. No sign of acute diverticulitis. No sign of acute appendix. Haziness and fibrosis noted throughout the mesenteric fat. No obvious new significant lymph adenopathy is seen. Moderate amount of ascites in the pelvis. Intact urinary bladder. No pelvic lymph adenopathy seen. Small fat filled bilateral inguinal hernias. No destructive bone lesions are seen. T iny fat filled periumbilical hernia. CT/CT abdomen pelvis w con* [id number] IMPRESSION: 1. Previously noted conglomerate retroperitoneal lymphadenopathy has almost com pletely resolved. There is residual fibrosis and several fatty replaced lymph n odes noted. There are additional areas of diffuse haziness and stranding of the mesenteric fat. No obvious new lymphadenopathy or mass is noted. 2. Moderate amount of abdominal and pelvic ascites. 3. The liver appears to be somewhat lobulated in contour which might indicate h epatic cirrhosis. 4. Colonic diverticulosis. Additional minor nonemergent findings as detailed ab ove.
[2021-01-06] MEDS: iodixanol 320 mg/mL 100mL Btl IV (10:00)
== END 2021-01-06 08:17 | disposition home or self-care (01) ==
PROVIDERS: PCP Family Medicine; Visit Provider Internal Medicine Medical Oncology
DX: C85.83 Other specified types of non-Hodgkin lymphoma, intra-abdominal lymph nodes (principal); R10.30 Lower abdominal pain, unspecified; K57.90 Diverticulosis of intestine, part unspecified, without perforation or abscess without bleeding; R18.8 Other ascites
CPT/HCPCS: 74177; Q9967

== ENCOUNTER 2021-01-10 14:56 | Emergency (ER) | payer OTHER, MEDICARE, SELFPAY ==
[2021-01-10 15:37] VITALS: BP 151/81; PULSE 70; RESP 19; TEMP 36.7; O2SAT 89; BMI 32.8
[2021-01-10 21:01] LABS: Basophils % 0.8 %; Eosinophils # 0.1 10^3/uL (0.0-0.8); Eosinophils % 2.7 %; Hemoglobin 13.4 g/dL (11.7-16.6); Lymphocytes # 1.5 10^3/uL (0.8-4.8); Lymphocytes % 28.6 %; Mean Corpuscular HGB Conc 31.9 g/dL (30.0-36.0); Mean Corpuscular Hemoglobin 26.4 pg (28.0-34.0); Mean Corpuscular Volume 82.8 fL (80-94); Mean Platelet Volume 9.2 fL (7.4-10.4); Monocytes # 0.9 10^3/uL (0.2-0.9); Monocytes % 18.3 %; Neutrophils # 2.51 10^3/uL (1.8-7.7); Neutrophils % 48.8 %; Nucleated Red Blood Cells % 0 %; Platelet Count 146 10^3/cmm (130-400); Red Blood Count 5.07 10^6/uL (4.1-5.3); White Blood Count 5.1 10^3/uL (4.0-10.0)
[2021-01-10 21:52] LABS: Alanine Aminotransferase 10 U/L (0-41); Albumin Level 3.9 g/dL (3.5-5.2); Alkaline Phosphatase 67 IU/L (40-130); Anion Gap 12.9 (5-19); Aspartate Amino Transferase 16 U/L (0-40); Blood Urea Nitrogen 20 mg/dL (8-23); Calcium 8.7 mg/dL (8.5-10.5); Carbon Dioxide 27 mmol/L (22-29); Chloride 102 mmol/L (98-107); Globulin 2.2 g/dL (1.3-4.6); Glucose 185 mg/dL (65-115); Osmolality Calculated 293 mOsm/kg (285-295); Potassium 3.9 mmol/L (3.5-5.1); Sodium 138 mmol/L (136-145); Total Bilirubin 0.4 mg/dL (0.15-1.2); Total Protein 6.1 g/dL (6.6-8.7)
--- NOTE | 2021-01-10 22:21 | W.ED.WEAKNES ---
HPI - Weakness General: Chief complaint: Weakness Stated complaint: Dizzy, weak, Time Seen by Provider: 01/10/21 22:11 Source: patient Mode of arrival: ambulatory Limitations: no limitations History of Present Illness: HPI Narrative: 80-year-old male has a history of lymphoma states that over the last 2 to 3 days has been having generalized weakness along with feeling like he may pass out. He states that he has had these dizziness spells with standing and movement. He denies any vomiting or diarrhea. Denies any headaches. He states he just has not felt well since he had a CT abdomen last week with contrast. Associated symptoms: Denies chest pain, chills, dysuria, easy bruising, fever(s), headache(s), nausea or vomiting Review of Systems Const: Denies: fever(s), chills, body aches or change in appetite Eyes: Denies: blurry vision or eye discomfort ENMT: Denies: throat pain or dental pain Card: Denies: chest pain Resp: Denies: dyspnea GI: Denies: abdominal pain, nausea, vomiting or diarrhea : Denies: dysuria Musc: Denies: neck pain or back pain Skin/Breast: Denies: rash Neuro: Denies: headache(s) Psych: Denies: depression Justin/Lymph: Denies: easy bruising All/Imm: Denies: urticaria PFSH ED PFSH: Medical History ASHD (arteriosclerotic heart disease) Atrial fibrillation Atypical chest pain BPH NOS w ur obs/LUTS Good response to TAMSULOSIN. Carotid stenosis Doppler examination on 05/30/2020 The stent in the right internal carotid artery appeared to be patent with no significant stenosis. Moderate to heavy heterogeneous plaques were noted in the right common carotid artery. Moderate heterogeneous plaques at the left bifurcation and proximal internal carotid artery Elevated velocity in the external carotid artery on the right side, suggestive of hemodynamically significant stenosis. Compared to the study from 12/06/2017, there appears to be some worsening of stenosis in the right external carotid artery CHF (congestive heart failure) Hyperlipemia Hypertension Leg swelling Pacemaker Peripheral vascular disease Sleep apnea TIA (transient ischemic attack) Trigeminal neuralgia Ventral hernia Surgical History H/O bilateral cataract extraction H/O four vessel coronary artery bypass graft H/O heart artery stent History of pacemaker Status post cryoablation Family History Other CAD (coronary artery disease) Cancer Diabetes Family history of prostate cancer Social History Smoking and tobacco status: never smoked Alcohol intake: never Adopted: No Caregiver/support person: No Lives independently: No Household members: spouse Marital status: Current occupational status: retired History of recent travel: No Current gender identity: Male Physical Exam Const: COMMON NORMALS: no acute distress, patient oriented x3 and healthy appearing HENMT: COMMON NORMALS: normocephalic and atraumatic HEAD & SCALP: normocephalic and atraumatic Eye: COMMON NORMALS: Equal, round and reactive pupils present and EOMs intact bilaterally PUPIL: Yes Equal, round and reactive pupils present Neck/C-Spine: COMMON NORMALS: full ROM and supple Chest: COMMONS NORMALS: normal inspection of the chest and normal palpation of entire chest wall Resp: COMMON NORMALS: normal respiratory effort, No retractions, No use of accessory muscles and clear to auscultation bilaterally AUSCULTATION: clear to auscultation bilaterally Cardio: COMMON NORMALS: regular rate, regular rhythm and No murmurs present (Cardio) RATE: regular rate RHYTHM: regular rhythm GI: COMMON NORMALS: Normal to inspection, nondistended, normoactive bowel sounds present, Soft to palpation, non-tender and no masses PALPATION: Yes Soft to palpation Extremity: COMMON NORMALS: normal to inspection and full ROM Neuro: COMMON NORMALS: patient oriented x3, moves all extremities and no focal motor deficits Psych: COMMON NORMALS: mental status grossly normal, Normal thought process present and cooperative THOUGHT PROCESS: Normal thought process present Skin: COMMON NORMALS: no rashes or lesions noted and no wounds GENERAL SKIN EXAM: no rashes or lesions noted Course Vital Signs: Vital signs: Vital Signs Temperature 98.0 F 01/10/21 15:37 Pulse Rate 62 01/11/21 01:12 Respiratory Rate 13 01/11/21 01:12 Blood Pressure 148/69 01/11/21 01:12 Pulse Oximetry 92 01/11/21 01:12 MDM - Weakness MDM Narrative: Medical decision making narrative: pt presents here with dizziness with no signs of cardiac cause or a stroke. Pt likely dehydrated. he feels improved and lab work and ct are normal. he is stable for discharge and is to follow up with pcp in 2-4 days and return if worseing. Lab Data: Labs: Lab Results 01/10/21 01/10/21 01/10/21 Range/Units 20:34 20:34 23:25 WBC 5.1 (4.0-10.0) 10^3/ uL RBC 5.07 (4.1-5.3) 10^6/u L Hgb 13.4 (11.7-16.6) g/dL Hct 42.0 (42.0-52.0) % MCV 82.8 (80-94) fL MCH 26.4 L (28.0-34.0) pg MCHC 31.9 (30.0-36.0) g/dL RDW 17.0 H (12.1-15.1) % Plt Count 146 (130-400) 10^3/c mm MPV 9.2 (7.4-10.4) fL Neut % (Auto) 48.8 % Lymph % (Auto) 28.6 % Pine % (Auto) 18.3 % Eos % (Auto) 2.7 % Baso % (Auto) 0.8 % Neut # (Auto) 2.51 (1.8-7.7) 10^3/u L Lymph # (Auto) 1.5 (0.8-4.8) 10^3/u L Pine # (Auto) 0.9 (0.2-0.9) 10^3/u L Eos # (Auto) 0.1 (0.0-0.8) 10^3/u L Baso # (Auto) 0.0 (0.0-0.1) 10^3/u L Nucleated RBC % (a uto) 0 % Nucleated RBCs # 0.0 /100WBC Sodium 138 (136-145) mmol/L Potassium 3.9 (3.5-5.1) mmol/L Chloride 102 (98-107) mmol/L Carbon Dioxide 27 (22-29) mmol/L Anion Gap 12.9 (5-19) BUN 20 (8-23) mg/dL Creatinine 1.0 (0.7-1.2) mg/dL GFR Calculation Not Reportable Glucose 185 H (65-115) mg/dL Calculated Osmolal ity 293 (285-295) mOsm/k g Calcium 8.7 (8.5-10.5) mg/dL Total Bilirubin 0.4 (0.15-1.2) mg/dL AST 16 (0-40) U/L ALT 10 (0-41) U/L Alkaline Phosphata se 67 (40-130) IU/L Total Protein 6.1 L (6.6-8.7) g/dL Albumin 3.9 (3.5-5.2) g/dL Globulin 2.2 (1.3-4.6) g/dL Urine Color Yellow (Yellow) Urine Appearance Clear (CLEAR) Urine pH 6.5 (5-7) Ur Specific Gravit y 1.005 (1.005-1.030) Urine Protein Neg (Negative) Urine Glucose (UA) Norm (Normal) Urine Ketones Negative (Negative) Urine Blood Neg (Negative) Urine Nitrate Negative (Negative) Urine Bilirubin Neg (Negative) Urine Urobilinogen Norm (Negative) mg/dL Ur Leukocyte Alayna ase Negative (Negative) Discharge Plan Discharge Patient Disposition: Home Clinical Impression: Dizziness Condition: Stable Prescriptions: New meclizine 25 mg tablet 25 mg PO BID PRN (Reason: dizziness) Qty: 20 RF: 0 No Action sotalol 80 mg tablet 80 mg PO BID Qty: 180 RF: 3 loteprednol etabonate [Lotemax] 0.5 % drops,suspension 1 drop ophthalmic (eye) BID@0800,1800 RF: 0 Combigan 0.2-0.5 % drops 1 drop ophthalmic (eye) BID@0800,1800 RF: 0 tamsulosin 0.4 mg capsule 0.4 mg PO DAILY@0800 RF: 0 isosorbide mononitrate 60 mg tablet extended release 24 hr 60 mg PO DAILY@0800 RF: 0 potassium chloride 20 mEq tablet,ER particles/crystals 20 meq PO DAILY@0800 RF: 0 epinephrine 0.3 mg/0.3 mL auto-injector 0.3 mg IM ONCE PRN (Reason: UNKNOWN) RF: 0 Zyrtec 10 mg capsule 10 mg PO DAILY PRN (Reason: Allergy Symptoms) RF: 0 montelukast [Singulair] 10 mg tablet 10 mg PO DAILY@0800 RF: 0 albuterol sulfate 2.5 mg /3 mL (0.083 %) solution for nebulization 2.5 mg INHALATION Q4H PRN (Reason: Shortness Of Breath) RF: 0 amlodipine 10 mg tablet 10 mg PO DAILY@0800 RF: 0 Symbicort 160-4.5 mcg/actuation HFA aerosol inhaler 2 puff INHALATION DAILY@0800 RF: 0 rivaroxaban 15 mg tablet 15 mg PO DAILY RF: 0 Hold Instructions: Resume on 07/23/20. budesonide 0.5 mg/2 mL suspension for nebulization 0.25 mg INHALATION BID@0800,1800 RF: 0 Lantus U-100 Insulin 100 unit/mL solution 42 unit SUBCUT BEDTIME@2100 RF: 0 cholecalciferol (vitamin D3) 2,000 unit tablet 2,000 unit PO DAILY@0800 RF: 0 baclofen 10 mg tablet 10 mg PO DAILY@0800 RF: 0 Novolog U-100 Insulin aspart 100 unit/mL solution 5 unit SUBCUT TID@0800,1200,1700 RF: 0 glucosamine HCl 1,500 mg tablet 1,500 mg PO DAILY@0800 RF: 0 guaifenesin [Mucinex] 600 mg tablet extended release 12hr 600 mg PO BID RF: 0 furosemide 40 mg tablet 60 mg PO BID@0600,1800 PRN (Reason: Edema) Qty: 270 RF: 3 Discharge Orders: Discharge ED (Routine); Ordered 01/11/21 Ordered By: Krystian Sher Referrals: Sandrita Almaguer MD [Primary Care Provider] - 1-3 days Discharge Diet: Advance as tolerated Discharge Activity: Resume usual activity Patient Instructions: Dizziness (ED) Coding Level of Care Code 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
[2021-01-10] MEDS: sodium chloride 0.9% 1,000 ML 999 ML IV (22:45)
[2021-01-10 23:01] VITALS: BP 153/72; PULSE 62; RESP 16; O2SAT 93
[2021-01-10 23:43] VITALS: BP 137/62; PULSE 67; RESP 10; O2SAT 93
[2021-01-10 23:51] LABS: Add Urine Microscopic? NO; Charge for UA Resulting for Rev
[2021-01-10 23:52] LABS: Bilirubin Urine Neg (Negative); Blood Urine Neg (Negative); Glucose Urine UA Norm (Normal); Ketones Urine Negative (Negative); Leukocyte Esterase Urine Negative (Negative); Nitrate Urine Negative (Negative); Protein Urine Neg (Negative); Specific Gravity, Urine 1.005 (1.005-1.030); Urine Appearance Clear (CLEAR); Urine Color Yellow (Yellow); Urobilinogen Urine Norm (Negative); pH Urine 6.5 (5-7)
--- NOTE | 2021-01-10 23:56 | CTR_ITS ---
PROCEDURE INFORMATION: Exam: CT Head Without Contrast Exam date and time: 01/10/2021 11:56 PM Age: 80 years old Clinical indication: Dizziness; Additional info: Near syncope TECHNIQUE: Imaging protocol: Computed tomography of the head without contrast. Radiation optimization: All CT scans at this facility use at least one of these dose optimization techniques: automated exposure control; mA and/or kV adjustment per patient size (includes targeted exams where dose is matched to clinical indication); or iterative reconstruction. Other technique: STROKE PROTOCOL was implemented. COMPARISON: CT head wo con* [id number] 09/09/2020 3:12 PM RADIATION DOSE METRICS: Total DLP (mGy-cm): 968.74 FINDINGS: Brain: There is small old right frontal cortical infarct not significantly changed. There is small old left cerebellar infarct not significantly changed. There is moderate cortical atrophy. Low-density changes in the white matter are consistent with nonspecific small vessel chronic ischemic change. There is no intracranial mass, hemorrhage or edema. There is small old right occipital infarct not significantly changed. Cerebral ventricles: No ventriculomegaly. Paranasal sinuses: There are postsurgical changes in the sinuses. There is extensive opacification of the frontal ethmoid and sphenoid sinuses and mucosal thickening in the maxillary sinuses in keeping with pansinusitis. Mastoid air cells: Visualized mastoid air cells are well aerated. Bones/joints: Unremarkable. No acute fracture. Soft tissues: Unremarkable. CT/CT head wo con* [id number] IMPRESSION: 1. Old infarcts. 2. Extensive sinus disease 3. No acute intracranial finding. 4. No significant change compared with 03/18/2017. ASSESSMENT: ASPECTS ([place] Stroke Program Early CT Score) is 10. Radiation Dose CTDIVOL = (mGy): DLP = 968.74 (mGy-cm)
--- NOTE | 2021-01-11 00:32 | PC.NURSE ---
Assisted with urinal. Then taken by WC to CT.
[2021-01-11 01:12] VITALS: BP 148/69; PULSE 62; RESP 13; O2SAT 92
[2021-01-11 01:38] VITALS: BP 150/72; PULSE 64; RESP 16; O2SAT 93
== END 2021-01-11 01:41 | disposition home or self-care (01) ==
PROVIDERS: Emergency Provider Emergency Medicine; PCP Family Medicine
DX: R42 Dizziness and giddiness (principal); Z79.4 Long term (current) use of insulin; I11.0 Hypertensive heart disease with heart failure; I50.9 Heart failure, unspecified; E78.5 Hyperlipidemia, unspecified; Z95.0 Presence of cardiac pacemaker; Z86.73 Personal history of transient ischemic attack (TIA), and cerebral infarction without residual deficits; Z95.1 Presence of aortocoronary bypass graft
CPT/HCPCS: 70450; 80053; 81003; 85025; 96360; 99283; J7030

== ENCOUNTER 2021-01-25 08:59 | Outpatient (RCR) | payer OTHER, MEDICARE, SELFPAY ==
--- NOTE | 2021-01-29 10:36 | ONC FU_ITS ---
Dr. Méndez Patient Follow-Up Note Patient: Panchito Macedo Unit #: [id number]: 1940 Dicatated By: Kole Méndez M.D.Date of Visit:Jan 25, 2021 Onc Med Follow-up/Prog Note Chief Complaint: Lymphoma. 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 He had presented with abdominal pain which have been getting progressively worse over about [address] abdomen/pelvis on 06/08/2020 showed mesenteric mass with epicenter superior to the L4-L5 disc space level measuring 4.4 x 10.0 cm. It was noted to have enlarged compared to prior study from August 2018. Also noted was a pathologically enlarged right retrocrural lymph node measuring 1.5 cm. There was no associated bowel thickening, ileus, or obstruction. There was no hydronephrosis. Bibasilar interstitial and groundglass opacity in the lungs was felt to be compatible with edema, pneumonitis, and or atelectasis. He was referred to Dr. Cook. On 07/20/2020 he underwent diagnostic laparoscopy with biopsies of the mesenteric mass. 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 IHC stains showed positivity for CD20, and BCL-2. They were negative for CD10, BCL6, and cyclin D1. CD5 was negative in B cells and positive in T cells. The Ki-67 was low at less than 10%. I had seen him initially on 08/12/2020. By clinical evaluation his disease appeared to be stage IIE and in the setting of a low-grade lymphoma, he was recommended to begin treatment with bendamustine/rituximab for 4-6 cycles. He began cycle 1 on 08/26/2020. It was administered via peripheral IV. He tolerated his first 2 days of treatment without acute toxicity. On 09/04/2020 he was seen in the emergency room with fever of 103.1 degrees. His CBC showed normal white count of 8900 with 81% neutrophils, so that he was clearly not neutropenic. Chest x-ray showed no acute findings. His sinus CT showed extensive nonspecific paranasal sinus disease. He began empiric antibiotic therapy with Levaquin with a presumptive diagnosis of sinusitis. He was seen for a follow-up visit on 09/09/2020. At that point he was still having fever up to 102.7 degrees. Multiple blood cultures were growing coagulase-negative staph, which turned out to be staph epidermidis. A specific source of the infection was not deterimined. During the hospitalization he underwent placement of a PICC line and he subsequently completed a 6-week course of outpatient antibiotic therapy with daptomycin. His medical history is otherwise significant for coronary artery disease, congestive heart failure, and atrial fibrillation and for cerebrovascular disease with prior TIAs and strokes. His other medical illnesses include hypertension, type 2 diabetes, peripheral arterial disease, carotid stenosis, COPD, obstructive sleep apnea, GERD, trigeminal neuralgia, and benign prostatic hypertrophy. He has had prior coronary angioplasty/stent placement and coronary artery bypass surgery, pacemaker implantation, and right carotid artery stent placement. He has a history of smoking 1 pack of cigarettes daily, but he quit smoking 35 years ago. INTERIM HISTORY: He continued with cycle 2 of bendamustine/rituximab on 11/03/2020 and with cycle 3 on 12/01/2020. He was able to tolerate both cycles without significant toxicity. At his follow-up visit on 12/29/2020 he complained of recent onset of lower abdominal pain and diarrhea. His chemotherapy was put on hold. His repeat CT abdomen/pelvis showed evidence of colonic diverticulosis but no sign of acute diverticulitis. The previously noted conglomerate retroperitoneal lymphadenopathy was noted to have almost completely resolved. There was evidence of residual fibrosis and several fatty replaced lymph nodes also were noted. Additional areas of diffuse haziness and stranding of the mesenteric fat was noted as well, but there was no obvious new lymphadenopathy or mass noted. There was a moderate amount of abdominal and pelvic ascites. The liver appeared somewhat lobulated in contour suggesting the possibility of hepatic cirrhosis. A stool test for C. difficile was negative. He is seen for a follow-up visit. He is feeling somewhat better now. He still has some pain in the lower abdominal area, but not as much. It is mostly in the right lower quadrant area. He still has soft stools, but no diarrhea. He says his energy is pretty good. He does have limited activity. ECOG score is 2. His appetite has been okay. He has been watching his diet. He has not had fever. He occasionally has sweating at night. He has chronic sinus drainage. He has a little bit of cough. He has shortness of breath. He uses oxygen as needed. He does not complain of chest pain. He has no other GI complaints. Bladder function remains adequate, though described as sporadic . He has joint pain which he manages adequately with glucosamine. He has had some headaches. He recently was seen in the emergency room because of a bout of dizziness. He was then seen at the ID clinic, and it is better now with some changes in his blood pressure medication. He still has some numbness/tingling in his hands and feet. Medications: Albuterol Sulfate ((2.5 mg/3ml) 0.083%) Nebulization solution Inhalation 8x/d, All Day Allergy Tablet Oral, Baclofen (10 mg) Tablet Oral daily, Brimonidine Tartrate-Timolol (0.2-0.5 %) Solution Ophthalmic b.i.d., Budesonide (0.25 mg/2mL) Aerosol Powder, Breath Activated Inhalation b.i.d., Budesonide-Formoterol Fumarate (160-4.5 mcg/act) Aerosol Inhalation daily, Furosemide 1 (60 mg) Tablet Oral b.i.d. PRN, Glucosamine HCl (1500 mg) Tablet Oral daily, Insulin Aspart (5 Units/mL) Subcutaneous ac (tid), Insulin Glargine (42 Units/mL) Subcutaneous at bedtime, Isosorbide Mononitrate ER (60 mg) Tablet SR 24 HR Oral daily, Klor-Con (20 meq) Capsule, controlled release Oral daily, Lisinopril (10 mg) Tablet Oral daily, Lotemax (0.5 %) Suspension Ophthalmic b.i.d., Montelukast Sodium (10 mg) Tablet Oral daily, Norvasc (10 mg) Tablet Oral daily, Rivaroxaban (15 mg) Tablet Oral daily, Sotalol HCl 1 (80 mg) Tablet Oral b.i.d., Tamsulosin HCl (0.4 mg) Capsule Oral daily, Vitamin D3 (2000 units ) Capsule Oral daily Allergies: Acetaminophen, Calcitriol, Fish Oil, Gabapentin, HYDROcodone-Acetaminophen, oxyCODONE HCl, Red Dye, Statins, Sulfa Antibiotics, and traMADol HCl. Vital Signs: Performed on Jan 25, 2021 16:12 Height - 67.00 in Weight - 215.4 lbs (HIGH) BSA - 2.09 sq.m BMI - 33.74 (HIGH) Temperature - 98.9 F (HIGH) Pulse - 80 /min Respiration - 18 /min BP - 127/62 mm(hg) O2 Sat - 93 % (LOW) Pain - 3 Fatigue - 8 Physical Examination: Constitutional - He appears somewhat weak generally, Eyes - Sclerae nonicteric. Conjunctivae clear, ENMT - No lesions noted in the oral cavity, Hematologic/Lymphatic - No cervical, clavicular, or axillary adenopathy, Respiratory - Lungs are clear with diminished air movement bilaterally, Cardiovascular - Heart rhythm is irregular. There is no murmur, gallop, or rub noted, Abdomen - Mildly distended but soft. Liver and spleen are not enlarged. There is no abdominal mass or ascites noted and there is no inguinal adenopathy, Extremities - No edema, Neurologic - No focal neurologic deficits noted. Lab/Imaging: CBC shows hemoglobin 13.4 g, white blood cell count 5100, and platelet count 146,000. Comprehensive metabolic profile is unremarkable. In particular, the bilirubin and liver enzymes are normal. Problem List: 1. Marginal zone lymphoma presenting as large mesenteric mass. By CT scan there also appears to be involvement in a retrocrural lymph node, thus stage IIE. 2. Hypertension. 3. Type 2 diabetes with peripheral neuropathy. 4. Carotid stenosis with previous right carotid artery stent placement. 5. Coronary artery disease with history of coronary angioplasty/stent placement and subsequent coronary artery bypass surgery. 6. Atrial fibrillation. 7. Congestive heart failure. 8. Peripheral arterial disease. 9. GERD. 10. COPD. 11. Obstructive sleep apnea. 12. Benign prostatic hypertrophy. 13. Trigeminal neuralgia. Problems Addressed with this Encounter and Plan: Patient with marginal zone lymphoma presenting as large mesenteric mass. By CT scan there also appeared to be involvement in a retrocrural lymph node, thus stage IIE. Given the low Ki-67 and the interval from his prior CT scan, he appeared to have low-grade disease. He began cycle 1 of chemotherapy with bendamustine/Rituxan on 08/25/2020. He tolerated it without acute toxicity. He had subsequently presented with fever up to 103 degrees. He was admitted to the hospital after multiple blood cultures were found to be positive for staph epidermidis. The source of the infection wa not determined, but he was not neutropenic and he did not have any type of indwelling device other than his pacemaker. He has completed a 6-course of outpatient IV antibiotic therapy with daptomycin administered through a PICC line. He continued with cycle 2 of bendamustine/rituximab on 11/03/2020 and with cycle 3 on 12/01/2020. He tolerated both cycles with acceptable toxicity. His 4th cycle, though, was deferred when he presented with increased lower abdominal pain and diarrhea. A specific cause for that was not determined. His repeat CT abdomen/pelvis showed significant response to the chemotherapy, with almost complete resolution of the retroperitoneal adenopathy. There was moderate abdominal and pelvic ascites, and the liver was noted to have a lobulated contour, suggesting possible hepatic cirrhosis. Given the significant response to the treatment, I do not really think there is any particular advantage in continue with any further chemotherapy. At this point he would typically be transitioned to maintenance rituximab, but in the current environment with the COVID-19 pandemic flaring up, the immunosuppression associated with the rituximab may impart higher risk than benefit, and it may be better for him to continue with expectant management. As such, I will just plan to see him again in 3 months. Signed By: Kole Méndez M.D. <<Signature on File>>
== END 2021-02-08 23:59 | disposition home or self-care (01) ==
LOC: ONCMED 08:59
PROVIDERS: PCP Family Medicine; Visit Provider Internal Medicine Medical Oncology
DX: C85.88 Other specified types of non-Hodgkin lymphoma, lymph nodes of multiple sites (principal); I10 Essential (primary) hypertension; E11.42 Type 2 diabetes mellitus with diabetic polyneuropathy; I65.21 Occlusion and stenosis of right carotid artery; E11.59 Type 2 diabetes mellitus with other circulatory complications; I25.10 Atherosclerotic heart disease of native coronary artery without angina pectoris; Z95.5 Presence of coronary angioplasty implant and graft; I48.91 Unspecified atrial fibrillation; I50.9 Heart failure, unspecified; I73.9 Peripheral vascular disease, unspecified; K21.9 Gastro-esophageal reflux disease without esophagitis; J44.9 Chronic obstructive pulmonary disease, unspecified; G47.33 Obstructive sleep apnea (adult) (pediatric); N40.0 Benign prostatic hyperplasia without lower urinary tract symptoms; G50.0 Trigeminal neuralgia; Z79.899 Other long term (current) drug therapy; Z92.21 Personal history of antineoplastic chemotherapy
CPT/HCPCS: 99214

== ENCOUNTER 2021-04-05 09:49 | Emergency (ER) | payer OTHER, MEDICARE, SELFPAY ==
[2021-04-05] VITALS (13 sets, daily range): BP systolic 108–183; BP diastolic 49–80; PULSE 60–63; RESP 5–22; TEMP 36.5; O2SAT 91–95; BMI 30.7
--- NOTE | 2021-04-05 | CT_ITS ---
WS: [id number] CT HEAD NONCONTRAST HISTORY: STROKE SYMPTOMS TECHNIQUE: Contiguous axial imaging performed through the brain in 2.5 mm imaging. Bone and soft tiss ue windows. Sagittal and coronal reformats reviewed. All CT scans at [facility] use at least one of these dose optimization techniques: automated exposure control; mA and/or kV adjustment per pa tient size (includes targeted exams where dose is matched to clinical indication); or iterative recon struction. DLP: 1067.00 mGy-cm. COMPARISON: 01/04/2011 and 01/11/2021 New linear area of increased signal consistent with hemorrhage involving the posterior RIGHT basal ga nglia in the medial RIGHT temporal lobe. Hemorrhage is near the posterior inferior most posterior layton b of the internal capsule. The blood does not extend into the ventricles at this time. Mild cerebral atrophy. Prior RIGHT frontal lobe infarct. Prior infarct posterior LEFT cerebellum. Ventricles: Normal size with no hydrocephalus. Paranasal sinuses: Extensive opacification prior surgery involving the sinuses. Mastoid air cells: Well pneumatized. Calvarium and scalp: Skull is intact with no soft tissue edema or swelling. CT/CT head wo con* [id number] IMPRESSION: 1. Acute focal hemorrhage centered along the inferior posterior RIGHT basal ga nglia along the posterior limb of the internal capsule. Closely associated with the cisterns but no intraventricular extension at this time. 2. No mass effect. 3. Atrophy and prior infarcts as above. Notified Augustine Santana DO at 04/05/2021 10:19 AM.
--- NOTE | 2021-04-05 10:11 | ECG_ITS ---
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 Measurements Intervals [place] Rate: 61 P: 180 WV: 280 QRS: -33 QRSD: 104 T: 72 QT: 415 QTc: 419 Interpretive Statements ELECTRONIC ATRIAL PACEMAKER LEFT AXIS DEVIATION [QRS AXIS < -30] PATTERN CONSISTENT WITH PULMONARY DISEASE INCOMPLETE RIGHT BUNDLE BRANCH BLOCK [90+ ms QRS DURATION, TERMINAL R IN V1/V2, 40+ ms S IN I/aVL/V4/V5/V6] NONSPECIFIC T-WAVE ABNORMALITY Compared to ECG 11/26/2020 10:14:05 Left-axis deviation now present Incomplete right bundle-branch block now present T-wave abnormality now present Ventricular-paced complex(es) or rhythm no longer present Electronically Signed On 04-05-2021 23:25:36 CDT by Ricki Denton M.D. [id number]
--- NOTE | 2021-04-05 10:15 | ED_ITS ---
HPI - Neuro Symptoms/Deficit General: Chief Complaint: Neuro Symptoms/Deficit Stated Complaint: dizzy, light headed, losing control L side/body Time Seen by Provider: 04/05/21 10:11 History of Present Illness: HPI Narrative: 81-year-old male presents emergency room with complaints of dizziness lightheadedness weakness on the left side. He went to bed last night around 11 PM and was okay states she is fully functional he thinks he may have gotten up around 2 or 4 people a.m. and was okay but then we got up this morning early he was unable to move his left side he tried to get up and stand but could not stand up and hold his weight. On exam now on arrival has no facial weakness his weakness in his left hand with slurry control tender strength and extreme weakness with his left leg unable to even lift up off the bed. He is awake and alert otherwise. He is mildly hypertensive. He denies any chest pain or discomfort. Onset (ago): minute(s) Location: left arm and left leg History of same: No Severity: mild Quality: weak and numb Relieving factors: none Associated symptoms: Deny chest pain, malaise, nausea or vomiting Review of Systems Const: Denies: fever(s), chills, body aches, change in appetite, fatigue or malaise ENMT: Denies: throat pain, ear or mastoid pain, nasal discharge or nasal congestion Card: Denies: chest pain, edema, dyspnea on exertion or orthopnea Resp: Denies: dyspnea, productive cough or non-productive cough GI: Denies: abdominal pain, nausea, vomiting, hematemesis, coffee ground emesis, diarrhea, constipation, bloating, hematochezia or melena : Denies: flank pain, dysuria, urinary frequency or urinary urgency Skin/Breast: Denies: rash or pruritus PFSH ED PFSH: Medical History ASHD (arteriosclerotic heart disease) Atrial fibrillation Atypical chest pain BPH NOS w ur obs/LUTS Good response to TAMSULOSIN. Carotid stenosis Doppler examination on 05/30/2020 The stent in the right internal carotid artery appeared to be patent with no significant stenosis. Moderate to heavy heterogeneous plaques were noted in the right common carotid artery. Moderate heterogeneous plaques at the left bifurcation and proximal internal carotid artery Elevated velocity in the external carotid artery on the right side, suggestive of hemodynamically significant stenosis. Compared to the study from 12/06/2017, there appears to be some worsening of stenosis in the right external carotid artery CHF (congestive heart failure) CVA (cerebral vascular accident) Hyperlipemia Hypertension Leg swelling Pacemaker Peripheral vascular disease Sleep apnea TIA (transient ischemic attack) Trigeminal neuralgia Ventral hernia Surgical History H/O bilateral cataract extraction H/O four vessel coronary artery bypass graft H/O heart artery stent History of pacemaker Status post cryoablation Family History Other CAD (coronary artery disease) Cancer Diabetes Family history of prostate cancer Social History Smoking and tobacco status: former smoker Alcohol intake: never Adopted: No Caregiver/support person: No Lives independently: No Household members: spouse Marital status: Current occupational status: retired History of recent travel: No Current gender identity: Male NIH stroke score NIHSS: Level Of Consciousness - 1a: 0 Level Of Consciousness Questions - 1b: Both Correct Level Of Consciousness Commands - 1c: Both Correct Best Gaze - 2: Normal Visual [place] - 3: No Visual Loss Facial Palsy - 4: Normal Motor Arm Right - 5: No Drift Motor Arm Left - 5: No Drift Motor Leg Right - 6: No Drift Motor Leg Left - 6: Effort Against [place] Limb Ataxia - 7: Present In One Limb Sensory - 8: Mild To Moderate Loss Best Language - 9: No Aphasia Dysarthia - 10: Normal Extinction And Inattention - 11: 0 Score: Total Score: 4 Physical Exam Const: COMMON NORMALS: no acute distress GENERAL APPEARANCE: cooperative and comfortable ORIENTATION/CONSCIOUSNESS: Yes awake, Yes oriented to person, Yes oriented to place and Yes oriented to time HENMT: COMMON NORMALS: normocephalic, atraumatic, hearing grossly normal bilaterally, external ears normal, EAC's normal, TM's normal bilaterally, Normal nasal mucous membranes and turbinates present, moist oral mucous membranes and oropharynx normal HEAD & SCALP: normocephalic and atraumatic NOSE: Normal nasal mucous membranes and turbinates present EXTERNAL EAR: Yes external ears normal EXTERNAL AUDITORY CANAL: EAC's normal TYMPANIC MEMBRANE: TM's normal bilaterally Eye: COMMON NORMALS: Equal, round and reactive pupils present, EOMs intact bilaterally, conjunctivae normal and no scleral icterus CONJUNCTIVA: Yes conjunctivae normal PUPIL: Yes Equal, round and reactive pupils present Neck/C-Spine: COMMON NORMALS: full ROM, no lymphadenopathy, supple and no JVD Lymph: LYMPHATIC: no lymphadenopathy noted and no lymphedema noted Resp: COMMON NORMALS: normal respiratory effort, No retractions, No use of accessory muscles and clear to auscultation bilaterally AUSCULTATION: clear to auscultation bilaterally Cardio: COMMON NORMALS: no JVD, regular rate, regular rhythm and No murmurs present (Cardio) RATE: regular rate RHYTHM: regular rhythm GI: COMMON NORMALS: Soft to palpation and No hepatosplenomegaly present AUSCULTATION: Yes normoactive bowel sounds PALPATION: Yes Soft to palpation, No Tenderness to palpation present (GI), No Guarding due to palpation present (GI) and Yes No hepatosplenomegaly present Extremity: COMMON NORMALS: normal to inspection, capillary refill normal, no clubbing, cyanosis or edema, no calf tenderness and no pedal edema Neuro: SENSORIUM/ORIENTATION: Yes oriented to person, Yes oriented to place and Yes oriented to time Skin: COMMON NORMALS: no rashes or lesions noted GENERAL SKIN EXAM: no rashes or lesions noted Course Vital Signs: Vital signs: Vital Signs Temperature 97.7 F 04/05/21 10:10 Pulse Rate 60 04/05/21 13:00 Respiratory Rate 22 H 04/05/21 13:00 Blood Pressure 115/52 04/05/21 13:00 Pulse Oximetry 91 04/05/21 13:00 MDM - Neuro Symptoms/Deficit MDM Narrative: Medical decision making narrative: Reviewed findings with the patient and family. Patient has acute hemorrhage at the both basal ganglia and posterior limb of the internal capsule. Arrangements made for transfer to tertiary care center. Persistent leg weakness no other advancing symptoms. Patient some of the symptoms have begun to improve already. Patient transferred to [facility] for neurosurgical and neurology evaluation. Neurosurgery not available at our facility. Lab Data: Labs: Lab Results 04/05/21 04/05/21 04/05/21 10:42 10:42 10:42 WBC 4.1 10^3/uL 10^3/ uL (4.0-10.0) RBC 4.61 10^6/uL 10^6 /uL (4.1-5.3) Hgb 12.2 g/dL g/dL (11.7-16.6) Hct 37.6 % L % (42.0-52.0) MCV 81.6 fl fl (80-94) MCH 26.5 pg L pg (28.0-34.0) MCHC 32.4 g/dL g/dL (30.0-36.0) RDW 15.0 % % (12.1-15.1) Plt Count 141 10^3/cmm 10^3 /cmm (130-400) MPV 9.3 fL fL (7.4-10.4) Neut % (Auto) 58.7 % % Lymph % (Auto) 16.9 % % Jackson % (Auto) 17.4 % % Eos % (Auto) 6.1 % % Baso % (Auto) 0.7 % % Neut # (Auto) 2.42 10^3/uL 10^3 /uL (1.8-7.7) Lymph # (Auto) 0.7 10^3/uL L 10^ 3/uL (0.8-4.8) Jackson # (Auto) 0.7 10^3/uL 10^3/ uL (0.2-0.9) Eos # (Auto) 0.3 10^3/uL 10^3/ uL (0.0-0.8) Baso # (Auto) 0.0 10^3/uL 10^3/ uL (0.0-0.1) Nucleated RBC % (a uto) 0 % % Nucleated RBCs # 0.0 /100WBC /100W BC PT 17.70 SECONDS H S ECONDS (12.1-14.9) INR 1.42 H (0.8-1.2) APTT 42.8 SECONDS H SE CONDS (23.9-36.7) Sodium 138 mmol/L mmol/L (136-145) Potassium 3.3 mmol/L L mmol /L (3.5-5.1) Chloride 100 mmol/L mmol/L (98-107) Carbon Dioxide 27 mmol/L mmol/L (22-29) Anion Gap 14.3 (5-19) BUN 21 mg/dL mg/dL (8-23) Creatinine 1.2 mg/dL mg/dL (0.7-1.2) GFR Calculation Not Reportable Glucose 114 mg/dL mg/dL (65-115) POC Glucose Calculated Osmolal ity 290 mOsm/kg mOsm/ kg (285-295) Calcium 9.0 mg/dL mg/dL (8.5-10.5) Total Bilirubin 0.5 mg/dL mg/dL (0.15-1.2) AST 13 U/L U/L (0-40) ALT 7 U/L U/L (0-41) Alkaline Phosphata se 56 IU/L IU/L (40-130) Total Protein 6.4 g/dL L g/dL (6.6-8.7) Albumin 4.0 g/dL g/dL (3.5-5.2) Globulin 2.4 g/dL g/dL (1.3-4.6) Urine Color Urine Appearance Urine pH Ur Specific Gravit y Urine Protein Urine Glucose (UA) Urine Ketones Urine Blood Urine Nitrate Urine Bilirubin Urine Urobilinogen Ur Leukocyte Alayna ase Urine Opiates Scre en Ur Barbiturates Sc reen Ur Phencyclidine S crn Ur Amphetamines Sc reen U Benzodiazepines Scrn Urine Cocaine Scre en U Marijuana (THC) Screen SARS-CoV-2 Ag (Rap id) 04/05/21 04/05/21 04/05/21 10:42 10:42 12:21 WBC RBC Hgb Hct MCV MCH MCHC RDW Plt Count MPV Neut % (Auto) Lymph % (Auto) Jackson % (Auto) Eos % (Auto) Baso % (Auto) Neut # (Auto) Lymph # (Auto) Jackson # (Auto) Eos # (Auto) Baso # (Auto) Nucleated RBC % (a uto) Nucleated RBCs # PT INR APTT Sodium Potassium Chloride Carbon Dioxide Anion Gap BUN Creatinine GFR Calculation Glucose POC Glucose 121 mg/dL H mg/dL 109 mg/dL mg/dL (70-110) (70-110) Calculated Osmolal ity Calcium Total Bilirubin AST ALT Alkaline Phosphata se Total Protein Albumin Globulin Urine Color Urine Appearance Urine pH Ur Specific Gravit y Urine Protein Urine Glucose (UA) Urine Ketones Urine Blood Urine Nitrate Urine Bilirubin Urine Urobilinogen Ur Leukocyte Alayna ase Urine Opiates Scre en Ur Barbiturates Sc reen Ur Phencyclidine S crn Ur Amphetamines Sc reen U Benzodiazepines Scrn Urine Cocaine Scre en U Marijuana (THC) Screen SARS-CoV-2 Ag (Rap id) Negative (Negative) 04/05/21 04/05/21 13:05 13:05 WBC RBC Hgb Hct MCV MCH MCHC RDW Plt Count MPV Neut % (Auto) Lymph % (Auto) Jackson % (Auto) Eos % (Auto) Baso % (Auto) Neut # (Auto) Lymph # (Auto) Jackson # (Auto) Eos # (Auto) Baso # (Auto) Nucleated RBC % (a uto) Nucleated RBCs # PT INR APTT Sodium Potassium Chloride Carbon Dioxide Anion Gap BUN Creatinine GFR Calculation Glucose POC Glucose Calculated Osmolal ity Calcium Total Bilirubin AST ALT Alkaline Phosphata se Total Protein Albumin Globulin Urine Color Straw (Yellow) Urine Appearance Clear (CLEAR) Urine pH 6.5 (5-7) Ur Specific Gravit y 1.005 (1.005-1.030) Urine Protein Neg (Negative) Urine Glucose (UA) Norm (Normal) Urine Ketones Negative (Negative) Urine Blood Neg (Negative) Urine Nitrate Negative (Negative) Urine Bilirubin Neg (Negative) Urine Urobilinogen Norm mg/dL mg/dL (Negative) Ur Leukocyte Alayna ase Negative (Negative) Urine Opiates Scre en Negative ng/mL ng /mL (Negative) Ur Barbiturates Sc reen Negative ng/mL ng /mL (Negative) Ur Phencyclidine S crn Negative ng/mL ng /mL (Negative) Ur Amphetamines Sc reen Negative ng/mL ng /mL (Negative) U Benzodiazepines Scrn Negative ng/mL ng /mL (Negative) Urine Cocaine Scre en Negative ng/mL ng /mL (Negative) U Marijuana (THC) Screen Negative ng/mL ng /mL (Negative) SARS-CoV-2 Ag (Rap id) Discharge Plan Discharge Patient Disposition: Transfer to ED Clinical Impression: Hemorrhagic stroke, Hypertension Prescriptions: No Action loteprednol etabonate [Lotemax] 0.5 % drops,suspension 1 drop ophthalmic (eye) BID@0800,1800 RF: 0 Combigan 0.2-0.5 % drops 1 drop ophthalmic (eye) BID@0800,1800 RF: 0 tamsulosin 0.4 mg capsule 0.4 mg PO DAILY@0800 RF: 0 isosorbide mononitrate 60 mg tablet extended release 24 hr 60 mg PO DAILY@0800 RF: 0 potassium chloride 20 mEq tablet,ER particles/crystals 20 meq PO DAILY@0800 RF: 0 epinephrine 0.3 mg/0.3 mL auto-injector 0.3 mg IM ONCE PRN (Reason: UNKNOWN) RF: 0 Zyrtec 10 mg capsule 10 mg PO DAILY PRN (Reason: Allergy Symptoms) RF: 0 albuterol sulfate 2.5 mg /3 mL (0.083 %) solution for nebulization 2.5 mg INHALATION Q4H PRN (Reason: Shortness Of Breath) RF: 0 Symbicort 160-4.5 mcg/actuation HFA aerosol inhaler 2 puff INHALATION DAILY@0800 RF: 0 rivaroxaban 15 mg tablet 15 mg PO DAILY RF: 0 Hold Instructions: Resume on 07/23/20. cholecalciferol (vitamin D3) 2,000 unit tablet 2,000 unit PO DAILY@0800 RF: 0 baclofen 10 mg tablet 10 mg PO DAILY@0800 RF: 0 Novolog U-100 Insulin aspart 100 unit/mL solution 5 unit SUBCUT TID@0800,1200,1700 RF: 0 glucosamine HCl 1,500 mg tablet 1,500 mg PO DAILY@0800 RF: 0 Lantus U-100 Insulin 100 unit/mL solution 30 unit SUBCUT BEDTIME@2100 RF: 0 guaifenesin [Mucinex] 600 mg tablet extended release 12hr 600 mg PO BID RF: 0 furosemide 40 mg tablet 60 mg PO BID@0600,1800 PRN (Reason: Edema) RF: 0 sotalol 80 mg tablet 120 mg PO DIRECTED Qty: 240 RF: 3 Referrals: Sandrita Almaguer MD [Primary Care Provider] - Coding Level of Care Code 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
[2021-04-05] MEDS: nitroglycerin 1 gm/inch oint Pkt 1 INCH TOPICAL (10:41)
[2021-04-05 10:43] LABS: Glucose Point of Care 121 mg/dL (70-110)
[2021-04-05 10:47] LABS: Basophils % 0.7 %; Eosinophils # 0.3 10^3/uL (0.0-0.8); Eosinophils % 6.1 %; Hematocrit 37.6 % (42.0-52.0); Hemoglobin 12.2 g/dL (11.7-16.6); Lymphocytes # 0.7 10^3/uL (0.8-4.8); Lymphocytes % 16.9 %; Mean Corpuscular HGB Conc 32.4 g/dL (30.0-36.0); Mean Corpuscular Hemoglobin 26.5 pg (28.0-34.0); Mean Corpuscular Volume 81.6 fl (80-94); Mean Platelet Volume 9.3 fL (7.4-10.4); Monocytes # 0.7 10^3/uL (0.2-0.9); Monocytes % 17.4 %; Neutrophils # 2.42 10^3/uL (1.8-7.7); Neutrophils % 58.7 %; Nucleated Red Blood Cells % 0 %; Platelet Count 141 10^3/cmm (130-400); Red Blood Count 4.61 10^6/uL (4.1-5.3); White Blood Count 4.1 10^3/uL (4.0-10.0)
[2021-04-05 11:01] LABS: INR 1.42 (0.8-1.2)
[2021-04-05 11:02] LABS: Partial Thromboplastin Time 42.8 SECONDS (23.9-36.7)
[2021-04-05] MEDS: nicardipine 20 MG/200 ML PREMIX 50 MG IV (11:09)
[2021-04-05 11:21] LABS: Alanine Aminotransferase 7 U/L (0-41); Alkaline Phosphatase 56 IU/L (40-130); Anion Gap 14.3 (5-19); Aspartate Amino Transferase 13 U/L (0-40); Blood Urea Nitrogen 21 mg/dL (8-23); Carbon Dioxide 27 mmol/L (22-29); Chloride 100 mmol/L (98-107); Globulin 2.4 g/dL (1.3-4.6); Glucose 114 mg/dL (65-115); Osmolality Calculated 290 mOsm/kg (285-295); Potassium 3.3 mmol/L (3.5-5.1); SARS Covid-2 Antigen Negative (Negative); Sodium 138 mmol/L (136-145); Total Bilirubin 0.5 mg/dL (0.15-1.2); Total Protein 6.4 g/dL (6.6-8.7)
[2021-04-05 12:23] LABS: Glucose Point of Care 109 mg/dL (70-110)
[2021-04-05 13:19] LABS: Add Urine Microscopic? NO; Charge for UA Resulting for Rev
[2021-04-05 13:22] LABS: Bilirubin Urine Neg (Negative); Blood Urine Neg (Negative); Glucose Urine UA Norm (Normal); Ketones Urine Negative (Negative); Leukocyte Esterase Urine Negative (Negative); Nitrate Urine Negative (Negative); Protein Urine Neg (Negative); Specific Gravity, Urine 1.005 (1.005-1.030); Urine Appearance Clear (CLEAR); Urine Color Straw (Yellow); Urobilinogen Urine Norm (Negative); pH Urine 6.5 (5-7)
[2021-04-05 13:30] LABS: Amphetamines Screen Urine Negative (Negative); Barbiturates Screen Urine Negative (Negative); Benzodiazepines Screen Urine Negative (Negative); Cocaine Screen Urine Negative (Negative); Opiate Screen Urine Negative (Negative); PCP Screen Urine Negative (Negative); THC Screen Urine Negative (Negative)
== END 2021-04-05 14:00 ==
LOC: ER 10:15
PROVIDERS: Emergency Provider Family Medicine; PCP Family Medicine
DX: I62.9 Nontraumatic intracranial hemorrhage, unspecified (principal); G81.94 Hemiplegia, unspecified affecting left nondominant side; Z79.4 Long term (current) use of insulin; Z79.01 Long term (current) use of anticoagulants; R29.704 NIHSS score 4; Z87.891 Personal history of nicotine dependence; I48.91 Unspecified atrial fibrillation; I11.0 Hypertensive heart disease with heart failure; I50.9 Heart failure, unspecified; Z86.73 Personal history of transient ischemic attack (TIA), and cerebral infarction without residual deficits; E78.5 Hyperlipidemia, unspecified; Z95.0 Presence of cardiac pacemaker; I73.9 Peripheral vascular disease, unspecified
CPT/HCPCS: 36416; 70450; 80053; 80306; 81003; 82962; 85025; 85610; 85730; 87426; 93005; 96365; 96366; 99285

== ENCOUNTER 2021-04-27 06:00 | Outpatient (RCR) | payer OTHER, SELFPAY | END 2021-05-10 23:59 | disposition home or self-care (01) | LOC: SPT 06:00 | PROVIDERS: PCP Family Medicine; Referring Provider Family Medicine; Visit Provider Family Medicine | DX: I61.9 Nontraumatic intracerebral hemorrhage, unspecified (principal) | CPT/HCPCS: 97110; 97112; 97162 ==

== ENCOUNTER 2021-05-02 14:04 | Outpatient (CLI) | payer OTHER, SELFPAY ==
[2021-05-02 14:53] LABS: Basophils % 0.6 %; Eosinophils # 0.2 10^3/uL (0.0-0.8); Eosinophils % 3.5 %; Hematocrit 39.1 % (42.0-52.0); Hemoglobin 13.1 g/dL (11.7-16.6); Lymphocytes # 1.1 10^3/uL (0.8-4.8); Lymphocytes % 16.8 %; Mean Corpuscular HGB Conc 33.5 g/dL (30.0-36.0); Mean Corpuscular Hemoglobin 27.3 pg (28.0-34.0); Mean Corpuscular Volume 81.5 fl (80-94); Mean Platelet Volume 10.8 fL (7.4-10.4); Monocytes # 0.9 10^3/uL (0.2-0.9); Neutrophils # 4.31 10^3/uL (1.8-7.7); Neutrophils % 65.8 %; Nucleated Red Blood Cells % 0 %; Platelet Count 164 10^3/cmm (130-400); Red Cell Distribution Width 15.9 % (12.1-15.1); White Blood Count 6.6 10^3/uL (4.0-10.0)
[2021-05-02 15:13] LABS: Alanine Aminotransferase 13 U/L (0-41); Albumin Level 4.1 g/dL (3.5-5.2); Alkaline Phosphatase 52 IU/L (40-130); Aspartate Amino Transferase 17 U/L (0-40); Blood Urea Nitrogen 31 mg/dL (8-23); Calcium 8.8 mg/dL (8.5-10.5); Carbon Dioxide 26 mmol/L (22-29); Chloride 101 mmol/L (98-107); Globulin 2.5 g/dL (1.3-4.6); Glucose 172 mg/dL (65-115); Osmolality Calculated 297 mOsm/kg (285-295); Sodium 138 mmol/L (136-145); Total Bilirubin 0.4 mg/dL (0.15-1.2); Total Protein 6.6 g/dL (6.6-8.7)
[2021-05-02 15:16] LABS: Anion Gap 15.1 (5-19); Potassium 4.1 mmol/L (3.5-5.1)
[2021-05-02 15:17] LABS: Lactate Dehydrogenase 144 U/L (135-225)
--- NOTE | 2021-05-06 09:57 | ONC FU_ITS ---
Dr. Méndez Patient Follow-Up Note Patient: Panchito Macedo Unit #: [id number]: [id number] Dicatated By: Kole Méndez M.D.Date of Visit:May 02, 2021 Onc Med Follow-up/Prog Note Chief Complaint: Lymphoma. 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 He had presented with abdominal pain which have been getting progressively worse over about [address] abdomen/pelvis on 06/08/2020 showed mesenteric mass with epicenter superior to the L4-L5 disc space level measuring 4.4 x 10.0 cm. It was noted to have enlarged compared to prior study from August 2018. Also noted was a pathologically enlarged right retrocrural lymph node measuring 1.5 cm. There was no associated bowel thickening, ileus, or obstruction. There was no hydronephrosis. Bibasilar interstitial and groundglass opacity in the lungs was felt to be compatible with edema, pneumonitis, and or atelectasis. He was referred to Dr. oCok. On 07/20/2020 he underwent diagnostic laparoscopy with biopsies of the mesenteric mass. 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 IHC stains showed positivity for CD20, and BCL-2. They were negative for CD10, BCL6, and cyclin D1. CD5 was negative in B cells and positive in T cells. The Ki-67 was low at less than 10%. I had seen him initially on 08/12/2020. By clinical evaluation his disease appeared to be stage IIE and in the setting of a low-grade lymphoma, he was recommended to begin treatment with bendamustine/rituximab for 4-6 cycles. He began cycle 1 on 08/26/2020. On 09/04/2020 he was seen in the emergency room with fever of 103.1 degrees. His CBC showed normal white count of 8900 with 81% neutrophils, so that he was clearly not neutropenic. Chest x-ray showed no acute findings. His sinus CT showed extensive nonspecific paranasal sinus disease. He began empiric antibiotic therapy with Levaquin with a presumptive diagnosis of sinusitis. He was seen for a follow-up visit on 09/09/2020. At that point he was still having fever up to 102.7 degrees. Multiple blood cultures were growing coagulase-negative staph, which turned out to be staph epidermidis. A specific source of the infection was not deterimined. During the hospitalization he underwent placement of a PICC line and he subsequently completed a 6-week course of outpatient antibiotic therapy with daptomycin. He then continued with cycle 2 of bendamustine/rituximab on 11/03/2020 and with cycle 3 on 12/01/2020. He tolerated both cycles without significant toxicity. At his follow-up visit on 12/29/2020 he complained of recent onset of lower abdominal pain and diarrhea. His chemotherapy was put on hold. His repeat CT abdomen/pelvis showed evidence of colonic diverticulosis but no sign of acute diverticulitis. The previously noted conglomerate retroperitoneal lymphadenopathy was noted to have almost completely resolved. There was evidence of residual fibrosis and several fatty replaced lymph nodes also were noted. Additional areas of diffuse haziness and stranding of the mesenteric fat was noted as well, but there was no obvious new lymphadenopathy or mass noted. There was a moderate amount of abdominal and pelvic ascites. The liver appeared somewhat lobulated in contour suggesting the possibility of hepatic cirrhosis. A stool test for C. difficile was negative. He was seen for a follow-up visit on 01/25/2021. At that point he appeared stable clinically. I opted not to attempt maintenance rituximab due to potential risk involved with the associated immunosuppression. His medical history is otherwise significant for coronary artery disease, congestive heart failure, and atrial fibrillation and for cerebrovascular disease with prior TIAs and strokes. His other medical illnesses include hypertension, type 2 diabetes, peripheral arterial disease, carotid stenosis, COPD, obstructive sleep apnea, GERD, trigeminal neuralgia, and benign prostatic hypertrophy. He has had prior coronary angioplasty/stent placement and coronary artery bypass surgery, pacemaker implantation, and right carotid artery stent placement. He has a history of smoking 1 pack of cigarettes daily, but he quit smoking 35 years ago. INTERIM HISTORY: On 04/05/2021 he was admitted to [facility] with hemorrhagic stroke. He had a good recovery with conservative management. He is now getting physical therapy and he is walking with a cane. ECOG score is 2. His appetite has been okay, but he has had significant weight loss. By our scales it is in the range of 15 pounds. He does not have fever, but he does have night sweating, which is chronic. He also has chronic sinus drainage. He has a little bit of cough. He has some shortness of breath, but he says his breathing is pretty good. He does not complain of chest pain. He has no GI complaints other than constipation, but he says his bowels have been working better the past couple of weeks. He has no complaints. He has chronic pain, managed with glucosamine. He has neuropathy, and he has associated sharp pains intermittently in both upper and lower extremities, but they do not last long. Medications: Albuterol Sulfate ((2.5 mg/3ml) 0.083%) Nebulization solution Inhalation 8x/d, All Day Allergy Tablet Oral, Baclofen (10 mg) Tablet Oral daily, Brimonidine Tartrate-Timolol (0.2-0.5 %) Solution Ophthalmic b.i.d., Budesonide (0.25 mg/2mL) Aerosol Powder, Breath Activated Inhalation b.i.d., Budesonide-Formoterol Fumarate (160-4.5 mcg/act) Aerosol Inhalation daily, Furosemide 1 (60 mg) Tablet Oral b.i.d. PRN, Glucosamine HCl (1500 mg) Tablet Oral daily, Insulin Aspart (5 Units/mL) Subcutaneous ac (tid), Insulin Glargine (42 Units/mL) Subcutaneous at bedtime, Isosorbide Mononitrate ER (60 mg) Tablet SR 24 HR Oral daily, Klor-Con (20 meq) Capsule, controlled release Oral daily, Lisinopril (2.5 mg) Tablet Oral b.i.d., Lotemax (0.5 %) Suspension Ophthalmic b.i.d., Montelukast Sodium (10 mg) Tablet Oral daily, Norvasc (10 mg) Tablet Oral daily, Rivaroxaban (15 mg) Tablet Oral daily, Sotalol HCl 1 (80 mg) Tablet Oral b.i.d., Tamsulosin HCl (0.4 mg) Capsule Oral daily, Vitamin D3 (2000 units ) Capsule Oral daily Allergies: Acetaminophen, Calcitriol, Fish Oil, Gabapentin, HYDROcodone-Acetaminophen, oxyCODONE HCl, Red Dye, Statins, Sulfa Antibiotics, and traMADol HCl. Vital Signs: Performed on May 02, 2021 15:54 Height - 67.00 in Weight - 200.4 lbs (LOW) BSA - 2.02 sq.m BMI - 31.39 (HIGH) Temperature - 96.3 F (LOW) Pulse - 69 /min Respiration - 16 /min BP - 137/76 mm(hg) O2 Sat - 95 % (LOW) Pain - 10 Fatigue - 0 Physical Examination: Constitutional - He appears somewhat weak generally, Eyes - Sclerae nonicteric. Conjunctivae clear, ENMT - No lesions noted in the oral cavity, Hematologic/Lymphatic - No cervical, clavicular, or axillary adenopathy, Respiratory - Lungs sound clear with diminished air movement bilaterally, Cardiovascular - Heart rhythm is irregular. There is no murmur, gallop, or rub noted, Abdomen - Mildly distended but soft. Liver and spleen are not enlarged. There is no abdominal mass or ascites noted and there is no inguinal adenopathy, Extremities - No edema, Neurologic - He does not appear to have any focal neurologic deficit. Lab/Imaging: Test performed on May 02, 2021 14:27 LDH (Total) 144 U/L Sodium 138 mmol/L Potassium 4.1 mmol/L Chloride 101 mmol/L CO2 26 mmol/L Anion Gap 15.1 BUN 31 mg/dL Creatinine 1.2 mg/dL Cr Clearance (Est) 62.07 mL/min Glucose 172 mg/dL Osmolality - Calculated 297 mOsm/kg Calcium 8.8 mg/dL Protein, Total 6.6 g/dL Albumin 4.1 g/dL Globulin 2.5 g/dL Bilirubin, Total 0.4 mg/dL ALT (SGPT) 13 U/L AST (SGOT) 17 U/L Alkaline Phosphatase 52 IU/L WBC 6.6 10 3/uL RBC 4.80 10 6/uL HGB 13.1 g/dL HCT 39.1 % MCV 81.5 fl MCH 27.3 pg MCHC 33.5 g/dL RDW 15.9 % Platelet Count 164 10 3/cmm MPV 10.8 fL Neutrophils 4.31 10 3/uL Lymphocytes 1.1 10 3/uL Monocytes 0.9 10 3/uL Eosinophils 0.2 10 3/uL Basophils 0.0 10 3/uL Neutrophil % 65.8 % Lymphocyte % 16.8 % Monocyte % 13.0 % Eosinophil % 3.5 % Basophils % 0.6 % NRBC % 0 % Test performed on Dec 30, 2020 06:00 C. Difficile, PCR No C. difficile toxin B gene DNA detected Problem List: 1. Marginal zone lymphoma presenting as large mesenteric mass. By CT scan there also appears to be involvement in a retrocrural lymph node, thus stage IIE. 2. Hypertension. 3. Type 2 diabetes with peripheral neuropathy. 4. Carotid stenosis with previous right carotid artery stent placement. 5. Coronary artery disease with history of coronary angioplasty/stent placement and subsequent coronary artery bypass surgery. 6. Atrial fibrillation. 7. Congestive heart failure. 8. Peripheral arterial disease. 9. GERD. 10. COPD. 11. Obstructive sleep apnea. 12. Benign prostatic hypertrophy. 13. Trigeminal neuralgia. Problems Addressed with this Encounter and Plan: Patient with marginal zone lymphoma presenting as large mesenteric mass. By CT scan there also appeared to be involvement in a retrocrural lymph node, thus stage IIE. Given the low Ki-67 and the interval from his prior CT scan, he appeared to have low-grade disease. He began cycle 1 of chemotherapy with bendamustine/Rituxan on 08/25/2020. He tolerated it without acute toxicity. He had subsequently presented with fever up to 103 degrees. He was admitted to the hospital after multiple blood cultures were found to be positive for staph epidermidis. The source of the infection wa not determined, but he was not neutropenic and he did not have any type of indwelling device other than his pacemaker. He has completed a 6-course of outpatient IV antibiotic therapy with daptomycin administered through a PICC line. He continued with cycle 2 of bendamustine/rituximab on 11/03/2020 and with cycle 3 on 12/01/2020. He tolerated both cycles with acceptable toxicity. His 4th cycle, though, was deferred when he presented with increased lower abdominal pain and diarrhea. A specific cause for that was not determined. His repeat CT abdomen/pelvis showed significant response to the chemotherapy, with almost complete resolution of the retroperitoneal adenopathy. There was moderate abdominal and pelvic ascites, and the liver was noted to have a lobulated contour, suggesting possible hepatic cirrhosis. Given the significant response to the treatment, I opted not to attempt further chemotherapy. In view of the potential risk with the immunosuppression associated with rituximab, I also opted not to attempt maintenance therapy. As such, he is being followed on expectant management. Thus far there has been no obvious disease progression. I will see him again in 3 months, or sooner as needed. Signed By: Kole Méndez M.D. <<Signature on File>>
== END 2021-05-02 14:05 | disposition home or self-care (01) ==
LOC: ONCMED 14:07
PROVIDERS: PCP Family Medicine; Visit Provider Internal Medicine Medical Oncology
DX: Z08 Encounter for follow-up examination after completed treatment for malignant neoplasm (principal); Z85.72 Personal history of non-Hodgkin lymphomas; I10 Essential (primary) hypertension; E11.42 Type 2 diabetes mellitus with diabetic polyneuropathy; E11.59 Type 2 diabetes mellitus with other circulatory complications; I25.10 Atherosclerotic heart disease of native coronary artery without angina pectoris; Z95.5 Presence of coronary angioplasty implant and graft; I65.21 Occlusion and stenosis of right carotid artery; I48.91 Unspecified atrial fibrillation; I50.9 Heart failure, unspecified; I73.9 Peripheral vascular disease, unspecified; K21.9 Gastro-esophageal reflux disease without esophagitis; J44.9 Chronic obstructive pulmonary disease, unspecified; G47.33 Obstructive sleep apnea (adult) (pediatric); N40.0 Benign prostatic hyperplasia without lower urinary tract symptoms; G50.0 Trigeminal neuralgia; Z79.899 Other long term (current) drug therapy; Z92.21 Personal history of antineoplastic chemotherapy
CPT/HCPCS: 36415; 80053; 83615; 85025; 99214

== ENCOUNTER 2021-05-11 06:00 | Outpatient (RCR) | payer OTHER, SELFPAY | END 2021-06-10 23:59 | disposition home or self-care (01) | LOC: SPT 06:00 | PROVIDERS: PCP Family Medicine; Referring Provider Family Medicine; Visit Provider Family Medicine | DX: I67.9 Cerebrovascular disease, unspecified (principal); R42 Dizziness and giddiness | CPT/HCPCS: 97110 ==

== ENCOUNTER 2021-06-11 06:00 | Outpatient (RCR) | payer OTHER, SELFPAY | END 2021-07-11 23:59 | disposition home or self-care (01) | LOC: SPT 06:00 | PROVIDERS: PCP Family Medicine; Visit Provider Family Medicine | DX: I61.9 Nontraumatic intracerebral hemorrhage, unspecified (principal) | CPT/HCPCS: 97110; 97112 ==

== ENCOUNTER 2021-07-08 18:29 | Emergency (ER) | payer OTHER, MEDICARE, SELFPAY ==
[2021-07-08 19:01] VITALS: BP 137/84; PULSE 60; RESP 16; TEMP 37.7; O2SAT 88
--- NOTE | 2021-07-08 19:41 | XRR_ITS ---
PROCEDURE INFORMATION: Exam: XR Chest Exam date and time: 07/08/2021 7:41 PM Age: 81 years old Clinical indication: Cough and fever and shortness of breath; Prior surgery; Surgery date: 6+ months; Surgery type: Triple bypass, pacemaker; Additional info: Covid, hypoxia TECHNIQUE: Imaging protocol: XR of the chest. Views: 1 view. COMPARISON: CR XR chest 1V portable [id number] 09/14/2020 10:57 AM FINDINGS: Lungs: Changes of emphysema. Mild ground-glass opacities in both lung bases. The upper and mid lung zones appear clear. Pleural spaces: Unremarkable. No pleural effusion. No pneumothorax. Heart/Mediastinum: Unremarkable. No cardiomegaly. Bones/joints: Median sternotomy changes. Intact dual lead left subclavian pacemaker. XR/XR chest 1V portable [id number] IMPRESSION: 1. Mild ground-glass opacities in the lung bases could indicate pneumonia.
--- NOTE | 2021-07-08 19:42 | ECG_ITS ---
[facility] Test Date: 2021-07-08 Pat Name: Panchito Macedo Department: Room: Gender: Male Perinatology Physician: : 1940 Requested By: Panchito Bruce Order Number: [id number] Chey MD: LORIE CASTILLO Measurements Intervals [place] Rate: 79 P: NM: QRS: -39 QRSD: 84 T: 82 QT: 416 QTc: 479 Interpretive Statements ATRIAL FIBRILLATION LEFT AXIS DEVIATION [QRS AXIS < -30] PATTERN CONSISTENT WITH PULMONARY DISEASE NONSPECIFIC ST & T-WAVE ABNORMALITY Compared to ECG 04/05/2021 10:30:03 Atrial-paced complex(es) or rhythm no longer present Incomplete right bundle-branch block no longer present T-wave abnormality still present Electronically Signed On 07-09-2021 17:45:06 REED OR WIND INSTRUMENT REPAIRER by LORIE CASTILLO [id number]
[2021-07-08 21:21] VITALS: PULSE 84; RESP 16; O2SAT 97
--- NOTE | 2021-07-08 21:46 | W.ED.GENADLT ---
Documented by User: Viviane Harrison MD 07/08/21 22:54 HPI - General Adult General: Chief complaint: COVID symptoms Stated complaint: COVID +, SOB Time Seen by Provider: 07/08/21 21:09 History of Present Illness: CC: Shortness of breath, fever and generalized weakness HPI: This is a [81] yo patient w/ hx of COPD on 2L of [place], CAD s/p stent x 5, DM presenting to the ED with malaise, generalized weakness, cough sputum production, and fever at home x 6 days. Since onset of symptoms, has had some shortness of breath and decreased PO intake. Patient was positive for covid on Sunday. NO recent travel. Endorses no sick contacts around. Patient reports nausea and diarrhea. Denies chest pain, diaphoresis, other GI or complaints. Denies any pleuritic chest pain, recent surgery/immobilization/travel, or hematemesis or hx of VTE in the past. Onset: 6 days ago Duration: ongoing for the last 6 days Location: home Severity: moderate Associated symptoms: Reports dyspnea, malaise and nausea; Deny chest pain, rash, palpitations or vomiting Review of Systems Const: Reports: fever(s), chills, fatigue and malaise Eyes: Denies: change in vision ENMT: Denies: mouth pain Card: Denies: chest pain or palpitations Resp: Reports: dyspnea and non-productive cough GI: Reports: abdominal pain, nausea and diarrhea; Denies: vomiting : Denies: dysuria Musc: Denies: extremity pain Skin/Breast: Denies: rash or new lesions Neuro: Denies: weakness in extremities Psych: Reports: other (Normal mood) Justin/Lymph: Denies: easy bruising PFS ED PFSH: Medical History ASHD (arteriosclerotic heart disease) Atrial fibrillation Atypical chest pain BPH NOS w ur obs/LUTS Good response to TAMSULOSIN. Carotid stenosis Doppler examination on 05/30/2020 The stent in the right internal carotid artery appeared to be patent with no significant stenosis. Moderate to heavy heterogeneous plaques were noted in the right common carotid artery. Moderate heterogeneous plaques at the left bifurcation and proximal internal carotid artery Elevated velocity in the external carotid artery on the right side, suggestive of hemodynamically significant stenosis. Compared to the study from 12/06/2017, there appears to be some worsening of stenosis in the right external carotid artery CHF (congestive heart failure) CVA (cerebral vascular accident) Hyperlipemia Hypertension Leg swelling Pacemaker Peripheral vascular disease Sleep apnea TIA (transient ischemic attack) Trigeminal neuralgia Ventral hernia Surgical History H/O bilateral cataract extraction H/O four vessel coronary artery bypass graft H/O heart artery stent History of pacemaker Status post cryoablation Family History Other CAD (coronary artery disease) Cancer Diabetes Family history of prostate cancer Social History Alcohol intake: never Adopted: No Caregiver/support person: No Lives independently: No Household members: spouse Marital status: Current occupational status: retired History of recent travel: No Current gender identity: Male Physical Exam Const: COMMON NORMALS: alert HENMT: COMMON NORMALS: atraumatic HEAD & SCALP: atraumatic MOUTH: moist mucous membranes not abnormal Eye: COMMON NORMALS: EOMs intact bilaterally and conjunctivae normal CONJUNCTIVA: Yes conjunctivae normal Neck/C-Spine: COMMON NORMALS: full ROM and supple Resp: COMMON NORMALS: normal respiratory effort and clear to auscultation bilaterally AUSCULTATION: clear to auscultation bilaterally Cardio: COMMON NORMALS: regular rate RATE: regular rate GI: COMMON NORMALS: Soft to palpation and non-tender PALPATION: Yes Soft to palpation OTHER: No focal TTP. NO guarding rebound, guarding, rigidity. No CVA tenderness to percussion. Neg Dick/Neg McBurney's point tenderness, no suprabupic tenderness to palpation. Extremity: COMMON NORMALS: full ROM Neuro: SENSORIUM/ORIENTATION: Yes alert MOTOR EXAM: No Abnormal motor strength present and Other motor observations present (no focal motor deficits) Psych: COMMON NORMALS: speech normal SPEECH: Yes normal speech MOOD & AFFECT: Yes euthymic mood Course Vital Signs: Vital signs: Vital Signs Temperature 99.8 F H 07/08/21 19:01 Pulse Rate 84 07/08/21 21:21 Respiratory Rate 16 07/08/21 21:21 Blood Pressure 137/84 07/08/21 19:01 Pulse Oximetry 86 L 07/09/21 00:32 MDM - General Adult Medical Decision Making [81]yo patient w/ hx of multiple comorbidites presenting to the ED with shortness of breath, cough, and malaise concerning for covid pneumonia. iven History, Exam, and Workup presentation most consistent with pneumonia.Presentation not consistent with PE, COPD exacerbation, Pneumothorax, TB, Atypical ACS, Esophageal Rupture, Toxic Exposure, Foreign Body Airway Obstruction. Workup: CXR Chest, COVID sent out, basic blood work Intervention: Tylenol 1gram, PO challenge, serial reassessment, oxygen, decadron, remdesivir [11pm] On reassessment, XR findings of ground-glass opacity. We have our own COVID test since patient may qualify for monoclonal treatment. Findings consistent with COVID. Afebrile currently. Patient continues to sat at [95]% on 3L oxygen. Given concerns for possible respiratory decompensation, I have offered patient admission for serial/close observation in the emergency room. Case signed out to Dr. Bales pending home O2 eval, a trial of GI cocktail and reassessment. Lab Data : 07/08/21 22:29 07/08/21 22: Radiology Impressions Chest X-Ray 07/08/21 19:41 IMPRESSION: 1. Mild ground-glass opacities in the lung bases could indicate pneumonia. Laboratory Results WBC 5.7 10^3/uL (4.0-10.0) 07/08/21 22: RBC 4.83 10^6/uL (4.1-5.3) 07/08/21: Hgb 13.6 g/dL (11.7-16.6) 07/08/21: Hct 41.3 % (42.0-52.0) L 07/08/21: MCV 85.5 fl (80-94) 07/08/21: MCH 28.2 pg (28.0-34.0) 07/08/21: MCHC 32.9 g/dL (30.0-36.0) 07/08/21: RDW 14.7 % (12.1-15.1) 07/08/21: Plt Count 173 10^3/cmm (130-400) 07/08/21: MPV 10.5 fL (7.4-10.4) H 07/08/21 22: Neut % (Auto) 75.1 % 07/08/21 22: Lymph % (Auto) 12.1 % 07/08/21 22: [place] % (Auto) 11.7 % 07/08/21: Eos % (Auto) 0.4 % 07/08/21 22: Baso % (Auto) 0.2 % 07/08/21 Neut # (Auto) 4.29 10^3/uL (1.8-7.7) 07/08/21: Lymph # (Auto) 0.7 10^3/uL (0.8-4.8) L 07/08/21: [place] # (Auto) 0.7 10^3/uL (0.2-0.9) 07/08/21: Eos # (Auto) 0.0 10^3/uL (0.0-0.8) 07/08/21 Baso # (Auto) 0.0 10^3/uL (0.0-0.1) 07/08/21: Nucleated RBC % (auto) 0 % 07/08/21 Nucleated RBCs # 0.0 /100WBC 07/08/21: Sodium 138 mmol/L (136-145) 07/08/21 22: Potassium 4.6 mmol/L (3.5-5.1) 07/08/21: Chloride 99 mmol/L (98-107) 07/08/21: Carbon Dioxide 27 mmol/L (22-29) 07/08/21: Anion Gap 16.6 (5-19) 07/08/21: BUN 27 mg/dL (8-23) H 07/08/21: Creatinine 1.3 mg/dL (0.7-1.2) H 07/08/21: GFR Calculation Not Reportable 07/08/21: Glucose 148 mg/dL (65-115) H 07/08/21: Calculated Osmolality 294 mOsm/kg (285-295) 07/08/21: Calcium 8.1 mg/dL (8.5-10.5) L 07/08/21 22:29 Total Bilirubin 0.5 mg/dL (0.15-1.2) 07/08/21 22:29 AST 30 U/L (0-40) 07/08/21 22:29 ALT 10 U/L (0-41) 07/08/21 22:29 Alkaline Phosphatase 61 IU/L (40-130) 07/08/21 22:29 Troponin T Baseline 69 ng/L (0-15) H 07/08/21 22:29 Total Protein 6.7 g/dL (6.6-8.7) 07/08/21 22:29 Albumin 3.7 g/dL (3.5-5.2) 07/08/21 22:29 Globulin 3.0 g/dL (1.3-4.6) 07/08/21 22:29 Discharge Plan Discharge Patient Disposition: Home Clinical Impression: COVID, 2019 novel coronavirus-infected pneumonia (NCIP) Condition: Stable Prescriptions: New Zofran 4 mg tablet 4 mg PO TID PRN (Reason: nausea and vomiting) 4 Days Qty: 12 0RF acetaminophen 500 mg tablet 500 mg PO Q6H PRN (Reason: pain) 5 Days Qty: 20 0RF Pepcid 20 mg tablet 20 mg PO BID PRN (Reason: abdominal pain) 10 Days Qty: 20 0RF albuterol sulfate 90 mcg/actuation HFA aerosol inhaler 2 inh inhalation Q4H PRN (Reason: shortness of breath or wheezing) 5 Days Qty: 6.7 0RF Maalox Advanced 1,000-60 mg tablet,chewable 1 tab PO TID PRN (Reason: abdominal pain) 7 Days Qty: 21 0RF dexamethasone 6 mg tablet 6 mg PO DAILY Qty: 5 0RF No Action doxycycline hyclate 100 mg capsule 100 mg PO BID 7 Days Qty: 14 0RF loteprednol etabonate [Lotemax] 0.5 % drops,suspension 1 drop ophthalmic (eye) BID@0800,1800 0RF Combigan 0.2-0.5 % drops 1 drop ophthalmic (eye) BID@0800,1800 0RF tamsulosin 0.4 mg capsule 0.4 mg PO DAILY@0800 0RF isosorbide mononitrate 60 mg tablet extended release 24 hr 60 mg PO DAILY@0800 0RF potassium chloride 20 mEq tablet,ER particles/crystals 20 meq PO DAILY@0800 0RF epinephrine 0.3 mg/0.3 mL auto-injector 0.3 mg IM ONCE PRN (Reason: UNKNOWN) 0RF Rx Instructions: ONE TIME Zyrtec 10 mg capsule 10 mg PO DAILY PRN (Reason: Allergy Symptoms) 0RF albuterol sulfate 2.5 mg /3 mL (0.083 %) solution for nebulization 2.5 mg INHALATION Q4H PRN (Reason: Shortness Of Breath) 0RF Symbicort 160-4.5 mcg/actuation HFA aerosol inhaler 2 puff INHALATION DAILY@0800 0RF rivaroxaban 15 mg tablet 15 mg PO DAILY 0RF Hold Instructions: Resume on 07/23/20. cholecalciferol (vitamin D3) 2,000 unit tablet 2,000 unit PO DAILY@0800 0RF baclofen 10 mg tablet 10 mg PO DAILY@0800 0RF Novolog U-100 Insulin aspart 100 unit/mL solution 5 unit SUBCUT TID@0800,1200,1700 0RF Rx Instructions: SLIDING SCALE glucosamine HCl 1,500 mg tablet 1,500 mg PO DAILY@0800 0RF Lantus U-100 Insulin 100 unit/mL solution 30 unit SUBCUT BEDTIME@2100 0RF Label Comments: Patient states that he takes 30 u if he hasn't ate well that evening. Rx Instructions: at HS guaifenesin [Mucinex] 600 mg tablet extended release 12hr 600 mg PO BID 0RF furosemide 40 mg tablet 60 mg PO BID@0600,1800 PRN (Reason: Edema) 0RF sotalol 80 mg tablet 120 mg PO DIRECTED Qty: 240 3RF Rx Instructions: Take 120mg every morning and 80mg every evening. Discharge Orders: Discharge ED (Routine); Ordered 07/09/21 Ordered By: Venkata Bales Other Ambulatory Orders: Request for [facility] (Routine) Timeframe: 1 Day Facility: [facility] - Location: Outpatient Surgical Services Ordered By: Viviane Harrison Referrals: Sandrita Almaguer MD [Primary Care Provider] - Discharge Diet: Advance as tolerated Discharge Activity: Increase activity as tolerated Patient Instructions: COVID-19 (Coronavirus Disease 2019) (ED) Activity Restrictions/Additional Instructions: Medications as directed. He will be set up for monoclonal antibody infusion as an outpatient if the medication is available. the order has been written. Come back to the emergency room if your symptoms worsen, have any shortness of breath, fever/chills, dehydration, inability tolerate food or drinks, any difficulty breathing, or any new or concerning complaints. Please return the emergency room if your pulse ox reads less than 88%. Coding Level of Care Code ED Procurement Coordinator for Chg Fwd Exam Comprehensive Documented by User: Venkata Bales DO 07/09/21 01:57 HPI - General Adult General: Chief complaint: COVID symptoms Stated complaint: COVID +, SOB Time Seen by Provider: 07/08/21 21:09 PFSH ED PFSH: Medical History ASHD (arteriosclerotic heart disease) Atrial fibrillation Atypical chest pain BPH NOS w ur obs/LUTS Good response to TAMSULOSIN. Carotid stenosis Doppler examination on 05/30/2020 The stent in the right internal carotid artery appeared to be patent with no significant stenosis. Moderate to heavy heterogeneous plaques were noted in the right common carotid artery. Moderate heterogeneous plaques at the left bifurcation and proximal internal carotid artery Elevated velocity in the external carotid artery on the right side, suggestive of hemodynamically significant stenosis. Compared to the study from 12/06/2017, there appears to be some worsening of stenosis in the right external carotid artery CHF (congestive heart failure) CVA (cerebral vascular accident) Hyperlipemia Hypertension Leg swelling Pacemaker Peripheral vascular disease Sleep apnea TIA (transient ischemic attack) Trigeminal neuralgia Ventral hernia Surgical History H/O bilateral cataract extraction H/O four vessel coronary artery bypass graft H/O heart artery stent History of pacemaker Status post cryoablation Family History Other CAD (coronary artery disease) Cancer Diabetes Family history of prostate cancer Social History Alcohol intake: never Adopted: No Caregiver/support person: No Lives independently: No Household members: spouse Marital status: Current occupational status: retired History of recent travel: No Current gender identity: Male Course Vital Signs: Vital signs: Vital Signs Temperature 99.8 F H 07/08/21 19:01 Pulse Rate 84 07/08/21 21:21 Respiratory Rate 16 07/08/21 21:21 Blood Pressure 137/84 07/08/21 19:01 Pulse Oximetry 86 L 07/09/21 00:32 MDM - General Adult Medical Decision Making [81]yo patient w/ hx of multiple comorbidites presenting to the ED with shortness of breath, cough, and malaise concerning for covid pneumonia. iven History, Exam, and Workup presentation most consistent with pneumonia.Presentation not consistent with PE, COPD exacerbation, Pneumothorax, TB, Atypical ACS, Esophageal Rupture, Toxic Exposure, Foreign Body Airway Obstruction. Workup: CXR Chest, COVID sent out, basic blood work Intervention: Tylenol 1gram, PO challenge, serial reassessment, oxygen, decadron, remdesivir [11pm] On reassessment, XR findings of ground-glass opacity. We have our own COVID test since patient may qualify for monoclonal treatment. Findings consistent with COVID. Afebrile currently. Patient continues to sat at [95]% on 3L oxygen. Given concerns for possible respiratory decompensation, I have offered patient admission for serial/close observation in the emergency room. Case signed out to Dr. Bales pending home O2 eval, a trial of GI cocktail and reassessment. 0025: Received in checkout from previous physician. Patient remained stable. Laboratory as above. He will be allowed home on dexamethasone. Lab Data : 07/08/21 22:29 07/08/21 22:29 Radiology Impressions Chest X-Ray 07/08/21 19:41 IMPRESSION: 1. Mild ground-glass opacities in the lung bases could indicate pneumonia. Laboratory Results WBC 5.7 10^3/uL (4.0-10.0) 07/08/21 22:29 RBC 4.83 10^6/uL (4.1-5.3) 07/08/21 22:29 Hgb 13.6 g/dL (11.7-16.6) 07/08/21: Hct 41.3 % (42.0-52.0) L 07/08/21: MCV 85.5 fl (80-94) 07/08/21: MCH 28.2 pg (28.0-34.0) 07/08/21 MCHC 32.9 g/dL (30.0-36.0) 07/08/21 RDW 14.7 % (12.1-15.1) 07/08/21: Plt Count 173 10^3/cmm (130-400) 07/08/21 MPV 10.5 fL (7.4-10.4) H 07/08/21 Neut % (Auto) 75.1 % 07/08/21: Lymph % (Auto) 12.1 % 07/08/21: [place] % (Auto) 11.7 % 07/08/21: Eos % (Auto) 0.4 % 07/08/21: Baso % (Auto) 0.2 % 07/08/21: Neut # (Auto) 4.29 10^3/uL (1.8-7.7) 07/08/21: Lymph # (Auto) 0.7 10^3/uL (0.8-4.8) L 07/08/21: [place] # (Auto) 0.7 10^3/uL (0.2-0.9) 07/08/21: Eos # (Auto) 0.0 10^3/uL (0.0-0.8) 07/08/21: Baso # (Auto) 0.0 10^3/uL (0.0-0.1) 07/08/21 Nucleated RBC % (auto) 0 % 07/08/21 Nucleated RBCs # 0.0 /100WBC 07/08/21: Sodium 138 mmol/L (136-145) 07/08/21: Potassium 4.6 mmol/L (3.5-5.1) 07/08/21: Chloride 99 mmol/L (98-107) 01/28/22 22:29 Carbon Dioxide 27 mmol/L (22-29) 07/08/21 22:29 Anion Gap 16.6 (5-19) 07/08/21 22:29 BUN 27 mg/dL (8-23) H 07/08/21 22:29 Creatinine 1.3 mg/dL (0.7-1.2) H 07/08/21 22:29 GFR Calculation Not Reportable 07/08/21 22:29 Glucose 148 mg/dL (65-115) H 07/08/21 22:29 Calculated Osmolality 294 mOsm/kg (285-295) 07/08/21 22:29 Calcium 8.1 mg/dL (8.5-10.5) L 07/08/21 22:29 Total Bilirubin 0.5 mg/dL (0.15-1.2) 07/08/21 22:29 AST 30 U/L (0-40) 07/08/21 22:29 ALT 10 U/L (0-41) 07/08/21 22:29 Alkaline Phosphatase 61 IU/L (40-130) 07/08/21 22:29 Troponin T Baseline 69 ng/L (0-15) H 07/08/21 22:29 Total Protein 6.7 g/dL (6.6-8.7) 07/08/21 22:29 Albumin 3.7 g/dL (3.5-5.2) 07/08/21 22:29 Globulin 3.0 g/dL (1.3-4.6) 07/08/21 22:29 Discharge Plan Discharge Patient Disposition: Home Clinical Impression: COVID, 2019 novel coronavirus-infected pneumonia (NCIP) Condition: Stable Prescriptions: New Zofran 4 mg tablet 4 mg PO TID PRN (Reason: nausea and vomiting) 4 Days Qty: 12 0RF acetaminophen 500 mg tablet 500 mg PO Q6H PRN (Reason: pain) 5 Days Qty: 20 0RF Pepcid 20 mg tablet 20 mg PO BID PRN (Reason: abdominal pain) 10 Days Qty: 20 0RF albuterol sulfate 90 mcg/actuation HFA aerosol inhaler 2 inh inhalation Q4H PRN (Reason: shortness of breath or wheezing) 5 Days Qty: 6.7 0RF Maalox Advanced 1,000-60 mg tablet,chewable 1 tab PO TID PRN (Reason: abdominal pain) 7 Days Qty: 21 0RF dexamethasone 6 mg tablet 6 mg PO DAILY Qty: 5 0RF No Action doxycycline hyclate 100 mg capsule 100 mg PO BID 7 Days Qty: 14 0RF loteprednol etabonate [Lotemax] 0.5 % drops,suspension 1 drop ophthalmic (eye) BID@0800,1800 0RF Combigan 0.2-0.5 % drops 1 drop ophthalmic (eye) BID@0800,1800 0RF tamsulosin 0.4 mg capsule 0.4 mg PO DAILY@0800 0RF isosorbide mononitrate 60 mg tablet extended release 24 hr 60 mg PO DAILY@0800 0RF potassium chloride 20 mEq tablet,ER particles/crystals 20 meq PO DAILY@0800 0RF epinephrine 0.3 mg/0.3 mL auto-injector 0.3 mg IM ONCE PRN (Reason: UNKNOWN) 0RF Rx Instructions: ONE TIME Zyrtec 10 mg capsule 10 mg PO DAILY PRN (Reason: Allergy Symptoms) 0RF albuterol sulfate 2.5 mg /3 mL (0.083 %) solution for nebulization 2.5 mg INHALATION Q4H PRN (Reason: Shortness Of Breath) 0RF Symbicort 160-4.5 mcg/actuation HFA aerosol inhaler 2 puff INHALATION DAILY@0800 0RF rivaroxaban 15 mg tablet 15 mg PO DAILY 0RF Hold Instructions: Resume on 07/23/20. cholecalciferol (vitamin D3) 2,000 unit tablet 2,000 unit PO DAILY@0800 0RF baclofen 10 mg tablet 10 mg PO DAILY@0800 0RF Novolog U-100 Insulin aspart 100 unit/mL solution 5 unit SUBCUT TID@0800,1200,1700 0RF Rx Instructions: SLIDING SCALE glucosamine HCl 1,500 mg tablet 1,500 mg PO DAILY@0800 0RF Lantus U-100 Insulin 100 unit/mL solution 30 unit SUBCUT BEDTIME@2100 0RF Label Comments: Patient states that he takes 30 u if he hasn't ate well that evening. Rx Instructions: at HS guaifenesin [Mucinex] 600 mg tablet extended release 12hr 600 mg PO BID 0RF furosemide 40 mg tablet 60 mg PO BID@0600,1800 PRN (Reason: Edema) 0RF sotalol 80 mg tablet 120 mg PO DIRECTED Qty: 240 3RF Rx Instructions: Take 120mg every morning and 80mg every evening. Discharge Orders: Discharge ED (Routine); Ordered 07/09/21 Ordered By: Venkata Bales Other Ambulatory Orders: Request for [facility] (Routine) Timeframe: 1 Day Facility: [facility] - Location: Outpatient Surgical Services Ordered By: Viviane Harrison Referrals: Sandrita Almaguer MD [Primary Care Provider] - Discharge Diet: Advance as tolerated Discharge Activity: Increase activity as tolerated Patient Instructions: COVID-19 (Coronavirus Disease 2019) (ED) Activity Restrictions/Additional Instructions: Medications as directed. He will be set up for monoclonal antibody infusion as an outpatient if the medication is available. the order has been written. Come back to the emergency room if your symptoms worsen, have any shortness of breath, fever/chills, dehydration, inability tolerate food or drinks, any difficulty breathing, or any new or concerning complaints. Please return the emergency room if your pulse ox reads less than 88%. Coding Level of Care Code ED Procurement Coordinator for Gudelia Fwd Exam Comprehensive
[2021-07-08 22:34] LABS: Basophils % 0.2 %; Eosinophils % 0.4 %; Hematocrit 41.3 % (42.0-52.0); Hemoglobin 13.6 g/dL (11.7-16.6); Lymphocytes # 0.7 10^3/uL (0.8-4.8); Lymphocytes % 12.1 %; Mean Corpuscular HGB Conc 32.9 g/dL (30.0-36.0); Mean Corpuscular Hemoglobin 28.2 pg (28.0-34.0); Mean Corpuscular Volume 85.5 fl (80-94); Mean Platelet Volume 10.5 fL (7.4-10.4); Monocytes # 0.7 10^3/uL (0.2-0.9); Monocytes % 11.7 %; Neutrophils # 4.29 10^3/uL (1.8-7.7); Neutrophils % 75.1 %; Nucleated Red Blood Cells % 0 %; Platelet Count 173 10^3/cmm (130-400); Red Blood Count 4.83 10^6/uL (4.1-5.3); Red Cell Distribution Width 14.7 % (12.1-15.1); White Blood Count 5.7 10^3/uL (4.0-10.0)
[2021-07-08 22:54] LABS: Troponin(5th) Baseline 69 ng/L (0-15)
[2021-07-08 22:59] LABS: Alanine Aminotransferase 10 U/L (0-41); Albumin Level 3.7 g/dL (3.5-5.2); Alkaline Phosphatase 61 IU/L (40-130); Anion Gap 16.6 (5-19); Aspartate Amino Transferase 30 U/L (0-40); Blood Urea Nitrogen 27 mg/dL (8-23); Calcium 8.1 mg/dL (8.5-10.5); Carbon Dioxide 27 mmol/L (22-29); Chloride 99 mmol/L (98-107); Glucose 148 mg/dL (65-115); Osmolality Calculated 294 mOsm/kg (285-295); Potassium 4.6 mmol/L (3.5-5.1); Sodium 138 mmol/L (136-145); Total Bilirubin 0.5 mg/dL (0.15-1.2); Total Protein 6.7 g/dL (6.6-8.7)
[2021-07-08] MEDS: dexamethasone 10 mg/mL INJ 6 MG IVP (23:10)
[2021-07-08 23:30] VITALS: O2SAT 94
[2021-07-08] MEDS: remdesivir 200 MG in sodium chloride 0.9% (100 ml) 60 ML 100 MG IV (23:50)
[2021-07-09] MEDS: lidocaine 2% viscous 15 ML, aluminum-mag hydrox-simethicon 30 ML, sucralfate oral liq 1 GM PO (00:08)
[2021-07-09 00:32] VITALS: O2SAT 86
[2021-07-09 03:51] VITALS: BP 139/81; PULSE 97; RESP 18; O2SAT 94
== END 2021-07-09 03:54 | disposition home or self-care (01) ==
PROVIDERS: Nurse Practitioner Family; Emergency Provider Emergency Medicine; PCP Family Medicine
DX: U07.1 COVID-19 (principal); J12.82 Pneumonia due to coronavirus disease 2019; Z79.4 Long term (current) use of insulin; I11.0 Hypertensive heart disease with heart failure; I50.9 Heart failure, unspecified; Z86.73 Personal history of transient ischemic attack (TIA), and cerebral infarction without residual deficits; E78.5 Hyperlipidemia, unspecified; Z95.0 Presence of cardiac pacemaker; Z95.1 Presence of aortocoronary bypass graft
CPT/HCPCS: 71045; 80053; 84484; 85025; 93005; 96365; 96375; 99284; J1100

== ENCOUNTER 2021-07-20 09:01 | Emergency (ER) | payer OTHER, SELFPAY ==
[2021-07-20 09:14] VITALS: BP 145/78; PULSE 74; RESP 19; TEMP 36.8; O2SAT 95
--- NOTE | 2021-07-20 09:29 | ECG_ITS ---
[facility] Test Date: 2021-07-20 Pat Name: Panchito Macedo Department: Room: Gender: Male Model Maker Scale: : 1940 Requested By: Augustine Patrick Order Number: [id number] Chey MD: Ashlyn Womack M.D. Measurements Intervals [place] Rate: 73 P: [place]: QRS: -35 QRSD: 86 T: 123 QT: 417 QTc: 460 Interpretive Statements ATRIAL FIBRILLATION LEFT AXIS DEVIATION [QRS AXIS < -30] ST DEVIATION AND MODERATE T-WAVE ABNORMALITY, CONSIDER LATERAL ISCHEMIA [-0.1+ mV T-WAVE IN I/aVL/V5/V6] Compared to ECG 07/08/2021 22:42:28 Possible ischemia now present Atrial fibrillation no longer present T-wave abnormality still present Electronically Signed On 07-21-2021 11:03:22 RADIOGRAPHY TECHNICIAN by Ashlyn Womack M.D. [email or web address] ([email or web address] va medical centerCorterapremier health atrium [facility] center.[email or web address]/store/OM/[id number]
--- NOTE | 2021-07-20 09:29 | XR_ITS ---
WS: [id number] XR chest 1V portable [id number] REASON FOR EXAM: dyspnea/cough FINDINGS: Compared to the previous examination of 07/08/2021, the lower lung field opacities are somewhat more p rominent and extensive. No other interval change or new finding. XR/XR chest 1V portable [id number] IMPRESSION: Lung opacities indicative of subacute pneumonitis more evident on the current e xamination.
--- NOTE | 2021-07-20 09:29 | XR_ITS ---
WS: [id number] XR hip LT 2-3V wo/w pel* [id number] REASON FOR EXAM: include pelvis FINDINGS: No fracture or focal bone lesion. Significant narrowing of the hip joint space with subchondral sclerosis and osteophytosis of the acet abulum. There is convex deformity of the femoral head/neck junction predisposing to impingement. The right hi p has the same configuration and arthropathy. No pelvic fracture. Sacroiliac joints intact. Extensive arterial vascular calcification. XR/XR hip LT 2-3V wo/w pel* [id number] IMPRESSION: Osteoarthritis. No acute abnormality.
--- NOTE | 2021-07-20 09:30 | ED_ITS ---
HPI - Extremity Problem General: Chief complaint: Extremity Injury, Lower Stated complaint: L HIP PAIN POST FALL/ UNABLE TO BEAR WEIGHT Time Seen by Provider: 07/20/21 09:10 History of Present Illness: 81-year-old male who fell last night at home. EMS was contacted and came to his home they helped him get into a chair but he refused transportation. He remained in the chair all night did sleep some and called this morning because he was unable to get up and bear weight on the left hip. EMS brought him to the emergency room. He did not strike his head he did not lose consciousness in talking with him it sounds like he had a mechanical fall. He has fallen more often. No chest pain he does still have a cough he had tested positive for Covid on June 27, 2021 his cough has been decreasing his other symptoms as well have been decreasing. Abdominal pain or other injury. MD Complaint: joint pain (Left hip) Onset (ago): hour(s) Pain Consistency: constant Location: left Radiation: none Relieving factors: nothing Exacerbating factors: range of motion, weight bearing and walking Associated symptoms: Deny chest pain, fever(s) or rash Review of Systems Const: Denies: fever(s), chills, body aches, change in appetite, fatigue or malaise ENMT: Denies: throat pain, ear or mastoid pain, nasal discharge or nasal congestion Card: Denies: chest pain, edema, dyspnea on exertion or orthopnea Resp: Denies: dyspnea, productive cough or non-productive cough GI: Denies: abdominal pain, nausea, vomiting, hematemesis, coffee ground emesis, diarrhea, constipation, bloating, hematochezia or melena : Denies: flank pain, dysuria, urinary frequency or urinary urgency Skin/Breast: Denies: rash or pruritus PFS ED PFSH: Medical History ASHD (arteriosclerotic heart disease) Atrial fibrillation Atypical chest pain BPH NOS w ur obs/LUTS Good response to TAMSULOSIN. Carotid stenosis Doppler examination on 05/30/2020 The stent in the right internal carotid artery appeared to be patent with no significant stenosis. Moderate to heavy heterogeneous plaques were noted in the right common carotid artery. Moderate heterogeneous plaques at the left bifurcation and proximal internal carotid artery Elevated velocity in the external carotid artery on the right side, suggestive of hemodynamically significant stenosis. Compared to the study from 12/06/2017, there appears to be some worsening of stenosis in the right external carotid artery CHF (congestive heart failure) CVA (cerebral vascular accident) Hyperlipemia Hypertension Leg swelling Pacemaker Peripheral vascular disease Sleep apnea TIA (transient ischemic attack) Trigeminal neuralgia Ventral hernia Surgical History H/O bilateral cataract extraction H/O four vessel coronary artery bypass graft H/O heart artery stent History of pacemaker Status post cryoablation Family History Other CAD (coronary artery disease) Cancer Diabetes Family history of prostate cancer Social History Alcohol intake: never Adopted: No Caregiver/support person: No Lives independently: No Household members: spouse Marital status: Current occupational status: retired History of recent travel: No Current gender identity: Male Physical Exam Const: COMMON NORMALS: no acute distress GENERAL APPEARANCE: cooperative ORIENTATION/CONSCIOUSNESS: Yes awake, Yes oriented to person, Yes oriented to place and Yes oriented to time HENMT: COMMON NORMALS: normocephalic, atraumatic and hearing grossly normal bilaterally HEAD & SCALP: normocephalic and atraumatic Neck/C-Spine: COMMON NORMALS: no JVD Resp: COMMON NORMALS: normal respiratory effort, No retractions, No use of accessory muscles and clear to auscultation bilaterally AUSCULTATION: clear to auscultation bilaterally Cardio: COMMON NORMALS: no JVD, regular rate, regular rhythm and No murmurs present (Cardio) RATE: regular rate RHYTHM: regular rhythm GI: COMMON NORMALS: Soft to palpation and No hepatosplenomegaly present AUSCULTATION: Yes normoactive bowel sounds PALPATION: Yes Soft to palpation, No Tenderness to palpation present (GI), No Guarding due to palpation present (GI) and Yes No hepatosplenomegaly present Extremity: COMMON NORMALS: normal to inspection, capillary refill normal, no clubbing, cyanosis or edema, no calf tenderness and no pedal edema OTHER: Pain with palpation of the left hip unable to flex or extend. Neuro: SENSORIUM/ORIENTATION: Yes oriented to person, Yes oriented to place and Yes oriented to time Skin: COMMON NORMALS: no rashes or lesions noted GENERAL SKIN EXAM: no rashes or lesions noted Course Vital Signs: Vital signs: Vital Signs Temperature 98.3 F 07/20/21 09:14 Pulse Rate 88 07/20/21 13:41 Respiratory Rate 18 07/20/21 13:41 Blood Pressure 185/78 07/20/21 13:41 Pulse Oximetry 93 07/20/21 13:41 MDM - Extremity (Nontraumatic) Medical Decision Making No acute fracture on imaging. Reviewed to the patient reviewed labs discharge home follow-up as needed. Patient was able to bear weight and ambulate in the department with physical therapy evaluation. Medical Records I reviewed the patient's medical records. Lab Data I reviewed the patient's lab results. : 07/20/21 10:10 07/20/21 10:10 Radiology Impressions Chest X-Ray 07/20/21 09:29 IMPRESSION: Lung opacities indicative of subacute pneumonitis more evident on the current examination. Hip/Pelvis X-Ray 07/20/21 09:29 IMPRESSION: Osteoarthritis. No acute abnormality. Laboratory Results WBC 3.5 10^3/uL (4.0-10.0) L 07/20/21 10:10 RBC 4.77 10^6/uL (4.1-5.3) 07/20/21 10:10 Hgb 13.2 g/dL (11.7-16.6) 07/20/21 10:10 Hct 40.3 % (42.0-52.0) L 07/20/21 10:10 MCV 84.5 fl (80-94) 07/20/21 10:10 MCH 27.7 pg (28.0-34.0) L 07/20/21 10:10 MCHC 32.8 g/dL (30.0-36.0) 07/20/21 10:10 RDW 14.5 % (12.1-15.1) 07/20/21 10:10 Plt Count 181 10^3/cmm (130-400) 07/20/21 10:10 MPV 9.4 fL (7.4-10.4) 07/20/21 10:10 Neut % (Auto) 59.6 % 07/20/21 10:10 Lymph % (Auto) 18.9 % 07/20/21 10:10 [place] % (Auto) 19.8 % 07/20/21 10:10 Eos % (Auto) 1.1 % 07/20/21 10:10 Baso % (Auto) 0.3 % 07/20/21 10:10 Neut # (Auto) 2.11 10^3/uL (1.8-7.7) 07/20/21 10:10 Lymph # (Auto) 0.7 10^3/uL (0.8-4.8) L 07/20/21 10:10 [place] # (Auto) 0.7 10^3/uL (0.2-0.9) 07/20/21 10:10 Eos # (Auto) 0.0 10^3/uL (0.0-0.8) 07/20/21 10:10 Baso # (Auto) 0.0 10^3/uL (0.0-0.1) 07/20/21 10:10 Nucleated RBC % (auto) 0 % 07/20/21 10:10 Nucleated RBCs # 0.0 /100WBC 07/20/21 10:10 Sodium 140 mmol/L (136-145) 07/20/21 10:10 Potassium 4.0 mmol/L (3.5-5.1) 07/20/21 10:10 Chloride 103 mmol/L (98-107) 07/20/21 10:10 Carbon Dioxide 24 mmol/L (22-29) 07/20/21 10:10 Anion Gap 17.0 (5-19) 07/20/21 10:10 BUN 28 mg/dL (8-23) H 07/20/21 10:10 Creatinine 1.1 mg/dL (0.7-1.2) 07/20/21 10:10 GFR Calculation Not Reportable 07/20/21 10:10 Glucose 155 mg/dL (65-115) H 07/20/21 10:10 Calculated Osmolality 299 mOsm/kg (285-295) H 07/20/21 10:10 Calcium 8.8 mg/dL (8.5-10.5) 07/20/21 10:10 Total Bilirubin 0.5 mg/dL (0.15-1.2) 07/20/21 10:10 AST 22 U/L (0-40) 07/20/21 10:10 ALT 9 U/L (0-41) 07/20/21 10:10 Alkaline Phosphatase 56 IU/L (40-130) 07/20/21 10:10 Total Protein 5.9 g/dL (6.6-8.7) L 07/20/21 10:10 Albumin 3.1 g/dL (3.5-5.2) L 07/20/21 10:10 Globulin 2.8 g/dL (1.3-4.6) 07/20/21 10:10 Discharge Plan Discharge Patient Disposition: Home Clinical Impression: Fall, Acute hip pain Condition: Stable Prescriptions: No Action doxycycline hyclate 100 mg capsule 100 mg PO BID 7 Days Qty: 14 0RF loteprednol etabonate [Lotemax] 0.5 % drops,suspension 1 drop ophthalmic (eye) BID@0800,1800 0RF Combigan 0.2-0.5 % drops 1 drop ophthalmic (eye) BID@0800,1800 0RF tamsulosin 0.4 mg capsule 0.4 mg PO DAILY@0800 0RF isosorbide mononitrate 60 mg tablet extended release 24 hr 60 mg PO DAILY@0800 0RF potassium chloride 20 mEq tablet,ER particles/crystals 20 meq PO DAILY@0800 0RF epinephrine 0.3 mg/0.3 mL auto-injector 0.3 mg IM ONCE PRN (Reason: UNKNOWN) 0RF Rx Instructions: ONE TIME Zyrtec 10 mg capsule 10 mg PO DAILY PRN (Reason: Allergy Symptoms) 0RF albuterol sulfate 2.5 mg /3 mL (0.083 %) solution for nebulization 2.5 mg INHALATION Q4H PRN (Reason: Shortness Of Breath) 0RF Symbicort 160-4.5 mcg/actuation HFA aerosol inhaler 2 puff INHALATION DAILY@0800 0RF rivaroxaban 15 mg tablet 15 mg PO DAILY 0RF Hold Instructions: Resume on 07/23/20. cholecalciferol (vitamin D3) 2,000 unit tablet 2,000 unit PO DAILY@0800 0RF baclofen 10 mg tablet 10 mg PO DAILY@0800 0RF Novolog U-100 Insulin aspart 100 unit/mL solution 5 unit SUBCUT TID@0800,1200,1700 0RF Rx Instructions: SLIDING SCALE glucosamine HCl 1,500 mg tablet 1,500 mg PO DAILY@0800 0RF Lantus U-100 Insulin 100 unit/mL solution 30 unit SUBCUT BEDTIME@2100 0RF Label Comments: Patient states that he takes 30 u if he hasn't ate well that evening. Rx Instructions: at HS guaifenesin [Mucinex] 600 mg tablet extended release 12hr 600 mg PO BID 0RF furosemide 40 mg tablet 60 mg PO BID@0600,1800 PRN (Reason: Edema) 0RF sotalol 80 mg tablet 120 mg PO DIRECTED Qty: 240 3RF Rx Instructions: Take 120mg every morning and 80mg every evening. dexamethasone 6 mg tablet 6 mg PO DAILY Qty: 5 0RF Discharge Orders: Discharge ED (Routine); Ordered 07/20/21 Ordered By: Augustine Santana Referrals: Sandrita Almaguer MD [Primary Care Provider] - Discharge Diet: Usual diet Discharge Activity: Resume usual activity Patient Instructions: Opioid Safety Coding Level of Care Code ED Sugar Coating Hand for Chg Fwd Exam Comprehensive
[2021-07-20 10:16] LABS: Basophils % 0.3 %; Eosinophils % 1.1 %; Hematocrit 40.3 % (42.0-52.0); Hemoglobin 13.2 g/dL (11.7-16.6); Lymphocytes # 0.7 10^3/uL (0.8-4.8); Lymphocytes % 18.9 %; Mean Corpuscular HGB Conc 32.8 g/dL (30.0-36.0); Mean Corpuscular Hemoglobin 27.7 pg (28.0-34.0); Mean Corpuscular Volume 84.5 fl (80-94); Mean Platelet Volume 9.4 fL (7.4-10.4); Monocytes # 0.7 10^3/uL (0.2-0.9); Monocytes % 19.8 %; Neutrophils # 2.11 10^3/uL (1.8-7.7); Neutrophils % 59.6 %; Nucleated Red Blood Cells % 0 %; Platelet Count 181 10^3/cmm (130-400); Red Blood Count 4.77 10^6/uL (4.1-5.3); Red Cell Distribution Width 14.5 % (12.1-15.1); White Blood Count 3.5 10^3/uL (4.0-10.0)
[2021-07-20 10:46] LABS: Alanine Aminotransferase 9 U/L (0-41); Albumin Level 3.1 g/dL (3.5-5.2); Alkaline Phosphatase 56 IU/L (40-130); Aspartate Amino Transferase 22 U/L (0-40); Blood Urea Nitrogen 28 mg/dL (8-23); Calcium 8.8 mg/dL (8.5-10.5); Carbon Dioxide 24 mmol/L (22-29); Chloride 103 mmol/L (98-107); Globulin 2.8 g/dL (1.3-4.6); Glucose 155 mg/dL (65-115); Osmolality Calculated 299 mOsm/kg (285-295); Sodium 140 mmol/L (136-145); Total Bilirubin 0.5 mg/dL (0.15-1.2); Total Protein 5.9 g/dL (6.6-8.7)
[2021-07-20 13:41] VITALS: BP 185/78; PULSE 88; RESP 18; O2SAT 93
== END 2021-07-20 13:43 | disposition home or self-care (01) ==
PROVIDERS: Emergency Provider Family Medicine; PCP Family Medicine
DX: M25.552 Pain in left hip (principal); Z79.4 Long term (current) use of insulin; I11.0 Hypertensive heart disease with heart failure; I50.9 Heart failure, unspecified; Z86.73 Personal history of transient ischemic attack (TIA), and cerebral infarction without residual deficits; E78.5 Hyperlipidemia, unspecified; Z95.0 Presence of cardiac pacemaker; Z95.1 Presence of aortocoronary bypass graft
CPT/HCPCS: 71045; 73502; 80053; 85025; 93005; 97116; 97161; 97530; 99282

== ENCOUNTER 2021-09-01 20:00 | Outpatient (CLI) | payer OTHER, SELFPAY | END 2021-09-01 20:01 | disposition home or self-care (01) | LOC: SLEEP 09-02 08:58 | PROVIDERS: PCP Family Medicine; Visit Provider Family Medicine | DX: G47.30 Sleep apnea, unspecified (principal) | CPT/HCPCS: 95811 ==

== ENCOUNTER → 2021-10-13 09:52 | Outpatient (BNVA) | payer OTHER, SELFPAY | PROVIDERS: PCP Family Medicine; Visit Provider Internal Medicine Cardiovascular Disease | DX: I25.10 Atherosclerotic heart disease of native coronary artery without angina pectoris (principal); I48.91 Unspecified atrial fibrillation; I73.9 Peripheral vascular disease, unspecified; Z86.73 Personal history of transient ischemic attack (TIA), and cerebral infarction without residual deficits; E78.5 Hyperlipidemia, unspecified; I10 Essential (primary) hypertension; I65.23 Occlusion and stenosis of bilateral carotid arteries; Z87.891 Personal history of nicotine dependence | CPT/HCPCS: 99214 ==

== ENCOUNTER 2021-11-09 12:22 | Oncology outpatient (recurring) (ONCR) | payer OTHER, SELFPAY | END 2021-12-08 23:59 | disposition home or self-care (01) | PROVIDERS: PCP Family Medicine; Visit Provider Nurse Practitioner Family | DX: C85.83 Other specified types of non-Hodgkin lymphoma, intra-abdominal lymph nodes (principal); R18.8 Other ascites; K74.60 Unspecified cirrhosis of liver; Z92.25 Personal history of immunosuppression therapy; Z87.891 Personal history of nicotine dependence; Z95.0 Presence of cardiac pacemaker | CPT/HCPCS: 80053; 83615; 85025; 99214 ==

== ENCOUNTER → 2021-11-11 08:38 | Outpatient (BNVA) | payer OTHER, SELFPAY | PROVIDERS: PCP Family Medicine; Visit Provider Otolaryngology | DX: H65.31 Chronic mucoid otitis media, right ear (principal); H90.11 Conductive hearing loss, unilateral, right ear, with unrestricted hearing on the contralateral side; H93.A1 Pulsatile tinnitus, right ear; J32.0 Chronic maxillary sinusitis; Z87.891 Personal history of nicotine dependence | CPT/HCPCS: 99204 ==

== ENCOUNTER 2021-12-05 13:45 | Outpatient (CLI) | payer OTHER, SELFPAY ==
--- NOTE | 2021-12-05 13:45 | USCV_ITS ---
Panchito Macedo Age: 81 Gender: M : 1940 Exam Date: 12/05/2021 14:15 Ordering Phys: Janett Lion MD ([email or web address]) Technologist: GABRIELA [place] [facility] [place]: Carotid stenosis Risk Factors: Previous Vascular Surgery: Right Brachial BP: / Left Brachial BP: / Right Left Velocity (cm/s) Spectral Plaque Velocity (cm/s) Spectral Plaque Syst/Diast Broadening Syst/Diast Broadening 54.40/ 7.70 Prox CCA 65.40 / 10.60 67.60/ 10.10 Mid CCA 78.80 / 13.50 66.80/ 11.70 Distal CCA 66.30 / 8.70 64.40/ 16.90 Prox ICA 36.80 / 8.50 70.90/ 17.30 Mid ICA 59.90 / 14.80 73.00/ 17.50 Distal ICA 59.20 / 12.80 102.60 ECA 96.10 1.08 ICA/CCA 0.76 Antegrade Vertebral Antegrade 35.00/ 7.00 cm/s 35.80/ 6.90 cm/s Bi Subclavian Tri 69.20 84.60 FINDINGS Moderate heterogeneous plaques of the right bifurcation and internal carotid artery. Moderate dense plaques of the left bifurcation and proximal internal carotid artery Intimal thickening and minimal plaques of the common carotid arteries bilaterally. Antegrade flow in the vertebral arteries bilaterally Normal Doppler flow velocities in the external carotid, vertebral and subclavian arteries CONCLUSIONS Moderate heterogeneous plaques of the right bifurcation and internal carotid artery, suggesting less than 50% stenosis. Moderate dense plaques of the left bifurcation and proximal internal carotid artery, suggesting less than 50% stenosis. No significant stenosis in the vertebral, subclavian or external carotid arteries, based on the above findings . Dr Janett Lion MD [facility] (Electronically Signed) Final Date: 06 December 2021 18:24 S
== END 2021-12-05 13:46 | disposition home or self-care (01) ==
LOC: RAD 13:47
PROVIDERS: PCP Family Medicine; Visit Provider Internal Medicine Cardiovascular Disease
DX: I65.23 Occlusion and stenosis of bilateral carotid arteries (principal); I77.9 Disorder of arteries and arterioles, unspecified
CPT/HCPCS: 93880

== ENCOUNTER → 2021-12-14 09:10 | Outpatient (BNVA) | payer OTHER, SELFPAY | PROVIDERS: PCP Family Medicine; Visit Provider Otolaryngology | DX: J32.0 Chronic maxillary sinusitis (principal); Z87.891 Personal history of nicotine dependence | CPT/HCPCS: 99213 ==

== ENCOUNTER 2021-12-23 18:04 | Emergency (ER) | payer OTHER, MEDICARE, SELFPAY ==
[2021-12-23 18:27] VITALS: BP 160/87; PULSE 70; RESP 16; TEMP 37.7; O2SAT 89
--- NOTE | 2021-12-23 23:10 | XRR_ITS ---
PROCEDURE INFORMATION: Exam: XR Chest Exam date and time: 12/23/2021 11:46 PM Age: 81 years old Clinical indication: Shortness of breath; Additional info: SOB TECHNIQUE: Imaging protocol: Radiologic exam of the chest. Views: 1 view. COMPARISON: CT chest con [id number] 10/19/2021 10:43 AM FINDINGS: Tubes, catheters and devices: Left chest ICD present. Lungs: Unremarkable. No consolidation. Chronic reticular changes of interstitium. Pleural spaces: Unremarkable. No pleural effusion. No pneumothorax. Heart/Mediastinum: Cardiac enlargement. CABG. Bones/joints: Unremarkable. XR/XR chest 1V portable [id number] IMPRESSION: No acute pulmonary disease identified.
--- NOTE | 2021-12-23 23:11 | ECG_ITS ---
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 Measurements Intervals [place] Rate: 65 P: MD: QRS: -36 QRSD: 82 T: 99 QT: 388 QTc: 404 Interpretive Statements ATRIAL FIBRILLATION WITH ABERRANT CONDUCTION OR VENTRICULAR PREMATURE COMPLEXES LEFT AXIS DEVIATION [QRS AXIS < -30] PATTERN CONSISTENT WITH PULMONARY DISEASE MODERATE T-WAVE ABNORMALITY, CONSIDER LATERAL ISCHEMIA [-0.1+ mV T WAVE IN I/aVL/V5/V6] Compared to ECG 07/20/2021 09:48:55 Ventricular premature complex(es) now present Aberrant conduction of supraventricular beat(s) now present T-wave abnormality still present Possible ischemia still present Electronically Signed On 12-26-2021 17:54:53 CDT by Ricki Denton M.D. [id number]
[2021-12-23 23:31] LABS: Basophils % 0.6 %; Eosinophils # 0.4 10^3/uL (0.0-0.8); Eosinophils % 6.7 %; Hematocrit 41.5 % (42.0-52.0); Hemoglobin 13.8 g/dL (11.7-16.6); Lymphocytes # 0.8 10^3/uL (0.8-4.8); Lymphocytes % 12.6 %; Mean Corpuscular HGB Conc 33.3 g/dL (30.0-36.0); Mean Corpuscular Hemoglobin 27.5 pg (28.0-34.0); Mean Corpuscular Volume 82.7 fl (80-94); Mean Platelet Volume 9.1 fL (7.4-10.4); Monocytes # 1.3 10^3/uL (0.2-0.9); Monocytes % 18.9 %; Neutrophils # 4.01 10^3/uL (1.8-7.7); Neutrophils % 60.7 %; Nucleated Red Blood Cells % 0 %; Platelet Count 357 10^3/cmm (130-400); Red Blood Count 5.02 10^6/uL (4.1-5.3); Red Cell Distribution Width 14.6 % (12.1-15.1); White Blood Count 6.6 10^3/uL (4.0-10.0)
[2021-12-23 23:47] VITALS: PULSE 72; RESP 17; O2SAT 96
[2021-12-23] MEDS: ipratropium-albuterol 3 mL Neb INHALATION (23:47)
[2021-12-23 23:59] LABS: Troponin(5th) Baseline 55 ng/L (0-15)
[2021-12-24 00:05] LABS: Lactic Sepsis W/Reflex 0.8 mmol/L (0.5-2.2)
[2021-12-24 00:06] LABS: Alanine Aminotransferase 8 U/L (0-41); Albumin Level 3.7 g/dL (3.5-5.2); Alkaline Phosphatase 60 IU/L (40-130); Aspartate Amino Transferase 13 U/L (0-40); Blood Urea Nitrogen 34 mg/dL (8-23); Calcium 9.5 mg/dL (8.5-10.5); Carbon Dioxide 30 mmol/L (22-29); Chloride 100 mmol/L (98-107); Glucose 185 mg/dL (65-115); NT Pro B Type Natriuretic Pept 2041 pg/mL (0-450); Osmolality Calculated 302 mOsm/kg (285-295); Sodium 140 mmol/L (136-145); Total Bilirubin 0.6 mg/dL (0.15-1.2); Total Protein 6.7 g/dL (6.6-8.7)
[2021-12-24 00:10] VITALS: BP 134/66; PULSE 68; RESP 12; O2SAT 98
--- NOTE | 2021-12-24 01:11 | ECG_ITS ---
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 Measurements Intervals [place] Rate: 69 P: IA: QRS: -43 QRSD: 94 T: 79 QT: 397 QTc: 427 Interpretive Statements ATRIAL FFIBRILLATION LEFT AXIS DEVIATION [QRS AXIS < -30] PATTERN CONSISTENT WITH PULMONARY DISEASE NONSPECIFIC ST & T-WAVE ABNORMALITY Compared to ECG 12/23/2021 23:33:23 Ventricular premature complex(es) no longer present Aberrant conduction of supraventricular beat(s) no longer present Possible ischemia no longer present T-wave abnormality still present Electronically Signed On 12-26-2021 18:18:55 CDT by Ricki Denton M.D. [email or web address] [email or web address].arGEN-X/store/OM/[id number]
--- NOTE | 2021-12-24 02:24 | W.ED.SOB ---
HPI - SOB/Dyspnea General: Chief Complaint: Shortness of Breath/Dyspnea Stated Complaint: SOB Time Seen by Provider: 12/23/21 23:02 Source: patient History of Present Illness: HPI Narrative: 81-year-old male with a history of atrial fibrillation and heart disease. He is on diuretics. He presents after taking a nap with his CPAP machine on, and waking up with an 83% saturation he says. He has oxygen at home as well, which she does not wear currently, as he has been weaning himself off. He says he has had a cough, with some clear sputum production. No fever. No increased edema to his lower extremities. He never had any chest pain with this episode. He notes that he slowly been getting more short of breath for the past few days. MD elicited complaint: shortness of breath and cough Pertinent past history: COPD and congestive heart failure Onset (ago): hour(s) Timing: constant and improved Severity: moderate Exacerbating factors: lying flat and exertion Relieving factors: oxygen Known history of: congestive heart failure Associated symptoms: Reports chest congestion, cough, dizziness, nausea and orthopnea; Deny chest pain, fever(s) or vomiting Treatment prior to arrival: oxygen Review of Systems Const: Denies: fever(s) Card: Reports: orthopnea; Denies: chest pain Resp: Reports: dyspnea, productive cough and chest congestion GI: Reports: nausea; Denies: vomiting Neuro: Reports: dizziness PFSH ED PFSH: Medical History ASHD (arteriosclerotic heart disease) Atrial fibrillation Atypical chest pain BPH NOS w ur obs/LUTS Good response to TAMSULOSIN. BPH w urinary obs/LUTS Brain bleed Carotid stenosis Doppler examination on 05/30/2020 The stent in the right internal carotid artery appeared to be patent with no significant stenosis. Moderate to heavy heterogeneous plaques were noted in the right common carotid artery. Moderate heterogeneous plaques at the left bifurcation and proximal internal carotid artery Elevated velocity in the external carotid artery on the right side, suggestive of hemodynamically significant stenosis. Compared to the study from 12/06/2017, there appears to be some worsening of stenosis in the right external carotid artery CHF (congestive heart failure) CVA (cerebral vascular accident) Hyperlipemia Hypertension Leg swelling Male circumcision Pacemaker Peripheral vascular disease Sleep apnea TIA (transient ischemic attack) Trigeminal neuralgia Ventral hernia Surgical History H/O bilateral cataract extraction H/O four vessel coronary artery bypass graft H/O heart artery stent History of pacemaker History of sinus surgery Status post cryoablation Family History Other CAD (coronary artery disease) Cancer Diabetes Family history of prostate cancer Social History Smoking and tobacco status: former smoker (qiut 37 years ago ) Alcohol intake: never Adopted: No Caregiver/support person: No Lives independently: No Household members: spouse Marital status: Current occupational status: retired History of recent travel: No Current gender identity: Male Physical Exam Const: GENERAL APPEARANCE: cooperative, ill appearing and frail appearing (mildly) HENMT: COMMON NORMALS: normocephalic and atraumatic HEAD & SCALP: normocephalic and atraumatic FACE & SINUS: normal facial exam Eye: COMMON NORMALS: Equal, round and reactive pupils present and EOMs intact bilaterally PUPIL: Yes Equal, round and reactive pupils present Neck/C-Spine: GENERAL: Yes trachea midline Chest: CHEST: Yes Symmetrical chest wall rise Resp: COMMON NORMALS: clear to auscultation bilaterally EFFORT & INSPECTION: Yes able to speak in complete sentences and Yes tachypneic (mildly) AUSCULTATION: clear to auscultation bilaterally, no rhonchi and no wheezes Cardio: COMMON NORMALS: regular rate RATE: regular rate RHYTHM: abnormal rhythm irregularly irregular GI: COMMON NORMALS: Normal to inspection, nondistended, normoactive bowel sounds present Extremity: GENERAL: Yes edema (mild) Neuro: HARRISON COMA SCALE: document GCS findings Hackett coma scale eye opening: Spontaneous Harrison coma scale verbal response: Orientated Hackett coma scale motor response: Obey commands Harrison coma scale total score: 15 Course Vital Signs: Vital signs: Vital Signs Temperature 99.8 F H 12/23/21 18:27 Pulse Rate 72 12/24/21 02:53 Respiratory Rate 18 12/24/21 02:53 Blood Pressure 140/78 12/24/21 02:53 Pulse Oximetry 95 12/24/21 02:53 MDM - SOB/Dyspnea Medical Decision Making The patient has marginal room air saturations here, but good on his home 2 L. Currently satting 92%. His heart rate 66, blood pressure 145/65. His chest x-ray is clear. His EKG does not show any acute ST changes. His CBC is normal. His BMP is essentially normal with a slight increase in his BUN. His BNP is elevated, although its been more elevated in the past. His delta troponin is negative. He is given 60 mg of IV Lasix here with some diuresis. He will be allowed home to increase his Lasix dosage for the next 2 days, then back to normal dosages. He knows to return for any problems Lab Data : 12/23/21 23:12/23/21 Labs/Radiology: Radiology Impressions Chest X-Ray 12/23/21 IMPRESSION: No acute pulmonary disease identified. Laboratory Results WBC 6.6 10^3/uL (4.0-10.0) 12/23/21: RBC 5.02 10^6/uL (4.1-5.3) 12/23/21 23: Hgb 13.8 g/dL (11.7-16.6) 12/23/21: Hct 41.5 % (42.0-52.0) L 12/23/21: MCV 82.7 fl (80-94) 12/23/21: MCH 27.5 pg (28.0-34.0) L 12/23/21: MCHC 33.3 g/dL (30.0-36.0) 12/23/21: RDW 14.6 % (12.1-15.1) 12/23/21: Plt Count 357 10^3/cmm (130-400) 12/23/21: MPV 9.1 fL (7.4-10.4) 12/23/21: Neut % (Auto) 60.7 % 12/23/21: Lymph % (Auto) 12.6 % 12/23/21: [place] % (Auto) 18.9 % 12/23/21 23: Eos % (Auto) 6.7 % 12/23/21: Baso % (Auto) 0.6 % 07/15/22 23:23 Neut # (Auto) 4.01 10^3/uL (1.8-7.7) 12/23/21 23:23 Lymph # (Auto) 0.8 10^3/uL (0.8-4.8) 12/23/21 23:23 [place] # (Auto) 1.3 10^3/uL (0.2-0.9) H 12/23/21 23:23 Eos # (Auto) 0.4 10^3/uL (0.0-0.8) 12/23/21 23:23 Baso # (Auto) 0.0 10^3/uL (0.0-0.1) 12/23/21 23: Nucleated RBC % (auto) 0 % 12/23/21 23: Nucleated RBCs # 0.0 /100WBC 12/23/21 23:23 Sodium 140 mmol/L (136-145) 12/23/21 23:23 Potassium 4.0 mmol/L (3.5-5.1) 12/23/21 23: Chloride 100 mmol/L (98-107) 12/23/21 23:23 Carbon Dioxide 30 mmol/L (22-29) H 12/23/21 23:23 Anion Gap 14.0 (5-19) 12/23/21 23:23 BUN 34 mg/dL (8-23) H 12/23/21 23:23 Creatinine 1.2 mg/dL (0.7-1.2) 12/23/21 23:23 GFR Calculation Not Reportable 12/23/21 23:23 Glucose 185 mg/dL (65-115) H 12/23/21 23:23 Calculated Osmolality 302 mOsm/kg (285-295) H 12/23/21 23:23 Lactic Acid 0.8 mmol/L (0.5-2.2) 12/23/21 23:38 Calcium 9.5 mg/dL (8.5-10.5) 12/23/21 23:23 Total Bilirubin 0.6 mg/dL (0.15-1.2) 12/23/21 23:23 AST 13 U/L (0-40) 12/23/21 23:23 ALT 8 U/L (0-41) 12/23/21 23:23 Alkaline Phosphatase 60 IU/L (40-130) 12/23/21 23:23 Troponin T Baseline 55 ng/L (0-15) H 12/23/21 23:23 Troponin T 120 Minute 54.80 ng/L (0-15) H 12/24/21 01:25 Delta Troponin T -0.20 ABS# (0-10) L 12/24/21 01:25 NT-Pro-B Natriuret Pep 2041 pg/mL (0-450) H 12/23/21 23:23 Total Protein 6.7 g/dL (6.6-8.7) 12/23/21 23:23 Albumin 3.7 g/dL (3.5-5.2) 12/23/21 23:23 Globulin 3.0 g/dL (1.3-4.6) 12/23/21 23:23 Discharge Plan Discharge Patient Disposition: Home Clinical Impression: Pulmonary edema Condition: Stable Prescriptions: No Action loteprednol etabonate [Lotemax] 0.5 % drops,suspension 1 drop ophthalmic (eye) BID@0800,1800 0RF Combigan 0.2-0.5 % drops 1 drop ophthalmic (eye) BID@0800,1800 0RF isosorbide mononitrate 60 mg tablet extended release 24 hr 60 mg PO DAILY@0800 0RF potassium chloride 20 mEq tablet,ER particles/crystals 20 meq PO DAILY@0800 0RF epinephrine 0.3 mg/0.3 mL auto-injector 0.3 mg IM ONCE PRN (Reason: UNKNOWN) 0RF Rx Instructions: ONE TIME Zyrtec 10 mg capsule 10 mg PO DAILY PRN (Reason: Allergy Symptoms) 0RF albuterol sulfate 2.5 mg /3 mL (0.083 %) solution for nebulization 2.5 mg INHALATION Q4H PRN (Reason: Shortness Of Breath) 0RF Symbicort 160-4.5 mcg/actuation HFA aerosol inhaler 2 puff INHALATION DAILY@0800 0RF cholecalciferol (vitamin D3) 2,000 unit tablet 2,000 unit PO DAILY@0800 0RF baclofen 10 mg tablet 10 mg PO DAILY@0800 0RF Novolog U-100 Insulin aspart 100 unit/mL solution 5 unit SUBCUT TID@0800,1200,1700 0RF Rx Instructions: SLIDING SCALE Lantus U-100 Insulin 100 unit/mL solution 36 unit SUBCUT BEDTIME@2100 0RF Label Comments: Patient states that he takes 30 u if he hasn't ate well that evening. Rx Instructions: at HS guaifenesin [Mucinex] 600 mg tablet extended release 12hr 600 mg PO BID PRN0RF sotalol 80 mg tablet 120 mg PO DIRECTED Qty: 240 3RF Rx Instructions: Take 120mg every morning and 80mg every evening. Eliquis 2.5 mg tablet 2.5 mg PO BID 0RF lisinopril 2.5 mg tablet 2.5 mg PO DAILY 0RF triamcinolone acetonide [Nasacort] 55 mcg aerosol,spray 1 spray intranasal DAILY 0RF Rx Instructions: administer into each nostril finasteride 5 mg tablet 5 mg PO DAILY 0RF furosemide 40 mg tablet 60 mg PO BID@0600,1800 PRN (Reason: Edema) Qty: 270 3RF Discharge Orders: Discharge ED (Routine); Ordered 12/24/21 Ordered By: Venkata Bales Referrals: Sandrita Almaguer MD [Primary Care Provider] - 4-7 days Patient Instructions: Pulmonary Edema (ED) Activity Restrictions/Additional Instructions: For the next 2Increase your furosemide dosage to double days, then back to normal. Use your oxygen at home, as you will need it until the extra fluid comes off your lungs. Return for fever greater than 100, worsening shortness of breath despite treatment, chest pain, any other concerning symptoms. Coding Level of Care Code ED Automatic Bandsaw Tender for Gudelia Stone
[2021-12-24] MEDS: FUROsemide 10 mg/mL SDV 10mL 60 MG IVP (02:30)
[2021-12-24 02:53] VITALS: BP 140/78; PULSE 72; RESP 18; O2SAT 95
== END 2021-12-24 02:54 | disposition home or self-care (01) ==
PROVIDERS: Emergency Provider Emergency Medicine; PCP Family Medicine
DX: J81.1 Chronic pulmonary edema (principal); Z79.01 Long term (current) use of anticoagulants; Z79.4 Long term (current) use of insulin; I11.0 Hypertensive heart disease with heart failure; I50.9 Heart failure, unspecified; Z86.73 Personal history of transient ischemic attack (TIA), and cerebral infarction without residual deficits; E78.5 Hyperlipidemia, unspecified; Z95.0 Presence of cardiac pacemaker; Z95.1 Presence of aortocoronary bypass graft; Z87.891 Personal history of nicotine dependence
CPT/HCPCS: 36415; 71045; 80053; 83605; 83880; 84484; 85025; 87040; 93005; 94640; 96374; 99285; J1940

== ENCOUNTER 2022-02-07 10:29 | Outpatient (CLI) | payer OTHER, MEDICARE, SELFPAY ==
--- NOTE | 2022-02-07 10:37 | CT_ITS ---
WS: [id number] CT CHEST WITH INTRAVENOUS CONTRAST HISTORY: Follow-up, history of lymphoma. TECHNIQUE: Contiguous 5 mm axial imaging performed on the thorax. Coronal and sagittal reformats are submitted. All CT scans at [facility] use at least one of these dose optimization techniques: automated exposure control; mA and/or kV adjustment per patient size (includes targeted exams where dose is matched to clinical indication); or iterative reconstruction. CONTRAST: Visipaque 320; 95 mL IV. DLP: 714.73 mGy.cm COMPARISON: 10/19/2021, 11/01/2014 Lungs and central airway: Mild pulmonary hyperexpansion with changes of chronic emphysema. No mass or pulmonary nodule. Pleura: Normal. No pleural effusion. Heart and pericardium: Mild enlargement of the LEFT heart chambers. No pericardial effusion. Mediastinum and linda: No mediastinal or hilar lymph nodes. Vessels: Moderate atherosclerotic changes within the thoracic aorta. Mild dilated pulmonary artery. P rior CABG. Dual lumen cardiac pacer. Chest wall and lower neck: Atherosclerotic plaque within the great vessels. No chest wall mass. Upper abdomen: Mildly contracted gallbladder. Normal size spleen and liver. No adrenal mass. Atrophie d and fatty replaced pancreas. Heavy calcification with a high-grade stenosis in the celiac axis. The re is extensive calcification in the splenic and gastric artery. Osseous structures: Increase in thoracic kyphosis. CT/CT chest w con* [id number] IMPRESSION: 1. Chronic emphysematous changes and interstitial thickening. No suspicious ma ss or nodule. 2. No significant lymphadenopathy within the chest. 3. Moderate atherosclerotic plaque throughout the aorta and great vessels. 4. Status post CABG and dual lead cardiac pacer. 5. High-grade stenosis proximal celiac axis.
[2022-02-07] MEDS: iodixanol 320 mg/mL 100mL Btl IV (10:57)
== END 2022-02-07 10:30 | disposition home or self-care (01) ==
LOC: RAD 10:30
PROVIDERS: PCP Family Medicine; Visit Provider Family Medicine
DX: R93.89 Abnormal findings on diagnostic imaging of other specified body structures (principal); I70.0 Atherosclerosis of aorta; Z95.1 Presence of aortocoronary bypass graft; Z95.0 Presence of cardiac pacemaker
CPT/HCPCS: 71260

== ENCOUNTER → 2022-04-14 08:07 | Outpatient (BNVA) | payer OTHER, SELFPAY | PROVIDERS: PCP Family Medicine; Visit Provider Internal Medicine Cardiovascular Disease | DX: Z45.010 Encounter for checking and testing of cardiac pacemaker pulse generator [battery] (principal) | CPT/HCPCS: 93280 ==

== ENCOUNTER → 2022-04-27 11:42 | Outpatient (BNVA) | payer OTHER, SELFPAY | PROVIDERS: PCP Family Medicine; Visit Provider Internal Medicine Cardiovascular Disease | DX: R06.02 Shortness of breath (principal); I50.30 Unspecified diastolic (congestive) heart failure; I10 Essential (primary) hypertension; I48.91 Unspecified atrial fibrillation | CPT/HCPCS: 36415; 80048; 83880; 99214 ==

== ENCOUNTER → 2022-05-11 09:47 | Outpatient (BNVA) | payer MEDICARE, OTHER, SELFPAY | PROVIDERS: PCP Family Medicine; Visit Provider Family Medicine | DX: R05.9 Cough, unspecified (principal) | CPT/HCPCS: 71046 ==

== ENCOUNTER 2022-05-17 11:56 | Oncology outpatient (recurring) (ONCR) | payer OTHER, SELFPAY ==
[2022-05-17 12:40] LABS: Basophils # 0.1 10^3/uL (0.0-0.1); Basophils % 0.6 %; Eosinophils # 0.2 10^3/uL (0.0-0.8); Eosinophils % 2.1 %; Hemoglobin 15.6 g/dL (11.7-16.6); Lymphocytes # 1.4 10^3/uL (0.8-4.8); Lymphocytes % 17.5 %; Mean Corpuscular HGB Conc 32.5 g/dL (30.0-36.0); Mean Corpuscular Hemoglobin 30.4 pg (28.0-34.0); Mean Corpuscular Volume 93.6 fl (80-94); Mean Platelet Volume 9.9 fL (7.4-10.4); Monocytes # 1.1 10^3/uL (0.2-0.9); Neutrophils # 5.27 10^3/uL (1.8-7.7); Neutrophils % 65.2 %; Nucleated Red Blood Cells % 0 %; Platelet Count 217 10^3/cmm (130-400); Red Blood Count 5.13 10^6/uL (4.1-5.3); Red Cell Distribution Width 16.7 % (12.1-15.1); White Blood Count 8.1 10^3/uL (4.0-10.0)
[2022-05-17 13:02] LABS: Alanine Aminotransferase 13 U/L (0-41); Albumin Level 3.5 g/dL (3.5-5.2); Alkaline Phosphatase 49 U/L (40-130); Anion Gap 13.9 (5-19); Aspartate Amino Transferase 19 U/L (0-40); Blood Urea Nitrogen 32 mg/dL (8-23); Carbon Dioxide 30 mmol/L (22-29); Chloride 102 mmol/L (98-107); Globulin 2.5 g/dL (1.3-4.6); Glucose 142 mg/dL (65-115); Lactate Dehydrogenase 163 U/L (135-225); Osmolality Calculated 303 mOsm/kg (285-295); Potassium 3.9 mmol/L (3.5-5.1); Sodium 142 mmol/L (136-145); Total Bilirubin 0.8 mg/dL (0.15-1.2)
== END 2022-06-10 23:59 | disposition home or self-care (01) ==
PROVIDERS: PCP Family Medicine; Visit Provider Nurse Practitioner Family
DX: Z08 Encounter for follow-up examination after completed treatment for malignant neoplasm (principal); Z85.72 Personal history of non-Hodgkin lymphomas; Z92.21 Personal history of antineoplastic chemotherapy; Z92.25 Personal history of immunosuppression therapy; Z87.891 Personal history of nicotine dependence
CPT/HCPCS: 80053; 83615; 85025; 99213

== ENCOUNTER → 2022-05-25 14:11 | Outpatient (BNVA) | payer OTHER, SELFPAY | PROVIDERS: PCP Family Medicine; Visit Provider Podiatrist Foot & Ankle Surgery | DX: E11.8 Type 2 diabetes mellitus with unspecified complications (principal); I73.9 Peripheral vascular disease, unspecified; L60.3 Nail dystrophy; Z79.4 Long term (current) use of insulin | CPT/HCPCS: 11721 ==

== ENCOUNTER → 2022-08-01 15:38 | Outpatient (BNVA) | payer MEDICARE, OTHER, SELFPAY | PROVIDERS: PCP Family Medicine; Visit Provider Internal Medicine Cardiovascular Disease | DX: Z45.010 Encounter for checking and testing of cardiac pacemaker pulse generator [battery] (principal) | CPT/HCPCS: 93296 ==

== ENCOUNTER → 2022-08-31 13:24 | Outpatient (BNVA) | payer MEDICARE, OTHER, SELFPAY | PROVIDERS: PCP Family Medicine; Visit Provider Podiatrist Foot & Ankle Surgery | DX: I73.9 Peripheral vascular disease, unspecified (principal); L60.3 Nail dystrophy | CPT/HCPCS: 11721 ==

== ENCOUNTER → 2022-11-24 08:48 | Outpatient (BNVA) | payer OTHER, SELFPAY | PROVIDERS: PCP Family Medicine; Visit Provider Specialist | DX: I48.91 Unspecified atrial fibrillation (principal); I73.9 Peripheral vascular disease, unspecified; I25.10 Atherosclerotic heart disease of native coronary artery without angina pectoris; E78.5 Hyperlipidemia, unspecified; I11.0 Hypertensive heart disease with heart failure; I50.9 Heart failure, unspecified; Z95.0 Presence of cardiac pacemaker; Z79.01 Long term (current) use of anticoagulants | CPT/HCPCS: 99214 ==

== ENCOUNTER → 2022-11-30 15:27 | Outpatient (BNVA) | payer OTHER, SELFPAY | PROVIDERS: PCP Family Medicine; Visit Provider Podiatrist Foot & Ankle Surgery | DX: I73.9 Peripheral vascular disease, unspecified (principal); L60.3 Nail dystrophy; E11.42 Type 2 diabetes mellitus with diabetic polyneuropathy; Z79.4 Long term (current) use of insulin | CPT/HCPCS: 11721 ==

== ENCOUNTER 2022-12-11 09:59 | Outpatient (CLI) | payer OTHER, SELFPAY ==
--- NOTE | 2022-12-11 10:07 | USCV_ITS ---
Panchito Macedo Age: 82 Gender: M : 1940 Exam Date: 12/11/2022 10:25 Ordering Phys: Ryan Church XX Technologist: [place] [facility] [place]: a fib BP: 112 / 74 HR: 62 Rhythm: Sinus Technical Quality: Adequate MEASUREMENTS (Male / Female) Normal Values 2D ECHO LV Diastolic Diameter PLAX 4.8 cm 4.2 - 5.9 / 3.9 - 5.3 cm LV Systolic Diameter PLAX 4.4 cm LV Chamber Size 4.6 cm IVS Diastolic Thickness 1.2 cm 0.6 - 1.0 / 0.6 - 0.9 cm IVS Systolic Thickness 1.9 cm LVPW Diastolic Thickness 1.8 cm 0.6 - 1.0 / 0.6 - 0.9 cm LVPW Systolic Thickness 2.7 cm RV Chamber Size 3.2 cm LVOT Diameter 2.0 cm LV Ejection Fraction 2D Teich 8.0 % LV Ejection Fraction MOD 2C 59.9 % LV Ejection Fraction 2C AL 61.6 % LA Diameter 5.3 cm LA Width 5.0 cm LA Height 6.7 cm RA Width 4.6 cm RA Height 5.7 cm Aorta at Sinotubular Diameter 3.0 cm M-MODE Aortic Annulus Diameter 4.0 cm LA Ao Ratio MM 1.5 MV E Point Septal Separation 0.4 cm DOPPLER AV Peak Velocity 125.0 cm/s LVOT Peak Velocity 82.0 cm/s AV Area Cont Eq vti 2.3 cm squared AV Area Cont Eq pk 2.1 cm squared MV Peak Velocity 134.0 cm/s MV Area PHT 5.0 cm squared Mitral E to A Ratio 7.1 MV E' Velocity 141.8 cm/s Mitral E to MV E' Ratio 36.9 Mitral E to LV E' Lateral Ratio 28.0 Mitral E to LV E' Septal Ratio 53.9 TR Peak Velocity 300.3 cm/s TR Peak Gradient 36.1 mmHg TR Mean Velocity 197.7 cm/s TR Mean Gradient 17.8 mmHg TR Velocity Time Integral 69.2 cm TV Peak E Velocity 72.0 cm/s Right Atrial Pressure 3.0 mmHg Pulmonary Artery Systolic Pressu 39.1 mmHg FINDINGS Left Ventricle Left ventricle is normal in size. LV systolic function is normal with EF of 55 to 60%. No regional wall motion abnormalities are seen. Grade 3 diastolic dysfunction Right Ventricle Normal in size and function Right Atrium Dilated Left Atrium Dilated Mitral Valve Moderate mitral annular calcification. Mild mitral regurgitation. Aortic Valve Aortic valve is structurally normal. No significant stenosis. Mild aortic regurgitation. Tricuspid Valve Mild tricuspid regurgitation. RVSP is 35 to 40 mmHg. This is consistent with mild pulmonary hypertension. Pulmonic Valve Not well visualized Pericardium Normal Aorta Normal in size IVC Appears to be normal CONCLUSIONS LV systolic function is normal with EF of 55 to 60%. Grade 3 diastolic dysfunction Biatrial enlargement Mild mitral regurgitation Mild aortic regurgitation Mild tricuspid regurgitation. Mild pulmonary hypertension Compared to prior echocardiogram from 2020, no significant changes are seen Ricki Denton MD (Electronically Signed) Final Date: 15 December 2022 17:00 S
== END 2022-12-11 10:00 | disposition home or self-care (01) ==
LOC: RAD 10:01
PROVIDERS: PCP Family Medicine; Visit Provider Chiropractor
DX: I48.91 Unspecified atrial fibrillation (principal); I34.0 Nonrheumatic mitral (valve) insufficiency; I35.1 Nonrheumatic aortic (valve) insufficiency; I07.1 Rheumatic tricuspid insufficiency; I27.20 Pulmonary hypertension, unspecified
CPT/HCPCS: 93306

== ENCOUNTER → 2023-03-15 15:05 | Outpatient (BNVA) | payer MEDICARE, OTHER, SELFPAY | PROVIDERS: PCP Family Medicine; Visit Provider Podiatrist Foot & Ankle Surgery | DX: I73.9 Peripheral vascular disease, unspecified (principal); L60.3 Nail dystrophy; E11.42 Type 2 diabetes mellitus with diabetic polyneuropathy; Z79.4 Long term (current) use of insulin | CPT/HCPCS: 11721 ==

== ENCOUNTER 2023-04-30 06:00 | Outpatient (RCR) | payer OTHER, SELFPAY | END 2023-05-10 23:59 | disposition home or self-care (01) | LOC: TPT 06:00 | PROVIDERS: Visit Provider Family Medicine | DX: M54.59 Other low back pain (principal) | CPT/HCPCS: 97110; 97163 ==

== ENCOUNTER → 2023-05-09 15:10 | Outpatient (BNVA) | payer OTHER, SELFPAY | PROVIDERS: Visit Provider Internal Medicine Cardiovascular Disease | DX: Z95.0 Presence of cardiac pacemaker (principal); I25.10 Atherosclerotic heart disease of native coronary artery without angina pectoris; I48.91 Unspecified atrial fibrillation; Z79.01 Long term (current) use of anticoagulants; E11.42 Type 2 diabetes mellitus with diabetic polyneuropathy; Z79.4 Long term (current) use of insulin; I65.23 Occlusion and stenosis of bilateral carotid arteries; Z86.73 Personal history of transient ischemic attack (TIA), and cerebral infarction without residual deficits; Z87.891 Personal history of nicotine dependence; I10 Essential (primary) hypertension | CPT/HCPCS: 99214 ==

== ENCOUNTER 2023-05-21 12:30 | Oncology outpatient (recurring) (ONCR) | payer OTHER, SELFPAY ==
[2023-05-21 12:37] VITALS: BP 132/72; PULSE 66; RESP 16; TEMP 36.2; O2SAT 93
[2023-05-21 13:02] LABS: Basophils # 0.1 10^3/uL (0.0-0.1); Basophils % 0.9 %; Eosinophils # 0.3 10^3/uL (0.0-0.8); Eosinophils % 4.4 %; Hematocrit 49.9 % (37-53); Lymphocytes # 1.3 10^3/uL (0.8-4.8); Lymphocytes % 19.2 %; Mean Corpuscular HGB Conc 33.3 g/dL (30-55); Mean Corpuscular Hemoglobin 30.9 pg (27-33); Mean Corpuscular Volume 92.9 fl (82-101); Mean Platelet Volume 9.7 fL (7.4-10.4); Monocytes # 1.1 10^3/uL (0.2-0.9); Monocytes % 15.6 %; Neutrophils # 4.08 10^3/uL (1.8-7.7); Neutrophils % 59.6 %; Nucleated Red Blood Cells % 0 %; Platelet Count 210 10^3/cmm (157-399); Red Blood Count 5.37 10^6/uL (3.85-5.65); Red Cell Distribution Width 13.6 % (12.1-15.1); White Blood Count 6.84 10^3/uL (3.29-11.43)
[2023-05-21 13:31] LABS: Alanine Aminotransferase 14 U/L (0-41); Albumin Level 4.1 g/dL (3.5-5.2); Alkaline Phosphatase 54 U/L (40-130); Blood Urea Nitrogen 34 mg/dL (8-23); Carbon Dioxide 28 mmol/L (22-29); Chloride 101 mmol/L (98-107); Globulin 2.5 g/dL (1.3-4.6); Glucose 174 mg/dL (65-115); Osmolality Calculated 300 mOsm/kg (285-295); Sodium 139 mmol/L (136-145); Total Bilirubin 0.7 mg/dL (0.15-1.2); Total Protein 6.6 g/dL (6.6-8.7)
[2023-05-21 13:40] LABS: Anion Gap 14.4 (5-19); Aspartate Amino Transferase 21 U/L (0-40); Potassium 4.4 mmol/L (3.5-5.1)
[2023-05-21 13:41] LABS: Lactate Dehydrogenase 248 U/L (135-225)
== END 2023-06-10 23:59 | disposition home or self-care (01) ==
PROVIDERS: Internal Medicine; Visit Provider Nurse Practitioner Family
DX: Z08 Encounter for follow-up examination after completed treatment for malignant neoplasm (principal); Z85.72 Personal history of non-Hodgkin lymphomas; Z92.21 Personal history of antineoplastic chemotherapy; Z92.25 Personal history of immunosuppression therapy; Z87.891 Personal history of nicotine dependence
CPT/HCPCS: 36415; 80053; 83615; 85025; 99214

== ENCOUNTER 2023-06-01 08:22 | Outpatient (RCR) | payer OTHER, SELFPAY | END 2023-06-10 23:59 | disposition home or self-care (01) | LOC: TPT 08:22 | PROVIDERS: Visit Provider Family Medicine | DX: M54.59 Other low back pain (principal) | CPT/HCPCS: 97110 ==

== ENCOUNTER → 2023-07-04 10:28 | Outpatient (BNVA) | payer OTHER, SELFPAY | PROVIDERS: PCP Family Medicine; Visit Provider Podiatrist Foot & Ankle Surgery | DX: I73.9 Peripheral vascular disease, unspecified (principal); L60.3 Nail dystrophy; E11.42 Type 2 diabetes mellitus with diabetic polyneuropathy; Z79.4 Long term (current) use of insulin | CPT/HCPCS: 11721 ==

== ENCOUNTER 2023-07-09 21:39 | Emergency (ER) | payer OTHER, SELFPAY ==
[2023-07-09 21:40] VITALS: BP 183/77; PULSE 69; RESP 18; TEMP 36.3; O2SAT 89
--- NOTE | 2023-07-09 21:48 | CTR_ITS ---
PROCEDURE INFORMATION: Exam: CT Abdomen And Pelvis With Contrast Exam date and time: 07/09/2023 10:59 PM Age: 83 years old Clinical indication: Nausea and vomiting; Prior surgery; Surgery date: 6+ months; Surgery type: Bx on tumor 3 years ago; Additional info: N/v abd distension, HX of nonhodgkins with abd tumors TECHNIQUE: Imaging protocol: Computed tomography of the abdomen and pelvis with contrast. Radiation optimization: All CT scans at this facility use at least one of these dose optimization techniques: automated exposure control; mA and/or kV adjustment per patient size (includes targeted exams where dose is matched to clinical indication); or iterative reconstruction. Contrast material: OMNI 350; Contrast volume: 100 ml; Contrast route: INTRAVENOUS (IV); COMPARISON: CT abdomen pelvis w con* [id number] 01/06/2021 9:57 AM RADIATION DOSE METRICS: Total DLP (mGy-cm): 1023.54 FINDINGS: Lungs: Bibasilar atelectasis versus infiltrate. Emphysematous changes. Pleural spaces: Trace bilateral pleural effusions. Coronary arteries: CABG changes. Liver: Normal. No mass. Gallbladder and bile ducts: Normal. No calcified stones. No ductal dilation. Pancreas: Normal. No ductal dilation. Spleen: Normal. No splenomegaly. Adrenal glands: Normal. No mass. Kidneys and ureters: Mild perinephric edema bilaterally likely reflecting renal insufficiency. Stomach and bowel: Mildly prominent fluid in the stomach and small bowel, please correlate for gastroenteritis. Diverticulosis without diverticulitis. Eccentric masslike wall thickening of the medial aspect of the 2nd portion of duodenum measuring up to 2 cm in thickness as seen on series 3, image 31, consider correlation with endoscopy to evaluate for a possible mass. Appendix: No evidence of appendicitis. Intraperitoneal space: Edema in the upper abdominal mesentery may reflect a chronic inflammatory process such as sclerosing mesenteritis. Vasculature: Edema seen about the infrarenal abdominal aorta in the area of a previously seen conglomeration of adenopathy now with several subcentimeter retroperitoneal lymph nodes seen in the infrarenal region, likely reflecting posttreatment changes. Large amount of atherosclerotic calcification at the origin of the celiac, superior mesenteric and bilateral renal arteries with suspected 80-90% luminal narrowing. Lymph nodes: See Vasculature finding. Urinary bladder: Unremarkable as visualized. Reproductive: Unremarkable as visualized. Bones/joints: Unremarkable. No acute fracture. Soft tissues: Unremarkable. CT/CT abdomen pelvis w con* [id number] IMPRESSION: 1. Mildly prominent fluid in the stomach and small bowel, please correlate for gastroenteritis. 2. CABG changes. 3. Bibasilar atelectasis versus infiltrate. 4. Emphysematous changes. 5. Edema in the upper abdominal mesentery may reflect a chronic inflammatory process such as sclerosing mesenteritis. 6. Edema seen about the infrarenal abdominal aorta in the area of a previously seen conglomeration of adenopathy now with several subcentimeter retroperitoneal lymph nodes seen in the infrarenal region, likely reflecting posttreatment changes. 7. Large amount of atherosclerotic calcification at the origin of the celiac, superior mesenteric and bilateral renal arteries with suspected 80-90% luminal narrowing. 8. Trace bilateral pleural effusions. 9. Diverticulosis without diverticulitis. 10. Eccentric masslike wall thickening of the medial aspect of the 2nd portion of duodenum measuring up to 2 cm in thickness as seen on series 3, image 31, consider correlation with endoscopy to evaluate for a possible mass. 11. Mild perinephric edema bilaterally likely reflecting renal insufficiency.
--- NOTE | 2023-07-09 21:48 | XRR_ITS ---
PROCEDURE INFORMATION: Exam: XR Chest Exam date and time: 07/09/2023 10:02 PM Age: 83 years old Clinical indication: Other: Weakness; Prior surgery; Surgery date: 6+ months; Surgery type: Open heart pacer; Additional info: Shortness of breath TECHNIQUE: Imaging protocol: Radiologic exam of the chest. Views: 1 view. COMPARISON: CR XR chest 2V* [id number] 05/11/2022 9:51 AM FINDINGS: Tubes, catheters and devices: Left-sided pacemaker. Lungs: Bilateral mid to lower lung field atelectasis versus infiltrate. Pleural spaces: Unremarkable. No pleural effusion. No pneumothorax. Heart/Mediastinum: Cardiomegaly. Bones/joints: Sternotomy wires. XR/XR chest 1V portable [id number] IMPRESSION: 1. Bilateral mid to lower lung field atelectasis versus infiltrate. 2. Cardiomegaly. 3. Sternotomy wires. 4. Left-sided pacemaker.
--- NOTE | 2023-07-09 22:05 | ED_ITS ---
HPI - Nausea/Vomiting/Diarrhea 2 General: Chief complaint: Nausea/Vomiting/Diarrhea Stated complaint: Nausea, weakness Time Seen by Provider: 07/09/23 21:48 History of Present Illness: Patient presents to the ER by means of [facility] from home. Patient's complaint was low blood sugar. Patient's blood sugar initially was 52 when he called EMS he did eat and drink by the time EMS got there came up to 70. And then 123. Patient is also having nausea vomiting and feeling of fullness and distention of his abdomen. Patient does have a history of non-Hodgkin's lymphoma with 2 large tumors in his abdomen. This was diagnosed approximately 3 years ago. Patient does see Dr. Méndez. Patient's nausea is controlled now because patient received 4 mg Zofran on route by EMS. 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 Status post cryoablation H/O bilateral cataract extraction Family History Other CAD (coronary artery disease) Cancer Diabetes Family history of prostate cancer Social History Smoking and tobacco/nicotine status: former use of tobacco/nicotine (qiut 37 years ago ) Second hand smoke exposure: No Alcohol intake: never Substance/Drug Use: never Adopted: No Caregiver/support person: No Lives independently: No Household members: spouse Marital status: Current occupational status: retired Current gender identity: Male Special ana needs: No Physical Exam 2 Const: COMMON NORMALS: no acute distress, average body habitus, patient oriented x3, no limitations, healthy appearing, alert and well nourished HENMT: COMMON NORMALS: normocephalic, atraumatic, hearing grossly normal bilaterally, external ears normal, Normal external nose present, moist oral mucous membranes and oropharynx normal HEAD & SCALP: normocephalic and atraumatic NOSE: Normal external nose present EXTERNAL EAR: Yes external ears normal Neck/C-Spine: COMMON NORMALS: full ROM, no lymphadenopathy, supple, no meningeal signs, no JVD and Thyroid normal THYROID: Thyroid normal Chest: COMMONS NORMALS: normal inspection of the chest and normal palpation of entire chest wall Resp: COMMON NORMALS: normal respiratory effort, No retractions, No use of accessory muscles and clear to auscultation bilaterally AUSCULTATION: clear to auscultation bilaterally Cardio: COMMON NORMALS: no JVD, regular rate, regular rhythm, S1 normal heart sound present, S2 normal heart sound present, No gallops present (Cardio), No clicks present (Cardio) and No rub (Cardio) RATE: regular rate RHYTHM: r egular rhythm HEART SOUNDS: S1 normal heart sound present and S2 normal heart sound present GI: COMMON NORMALS: Soft to palpation, non-tender, No hepatosplenomegaly present and no masses; negative for Normal to inspection, nondistended, normoactive bowel sounds present (Abdomen distended with normal active bowel sounds.) PALPATION: Yes Soft to palpation and Yes No hepatosplenomegaly present Neuro: COMMON NORMALS: patient oriented x3 SENSORIUM/ORIENTATION: Yes alert MENINGEAL SIGNS: Yes no meningeal signs Course 2 Vital Signs: Vital signs: Vital Signs Temperature 97.4 F L 07/09/23 21:40 Pulse Rate 62 07/10/23 00:28 Respiratory Rate 18 07/10/23 00:28 Blood Pressure 181/78 07/09/23 22:35 Pulse Oximetry 94 07/10/23 00:28 Oxygen Delivery Me thod Nasal Cannula 07/10/23 00:28 Oxygen Flow Rate 2 07/10/23 00:28 MDM - Nausea/Vomiting/Diarrhea Medical Decision Making Patient had lab work performed as well as a chest x-ray and abdomen pelvis CT. Lab work was essentially unremarkable with a normal white count, urinalysis unremarkable, chest x-ray showed bilateral mid to lower lung atelectasis versus infiltrate. Contrasted CT scan of the abdomen pelvis showed bibasilar atelectasis versus infiltrate as well as changes consistent with gastroenteritis mesenteric edema and eccentric masslike wall thickening of the duodenum. These findings was discussed with the patient. Patient was given 2 g Rocephin IV 1 DuoNeb breathing treatment while the patient was laying flat he required 2 L of oxygen to keep his sats up to 95 or above but however when he sat up he was able to keep it up without oxygen. Patient does have CPAP at home that he uses on a daily basis. Patient was given the option of being admitted for observation due to the potential need for oxygen when lying flat however he and his chose to go home. Patient be discharged home patient will be started on Omnicef. Differential Diagnosis Unlikely traveler's diarrhea, food poisoning, gastroenteritis, clostridium difficile infection, drug-induced nausea and vomiting or dehydration Medical Records I reviewed the patient's medical records. Lab Data I reviewed the patient's lab results. 07/09/23 22:00 07/09/23 22:00 Radiology Impressions Abdomen/Pelvis CT 07/09/23 21:48 IMPRESSION: 1. Mildly prominent fluid in the stomach and small bowel, please correlate for gastroenteritis. 2. CABG changes. 3. Bibasilar atelectasis versus infiltrate. 4. Emphysematous changes. 5. Edema in the upper abdominal mesentery may reflect a chronic inflammatory process such as sclerosing mesenteritis. 6. Edema seen about the infrarenal abdominal aorta in the area of a previously seen conglomeration of adenopathy now with several subcentimeter retroperitoneal lymph nodes seen in the infrarenal region, likely reflecting posttreatment changes. 7. Large amount of atherosclerotic calcification at the origin of the celiac, superior mesenteric and bilateral renal arteries with suspected 80-90% luminal narrowing. 8. Trace bilateral pleural effusions. 9. Diverticulosis without diverticulitis. 10. Eccentric masslike wall thickening of the medial aspect of the 2nd portion of duodenum measuring up to 2 cm in thickness as seen on series 3, image 31, consider correlation with endoscopy to evaluate for a possible mass. 11. Mild perinephric edema bilaterally likely reflecting renal insufficiency. Chest X-Ray 07/09/23 21:48 IMPRESSION: 1. Bilateral mid to lower lung field atelectasis versus infiltrate. 2. Cardiomegaly. 3. Sternotomy wires. 4. Left-sided pacemaker. Laboratory Results WBC 11.14 10^3/uL (3.29-11.43) 07/09/23 22:00 RBC 5.70 10^6/uL (3.85-5.65) H 07/09/23 22:00 Hgb 17.40 g/dL (11.27-16.99) H 07/09/23 22:00 Hct 52.4 % (37-53) 07/09/23 22:00 MCV 91.9 fl (82-101) 07/09/23 22:00 MCH 30.5 pg (27-33) 07/09/23 22:00 MCHC 33.2 g/dL (30-55) 07/09/23 22:00 RDW 14.2 % (12.1-15.1) 07/09/23 22:00 Plt Count 202 10^3/cmm (157-399) 07/09/23 22:00 MPV 9.5 fL (7.4-10.4) 07/09/23 22:00 Neut % (Auto) 77.2 % 07/09/23 22:00 Lymph % (Auto) 10.2 % 07/09/23 22:00 [place] % (Auto) 10.1 % 07/09/23 22:00 Eos % (Auto) 1.6 % 07/09/23 22:00 Baso % (Auto) 0.5 % 07/09/23 22:00 Neut # (Auto) 8.60 10^3/uL (1.8-7.7) H 07/09/23 22:00 Lymph # (Auto) 1.1 10^3/uL (0.8-4.8) 07/09/23 22:00 [place] # (Auto) 1.1 10^3/uL (0.2-0.9) H 07/09/23 22:00 Eos # (Auto) 0.2 10^3/uL (0.0-0.8) 07/09/23 22:00 Baso # (Auto) 0.1 10^3/uL (0.0-0.1) 07/09/23 22:00 Nucleated RBC % (auto) 0 % 07/09/23 22:00 Nucleated RBCs # 0.0 /100WBC 07/09/23 22:00 PT 14.40 SECONDS (12.1-14.9) 07/09/23 22:00 INR 1.08 (0.8-1.2) 07/09/23 22:00 Sodium 140 mmol/L (136-145) 07/09/23 22:00 Potassium 4.3 mmol/L (3.5-5.1) 07/09/23 22:00 Chloride 102 mmol/L (98-107) 07/09/23 22:00 Carbon Dioxide 24 mmol/L (22-29) 07/09/23 22:00 Anion Gap 18.3 (5-19) 07/09/23 22:00 BUN 29 mg/dL (8-23) H 07/09/23 22:00 Creatinine 1.1 mg/dL (0.7-1.2) 07/09/23 22:00 GFR Calculation Not Reportable 07/09/23 22:00 Glucose 152 mg/dL (65-115) H 07/09/23 22:00 Calculated Osmolality 299 mOsm/kg (285-295) H 07/09/23 22:00 Calcium 9.2 mg/dL (8.5-10.5) 07/09/23 22:00 Magnesium 2.7 mg/dL (1.7-2.3) H 07/09/23 22:00 Total Bilirubin 0.7 mg/dL (0.15-1.2) 07/09/23 22:00 AST 26 U/L (0-40) 07/09/23 22:00 ALT 21 U/L (0-41) 07/09/23 22:00 Alkaline Phosphatase 68 U/L (40-130) 07/09/23 22:00 NT-Pro-B Natriuret Pep 968 pg/mL (0-450) H 07/09/23 22:00 Total Protein 7.5 g/dL (6.6-8.7) 07/09/23 22:00 Albumin 4.4 g/dL (3.5-5.2) 07/09/23 22:00 Globulin 3.1 g/dL (1.3-4.6) 07/09/23 22:00 Urine Color Colorless (Yellow) 07/09/23 22:09 Urine Appearance Clear (CLEAR) 07/09/23 22:09 Urine pH 7 (5-7) 07/09/23 22:09 Ur Specific [place] 1.010 (1.005-1.030) 07/09/23 22:09 Urine Protein 1+ (Negative) H 07/09/23 22:09 Urine Glucose (UA) Norm (Normal) 07/09/23 22:09 Urine Ketones Negative (Negative) 07/09/23 22:09 Urine Blood 2+ (Negative) H 07/09/23 22:09 Urine Nitrate Negative (Negative) 07/09/23 22:09 Urine Bilirubin Neg (Negative) 07/09/23 22:09 Urine Urobilinogen Neg mg/dL (Negative) 07/09/23 22:09 Ur Leukocyte Esterase Negative (Negative) 07/09/23 22:09 Urine RBC 0-4 /hpf (0-2) H 07/09/23 22:09 Urine WBC None /hpf (0-5) 07/09/23 22:09 Ur Squamous Epith Cells None /hpf (0-5) 07/09/23 22:09 Amorphous Sediment Not Reportable 07/09/23 22:09 Urine Bacteria Trace /hpf (NONE) 07/09/23 22:09 All radiology interpretation(s) finalized by discharge Discharge Plan Discharge Patient Disposition: Home Clinical Impression: Hypoglycemia Abdominal mass Qualifiers: Abdominal location: other location Qualified Code(s): R19.09 - Other intra- abdominal and pelvic swelling, mass and lump Pneumonia Qualifiers: Pneumonia type: due to unspecified organism Laterality: bilateral Lung location: lower lobe of lung Qualified Code(s): J18.9 - Pneumonia, unspecified organism Condition: Stable Prescriptions: New cefdinir 300 mg capsule 300 mg PO Q12H 10 Days Qty: 20 0RF No Action loteprednol etabonate [Lotemax] 0.5 % drops,suspension 1 drop ophthalmic (eye) BID@0800,1800 Combigan 0.2-0.5 % drops 1 drop ophthalmic (eye) BID@0800,1800 isosorbide mononitrate 60 mg tablet extended release 24 hr 60 mg PO DAILY@0800 potassium chloride 20 mEq tablet,ER particles/crystals 20 meq PO DAILY@0800 epinephrine 0.3 mg/0.3 mL auto-injector 0.3 mg IM ONCE PRN (Reason: UNKNOWN) Rx Instructions: ONE TIME Zyrtec 10 mg capsule 10 mg PO DAILY PRN (Reason: Allergy Symptoms) albuterol sulfate 2.5 mg /3 mL (0.083 %) solution for nebulization 2.5 mg INHALATION Q4H PRN (Reason: Shortness Of Breath) cholecalciferol (vitamin D3) 2,000 unit tablet 2,000 unit PO DAILY@0800 baclofen 10 mg tablet 10 mg PO DAILY@0800 Novolog U-100 Insulin aspart 100 unit/mL solution 5 unit SUBCUT TID@0800,1200,1700 Rx Instructions: SLIDING SCALE Lantus U-100 Insulin 100 unit/mL solution 36 unit SUBCUT BEDTIME@2100 Patient Comments: Patient states that he takes 30 u if he hasn't ate well that evening. Rx Instructions: at HS Symbicort 160-4.5 mcg/actuation HFA aerosol inhaler 2 puff INHALATION BID Eliquis 2.5 mg tablet 2.5 mg PO BID lisinopril 2.5 mg tablet 2.5 mg PO DAILY triamcinolone acetonide [Nasacort] 55 mcg aerosol,spray 1 spray intranasal DAILY Rx Instructions: administer into each nostril finasteride 5 mg tablet 5 mg PO DAILY fexofenadine-pseudoephedrine [Millicent-D 12 Hour] 60-120 mg tablet extended release 12 hr 1 tab PO Q12H PRN (Reason: allergy symptoms) Qty: 20 0RF sotalol 80 mg tablet 60 mg PO BID Rx Instructions: Dose reduced furosemide 40 mg tablet 60 mg PO BID@0600,1800 PRN (Reason: Edema) Qty: 270 3RF Discharge Orders: Discharge ED (Routine); Ordered 07/10/23 Ordered By: Marco Rojas Referrals: Sandrita Almaguer MD [Primary Care Provider] - 1 week Patient Instructions: Acute Nausea and Vomiting (ED), Pneumonia (ED) Activity Restrictions/Additional Instructions: Please take all your medicine as directed. Please follow-up with your family practice physician within the next 7 days for further evaluation and treatment. Please follow-up for the abnormal CT scan that showed a possible mass of your duodenum. If your symptoms return or worsen please feel free to return to the ER. Coding Level of Care Code ED Profiler Hand for Gudelia Stone
[2023-07-09 22:09] LABS: Basophils # 0.1 10^3/uL (0.0-0.1); Basophils % 0.5 %; Eosinophils # 0.2 10^3/uL (0.0-0.8); Eosinophils % 1.6 %; Hematocrit 52.4 % (37-53); Lymphocytes # 1.1 10^3/uL (0.8-4.8); Lymphocytes % 10.2 %; Mean Corpuscular HGB Conc 33.2 g/dL (30-55); Mean Corpuscular Hemoglobin 30.5 pg (27-33); Mean Corpuscular Volume 91.9 fl (82-101); Mean Platelet Volume 9.5 fL (7.4-10.4); Monocytes # 1.1 10^3/uL (0.2-0.9); Monocytes % 10.1 %; Neutrophils % 77.2 %; Nucleated Red Blood Cells % 0 %; Platelet Count 202 10^3/cmm (157-399); Red Cell Distribution Width 14.2 % (12.1-15.1); White Blood Count 11.14 10^3/uL (3.29-11.43)
[2023-07-09 22:24] LABS: Add Urine Culture? No; Add Urine Microscopic? YES; Bacteria Urine TRACE /hpf; Bilirubin Urine Neg (Negative); Blood Urine 2+ (Negative); Glucose Urine UA Norm (Normal); Ketones Urine Negative (Negative); Leukocyte Esterase Urine Negative (Negative); Nitrate Urine Negative (Negative); Protein Urine 1+ (Negative); RBC Urine 0-4 /hpf (0-2); Urine Appearance Clear (CLEAR); Urine Color Colorless (Yellow); Urobilinogen Urine Neg (Negative); pH Urine 7 (5-7)
[2023-07-09 22:35] VITALS: BP 181/78; PULSE 66; RESP 18; O2SAT 94
[2023-07-09 22:43] LABS: Alanine Aminotransferase 21 U/L (0-41); Albumin Level 4.4 g/dL (3.5-5.2); Alkaline Phosphatase 68 U/L (40-130); Anion Gap 18.3 (5-19); Aspartate Amino Transferase 26 U/L (0-40); Blood Urea Nitrogen 29 mg/dL (8-23); Calcium 9.2 mg/dL (8.5-10.5); Carbon Dioxide 24 mmol/L (22-29); Chloride 102 mmol/L (98-107); Globulin 3.1 g/dL (1.3-4.6); Glucose 152 mg/dL (65-115); Magnesium 2.7 mg/dL (1.7-2.3); NT Pro B Type Natriuretic Pept 968 pg/mL (0-450); Osmolality Calculated 299 mOsm/kg (285-295); Potassium 4.3 mmol/L (3.5-5.1); Sodium 140 mmol/L (136-145); Total Bilirubin 0.7 mg/dL (0.15-1.2); Total Protein 7.5 g/dL (6.6-8.7)
[2023-07-09 22:45] LABS: INR 1.08 (0.8-1.2)
[2023-07-09] MEDS: iohexol 350 mg/mL 500 mL Btl (per mL) IV (23:03)
[2023-07-10] MEDS: cefTRIAXone 2,000 MG in sodium chloride 0.9% (plus) 50 ML 100 MG IV (00:26)
[2023-07-10] MEDS: ipratropium-albuterol 3 mL Neb INHALATION (00:26)
[2023-07-10 00:28] VITALS: PULSE 62; RESP 18; O2SAT 94
[2023-07-10 01:35] VITALS: BP 154/74; PULSE 67; RESP 18; O2SAT 95
== END 2023-07-10 01:39 | disposition home or self-care (01) ==
PROVIDERS: Emergency Provider Emergency Medicine; PCP Family Medicine
DX: E16.2 Hypoglycemia, unspecified (principal); R19.09 Other intra-abdominal and pelvic swelling, mass and lump; J18.9 Pneumonia, unspecified organism; Z79.4 Long term (current) use of insulin; Z79.01 Long term (current) use of anticoagulants; Z87.891 Personal history of nicotine dependence; Z85.72 Personal history of non-Hodgkin lymphomas; Z86.73 Personal history of transient ischemic attack (TIA), and cerebral infarction without residual deficits; I11.0 Hypertensive heart disease with heart failure; I50.9 Heart failure, unspecified; E78.5 Hyperlipidemia, unspecified; Z95.0 Presence of cardiac pacemaker; Z95.1 Presence of aortocoronary bypass graft
CPT/HCPCS: 71045; 74177; 80053; 81001; 83735; 83880; 85025; 85610; 94640; 96365; 99285; J0696; Q9967

== ENCOUNTER 2023-08-14 11:08 | Outpatient (CLI) | payer OTHER, SELFPAY ==
--- NOTE | 2023-08-14 16:27 | PETR_ITS ---
PROCEDURE INFORMATION: Exam: PET/CT Skull Base to Mid-thigh Exam date and time: 08/14/2023 12:23 PM Age: 83 years old Clinical indication: Condition or disease; Primary cancer: Lymphoma; Follow-up oncological assessment; Prior surgery; Surgery date: 6+ months; Surgery type: Open heart stents pacer; Additional info: Re staging, PT needs scan one week prior to scheduled appointment on 11/21/23 LABS AND CLINICAL REPORTS: Glucose: 117 mg/dl Treatment strategy for malignancy (PET staging): Restaging (PS) TECHNIQUE: Imaging protocol: Following at least four-hour fasting and following the injection of radiopharmaceutical, low dose CT images were obtained. Then, PET images were obtained. Attenuation corrected images were constructed using the CT scan. Fused images of PET and CT were reviewed. The standardized uptake values (SUV) reported below are maximum values within a region of interest, expressed in gm/ml. Exam includes orbital meatal line to mid-thigh. Radiopharmaceutical: 13.9 mCi F-18 FDG (Fluorodeoxyglucose), IV. Time of imaging post radiopharmaceutical administration: 1 hour Injection site: Left antecubital vein COMPARISON: PT PET Scan 08/14/2020, CT abdomen pelvis 07/09/2023 FINDINGS: Tubes, catheters and devices: Pacemaker is in the left chest wall with 2 electrodes within the right atrium and right ventricle. Brain: Visualized brain has normal physiologic uptake. Paranasal sinuses: No abnormal uptake. Stable findings of chronic sinusitis including mucosal thickening with no air-fluid levels in the maxillary and ethmoid sinuses, and complete opacification of the sphenoid sinus. Stable changes after bilateral maxillary antrostomies. Pharynx: No abnormal uptake. Larynx: No abnormal uptake. Lungs, pleura and trachea: No abnormal uptake. No lung nodules or masses. No pleural effusion. Heart: Normal physiologic uptake. Status post CABG surgery. Mild cardiomegaly. There is no pericardial effusion. Mediastinal space: No abnormal uptake. Liver: No abnormal uptake. Gallbladder and bile ducts: No abnormal uptake. No calcified gallstones. Pancreas: No abnormal uptake. Stable atrophy. Spleen: No abnormal uptake. No splenomegaly. Adrenal glands: No abnormal uptake. No nodules. Kidneys and ureters: Normal physiologic uptake. No hydronephrosis. Stomach and bowel: No abnormal uptake. Stable diverticulosis in the left colon. Intraperitoneal and retroperitoneal spaces: No abnormal uptake. No ascites. Urinary bladder: Normal physiologic uptake. Reproductive: No abnormal uptake. Vasculature: No abnormal uptake. No aortic aneurysm. Lymph nodes: No abnormal uptake. No lymphadenopathy in the head, neck, chest, abdomen, pelvis, and extremities. Haziness in the mental and retroperitoneal fat unchanged since 07/09/2023 represents sequela of treated lymphomatous lymphadenopathy. Bones/joints: No abnormal uptake in the visualized axial and appendicular skeleton. Status post sternotomy. Soft tissues: No abnormal uptake in the visualized head, neck, chest, abdomen, pelvis, and extremities. [facility] [id number] IMPRESSION: No abnormal radiotracer uptake to suggest malignancy. Specifically, there is no abnormal uptake in the descending portion of the duodenum where there was area of concern on previous CT abdomen pelvis on 07/09/2023. Non FDG avid post treatment changes in the mesentery and retroperitoneum.
== END 2023-08-14 11:09 | disposition home or self-care (01) ==
LOC: RAD 11:08
PROVIDERS: PCP Family Medicine; Visit Provider Family Medicine
DX: C85.83 Other specified types of non-Hodgkin lymphoma, intra-abdominal lymph nodes (principal)
CPT/HCPCS: 78815; A9552

== ENCOUNTER → 2023-09-05 10:31 | Outpatient (BNVA) | payer OTHER, SELFPAY | PROVIDERS: PCP Family Medicine; Visit Provider Podiatrist Foot & Ankle Surgery | DX: I73.9 Peripheral vascular disease, unspecified (principal); E11.42 Type 2 diabetes mellitus with diabetic polyneuropathy; M21.41 Flat foot [pes planus] (acquired), right foot; M21.42 Flat foot [pes planus] (acquired), left foot; Z79.4 Long term (current) use of insulin | CPT/HCPCS: 99213 ==

== ENCOUNTER 2023-10-05 11:22 | Emergency (ER) | payer OTHER, SELFPAY ==
[2023-10-05 11:33] VITALS: BP 211/91; PULSE 84; RESP 15; O2SAT 94
--- NOTE | 2023-10-05 11:37 | XRR_ITS ---
PROCEDURE INFORMATION: Exam: XR Chest Exam date and time: 10/05/2023 12:02 PM Age: 83 years old Clinical indication: Other: Left arm parasthesia TECHNIQUE: Imaging protocol: Radiologic exam of the chest. Views: 1 view. COMPARISON: CR (CHEST, ) 07/09/2023 10:02 PM FINDINGS: Tubes, catheters and devices: There is a left subclavian transvenous pacemaker. Lungs: There is strandy atelectasis in the left lung base without definite infiltrate. Pleural spaces: Unremarkable. No pleural effusion. No pneumothorax. Heart/Mediastinum: This patient has undergone previous coronary artery bypass graft. Vasculature: There are atherosclerotic changes in the aorta. Bones/joints: Patient has undergone median sternotomy. There are degenerative changes in the shoulders in the spine XR/XR chest 1V portable [id number] IMPRESSION: 1. Previous CABG 2. Pacemaker 3. Minimal atelectasis without definite infiltrate
--- NOTE | 2023-10-05 11:37 | CT_ITS ---
WS: [id number] CT HEAD NONCONTRAST HISTORY: Left arm and leg parasthesia TECHNIQUE: Contiguous axial imaging performed through the brain in 2.5 mm imaging. Bone and soft tiss ue windows. Sagittal and coronal reformats reviewed. All CT scans at [facility] use at least one of these dose optimization techniques: automated exposure control; mA and/or kV adjustment per pa tient size (includes targeted exams where dose is matched to clinical indication); or iterative recon struction. DLP: 1191.48 mGy.cm COMPARISON: 04/05/2021 No acute intracranial hemorrhage, midline shift or mass effect. Moderate atrophy and small vessel ischemic disease. Remote lacunar infarct RIGHT occipital lobe. Prio r ischemic infarct in the posterior RIGHT frontal lobe. Ventricles: Normal size with no hydrocephalus. No inferior displacement of the cerebellar tonsils. Paranasal sinuses: Extensive mucoperiosteal thickening throughout the sinus cavities. Prior FESS. Mastoid air cells: Well pneumatized. Calvarium and scalp: Skull is intact with no soft tissue edema or swelling. Dense heavy calcification of the distal vertebral arteries and in the intracranial carotid arteries. IMPRESSION: 1. No acute intracranial hemorrhage or edema. No new infarct. 2. Prior infarcts in the posterior RIGHT frontal and RIGHT occipital lobes. These infarcts are stabl e since 04/05/2021. 3. Advanced calcified plaque in the distal vertebral arteries and intracranial carotid arteries. 4. Chronic appearing paranasal sinus disease.
--- NOTE | 2023-10-05 11:37 | ECG_ITS ---
[facility] Test Date: 2023-10-05 Pat Name: Panchito Macedo Department: Room: Gender: Male Manager Programs: : 1940 Requested By: Terry Gonsales Order Number: [id number] Chey MD: Janett Lion M.D. Measurements Intervals [place] Rate: 72 P: 0 OK: 0 QRS: -23 QRSD: 98 T: 109 QT: 368 QTc: 405 Interpretive Statements ATRIAL FIBRILLATION BORDERLINE LEFT AXIS DEVIATION [QRS AXIS < -20] ABNORMAL QRS-T ANGLE [QRS-T AXIS DIFFERENCE > 60] Compared to ECG 12/24/2021 01:03:05 T-wave abnormality no longer present Electronically Signed On 10-06-2023 19:25:46 CDT by Janett Lion M.D. [id number] f
--- NOTE | 2023-10-05 11:39 | W.ED.AMS ---
HPI - Altered Mental Status General: Chief Complaint: Neuro Symptoms/Deficit Stated Complaint: left side numb Time Seen by Provider: 10/05/23 11:31 History of Present Illness: 83-year-old male presents to the emergency department with complaints of left upper and left lower leg numbness that has been intermittent for the previous 4 days. He states that he woke up this morning at approximately 8:00 and noticed that he had continued left arm and left leg numbness. He states that he feels like his left leg is much more weak than his right. 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 He states he has not missed any doses of his medication and he is also currently a diabetic and his blood glucose that he checked in the ER patient room with his active blood glucose monitor was 107. He denies headache nausea vomiting fevers chills or night sweats. He denies recent injury or falls. 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 Status post cryoablation H/O bilateral cataract extraction Family History Other CAD (coronary artery disease) Cancer Diabetes Family history of prostate cancer Social History Smoking and tobacco/nicotine status: former use of tobacco/nicotine (qiut 37 years ago ) Second hand smoke exposure: No Alcohol intake: never Substance/Drug Use: never Adopted: No Caregiver/support person: No Lives independently: No Household members: spouse Marital status: Current occupational status: retired Current gender identity: Male Special ana needs: No Physical Exam Narrative: Constitutional: the patient appears well nourished and with normal development. Vital signs reviewed as documented. HENMT: Normocephalic, atraumatic. External ears normal appearance without drainage. Nose without drainage, normal appearance. Mucus membranes moist. Neck is supple, No jugular venous distension, trachea is midline, no appreciable carotid bruits. No lymphadenopathy. No meningeal signs. Flexion, extension and lateral rotation is without pain. Eyes: Pupils are equal, round, reactive to light and accommodation. No scleral icterus. Extra-ocular movement are intact. Thorax is symmetrical and with equal rise and fall with respirations. Resp: Lungs are clear to auscultation. No wheezes, rales, crackles or ronchi at present. Cardio: Regular rate and rhythm. Positive S1, S2. No appreciable murmurs, rubs or gallops. GI: Abdominal exam reveals normal bowel sounds to all quadrants. No organomegaly. No obvious palpable masses noted. No hepatomegally appreciated. Soft, non-tender to palpation. Extremity: Extremities are non-edematous and both femoral and pedal pulses are 2+ and equal bilaterally. Moves all extremities well, sensation in all extremities. Neuro: Alert and oriented x4, person, place, time and situation. Cranial nerves II through XII are grossly intact, there is no focal neurological deficits that I can appreciate at present. Sensation intact to all extremities. 2-point discrimination intact. Light touch intact to all extremities. Motor strength in the upper extremities are equal and bilateral 5/5. Left lower leg motor strength is 2/5 right lower motor strength is 5/5. Patient is able to ambulate and does ambulate with a cane. He states he does have residual weakness to his left extremity from his previous CVAs. Psych: Cooperative, calm, normal thought process, appropriate judgment. Skin: No lesions, rashes. No gross abnormalities noted. Back: Symmetrical, no obvious deformity, No CVA tenderness Course Vital Signs: Vital signs: Vital Signs Pulse Rate 69 10/05/23 14:33 Respiratory Rate 15 10/05/23 11:33 Blood Pressure 145/42 10/05/23 14:33 Pulse Oximetry 94 10/05/23 14:33 Oxygen Delivery Me thod Room Air 10/05/23 14:33 MDM - Altered Mental Status Medical Decision Making Physical exam completed and documented I will obtain CBC, CMP, PT/INR and a CT scan of his head without contrast given his previous history of CVAs and his current anticoagulation. I will obtain a CTA head and neck to evaluate for carotid stenosis and obstruction. I have contacted the neurologist Dr. Ratliff and discussed the patient's presentation and unfortunately he is out of the treatment window for any thrombolytics and also is currently on anticoagulation which also disqualifies him for thrombolytic intervention. Dr. Ratliff's recommendation was to obtain her CT scans and evaluate for occlusion and if no obvious occlusion was present to have him follow-up outpatient. Patient unable to receive a CTA head and neck given his decreased renal function and states he is also not able to receive an MRI because of his pacemaker's. Lab Data I reviewed the patient's lab results. 10/05/23 12:00 10/05/23 12:00 Radiology Impressions Chest X-Ray 10/05/23 11:37 IMPRESSION: 1. Previous CABG 2. Pacemaker 3. Minimal atelectasis without definite infiltrate Laboratory Results WBC 6.91 10^3/uL (3.29-11.43) 10/05/23 12:00 RBC 4.84 10^6/uL (3.85-5.65) 10/05/23 12:00 Hgb 15.10 g/dL (11.27-16.99) 10/05/23 12:00 Hct 44.3 % (37-53) 10/05/23 12:00 MCV 91.5 fl (82-101) 10/05/23 12:00 MCH 31.2 pg (27-33) 10/05/23 12:00 MCHC 34.1 g/dL (30-55) 10/05/23 12:00 RDW 15.0 % (12.1-15.1) 10/05/23 12:00 Plt Count 193 10^3/cmm (157-399) 10/05/23 12:00 MPV 9.7 fL (7.4-10.4) 10/05/23 12:00 Neut % (Auto) 64.7 % 10/05/23 12:00 Lymph % (Auto) 19.2 % 10/05/23 12:00 Shannon % (Auto) 12.2 % 10/05/23 12:00 Eos % (Auto) 2.6 % 10/05/23 12:00 Baso % (Auto) 0.6 % 10/05/23 12:00 Neut # (Auto) 4.47 10^3/uL (1.8-7.7) 10/05/23 12:00 Lymph # (Auto) 1.3 10^3/uL (0.8-4.8) 10/05/23 12:00 Shannon # (Auto) 0.8 10^3/uL (0.2-0.9) 10/05/23 12:00 Eos # (Auto) 0.2 10^3/uL (0.0-0.8) 10/05/23 12:00 Baso # (Auto) 0.0 10^3/uL (0.0-0.1) 10/05/23 12:00 Nucleated RBC % (auto) 0 % 10/05/23 12:00 Nucleated RBCs # 0.0 /100WBC 10/05/23 12:00 PT 14.90 SECONDS (12.1-14.9) 10/05/23 12:00 INR 1.13 (0.8-1.2) 10/05/23 12:00 Sodium 141 mmol/L (136-145) 10/05/23 12:00 Potassium 4.3 mmol/L (3.5-5.1) 10/05/23 12:00 Chloride 107 mmol/L (98-107) 10/05/23 12:00 Carbon Dioxide 24 mmol/L (22-29) 10/05/23 12:00 Anion Gap 14.3 (5-19) 10/05/23 12:00 BUN 36 mg/dL (8-23) H 10/05/23 12:00 Creatinine 1.7 mg/dL (0.7-1.2) H 10/05/23 12:00 GFR Calculation Not Reportable 10/05/23 12:00 Glucose 93 mg/dL (65-115) 10/05/23 12:00 POC Glucose 51 mg/dL (70-110) L 10/05/23 13:12 Calculated Osmolality 300 mOsm/kg (285-295) H 10/05/23 12:00 Lactic Acid 1.3 mmol/L (0.5-2.2) 10/05/23 12:00 Calcium 10.2 mg/dL (8.5-10.5) 10/05/23 12:00 Total Bilirubin 0.4 mg/dL (0.15-1.2) 10/05/23 12:00 AST 13 U/L (0-40) 10/05/23 12:00 ALT 10 U/L (0-41) 10/05/23 12:00 Alkaline Phosphatase 58 U/L (40-130) 10/05/23 12:00 Troponin T Baseline 72 ng/L (0-15) H 10/05/23 12:00 Troponin T 120 Minute 66.51 ng/L (0-15) H 10/05/23 13:40 Delta Troponin T -5.49 ABS# (0-10) L 10/05/23 13:40 NT-Pro-B Natriuret Pep 1452 pg/mL (0-450) H 10/05/23 12:00 Total Protein 6.3 g/dL (6.6-8.7) L 10/05/23 12:00 Albumin 4.1 g/dL (3.5-5.2) 10/05/23 12:00 Globulin 2.2 g/dL (1.3-4.6) 10/05/23 12:00 Urine Color Yellow (Yellow) 10/05/23 13:39 Urine Appearance Clear (CLEAR) 10/05/23 13:39 Urine pH 6 (5-7) 10/05/23 13:39 Ur Specific [place] 1.005 (1.005-1.030) 10/05/23 13:39 Urine Protein Neg (Negative) 10/05/23 13:39 Urine Glucose (UA) Norm (Normal) 10/05/23 13:39 Urine Ketones Negative (Negative) 10/05/23 13:39 Urine Blood Neg (Negative) 10/05/23 13:39 Urine Nitrate Negative (Negative) 10/05/23 13:39 Urine Bilirubin Neg (Negative) 10/05/23 13:39 Urine Urobilinogen Norm mg/dL (Negative) 10/05/23 13:39 Ur Leukocyte Esterase Negative (Negative) 10/05/23 13:39 All radiology interpretation(s) finalized by discharge Discharge Plan Discharge Patient Disposition: Home Clinical Impression: Left leg paresthesias, Arm paresthesia, left, Hypertension, uncontrolled Condition: Stable Prescriptions: No Action isosorbide mononitrate 60 mg tablet extended release 24 hr 60 mg PO DAILY@0800 cholecalciferol (vitamin D3) 2,000 unit tablet 2,000 unit PO DAILY@0800 Novolog U-100 Insulin aspart 100 unit/mL solution 14 unit SUBCUT TID@0800,1200,1700 Rx Instructions: SLIDING SCALE Lantus U-100 Insulin 100 unit/mL solution 30 unit SUBCUT BEDTIME@2100 Patient Comments: Patient states that he takes 30 u if he hasn't ate well that evening. Eliquis 2.5 mg tablet 2.5 mg PO BID lisinopril 2.5 mg tablet 2.5 mg PO DAILY finasteride 5 mg tablet 5 mg PO DAILY (DME) Diabetic shoes with 3 sets of insoles See Rx Instructions .Route .MEDSUPPLY Qty: 1 0RF Rx Instructions: As directed by [facility] and Daily Living Medical Advair Diskus 250-50 mcg/dose Blister With Device 1 inh INHALATION BID donepezil 10 mg Tablet 10 mg PO BEDTIME spironolactone 100 mg Tablet 100 mg PO BID Tiazac 240 mg Capsule,Extended Release 24 Hr 240 mg PO QAM Glucosamine 500 mg Tablet 500 mg PO DAILY Rx Instructions: administer with a meal baclofen 20 mg Tablet 20 mg PO BEDTIME prednisolone acetate 1 % Drops,Suspension 1 drp OPHTHALMIC (EYE) QID timolol maleate 0.5 % Drops 1 drp OPHTHALMIC (EYE) BID Flonase Allergy Relief 50 mcg/actuation [place],Suspension 2 spray INTRANASAL DAILY Rx Instructions: administer into each nostril clotrimazole 1 % Cream 1 applic TOPICAL BID loratadine 10 mg Tablet 10 mg PO DAILY Maxitrol 3.5 mg/g-10,000 unit/g-0.1 % Ointment 1 applic OPHTHALMIC (EYE) TID Rx Instructions: space evenly during waking hours guaifenesin 400 mg Tablet 400 mg PO Q4H PRN (Reason: mucus) diclofenac sodium 1 % Gel 4 g TOPICAL QID Rx Instructions: apply to single knee, ankle, foot; for foot includes sole/toes/top of foot lidocaine 5 % Ointment 1 applic TOPICAL TID PRN (Reason: Pain) Salonpas Deep Relieving 3.1-15-10 % Gel 1 ea TOPICAL QID PRN (Reason: Pain) Discharge Orders: Discharge ED (Routine); Ordered 10/05/23 Ordered By: Terry Gonsales Referrals: Sandrita Almaguer MD [Primary Care Provider] - Discharge Diet: Usual diet Discharge Activity: Resume usual activity Patient Instructions: Opioid Safety, Pain Management Activity Restrictions/Additional Instructions: Activity Restrictions/Additional Instructions: Thank you for choosing [facility] for your healthcare needs today. Please realize that you were seen in the Emergency Department and that we are providing you with an emergency medical screening exam and this may not be a complete and all inclusive of all the testing and or medical work-up that you may need to determine your ailment or severity of your illness. It is very important that you follow-up as instructed with your Primary care provider or Specialist for additional evaluation and to discuss your medical treatment plan. Coding Level of Care Code ED Gear Nicker for Gudelia Stone
[2023-10-05 12:10] LABS: Basophils % 0.6 %; Eosinophils # 0.2 10^3/uL (0.0-0.8); Eosinophils % 2.6 %; Hematocrit 44.3 % (37-53); Lymphocytes # 1.3 10^3/uL (0.8-4.8); Lymphocytes % 19.2 %; Mean Corpuscular HGB Conc 34.1 g/dL (30-55); Mean Corpuscular Hemoglobin 31.2 pg (27-33); Mean Corpuscular Volume 91.5 fl (82-101); Mean Platelet Volume 9.7 fL (7.4-10.4); Monocytes # 0.8 10^3/uL (0.2-0.9); Monocytes % 12.2 %; Neutrophils # 4.47 10^3/uL (1.8-7.7); Neutrophils % 64.7 %; Nucleated Red Blood Cells % 0 %; Platelet Count 193 10^3/cmm (157-399); Red Blood Count 4.84 10^6/uL (3.85-5.65); White Blood Count 6.91 10^3/uL (3.29-11.43)
[2023-10-05 12:21] LABS: INR 1.13 (0.8-1.2)
--- NOTE | 2023-10-05 12:25 | PC.PHAR ---
PT IS [facility]-FAXING FOR CURRENT MED LIST 12:25PM 10/05/23
[2023-10-05 12:27] LABS: Troponin(5th) Baseline 72 ng/L (0-15)
[2023-10-05 12:28] LABS: Lactic Sepsis W/Reflex 1.3 mmol/L (0.5-2.2)
[2023-10-05 12:37] LABS: Alanine Aminotransferase 10 U/L (0-41); Albumin Level 4.1 g/dL (3.5-5.2); Alkaline Phosphatase 58 U/L (40-130); Aspartate Amino Transferase 13 U/L (0-40); Blood Urea Nitrogen 36 mg/dL (8-23); Calcium 10.2 mg/dL (8.5-10.5); Carbon Dioxide 24 mmol/L (22-29); Chloride 107 mmol/L (98-107); Globulin 2.2 g/dL (1.3-4.6); Glucose 93 mg/dL (65-115); NT Pro B Type Natriuretic Pept 1452 pg/mL (0-450); Osmolality Calculated 300 mOsm/kg (285-295); Sodium 141 mmol/L (136-145); Total Bilirubin 0.4 mg/dL (0.15-1.2); Total Protein 6.3 g/dL (6.6-8.7)
[2023-10-05 12:39] LABS: Anion Gap 14.3 (5-19); Potassium 4.3 mmol/L (3.5-5.1)
[2023-10-05] MEDS: hyDRALAzine 20 mg/mL INJ 1 mL 10 MG IVP ×2 (13:08→14:13)
[2023-10-05 13:26] LABS: Glucose Point of Care 51 mg/dL (70-110)
--- NOTE | 2023-10-05 13:38 | ECG_ITS ---
[facility] Test Date: 2023-10-05 Pat Name: Panchito Macedo Department: Room: Gender: Male Operations Business Partner: : 1940 Requested By: Terry Gonsales Order Number: [id number] Chey MD: Janett Lion M.D. Measurements Intervals [place] Rate: 65 P: 0 CA: 0 QRS: -23 QRSD: 93 T: 84 QT: 318 QTc: 333 Interpretive Statements Atrial fibrillation with demand V pacing BORDERLINE LEFT AXIS DEVIATION [QRS AXIS < -20] ABNORMAL RHYTHM ECG Compared to ECG 10/05/2023 11:37:48 No significant change Electronically Signed On 10-06-2023 19:56:50 CDT by Janett Lion M.D. [id number]
[2023-10-05 13:39] VITALS: BP 166/87; PULSE 67; O2SAT 96
--- NOTE | 2023-10-05 13:41 | PC.PHAR ---
PTS [facility] LIST DIFFERENT THAN MED LIST ON FILE. ALL CURRENT MEDS ADDED PER [facility] LIST 10/05/23
[2023-10-05 13:55] LABS: Add Urine Microscopic? NO; Charge for UA Resulting for Rev
[2023-10-05 14:01] LABS: Bilirubin Urine Neg (Negative); Blood Urine Neg (Negative); Glucose Urine UA Norm (Normal); Ketones Urine Negative (Negative); Leukocyte Esterase Urine Negative (Negative); Nitrate Urine Negative (Negative); Protein Urine Neg (Negative); Specific Gravity, Urine 1.005 (1.005-1.030); Urine Appearance Clear (CLEAR); Urine Color Yellow (Yellow); Urobilinogen Urine Norm (Negative); pH Urine 6 (5-7)
[2023-10-05 14:21] LABS: Troponin 5 2HR 66.51 ng/L (0-15)
[2023-10-05 14:25] LABS: Troponin 5 2HR Delta -5.49 ABS# (0-10)
[2023-10-05 14:33] VITALS: BP 145/42; PULSE 69; O2SAT 94
== END 2023-10-05 14:49 | disposition home or self-care (01) ==
PROVIDERS: Emergency Provider Internal Medicine; PCP Family Medicine
DX: R20.2 Paresthesia of skin (principal); Z79.01 Long term (current) use of anticoagulants; Z79.4 Long term (current) use of insulin; Z87.891 Personal history of nicotine dependence; Z86.73 Personal history of transient ischemic attack (TIA), and cerebral infarction without residual deficits; I11.0 Hypertensive heart disease with heart failure; I50.9 Heart failure, unspecified; E78.5 Hyperlipidemia, unspecified; Z95.0 Presence of cardiac pacemaker; Z95.1 Presence of aortocoronary bypass graft
CPT/HCPCS: 36416; 70450; 71045; 80053; 81003; 82962; 83605; 83880; 84484; 85025; 85610; 93005; 96374; 96376; 99285; J0360

== ENCOUNTER → 2023-10-17 16:13 | Outpatient (BNVA) | payer OTHER, SELFPAY | PROVIDERS: PCP Family Medicine; Visit Provider Internal Medicine Cardiovascular Disease | DX: Z45.010 Encounter for checking and testing of cardiac pacemaker pulse generator [battery] (principal) | CPT/HCPCS: 93296 ==

== ENCOUNTER → 2023-11-01 14:18 | Outpatient (BNVA) | payer OTHER, MEDICARE, SELFPAY | PROVIDERS: PCP Family Medicine; Visit Provider Internal Medicine Cardiovascular Disease | DX: I25.118 Atherosclerotic heart disease of native coronary artery with other forms of angina pectoris (principal); I65.23 Occlusion and stenosis of bilateral carotid arteries; I48.91 Unspecified atrial fibrillation; Z79.01 Long term (current) use of anticoagulants; E78.5 Hyperlipidemia, unspecified; Z95.0 Presence of cardiac pacemaker; Z87.891 Personal history of nicotine dependence; I11.0 Hypertensive heart disease with heart failure; I50.9 Heart failure, unspecified | CPT/HCPCS: 99215 ==

== ENCOUNTER → 2023-11-07 12:45 | Outpatient (BNVA) | payer OTHER, MEDICARE, SELFPAY | PROVIDERS: PCP Family Medicine; Visit Provider Podiatrist Foot & Ankle Surgery | DX: I73.9 Peripheral vascular disease, unspecified (principal); E11.42 Type 2 diabetes mellitus with diabetic polyneuropathy; M21.41 Flat foot [pes planus] (acquired), right foot; M21.42 Flat foot [pes planus] (acquired), left foot; L60.3 Nail dystrophy; Z79.4 Long term (current) use of insulin | CPT/HCPCS: 11721 ==

== ENCOUNTER 2023-12-04 08:30 | Oncology outpatient (recurring) (ONCR) | payer MEDICARE, OTHER, SELFPAY ==
--- NOTE | 2023-11-19 07:00 | USCV_ITS ---
Panchito Macedo Age: 83 Gender: M : 1940 Exam Date: 11/19/2023 07:09 Ordering Phys: Janett Lion MD ([email or web address]) Technologist: Exam Location: [facility] [place] Indication: hx of cad mi BP: 120 / 60 HR: 94 Rhythm: Sinus Technical Quality: Adequate MEASUREMENTS (Male / Female) Normal Values 2D ECHO LV Diastolic Diameter PLAX 5.1 cm 4.2 - 5.9 / 3.9 - 5.3 cm IVS Diastolic Thickness 1.2 cm 0.6 - 1.0 / 0.6 - 0.9 cm IVS Systolic Thickness 1.5 cm LVPW Diastolic Thickness 1.1 cm 0.6 - 1.0 / 0.6 - 0.9 cm LVPW Systolic Thickness 2.0 cm LVOT Diameter 2.0 cm LV Ejection Fraction 2D Teich 66.9 % LV Ejection Fraction MOD 2C 60.0 % LV Ejection Fraction 2C AL 59.9 % LA Diameter 4.7 cm RA Systolic Volume 4C AL 70.8 ml RA Systolic Volume 4C MOD 76.3 ml Aorta at Sinotubular Diameter 3.6 cm M-MODE LA Ao Ratio MM 1.2 AV Cusp Separation MM 2.7 cm DOPPLER AV Peak Velocity 128.0 cm/s LVOT Peak Velocity 82.0 cm/s AV Area Cont Eq vti 2.0 cm squared AV Area Cont Eq pk 2.0 cm squared MV Peak Velocity 159.0 cm/s MV Area PHT 3.6 cm squared Mitral E to A Ratio 3.7 TR Peak Velocity 236.0 cm/s TR Peak Gradient 22.3 mmHg TV Peak E Velocity 99.0 cm/s Right Atrial Pressure 3.0 mmHg Pulmonary Artery Systolic Pressu 25.3 mmHg PV Peak Velocity 82.0 cm/s FINDINGS Left Ventricle Normal left ventricular size and systolic function, EF 60%. No gross wall motion abnormalities. Features of grade III left- ventricular diastolic dysfunction Right Ventricle The right ventricle is normal in size and function. Right Atrium Mildly increased right atrial size. Left Atrium Mildly increased left atrial size. Mitral Valve Thickened mitral valve with mild mitral annular calcification. Mild mitral valve regurgitation. Aortic Valve Thickened aortic valve. Tricuspid Valve Kcqs-ml-zjnzwyjk tricuspid valve regurgitation. Pulmonic Valve Pulmonic valve not well visualized. Pericardium Normal pericardium without effusion. Aorta Normal aortic annulus size. IVC Inferior vena cava not visualized. CONCLUSIONS Normal left ventricular size and systolic function, EF 60%. No gross wall motion abnormalities. Features of grade III left- ventricular diastolic dysfunction. Mild biatrial enlargement. Thickened mitral valve with mild mitral annular calcification. Mild mitral valve regurgitation. Zoou-bo-dptlelbf tricuspid valve regurgitation. Thickened aortic valve Iyze-mx-sahagenw tricuspid valve regurgitation. Estimated PA pressure of 25 mmHg There is no pericardial effusion. There are no intracardiac masses. Compared to the study from 12/11/2022, there may not be a significant change. Dr Janett Lion MD [facility] (Electronically Signed) Final Date: 19 November 2023 18:56 S
--- NOTE | 2023-11-19 07:45 | USCV_ITS ---
Panchito Macedo Age: 83 Gender: M : 1940 Exam Date: 11/19/2023 06:53 Ordering Phys: Janett Lion MD ([email or web address]) Technologist: ALETHEA [place]am Location[place] [facility] [place] Indication: Stenosis. Rt stent placement Risk Factors: Previous Vascular Surgery: Right Brachial BP: / Left Brachial BP: / Right Left Velocity (cm/s) Spectral Plaque Velocity (cm/s) Spectral Plaque Syst/Diast Broadening Syst/Diast Broadening 52.80/ 8.70 Prox CCA 102.00/ 16.90 97.00/ 11.50 Mid CCA 122.80/ 21.00 78.90/ 7.60 Distal CCA 105.40/ 10.80 98.70/ 23.30 Prox ICA 65.00 / 14.50 83.60/ 12.80 Mid ICA 78.50 / 20.50 99.20/ 21.40 Distal ICA 73.30 / 20.20 176.80 ECA 122.60 1.30 ICA/CCA 0.70 Antegrade Vertebral Antegrade 57.00/ 12.90 cm/s 46.90/ 11.90 cm/s Tri Subclavian Tri 85.70 217.8 0 FINDINGS Moderate irregular plaques at the right common carotid artery at the proximal segment. Patent stented segment stent at the mid to distal segment of the artery. Moderate plaques at the right bifurcation Mild diffuse plaque in the left common carotid artery. Moderate plaques at the left bifurcation Antegrade flow in the vertebral arteries bilaterally Elevated velocity in his left subclavian artery CONCLUSIONS Moderate heterogenous plaques at the bifurcations bilaterally with the Doppler features suggesting less than 50% stenosis Patent stented segment of the right common carotid artery Elevated velocity in the left subclavian artery, may suggest greater than 50% stenosis, consider CTA to better evaluate, if clinically indicated. Dr Janett Lion MD [facility] (Electronically Signed) Final Date: 25 November 2023 21:58 S
[2023-11-21 13:52] LABS: Add Urine Microscopic? NO; Charge for UA Resulting for Rev
[2023-11-21 13:55] LABS: Basophils # 0.1 10^3/uL (0.0-0.1); Basophils % 0.8 %; Eosinophils # 0.2 10^3/uL (0.0-0.8); Eosinophils % 2.9 %; Hematocrit 41.3 % (37-53); Lymphocytes % 15.8 %; Mean Corpuscular HGB Conc 34.4 g/dL (30-55); Mean Corpuscular Hemoglobin 33.1 pg (27-33); Mean Corpuscular Volume 96.3 fl (82-101); Mean Platelet Volume 9.9 fL (7.4-10.4); Monocytes # 0.9 10^3/uL (0.2-0.9); Neutrophils # 4.03 10^3/uL (1.8-7.7); Neutrophils % 65.8 %; Nucleated Red Blood Cells % 0 %; Platelet Count 193 10^3/cmm (157-399); Red Blood Count 4.29 10^6/uL (3.85-5.65); Red Cell Distribution Width 14.5 % (12.1-15.1); White Blood Count 6.13 10^3/uL (3.29-11.43)
[2023-11-21 14:14] LABS: Bilirubin Urine Neg (Negative); Blood Urine Neg (Negative); Glucose Urine UA Norm (Normal); Ketones Urine Negative (Negative); Leukocyte Esterase Urine Negative (Negative); Nitrate Urine Negative (Negative); Protein Urine Neg (Negative); Specific Gravity, Urine 1.015 (1.005-1.030); Urine Appearance Clear (CLEAR); Urine Color Yellow (Yellow); Urobilinogen Urine Norm (Negative); pH Urine 5 (5-7)
[2023-11-21 14:45] LABS: Alanine Aminotransferase 7 U/L (0-41); Albumin Level 3.8 g/dL (3.5-5.2); Alkaline Phosphatase 56 U/L (40-130); Anion Gap 15.1 (5-19); Aspartate Amino Transferase 10 U/L (0-40); Blood Urea Nitrogen 27 mg/dL (8-23); Calcium 9.1 mg/dL (8.5-10.5); Carbon Dioxide 23 mmol/L (22-29); Chloride 102 mmol/L (98-107); Free T4 Free Thyroxine 1.21 ng/dL (0.82-1.77); Globulin 2.4 g/dL (1.3-4.6); Glucose 134 mg/dL (65-115); Lactate Dehydrogenase 134 U/L (135-225); Osmolality Calculated 289 mOsm/kg (285-295); Potassium 4.1 mmol/L (3.5-5.1); Sodium 136 mmol/L (136-145); Testosterone Total 208.5 ng/dL (193-740); Total Bilirubin 0.6 mg/dL (0.15-1.2); Total Protein 6.2 g/dL (6.6-8.7)
[2023-11-21 18:06] LABS: Thyroid Stimulating Hormone 1.12 uIU/mL (0.27-4.20)
[2023-11-22 10:25] LABS: PROTEIN, TOTAL 5.8 g/dL (6.1-8.1)
[2023-11-22 14:49] LABS: ALBUMIN 3.7 g/dL (3.8-4.8); ALPHA 1 GLOBULIN 0.3 g/dL (0.2-0.3); ALPHA 2 GLOBULIN 0.7 g/dL (0.5-0.9); BETA 1 GLOBULIN 0.3 g/dL (0.4-0.6); BETA 2 GLOBULIN 0.3 g/dL (0.2-0.5); GAMMA GLOBULIN 0.6 g/dL (0.8-1.7)
[2023-11-23 21:00] LABS: Kappa Free Light Chains Urine 27.31 mg/L (<=32.90)
[2023-11-24 20:30] LABS: PROTEIN, TOTAL, 24 HR UR 195 mg/24 h (<150); Protein/Creatinine Ratio 0.217 (<0.100); Protein/Creatinine Ratio 217 mg/g creat (<100)
[2023-11-26 13:59] LABS: Immunofixation Serum Normal pattern.
[2023-11-27 15:45] LABS: ALBUMIN 100 %; ALPHA-1-GLOBULINS 0 %; ALPHA-2-GLOBULINS 0 %; BETA GLOBULINS 0 %; GAMMA GLOBULINS 0 %
--- NOTE | 2023-12-04 08:30 | PETR_ITS ---
PROCEDURE INFORMATION: Exam: PET/CT Whole Body Exam date and time: 12/04/2023 9:54 AM Age: 83 years old Clinical indication: Condition or disease; Primary cancer: Non hodgkins lymphoma, intra abdominal lymph nodes; Prior surgery; Surgery date: 6+ months; Surgery type: Open heart, stents, pacemaker LABS AND CLINICAL REPORTS: Glucose: 200 mg/dl Treatment strategy for malignancy (PET staging): Restaging (PS) TECHNIQUE: Imaging protocol: Following at least four-hour fasting and following the injection of radiopharmaceutical, low dose CT images were obtained. Then, PET images were obtained. Attenuation corrected images were constructed using the CT scan. Fused images of PET and CT were reviewed. The standardized uptake values (SUV) reported below are maximum values within a region of interest, expressed in gm/ml. Exam includes the whole body. Radiopharmaceutical: 14.1 mCi F-18 FDG (Fluorodeoxyglucose), IV. Time of imaging post radiopharmaceutical administration: 1 hour Injection site: Left antecubital COMPARISON: 1. PT PET skull to thigh SUBS [id number] 08/14/2023 12:23 PM 2. PT PET Scan 08/14/2020 8:13 AM FINDINGS: Tubes, catheters and devices: Dual lead cardiac pacemaker with left chest generator. Brain: Visualized brain has normal physiologic uptake. Paranasal sinuses: Stable findings of chronic sinusitis with complete opacification of the sphenoid sinuses, opacification of the left frontal sinus and ethmoid air cells with mild bilateral maxillary sinus mucosal thickening. No air-fluid levels. Evidence of prior FESS. Pharynx: No abnormal uptake. Larynx: No abnormal uptake. Lungs, pleura and trachea: No abnormal uptake. No consolidation, mass, or pleural effusion. Heart: Normal physiologic uptake. Mild cardiomegaly. Coronary arteries: Heavy coronary artery calcification. Prior CABG. Mediastinal space: No abnormal uptake. Liver: No abnormal uptake. Gallbladder and biliary ducts: No abnormal uptake. Pancreas: No abnormal uptake. Stable atrophy. Spleen: No abnormal uptake. No splenomegaly. Adrenal glands: No abnormal uptake. Kidneys and ureters: Normal physiologic uptake. Stomach and bowel: No abnormal uptake. Colonic diverticulosis without findings of diverticulitis. Vasculature: No abnormal uptake. Heavy systemic arterial calcification. Lymph nodes: No abnormal uptake. No lymphadenopathy in the head, neck, chest, abdomen, pelvis, and extremities. Stable non FDG-avid mesenteric and retroperitoneal graying in keeping with sequela of treated lymphoma. Skeleton: No abnormal uptake in the visualized axial and appendicular skeleton. Degenerative changes along the spine. Soft tissues: No abnormal uptake in the visualized head, neck, chest, abdomen, pelvis, and extremities. Bilateral gynecomastia. Small fat containing bilateral inguinal hernias. PET/PET WB melanoma SUBSEQ [id number] IMPRESSION: Stable mesenteric and retroperitoneal posttreatment change without FDG avid disease.
== END 2023-12-09 23:59 | disposition home or self-care (01) ==
LOC: ONCMED 13:11 → RAD 12-05 00:01 → ONCMED 12-24 10:39
PROVIDERS: Nurse Practitioner Family; PCP Family Medicine; Visit Provider Internal Medicine
DX: C85.83 Other specified types of non-Hodgkin lymphoma, intra-abdominal lymph nodes; Z53.9 Procedure and treatment not carried out, unspecified reason
CPT/HCPCS: 36415; 78816; 80053; 81003; 82570; 83615; 83883; 84155; 84156; 84165; 84166; 84403; 84439; 84443; 85025; 86334; 86335; 93306; 93880; 99213; A9552

== ENCOUNTER 2023-12-25 12:15 | Oncology outpatient (recurring) (ONCR) | payer MEDICARE, OTHER, SELFPAY | END 2024-01-09 23:59 | disposition home or self-care (01) | PROVIDERS: PCP Family Medicine; Visit Provider Internal Medicine Medical Oncology | DX: C85.83 Other specified types of non-Hodgkin lymphoma, intra-abdominal lymph nodes (principal); Z79.899 Other long term (current) drug therapy | CPT/HCPCS: 99213 ==

== ENCOUNTER → 2024-01-09 14:19 | Outpatient (BNVA) | payer OTHER, SELFPAY | PROVIDERS: PCP Family Medicine; Visit Provider Podiatrist Foot & Ankle Surgery | DX: I73.9 Peripheral vascular disease, unspecified (principal); E11.42 Type 2 diabetes mellitus with diabetic polyneuropathy; L60.3 Nail dystrophy; Z79.4 Long term (current) use of insulin | CPT/HCPCS: 11721 ==

== ENCOUNTER → 2024-03-12 08:47 | Outpatient (BNVA) | payer OTHER, SELFPAY | PROVIDERS: PCP Family Medicine; Visit Provider Specialist | DX: G45.9 Transient cerebral ischemic attack, unspecified (principal); E11.42 Type 2 diabetes mellitus with diabetic polyneuropathy; Z79.4 Long term (current) use of insulin | CPT/HCPCS: 99204 ==

== ENCOUNTER → 2024-03-19 08:43 | Outpatient (BNVA) | payer OTHER, SELFPAY | PROVIDERS: PCP Family Medicine; Visit Provider Podiatrist Foot & Ankle Surgery | DX: E11.8 Type 2 diabetes mellitus with unspecified complications (principal); I73.9 Peripheral vascular disease, unspecified; E11.42 Type 2 diabetes mellitus with diabetic polyneuropathy; L60.3 Nail dystrophy; Z79.4 Long term (current) use of insulin | CPT/HCPCS: 11721 ==

== ENCOUNTER → 2024-06-10 09:03 | Outpatient (BNVA) | payer OTHER, SELFPAY | PROVIDERS: PCP Family Medicine; Visit Provider Nurse Practitioner Family | DX: I48.91 Unspecified atrial fibrillation (principal); I25.10 Atherosclerotic heart disease of native coronary artery without angina pectoris; Z95.0 Presence of cardiac pacemaker; I65.29 Occlusion and stenosis of unspecified carotid artery; Z87.891 Personal history of nicotine dependence; Z79.01 Long term (current) use of anticoagulants; I11.9 Hypertensive heart disease without heart failure; I08.1 Rheumatic disorders of both mitral and tricuspid valves | CPT/HCPCS: 99214 ==

== ENCOUNTER 2024-06-24 11:16 | Oncology outpatient (recurring) (ONCR) | payer MEDICARE, OTHER, SELFPAY ==
[2024-06-24 11:41] LABS: Basophils # 0.1 10^3/uL (0.0-0.1); Basophils % 0.8 %; Eosinophils # 0.3 10^3/uL (0.0-0.8); Hematocrit 40.8 % (37-53); Lymphocytes # 1.3 10^3/uL (0.8-4.8); Lymphocytes % 17.6 %; Mean Corpuscular HGB Conc 33.8 g/dL (30-55); Mean Corpuscular Hemoglobin 33.5 pg (27-33); Mean Platelet Volume 10.1 fL (7.4-10.4); Monocytes # 0.9 10^3/uL (0.2-0.9); Monocytes % 11.9 %; Neutrophils # 4.67 10^3/uL (1.8-7.7); Neutrophils % 64.9 %; Nucleated Red Blood Cells % 0 %; Platelet Count 224 10^3/cmm (157-399); Red Blood Count 4.12 10^6/uL (3.85-5.65); Red Cell Distribution Width 12.8 % (12.1-15.1); White Blood Count 7.21 10^3/uL (3.29-11.43)
[2024-06-24 12:06] LABS: Alanine Aminotransferase 7 U/L (0-41); Albumin Level 3.9 g/dL (3.5-5.2); Alkaline Phosphatase 51 U/L (40-130); Anion Gap 12.7 (5-19); Aspartate Amino Transferase 12 U/L (0-40); Blood Urea Nitrogen 31 mg/dL (8-23); Calcium 9.6 mg/dL (8.5-10.5); Carbon Dioxide 23 mmol/L (22-29); Chloride 106 mmol/L (98-107); Globulin 2.5 g/dL (1.3-4.6); Glucose 148 mg/dL (65-115); Lactate Dehydrogenase 126 U/L (135-225); Osmolality Calculated 293 mOsm/kg (285-295); Potassium 4.7 mmol/L (3.5-5.1); Sodium 137 mmol/L (136-145); Total Bilirubin 0.4 mg/dL (0.15-1.2); Total Protein 6.4 g/dL (6.6-8.7)
[2024-06-24 12:14] LABS: Creatinine Clr Calc Pharmacy 43.5033
== END 2024-07-11 23:59 | disposition home or self-care (01) ==
PROVIDERS: PCP Family Medicine; Visit Provider Internal Medicine Medical Oncology
DX: C85.83 Other specified types of non-Hodgkin lymphoma, intra-abdominal lymph nodes (principal); Z87.891 Personal history of nicotine dependence; Z79.899 Other long term (current) drug therapy; Z92.21 Personal history of antineoplastic chemotherapy; R30.0 Dysuria
CPT/HCPCS: 36415; 80053; 83615; 85025; 99214

== ENCOUNTER → 2024-07-24 11:01 | Outpatient (BNVA) | payer OTHER, SELFPAY | PROVIDERS: PCP Family Medicine; Visit Provider Podiatrist Foot & Ankle Surgery | DX: E11.42 Type 2 diabetes mellitus with diabetic polyneuropathy (principal); L60.3 Nail dystrophy; I73.9 Peripheral vascular disease, unspecified; Z79.4 Long term (current) use of insulin | CPT/HCPCS: 11721 ==

== ENCOUNTER 2024-08-06 17:45 | Emergency (ER) | payer OTHER, MEDICARE, SELFPAY ==
[2024-08-06 17:50] VITALS: BP 129/56; PULSE 71; RESP 20; TEMP 36.6; O2SAT 90; BMI 32.1
--- NOTE | 2024-08-06 18:11 | W.ED.ABDPA2 ---
HPI - Abdominal Pain General: Chief Complaint: Abdominal Pain Stated Complaint: pain Time Seen by Provider: 08/06/24 18:04 History of Present Illness: This is an 84-year-old man with a history of BPH, CVA, CHF, trigeminal neuralgia, sleep apnea, hyperlipidemia, pacemaker placement, coronary artery disease, hypertension and carotid stenosis who presents to the emergency room with abdominal pain that is intermittent for the past month. He repeatedly tells me that he has pain in his gizzard . He says that if he has stools or vomits that will make it better. Is not hurting now. He called the OR and they told him to come to the emergency room. Related Data Home Medications ?Medication ?Instructions ?Recorded ?Confirmed cholecalciferol (vitamin D3) 50 2,000 unit PO DAILY@0800 06/18/19 07/24/24 mcg (2,000 unit) tablet insulin aspart U-100 100 unit/mL 14 unit SUBCUT TID@0800,1200,1700 06/18/19 07/24/24 subcutaneous solution (Novolog U-100 Insulin aspart) apixaban 2.5 mg tablet (Eliquis) 2.5 mg PO BID 10/13/21 07/24/24 finasteride 5 mg tablet 5 mg PO DAILY 10/13/21 07/24/24 insulin glargine 100 unit/mL 30 unit SUBCUT BEDTIME@2100 10/13/21 07/24/24 subcutaneous solution (Lantus U-100 Insulin) lisinopril 2.5 mg tablet 2.5 mg PO DAILY 10/13/21 07/24/24 baclofen 20 mg tablet 20 mg PO BEDTIME 10/05/23 07/24/24 clotrimazole 1 % topical cream 1 applic topical BID 10/05/23 07/24/24 diltiazem HCl 240 mg capsule,24 240 mg PO QAM 10/05/23 07/24/24 hr,extended release (Tiazac) fluticasone 250 mcg-salmeterol 50 1 inh inhalation BID 10/05/23 07/24/24 mcg/dose blistr powdr for inhalation (Advair Diskus) fluticasone propionate 50 2 spray intranasal DAILY 10/05/23 07/24/24 mcg/actuation nasal spray,suspension (Flonase Allergy Relief) glucosamine sulfate 500 mg tablet 500 mg PO DAILY 10/05/23 07/24/24 (Glucosamine) guaifenesin 400 mg tablet 400 mg PO Q4H PRN mucus 10/05/23 07/24/24 lidocaine 5 % topical ointment 1 applic topical TID PRN Pain 10/05/23 07/24/24 loratadine 10 mg tablet 10 mg PO DAILY allergies 10/05/23 07/24/24 neomycin 3.5 mg/g-polymyxin B 1 applic ophthalmic (eye) TID 10/05/23 07/24/24 10,000 unit/g-dexameth 0.1 % eye oint (Maxitrol) prednisolone acetate 1 % eye 1 drp ophthalmic (eye) QID 10/05/23 07/24/24 drops,suspension spironolactone 100 mg tablet 100 mg PO BID 10/05/23 07/24/24 timolol maleate 0.5 % eye drops 1 drp ophthalmic (eye) BID 10/05/23 07/24/24 Previous Rx's ?Medication ?Instructions ?Recorded Diabetic shoes with 3 sets of #1 ea 09/05/23 insoles isosorbide mononitrate 120 mg See Rx Instructions .Route 02/15/24 tablet,extended release 24 hr .COMPLEX #90 tabs memantine 10 mg tablet 10 mg PO BID #180 tabs 03/12/24 levofloxacin 750 mg tablet 750 mg PO DAILY #10 tabs 05/05/24 Allergies Allergy/AdvReac Type Severity Reaction Status Date / Time calcitriol Allergy unknown Verified 08/06/24 17:54 fish oil Allergy unknown Verified 08/06/24 17:54 furosemide Allergy Unknown Verified 08/06/24 17:54 gabapentin Allergy unknown Verified 08/06/24 17:54 hydrocodone Allergy itching Verified 08/06/24 17:54 rash oxycodone Allergy unknown Verified 08/06/24 17:54 red dye Allergy ALGY-Hives Verified 08/06/24 17:54 sotalol Allergy Unknown Verified 08/06/24 17:54 Viznwmu-ZRY-AzU Reductase Allergy unknown Verified 08/06/24 17:54 Inhibitor (Sgfqlct-Zna-Rwi Reductase Inhibitor) Sulfa (Sulfonamide Allergy urticaria Verified 08/06/24 17:54 Antibiotics) pruritis tramadol Allergy unknown Verified 08/06/24 17:54 Review of Systems Narrative: Constitutional symptoms: Negative except as documented in HPI. Skin symptoms: Negative except as documented in HPI. Eye symptoms: Negative except as documented in HPI. ENMT symptoms: Negative except as documented in HPI. Respiratory symptoms: Negative except as documented in HPI. Cardiovascular symptoms: Negative except as documented in HPI. Gastrointestinal symptoms: Negative except as documented in HPI. Genitourinary symptoms: Negative except as documented in HPI. Musculoskeletal symptoms: Negative except as documented in HPI. Neurologic symptoms: Negative except as documented in HPI. Psychiatric symptoms: Negative except as documented in HPI. Endocrine symptoms: Negative except as documented in HPI. 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 Status post cryoablation H/O bilateral cataract extraction Family History Other CAD (coronary artery disease) Cancer Diabetes Family history of prostate cancer Social History Smoking and tobacco/nicotine status: former use of tobacco/nicotine Second hand smoke exposure: No Alcohol intake: never Substance/Drug Use: never Adopted: No Caregiver/support person: No Lives independently: No Household members: spouse Marital status: Current occupational status: retired Current gender identity: Male Special ana needs: No Physical Exam Narrative: EXAM NARRATIVE: General: Alert, no acute distress. Skin: Warm, dry. Head: Normocephalic, atraumatic. Neck: Supple, trachea midline. Eye: Extraocular movements are intact. Ears, nose, mouth and throat: mucosa moist. Cardiovascular: Regular, Normal peripheral perfusion. Respiratory: Lungs are clear to auscultation, respirations are non-labored, breath sounds are equal, Symmetrical chest wall expansion. Gastrointestinal: Soft, Nontender, Non distended Musculoskeletal: Normal ROM, no deformity. Neurological: Alert and oriented, No focal neurological deficit observed. Psychiatric: Cooperative, appropriate mood & affect. Course Vital Signs: Vital signs: Vital Signs Temperature 97.9 F 08/06/24 17:50 Pulse Rate 67 08/06/24 21:11 Respiratory Rate 18 08/06/24 21:11 Blood Pressure 251/97 08/06/24 21:11 Pulse Oximetry 92 08/06/24 21:11 Oxygen Delivery Me thod Room Air 08/06/24 21:11 MDM - Abdominal Pain Medical Decision Making Medical decision making: Differential diagnosis including but not limited to and based on the above HPI, review of systems and physical exam: In this patient with epigastric pain differential would include cholelithiasis or cholecystitis. Hepatitis. Diverticulitis. Constipation. UTI. colitis. small bowel obstruction. crohn's flare. pancreatitis. gastritis. peptic ulcer. also concern for acute cardiac event. Orders placed to evaluate differential diagnosis based on the above differential, HPI and physical exam Lab Review: Laboratory results were reviewed and interpreted by myself the emergency room physician. No leukocytosis. No anemia. Stable chronic renal insufficiency with a BUN/creatinine of 36 and 1.6. Urinalysis is negative for infection. CT of the abdomen pelvis without contrast: No acute process. Some chronic changes. Scarring. This was reviewed and interpreted by myself the emergency room physician. I also reviewed the radiology report. I reviewed the patient's medical record. Reexamination: Patient remained stable. No increased work of breathing. No altered mental status. No focal motor deficits. Assessment and plan: Abdominal pain - Discharged home - Discussed plan with patient. Answered any questions. - Evaluation and treatment of this problem were appropriate in the emergency setting. Lab Data 08/06/24 19:35 08/06/24 19:35 Labs/Radiology: Radiology Impressions Abdomen/Pelvis CT 08/06/24 20:19 IMPRESSION: 1. No acute findings. 2. Chronic inflammatory changes in the mesentery and retroperitoneal fat which are likely due to post treatment changes for lymphoma. Laboratory Results WBC 8.61 10^3/uL (3.29-11.43) 08/06/24 19:35 RBC 4.61 10^6/uL (3.85-5.65) 08/06/24 19:35 Hgb 15.30 g/dL (11.27-16.99) 08/06/24 19:35 Hct 44.9 % (37-53) 08/06/24 19:35 MCV 97.4 fl (82-101) 08/06/24 19:35 MCH 33.2 pg (27-33) H 08/06/24 19:35 MCHC 34.1 g/dL (30-55) 08/06/24 19:35 RDW 13.2 % (12.1-15.1) 08/06/24 19:35 Plt Count 231 10^3/cmm (157-399) 08/06/24 19:35 MPV 9.9 fL (7.4-10.4) 08/06/24 19:35 Neut % (Auto) 67.6 % 08/06/24 19:35 Lymph % (Auto) 16.8 % 08/06/24 19:35 [place] % (Auto) 11.3 % 08/06/24 19:35 Eos % (Auto) 3.0 % 08/06/24 19:35 Baso % (Auto) 0.8 % 08/06/24 19:35 Neut # (Auto) 5.82 10^3/uL (1.8-7.7) 08/06/24 19:35 Lymph # (Auto) 1.5 10^3/uL (0.8-4.8) 08/06/24 19:35 [place] # (Auto) 1.0 10^3/uL (0.2-0.9) H 08/06/24 19:35 Eos # (Auto) 0.3 10^3/uL (0.0-0.8) 08/06/24 19:35 Baso # (Auto) 0.1 10^3/uL (0.0-0.1) 08/06/24 19:35 Nucleated RBC % (auto) 0 % 08/06/24 19:35 Nucleated RBCs # 0.0 /100WBC 08/06/24 19:35 Sodium 139 mmol/L (136-145) 08/06/24 19:35 Potassium 5.4 mmol/L (3.5-5.1) H 08/06/24 19:35 Chloride 105 mmol/L (98-107) 08/06/24 19:35 Carbon Dioxide 24 mmol/L (22-29) 08/06/24 19:35 Anion Gap 15.4 (5-19) 08/06/24 19:35 BUN 36 mg/dL (8-23) H 08/06/24 19:35 Creatinine 1.6 mg/dL (0.7-1.2) H 08/06/24 19:35 GFR Calculation Not Reportable 08/06/24 19:35 Glucose 177 mg/dL (65-115) H 08/06/24 19:35 Calculated Osmolality 301 mOsm/kg (285-295) H 08/06/24 19:35 Calcium 9.6 mg/dL (8.5-10.5) 08/06/24 19:35 Total Bilirubin 0.4 mg/dL (0.15-1.2) 08/06/24 19:35 AST 14 U/L (0-40) 08/06/24 19:35 ALT 13 U/L (0-41) 08/06/24 19:35 Alkaline Phosphatase 63 U/L (40-130) 08/06/24 19:35 Total Protein 6.7 g/dL (6.6-8.7) 08/06/24 19:35 Albumin 4.5 g/dL (3.5-5.2) 08/06/24 19:35 Globulin 2.2 g/dL (1.3-4.6) 08/06/24 19:35 Lipase 10 U/L (13-60) L 08/06/24 19:35 Urine Color Yellow (Yellow) 08/06/24 19:45 Urine Appearance Clear (CLEAR) 08/06/24 19:45 Urine pH 5.5 (5-7) 08/06/24 19:45 Ur Specific [place] 1.015 (1.005-1.030) 08/06/24 19:45 Urine Protein Negative (Negative) 08/06/24 19:45 Urine Glucose (UA) Negative (Normal) 08/06/24 19:45 Urine Ketones Negative (Negative) 08/06/24 19:45 Urine Blood Negative (Negative) 08/06/24 19:45 Urine Nitrate Negative (Negative) 08/06/24 19:45 Urine Bilirubin Negative (Negative) 08/06/24 19:45 Urine Urobilinogen 1.0 mg/dL (Negative) 08/06/24 19:45 Ur Leukocyte Esterase Negative (Negative) 08/06/24 19:45 Urine RBC None /hpf (0-2) 08/06/24 19:45 Urine WBC 0-4 /hpf (0-5) H 08/06/24 19:45 Ur Squamous Epith Cells 0-4 /hpf (0-5) H 08/06/24 19:45 Amorphous Sediment Not Reportable 08/06/24 19:45 Urine Bacteria Trace /hpf (NONE) 08/06/24 19:45 All radiology interpretation(s) finalized by discharge Discharge Plan Discharge Patient Disposition: Home Clinical Impression: Abdominal pain Condition: Stable Prescriptions: No Action cholecalciferol (vitamin D3) 2,000 unit tablet 2,000 unit PO DAILY@0800 Novolog U-100 Insulin aspart 100 unit/mL solution 14 unit SUBCUT TID@0800,1200,1700 Rx Instructions: SLIDING SCALE Lantus U-100 Insulin 100 unit/mL solution 30 unit SUBCUT BEDTIME@2100 Patient Comments: Patient states that he takes 30 u if he hasn't ate well that evening. Eliquis 2.5 mg tablet 2.5 mg PO BID lisinopril 2.5 mg tablet 2.5 mg PO DAILY finasteride 5 mg tablet 5 mg PO DAILY (DME) Diabetic shoes with 3 sets of insoles See Rx Instructions .Route .MEDSUPPLY Qty: 1 0RF Rx Instructions: [facility] directed [facility] memantine 10 mg tablet 10 mg PO BID Qty: 180 3RF levofloxacin 750 mg tablet 750 mg PO DAILY Qty: 10 0RF isosorbide mononitrate 120 mg tablet extended release 24 hr See Rx Instructions .ROUTE .COMPLEX Qty: 90 3RF Dose Instruction: TAKE ONE TABLET BY MOUTH ONCE A DAY TAKE ON EMPTY STOMACH. SWALLOW WHOLE. DO NOT CRUSH OR CHEW. Rx Instructions: TAKE ONE TABLET BY MOUTH ONCE A DAY TAKE ON EMPTY STOMACH. SWALLOW WHOLE. DO NOT CRUSH OR CHEW. Advair Diskus 250-50 mcg/dose Blister With Device 1 inh INHALATION BID spironolactone 100 mg Tablet 100 mg PO BID Tiazac 240 mg Capsule,Extended Release 24 Hr 240 mg PO QAM Glucosamine 500 mg Tablet 500 mg PO DAILY Rx Instructions: administer with a meal baclofen 20 mg Tablet 20 mg PO BEDTIME prednisolone acetate 1 % Drops,Suspension 1 drp OPHTHALMIC (EYE) QID timolol maleate 0.5 % Drops 1 drp OPHTHALMIC (EYE) BID Flonase Allergy Relief 50 mcg/actuation [place],Suspension 2 spray INTRANASAL DAILY Rx Instructions: administer into each nostril clotrimazole 1 % Cream 1 applic TOPICAL BID loratadine 10 mg Tablet 10 mg PO DAILY Maxitrol 3.5 mg/g-10,000 unit/g-0.1 % Ointment 1 applic OPHTHALMIC (EYE) TID Rx Instructions: space evenly during waking hours guaifenesin 400 mg Tablet 400 mg PO Q4H PRN (Reason: mucus) lidocaine 5 % Ointment 1 applic TOPICAL TID PRN (Reason: Pain) Discharge Orders: Discharge ED (Routine); Ordered 08/06/24 Ordered By: Deborah Holder Referrals: Sandrita Almaguer MD [Primary Care Provider] - 1-3 days Discharge Diet: Usual diet Discharge Activity: Increase activity as tolerated Patient Instructions: Abdominal Pain (ED), Opioid Safety, Pain Management Activity Restrictions/Additional Instructions: Thank you for choosing [facility] for your healthcare needs today. Please realize this is an emergency room and that we are providing you with a medical screening exam and this may not be complete and all inclusive of all the testing and or work up that you may need to determine your ailment or severity of your illness. You have been screened and evaluated and felt safe for discharge. Health conditions do change or evolve sometimes and as such it is important that you follow up with your Primary Doctor to be re checked, 3-5 days is a general good time frame for follow up. You are always welcome to return to the ED for re assessment if your symptoms are worsening or you have new concerns Print Language: Tajik Coding Level of Care Code ED Touch Up Painter for Gudelia Stone
--- NOTE | 2024-08-06 18:33 | PC.NURSE ---
PT REFUSING TO SIT IN BED AND LET THIS NURSE OBTAIN VITAL SIGNS. PT REQUESTING TO SIT IN CHAIR AT THIS TIME.
[2024-08-06 19:45] LABS: Basophils # 0.1 10^3/uL (0.0-0.1); Basophils % 0.8 %; Eosinophils # 0.3 10^3/uL (0.0-0.8); Hematocrit 44.9 % (37-53); Lymphocytes # 1.5 10^3/uL (0.8-4.8); Lymphocytes % 16.8 %; Mean Corpuscular HGB Conc 34.1 g/dL (30-55); Mean Corpuscular Hemoglobin 33.2 pg (27-33); Mean Corpuscular Volume 97.4 fl (82-101); Mean Platelet Volume 9.9 fL (7.4-10.4); Monocytes % 11.3 %; Neutrophils # 5.82 10^3/uL (1.8-7.7); Neutrophils % 67.6 %; Nucleated Red Blood Cells % 0 %; Platelet Count 231 10^3/cmm (157-399); Red Blood Count 4.61 10^6/uL (3.85-5.65); Red Cell Distribution Width 13.2 % (12.1-15.1); White Blood Count 8.61 10^3/uL (3.29-11.43)
[2024-08-06 19:52] LABS: Bilirubin Urine Negative (Negative); Blood Urine Negative (Negative); Glucose Urine UA Negative (Normal); Ketones Urine Negative (Negative); Leukocyte Esterase Urine Negative (Negative); Nitrate Urine Negative (Negative); Protein Urine Negative (Negative); Specific Gravity, Urine 1.015 (1.005-1.030); Urine Appearance Clear (CLEAR); Urine Color Yellow (Yellow); pH Urine 5.5 (5-7)
[2024-08-06 20:05] LABS: Alanine Aminotransferase 13 U/L (0-41); Albumin Level 4.5 g/dL (3.5-5.2); Alkaline Phosphatase 63 U/L (40-130); Anion Gap 15.4 (5-19); Aspartate Amino Transferase 14 U/L (0-40); Blood Urea Nitrogen 36 mg/dL (8-23); Calcium 9.6 mg/dL (8.5-10.5); Carbon Dioxide 24 mmol/L (22-29); Chloride 105 mmol/L (98-107); Creatinine Clr Calc Pharmacy 37.3598; Globulin 2.2 g/dL (1.3-4.6); Glucose 177 mg/dL (65-115); Lipase 10 U/L (13-60); Osmolality Calculated 301 mOsm/kg (285-295); Potassium 5.4 mmol/L (3.5-5.1); Sodium 139 mmol/L (136-145); Total Bilirubin 0.4 mg/dL (0.15-1.2); Total Protein 6.7 g/dL (6.6-8.7)
--- NOTE | 2024-08-06 20:19 | CTR_ITS ---
PROCEDURE INFORMATION: Exam: CT Abdomen And Pelvis Without Contrast Exam date and time: 08/06/2024 8:59 PM Age: 84 years old Clinical indication: Abdominal pain; Periumbilical TECHNIQUE: Imaging protocol: Computed tomography of the abdomen and pelvis without contrast. Radiation optimization: All CT scans at this facility use at least one of these dose optimization techniques: automated exposure control; mA and/or kV adjustment per patient size (includes targeted exams where dose is matched to clinical indication); or iterative reconstruction. COMPARISON: PT PET WB melanoma SUBSEQ [id number] 12/04/2023 9:54 AM RADIATION DOSE METRICS: Total DLP (mGy-cm): 1001.96 FINDINGS: Limitations: Examination is limited for the evaluation of solid organs and vascular structures due to the lack of intravenous contrast. Lungs: Patchy opacification in the left lower lobe which may be indicating an infectious process. Liver: The liver is unremarkable. Gallbladder and biliary ducts: No intrahepatic or extrahepatic biliary ductal dilatation. The gallbladder is unremarkable with no radioopaque stone. Pancreas: The pancreas is atrophic. Spleen: The spleen contains calcified granulomas. Adrenal glands: Adrenal glands are unremarkable. Kidneys and ureters: Bilaterally atrophic kidneys No hydronephrosis or nephrolithiasis. Stomach and bowel: Stomach is moderately distended. Small and large bowel are normal in caliber without evidence of obstruction. Diverticulosis without evidence of diverticulitis. Appendix: No evidence of appendicitis. Intraperitoneal space: There is a selina mesentery noted which is likely due to post treatment changes for lymphoma. There is no free intraperitoneal gas. Edema/stranding in the retroperitoneal para aortic region is also unchanged and likely due to the previous treatment for lymphoma. Vasculature: There is no aortic aneurysm. There is atherosclerotic disease. Lymph nodes: Stable subcentimeter mesenteric and retroperitoneal nodes. Urinary bladder: Bladder is distended with no focal wall thickening. Reproductive: Visualized portions of the male reproductive tract are unremarkable for patient's age, though routine CT is limited in this regard. Bones/joints: No acute osseous abnormality. There is degenerative disease of the spine. Soft tissues: Bilateral fat containing inguinal hernia. Small area of fat necrosis noted on the left lower abdomen. CT/CT abdomen pelvis wo con [id number] IMPRESSION: 1. No acute findings. 2. Chronic inflammatory changes in the mesentery and retroperitoneal fat which are likely due to post treatment changes for lymphoma.
[2024-08-06 20:21] VITALS: BP 147/59; PULSE 67; RESP 16; O2SAT 91
[2024-08-06 20:25] LABS: Bacteria Urine TRACE /hpf; Squamous Epithelial Cell Urine 0-4 /hpf (0-5); UA Manual Slide Review YES; UA Slide Review UA Slide Review Perf; WBC Urine 0-4 /hpf (0-5)
[2024-08-06 21:11] VITALS: BP 251/97; PULSE 67; RESP 18; O2SAT 92
== END 2024-08-06 22:21 | disposition home or self-care (01) ==
PROVIDERS: Emergency Provider Emergency Medicine; PCP Family Medicine
DX: R10.9 Unspecified abdominal pain (principal); Z79.01 Long term (current) use of anticoagulants; Z87.891 Personal history of nicotine dependence; Z95.0 Presence of cardiac pacemaker; Z86.73 Personal history of transient ischemic attack (TIA), and cerebral infarction without residual deficits; E78.5 Hyperlipidemia, unspecified; I11.0 Hypertensive heart disease with heart failure; I50.9 Heart failure, unspecified; I25.10 Atherosclerotic heart disease of native coronary artery without angina pectoris
CPT/HCPCS: 36415; 74176; 80053; 81001; 83690; 85025; 99284

== ENCOUNTER 2024-08-23 20:06 | Inpatient (IN) | payer OTHER, SELFPAY ==
[2024-08-23 20:19] VITALS: BP 146/40; PULSE 74; RESP 20; TEMP 36.6; O2SAT 93; BMI 31.3
[2024-08-23 20:26] VITALS: BP 108/74; PULSE 72; RESP 18; O2SAT 91
[2024-08-23 21:04] LABS: Basophils # 0.1 10^3/uL (0.0-0.1); Basophils % 0.5 %; Eosinophils # 0.1 10^3/uL (0.0-0.8); Eosinophils % 1.2 %; Lymphocytes # 1.6 10^3/uL (0.8-4.8); Lymphocytes % 13.9 %; Mean Corpuscular Hemoglobin 32.6 pg (27-33); Mean Platelet Volume 11.2 fL (7.4-10.4); Monocytes # 1.5 10^3/uL (0.2-0.9); Monocytes % 12.7 %; Neutrophils # 8.28 10^3/uL (1.8-7.7); Neutrophils % 71.2 %; Nucleated Red Blood Cells % 0 %; Platelet Count 215 10^3/cmm (157-399); Red Blood Count 4.48 10^6/uL (3.85-5.65); Red Cell Distribution Width 12.8 % (12.1-15.1); White Blood Count 11.64 10^3/uL (3.29-11.43)
--- NOTE | 2024-08-23 21:08 | W.ED.ABDPA2 ---
HPI - Abdominal Pain General: Chief Complaint: Abdominal Pain Stated Complaint: ABDOMEN PAIN Time Seen by Provider: 08/23/24 20:18 History of Present Illness: 84-year-old obese male with a history of atrial fibrillation on anticoagulation presents with concerns of acute on subacute abdominal pain. The patient reports that he has had some upper abdominal pain and has had limited workup into this it has been nonrevealing to this point other than HIDA scan took a long time to complete but was otherwise reportedly normal. Today he presents to the emergency department with severe abrupt onset of worsening upper abdominal pain. Patient reports some nausea and 10 out of 10 pain. Patient has been taking his medications as directed he is never had anything quite this bad previously. No other symptoms reported. Related Data Home Medications ?Medication ?Instructions ?Recorded ?Confirmed cholecalciferol (vitamin D3) 50 2,000 unit PO DAILY@0800 06/18/19 07/24/24 mcg (2,000 unit) tablet insulin aspart U-100 100 unit/mL 14 unit SUBCUT TID@0800,1200,1700 06/18/19 07/24/24 subcutaneous solution (Novolog U-100 Insulin aspart) apixaban 2.5 mg tablet (Eliquis) 2.5 mg PO BID 10/13/21 07/24/24 finasteride 5 mg tablet 5 mg PO DAILY 10/13/21 07/24/24 insulin glargine 100 unit/mL 30 unit SUBCUT BEDTIME@2100 10/13/21 07/24/24 subcutaneous solution (Lantus U-100 Insulin) lisinopril 2.5 mg tablet 2.5 mg PO DAILY 10/13/21 07/24/24 baclofen 20 mg tablet 20 mg PO BEDTIME 10/05/23 07/24/24 clotrimazole 1 % topical cream 1 applic topical BID 10/05/23 07/24/24 diltiazem HCl 240 mg capsule,24 240 mg PO QAM 10/05/23 07/24/24 hr,extended release (Tiazac) fluticasone 250 mcg-salmeterol 50 1 inh inhalation BID 10/05/23 07/24/24 mcg/dose blistr powdr for inhalation (Advair Diskus) fluticasone propionate 50 2 spray intranasal DAILY 10/05/23 07/24/24 mcg/actuation nasal spray,suspension (Flonase Allergy Relief) glucosamine sulfate 500 mg tablet 500 mg PO DAILY 10/05/23 07/24/24 (Glucosamine) guaifenesin 400 mg tablet 400 mg PO Q4H PRN mucus 10/05/23 07/24/24 lidocaine 5 % topical ointment 1 applic topical TID PRN Pain 10/05/23 07/24/24 loratadine 10 mg tablet 10 mg PO DAILY allergies 10/05/23 07/24/24 neomycin 3.5 mg/g-polymyxin B 1 applic ophthalmic (eye) TID 10/05/23 07/24/24 10,000 unit/g-dexameth 0.1 % eye oint (Maxitrol) prednisolone acetate 1 % eye 1 drp ophthalmic (eye) QID 10/05/23 07/24/24 drops,suspension spironolactone 100 mg tablet 100 mg PO BID 10/05/23 07/24/24 timolol maleate 0.5 % eye drops 1 drp ophthalmic (eye) BID 10/05/23 07/24/24 Previous Rx's ?Medication ?Instructions ?Recorded Diabetic shoes with 3 sets of #1 ea 09/05/23 insoles isosorbide mononitrate 120 mg See Rx Instructions .Route 02/15/24 tablet,extended release 24 hr .COMPLEX #90 tabs memantine 10 mg tablet 10 mg PO BID #180 tabs 03/12/24 levofloxacin 750 mg tablet 750 mg PO DAILY #10 tabs 05/05/24 Allergies Allergy/AdvReac Type Severity Reaction Status Date / Time calcitriol Allergy unknown Verified 08/06/24 17:54 fish oil Allergy unknown Verified 08/06/24 17:54 furosemide Allergy Unknown Verified 08/06/24 17:54 gabapentin Allergy unknown Verified 08/06/24 17:54 hydrocodone Allergy itching Verified 08/06/24 17:54 rash oxycodone Allergy unknown Verified 08/06/24 17:54 red dye Allergy ALGY-Hives Verified 08/06/24 17:54 sotalol Allergy Unknown Verified 08/06/24 17:54 Iajgecf-PJP-PfU Reductase Allergy unknown Verified 08/06/24 17:54 Inhibitor (Oizshtp-Bdo-Kts Reductase Inhibitor) Sulfa (Sulfonamide Allergy urticaria Verified 08/06/24 17:54 Antibiotics) pruritis tramadol Allergy unknown Verified 08/06/24 17:54 [facility] PFSH: Medical History 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 Status post cryoablation H/O bilateral cataract extraction Family History Other CAD (coronary artery disease) Cancer Diabetes Family history of prostate cancer Social History Smoking and tobacco/nicotine status: former use of tobacco/nicotine Second hand smoke exposure: No Alcohol intake: never Substance/Drug Use: never Adopted: No Caregiver/support person: No Lives independently: No Household members: spouse Marital status: Current occupational status: retired Current gender identity: Male Special ana needs: No Physical Exam Const: COMMON NORMALS: patient oriented x3 and alert HENMT: COMMON NORMALS: normocephalic HEAD & SCALP: normocephalic Eye: COMMON NORMALS: Equal, round and reactive pupils present, EOMs intact bilaterally and conjunctivae normal CONJUNCTIVA: Yes conjunctivae normal PUPIL: Yes Equal, round and reactive pupils present Neck/C-Spine: COMMON NORMALS: full ROM, no lymphadenopathy, supple, no meningeal signs, no JVD and Thyroid normal THYROID: Thyroid normal Chest: COMMONS NORMALS: normal inspection of the chest and normal palpation of entire chest wall Resp: COMMON NORMALS: normal respiratory effort, No retractions, No use of accessory muscles, clear to auscultation bilaterally and percussion normal AUSCULTATION: clear to auscultation bilaterally PERCUSSION: percussion normal Cardio: COMMON NORMALS: no JVD GI: OTHER: Abdominal pain out of proportion to physical exam tender to palpation in the upper abdomen. Extremity: COMMON NORMALS: normal to inspection, full ROM, capillary refill normal, no joint enlargement, no clubbing, cyanosis or edema, no calf tenderness and no pedal edema Neuro: COMMON NORMALS: patient oriented x3 SENSORIUM/ORIENTATION: Yes alert MENINGEAL SIGNS: Yes no meningeal signs Skin: COMMON NORMALS: no rashes or lesions noted, turgor normal and no jaundice GENERAL SKIN EXAM: no rashes or lesions noted and turgor normal Course Vital Signs: Vital signs: Vital Signs Temperature 97.8 F 08/23/24 20:19 Pulse Rate 87 08/24/24 00:50 Respiratory Rate 18 08/23/24 22:49 Blood Pressure 123/90 08/24/24 00:50 Pulse Oximetry 92 08/24/24 00:50 Oxygen Delivery Me thod Nasal Cannula 08/24/24 00:50 Oxygen Flow Rate 4 08/24/24 00:50 MDM - Abdominal Pain Medical Decision Making The patient has acute on subacute or more chronic abdominal pain discussed most worrisome diagnoses which include mesenteric ischemia but unfortunately due to his renal function I am hesitant to perform a CT with contrast. Will give him oral contrast send routine labs including lactic acid and treat his symptoms all notify general surgery once we have scan done and talk with them as well. The patient had concerns of mesenteric ischemia with some dilated loops of bowel as well as some mesenteric arterial areas and air in the liver presentation and physical examination coupled with imaging is suggestive of possible mesenteric ischemia I notified the surgeon is going to come in and see the patient. Patient will need admitted to the hospital unfortunately given his advanced age and other comorbidities has fairly poor prognosis. Lab Data 08/23/24 20:14 08/23/24 20:14 Labs/Radiology: Radiology Impressions Abdomen/Pelvis CT 08/23/24 22:44 IMPRESSION: 1. Bibasilar atelectasis. 2. Markedly distended urinary bladder. 3. Air throughout the mesenteric vessels suspicious for ischemic bowel, although no bowel wall thickening. Follow-up exam with intravenous contrast may be useful. 4. Colonic diverticulosis is present without diverticulitis. 5. Air throughout the periphery of the liver. 6. Increased stool within the colon. No dilated bowel. 7. Small hiatal hernia with gastroesophageal reflux. ADDENDUM: 08/24/24 0027 Addendum: Findings discussed with Dr. Fernandez at 12:24 a.m. central time on 08/24/2024 Laboratory Results WBC 11.64 10^3/uL (3.29-11.43) H 08/23/24 20:14 RBC 4.48 10^6/uL (3.85-5.65) 08/23/24 20:14 Hgb 14.60 g/dL (11.27-16.99) 08/23/24 20:14 Hct 43.0 % (37-53) 08/23/24 20:14 MCV 96.0 fl (82-101) 08/23/24 20:14 MCH 32.6 pg (27-33) 08/23/24 20:14 MCHC 34.0 g/dL (30-55) 08/23/24 20:14 RDW 12.8 % (12.1-15.1) 08/23/24 20:14 Plt Count 215 10^3/cmm (157-399) 08/23/24 20:14 MPV 11.2 fL (7.4-10.4) H 08/23/24 20:14 Neut % (Auto) 71.2 % 08/23/24 20:14 Lymph % (Auto) 13.9 % 08/23/24 20:14 Fergus % (Auto) 12.7 % 08/23/24 20:14 Eos % (Auto) 1.2 % 08/23/24 20:14 Baso % (Auto) 0.5 % 08/23/24 20:14 Neut # (Auto) 8.28 10^3/uL (1.8-7.7) H 08/23/24 20:14 Lymph # (Auto) 1.6 10^3/uL (0.8-4.8) 08/23/24 20:14 Fergus # (Auto) 1.5 10^3/uL (0.2-0.9) H 08/23/24 20:14 Eos # (Auto) 0.1 10^3/uL (0.0-0.8) 08/23/24 20:14 Baso # (Auto) 0.1 10^3/uL (0.0-0.1) 08/23/24 20:14 Nucleated RBC % (auto) 0 % 08/23/24 20:14 Nucleated RBCs # 0.0 /100WBC 08/23/24 20:14 Sodium 136 mmol/L (136-145) 08/23/24 20:14 Potassium 4.4 mmol/L (3.5-5.1) 08/23/24 20:14 Chloride 100 mmol/L (98-107) 08/23/24 20:14 Carbon Dioxide 22 mmol/L (22-29) 08/23/24 20:14 Anion Gap 18.4 (5-19) 08/23/24 20:14 BUN 33 mg/dL (8-23) H 08/23/24 20:14 Creatinine 1.7 mg/dL (0.7-1.2) H 08/23/24 20:14 GFR Calculation Not Reportable 08/23/24 20:14 Glucose 115 mg/dL (65-115) 08/23/24 20:14 Calculated Osmolality 290 mOsm/kg (285-295) 08/23/24 20:14 Lactic Acid 1.5 mmol/L (0.5-2.2) 08/23/24 20:14 Calcium 9.6 mg/dL (8.5-10.5) 08/23/24 20:14 Total Bilirubin 0.4 mg/dL (0.15-1.2) 08/23/24 20:14 AST 13 U/L (0-40) 08/23/24 20:14 ALT 8 U/L (0-41) 08/23/24 20:14 Alkaline Phosphatase 69 U/L (40-130) 08/23/24 20:14 Total Protein 7.0 g/dL (6.6-8.7) 08/23/24 20:14 Albumin 4.0 g/dL (3.5-5.2) 08/23/24 20:14 Globulin 3.0 g/dL (1.3-4.6) 08/23/24 20:14 Lipase 6 U/L (13-60) L 08/23/24 20:14 XR interpretation done by ED provider, pending radiology final review Discharge Plan Discharge Patient Disposition: Admitted As Inpatient Clinical Impression: Abdominal pain Atrial fibrillation Qualifiers: Atrial fibrillation type: unspecified Qualified Code(s): I48.91 - Unspecified atrial fibrillation Condition: Serious Coding Level of Care Code ED Fiber Picker for Gudelia Stone
[2024-08-23] MEDS: diphenhydrAMINE 50 mg/mL SDV 1mL IVP (21:13)
[2024-08-23] MEDS: prochlorperazine 10 mg/2 mL Inj IVP (21:15)
[2024-08-23 21:17] LABS: Alanine Aminotransferase 8 U/L (0-41); Alkaline Phosphatase 69 U/L (40-130); Anion Gap 18.4 (5-19); Aspartate Amino Transferase 13 U/L (0-40); Blood Urea Nitrogen 33 mg/dL (8-23); Calcium 9.6 mg/dL (8.5-10.5); Carbon Dioxide 22 mmol/L (22-29); Chloride 100 mmol/L (98-107); Creatinine Clr Calc Pharmacy 34.7471; Glucose 115 mg/dL (65-115); Lipase 6 U/L (13-60); Osmolality Calculated 290 mOsm/kg (285-295); Potassium 4.4 mmol/L (3.5-5.1); Sodium 136 mmol/L (136-145); Total Bilirubin 0.4 mg/dL (0.15-1.2)
[2024-08-23] MEDS: sodium chloride 0.9% 500 ML IV (21:41)
[2024-08-23] MEDS: HYDROmorphone 0.5 MG/0.5 ML INJ 1 MG IVP (21:58)
[2024-08-23 22:01] VITALS: BP 218/87; PULSE 82; RESP 22; O2SAT 90
--- NOTE | 2024-08-23 22:44 | CTR_ITS ---
PROCEDURE INFORMATION: Exam: CT Abdomen And Pelvis Without Contrast Exam date and time: 08/23/2024 11:54 PM Age: 84 years old Clinical indication: Abdominal pain; Localized; Prior surgery; Surgery date: 6+ months; Surgery type: Cabg. Pacer. Coronary stents; C/O severe upper abd pain; Additional info: Intractable upper abdominal pain TECHNIQUE: Imaging protocol: Computed tomography of the abdomen and pelvis without contrast. Radiation optimization: All CT scans at this facility use at least one of these dose optimization techniques: automated exposure control; mA and/or kV adjustment per patient size (includes targeted exams where dose is matched to clinical indication); or iterative reconstruction. Other contrast: Oral, OMNI 350 , 25ML CONTRAST IN 450ML WATER; COMPARISON: CT abdomen pelvis wo con [id number] 08/06/2024 8:59 PM RADIATION DOSE METRICS: Total DLP (mGy-cm): 1029.53 FINDINGS: Lungs: Bibasilar atelectasis. Diaphragm: Small hiatal hernia with gastroesophageal reflux. Liver: Air throughout the periphery of the liver. Gallbladder and biliary ducts: Normal. No calcified stones. No ductal dilation. Pancreas: Normal. No ductal dilation. Spleen: Normal. No splenomegaly. Adrenal glands: Normal. No mass. Kidneys and ureters: Normal. No hydronephrosis. Stomach and bowel: Colonic diverticulosis is present without diverticulitis. Dilated loops of small bowel compatible with ileus. Increased stool within the colon. No dilated bowel. Appendix: No evidence of appendicitis. Intraperitoneal space: Unremarkable. No free air. No significant fluid collection. Vasculature: Vascular calcification in the aorta and iliac vessels. No aneurysm. Air throughout the mesenteric vessels suspicious for ischemic bowel. Lymph nodes: Unremarkable. No enlarged lymph nodes. Urinary bladder: Markedly distended urinary bladder. Reproductive: Unremarkable as visualized. Bones/joints: Unremarkable. No acute fracture. Soft tissues: Unremarkable. CT/CT abdomen pelvis wo con [id number] IMPRESSION: 1. Bibasilar atelectasis. 2. Markedly distended urinary bladder. 3. Air throughout the mesenteric vessels suspicious for ischemic bowel, although no bowel wall thickening. Follow-up exam with intravenous contrast may be useful. 4. Colonic diverticulosis is present without diverticulitis. 5. Air throughout the periphery of the liver. 6. Increased stool within the colon. No dilated bowel. 7. Small hiatal hernia with gastroesophageal reflux.
[2024-08-23 22:49] VITALS: BP 222/92; PULSE 80; RESP 18; O2SAT 90
[2024-08-23 23:04] VITALS: BP 162/78; PULSE 79; O2SAT 90
[2024-08-23] MEDS: iohexol 350 mg/mL 500 mL Btl (per mL) PO (23:58)
[2024-08-24] VITALS (15 sets, daily range): BP systolic 90–164; BP diastolic 43–95; PULSE 0–98; RESP 5–20; TEMP 34.3–36.4; O2SAT 0–96
[2024-08-24 00:39] LABS: Lactic Sepsis W/Reflex 1.5 mmol/L (0.5-2.2)
--- NOTE | 2024-08-24 01:09 | PM.HP ---
Providers/Chief Complaint Primary Care Provider: Sandrita Almaguer MD Chief Complaint: ABDOMEN PAIN History of Present Illness Panchito Macedo is a 84 year old male with history of non-Hodgkin's lymphoma, intra-abdominal lymphadenopathy, diabetes, hypertension, CABG, PCI, A-fib status post pacemaker, chronic anticoagulation, last dose was in the morning 08/23, presented to the hospital for worsening abdominal pain nausea and vomiting. at the bedside helping to get more information, patient is complaining of excruciating pain in his belly. As per the Panchito has been dealing with abdominal pain for last 2 to 3 weeks, he was evaluated in the ER CT scan of abdomen pelvis was unremarkable he was discharged home, then they followed-up with the PCP, consideration was being given to gallbladder etiology. Patient endorsing subjective fevers, chills, recurrent nausea vomiting, worsening abdominal pain. Workup in the ER showed findings consistent with ischemic bowel, He was evaluated by the general surgery in the ER, he is going to the OR for exploratory laparotomy, I will request Zosyn antibiotics, Will request Leung catheter placement moderately distended bladder on the CT scan, lactic acid Goals of care discussed with the patient, at the bedside: DNR/DNI but okay with surgical intervention and intubation perioperative period Review of Systems Const: Reports: fever(s) and chills Eyes: Denies: change in vision ENMT: Denies: throat pain Card: Denies: chest pain Resp: Denies: dyspnea GI: Reports: abdominal pain, nausea and vomiting : Denies: flank pain Musc: Reports: back pain Medications/Allergies Home Medications ?Medication ?Instructions ?Recorded ?Confirmed ?Last Taken ?Type cholecalciferol (vitamin D3) 50 2,000 unit PO DAILY@0800 06/18/19 07/24/24 09/09/20 08:00 History mcg (2,000 unit) tablet insulin aspart U-100 100 unit/mL 14 unit SUBCUT TID@0800,1200,1700 06/18/19 07/24/24 09/09/20 08:00 History subcutaneous solution (Novolog U-100 Insulin aspart) apixaban 2.5 mg tablet (Eliquis) 2.5 mg PO BID 10/13/21 07/24/24 Unknown History finasteride 5 mg tablet 5 mg PO DAILY 10/13/21 07/24/24 Unknown History insulin glargine 100 unit/mL 30 unit SUBCUT BEDTIME@2100 10/13/21 07/24/24 Unknown History subcutaneous solution (Lantus U-100 Insulin) lisinopril 2.5 mg tablet 2.5 mg PO DAILY 10/13/21 07/24/24 Unknown History Diabetic shoes with 3 sets of #1 ea 09/05/23 07/24/24 Unknown Rx insoles baclofen 20 mg tablet 20 mg PO BEDTIME 10/05/23 07/24/24 Unknown History clotrimazole 1 % topical cream 1 applic topical BID 10/05/23 07/24/24 Unknown History diltiazem HCl 240 mg capsule,24 240 mg PO QAM 10/05/23 07/24/24 Unknown History hr,extended release (Tiazac) fluticasone 250 mcg-salmeterol 50 1 inh inhalation BID 10/05/23 07/24/24 Unknown History mcg/dose blistr powdr for inhalation (Advair Diskus) fluticasone propionate 50 2 spray intranasal DAILY 10/05/23 07/24/24 Unknown History mcg/actuation nasal spray,suspension (Flonase Allergy Relief) glucosamine sulfate 500 mg tablet 500 mg PO DAILY 10/05/23 07/24/24 Unknown History (Glucosamine) guaifenesin 400 mg tablet 400 mg PO Q4H PRN mucus 10/05/23 07/24/24 Unknown History lidocaine 5 % topical ointment 1 applic topical TID PRN Pain 10/05/23 07/24/24 Unknown History loratadine 10 mg tablet 10 mg PO DAILY allergies 10/05/23 07/24/24 Unknown History neomycin 3.5 mg/g-polymyxin B 1 applic ophthalmic (eye) TID 10/05/23 07/24/24 Unknown History 10,000 unit/g-dexameth 0.1 % eye oint (Maxitrol) prednisolone acetate 1 % eye 1 drp ophthalmic (eye) QID 10/05/23 07/24/24 Unknown History drops,suspension spironolactone 100 mg tablet 100 mg PO BID 10/05/23 07/24/24 Unknown History timolol maleate 0.5 % eye drops 1 drp ophthalmic (eye) BID 10/05/23 07/24/24 Unknown History isosorbide mononitrate 120 mg See Rx Instructions .Route 02/15/24 07/24/24 Unknown Rx tablet,extended release 24 hr .COMPLEX #90 tabs memantine 10 mg tablet 10 mg PO BID #180 tabs 03/12/24 07/24/24 Unknown Rx levofloxacin 750 mg tablet 750 mg PO DAILY #10 tabs 05/05/24 07/24/24 Unknown Rx Allergies Allergy/AdvReac Type Severity Reaction Status Date / Time calcitriol Allergy unknown Verified 08/06/24 17:54 fish oil Allergy unknown Verified 08/06/24 17:54 furosemide Allergy Unknown Verified 08/06/24 17:54 gabapentin Allergy unknown Verified 08/06/24 17:54 hydrocodone Allergy itching Verified 08/06/24 17:54 rash oxycodone Allergy unknown Verified 08/06/24 17:54 red dye Allergy ALGY-Hives Verified 08/06/24 17:54 sotalol Allergy Unknown Verified 08/06/24 17:54 Hslzqdc-PIW-LqL Reductase Allergy unknown Verified 08/06/24 17:54 Inhibitor (Wlgaids-Wcr-Nih Reductase Inhibitor) Sulfa (Sulfonamide Allergy urticaria Verified 08/06/24 17:54 Antibiotics) pruritis tramadol Allergy unknown Verified 08/06/24 17:54 PFSH Acute PFSH: Medical History 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 Status post cryoablation H/O bilateral cataract extraction Family History Other CAD (coronary artery disease) Cancer Diabetes Family history of prostate cancer Social History Smoking and tobacco/nicotine status: former use of tobacco/nicotine Second hand smoke exposure: No Alcohol intake: never Substance/Drug Use: never Adopted: No Caregiver/support person: No Lives independently: No Household members: spouse Marital status: Current occupational status: retired Current gender identity: Male Special ana needs: No Vitals/I&O/Wt Last Vital Signs Temp 97.8 F 08/23/24 20:19 Pulse 87 08/24/24 00:50 Resp 18 08/23/24 22:49 BP 123/90 08/24/24 00:50 Pulse Ox 92 08/24/24 00:50 O2 Del Method Nasal Cannula 08/24/24 00:50 O2 Flow Rate 4 08/24/24 00:50 08/23/24 08/23/24 08/24/24 14:59 22:59 06:59 Intake Total 500 / 500 Balance 500 / 500 Weight last 48 hrs Weight 90.718 kg Physical Exam Narrative: elderly male Currently requiring 4 L of oxygen via nasal cannula Saturating 92% Blood pressure 123/90 mmHg Awake and alert at the bedside Abdomen showing signs of peritonitis Lower extremity no edema Distended/bloated abdomen with signs of peritonitis S1, S2 A-fib without RVR No active chest pain or shortness of breath Data 08/23/24 20:14 08/23/24 20:14 A&P Assessment and plan (1) Acute intestinal ischemic syndrome: (2) Abdominal pain: (3) Acute kidney injury: (4) BPH NOS w ur obs/LUTS: 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 General Surgery evaluated the patient take him to the OR Requested lactic acid Patient afebrile however has mild lactic acidosis Clinical signs of peritonitis present Spoke with general surgery Requested blood culture A-fib without RVR Patient has a pacemaker as well Last dose of Eliquis was yesterday in the morning, he takes low-dose Eliquis Patient will need IV medications for rate control if needed Acute on chronic kidney disease: Urinary retention: Requested Leung catheter placement History of BPH History of CABG, PCI No active chest pain, Considering urgent nature of the surgery no preoperative workup indicated Patient will be considered high risk for intra-abdominal surgery RCRI class III risk Marginal zone lymphoma Awaiting repeat PET scan As per the oncology note no evidence of progression of lymphoma, expectant management Patient is type II diabetic: Will need D5 normal saline maintenance fluid to avoid hypoglycemia Diastolic CHF: No acute exacerbation Goals of care discussed with the patient in front of his He is DNR/DNI N.p.o. 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
--- NOTE | 2024-08-24 01:11 | PM.CONSULT ---
Providers/Reason For Consult Consulting Physician/Specialty*: General Surgery Reason for Consult*: Acute mesenteric ischemia Primary Care Provider: Sandrita Almaguer MD History of Present Illness History of Present Illness Panchito Macedo is a 84 year old male who presents to the ER with at least 24 hours of acute abdominal pain especially in the upper abdomen associated with diarrhea nausea and emesis with some blood according to patient report. Patient has been having abdominal pain chronically over the last 3 to 6 months. Now it has become continues 9 out of [address] scan done in the emergency department showed evidence of air in the mesenteric vessels concerning for intestinal ischemia. Review of Systems General: Reports: 10 or more systems reviewed and unremarkable except in HPI and below Medications/Allergies Home Medications ?Medication ?Instructions ?Recorded ?Confirmed ?Last Taken ?Type cholecalciferol (vitamin D3) 50 2,000 unit PO DAILY@0800 06/18/19 07/24/24 09/09/20 08:00 History mcg (2,000 unit) tablet insulin aspart U-100 100 unit/mL 14 unit SUBCUT TID@0800,1200,1700 06/18/19 07/24/24 09/09/20 08:00 History subcutaneous solution (Novolog U-100 Insulin aspart) apixaban 2.5 mg tablet (Eliquis) 2.5 mg PO BID 10/13/21 07/24/24 Unknown History finasteride 5 mg tablet 5 mg PO DAILY 10/13/21 07/24/24 Unknown History insulin glargine 100 unit/mL 30 unit SUBCUT BEDTIME@2100 10/13/21 07/24/24 Unknown History subcutaneous solution (Lantus U-100 Insulin) lisinopril 2.5 mg tablet 2.5 mg PO DAILY 10/13/21 07/24/24 Unknown History Diabetic shoes with 3 sets of #1 ea 09/05/23 07/24/24 Unknown Rx insoles baclofen 20 mg tablet 20 mg PO BEDTIME 10/05/23 07/24/24 Unknown History clotrimazole 1 % topical cream 1 applic topical BID 10/05/23 07/24/24 Unknown History diltiazem HCl 240 mg capsule,24 240 mg PO QAM 10/05/23 07/24/24 Unknown History hr,extended release (Tiazac) fluticasone 250 mcg-salmeterol 50 1 inh inhalation BID 10/05/23 07/24/24 Unknown History mcg/dose blistr powdr for inhalation (Advair Diskus) fluticasone propionate 50 2 spray intranasal DAILY 10/05/23 07/24/24 Unknown History mcg/actuation nasal spray,suspension (Flonase Allergy Relief) glucosamine sulfate 500 mg tablet 500 mg PO DAILY 10/05/23 07/24/24 Unknown History (Glucosamine) guaifenesin 400 mg tablet 400 mg PO Q4H PRN mucus 10/05/23 07/24/24 Unknown History lidocaine 5 % topical ointment 1 applic topical TID PRN Pain 10/05/23 07/24/24 Unknown History loratadine 10 mg tablet 10 mg PO DAILY allergies 10/05/23 07/24/24 Unknown History neomycin 3.5 mg/g-polymyxin B 1 applic ophthalmic (eye) TID 10/05/23 07/24/24 Unknown History 10,000 unit/g-dexameth 0.1 % eye oint (Maxitrol) prednisolone acetate 1 % eye 1 drp ophthalmic (eye) QID 10/05/23 07/24/24 Unknown History drops,suspension spironolactone 100 mg tablet 100 mg PO BID 10/05/23 07/24/24 Unknown History timolol maleate 0.5 % eye drops 1 drp ophthalmic (eye) BID 10/05/23 07/24/24 Unknown History isosorbide mononitrate 120 mg See Rx Instructions .Route 02/15/24 07/24/24 Unknown Rx tablet,extended release 24 hr .COMPLEX #90 tabs memantine 10 mg tablet 10 mg PO BID #180 tabs 03/12/24 07/24/24 Unknown Rx levofloxacin 750 mg tablet 750 mg PO DAILY #10 tabs 05/05/24 07/24/24 Unknown Rx Allergies Allergy/AdvReac Type Severity Reaction Status Date / Time calcitriol Allergy unknown Verified 08/06/24 17:54 fish oil Allergy unknown Verified 08/06/24 17:54 furosemide Allergy Unknown Verified 08/06/24 17:54 gabapentin Allergy unknown Verified 08/06/24 17:54 hydrocodone Allergy itching Verified 08/06/24 17:54 rash oxycodone Allergy unknown Verified 08/06/24 17:54 red dye Allergy ALGY-Hives Verified 08/06/24 17:54 sotalol Allergy Unknown Verified 08/06/24 17:54 Kdufbpf-LBS-LvM Reductase Allergy unknown Verified 08/06/24 17:54 Inhibitor (Ycgjzup-Ypl-Pxd Reductase Inhibitor) Sulfa (Sulfonamide Allergy urticaria Verified 08/06/24 17:54 Antibiotics) pruritis tramadol Allergy unknown Verified 08/06/24 17:54 PFSH Acute PFSH: Medical History 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 Status post cryoablation H/O bilateral cataract extraction Family History Other CAD (coronary artery disease) Cancer Diabetes Family history of prostate cancer Social History Smoking and tobacco/nicotine status: former use of tobacco/nicotine Second hand smoke exposure: No Alcohol intake: never Substance/Drug Use: never Adopted: No Caregiver/support person: No Lives independently: No Household members: spouse Marital status: Current occupational status: retired Current gender identity: Male Special ana needs: No Vitals/I&O/Wt Last Vital Signs Temp 97.8 F 08/23/24 20:19 Pulse 87 08/24/24 00:50 Resp 18 08/23/24 22:49 BP 123/90 08/24/24 00:50 Pulse Ox 92 08/24/24 00:50 O2 Del Method Nasal Cannula 08/24/24 00:50 O2 Flow Rate 4 08/24/24 00:50 08/23/24 08/23/24 08/24/24 14:59 22:59 06:59 Intake Total 500 / 500 Balance 500 / 500 Weight last 48 hrs Weight 200 lb Physical Exam Narrative: Patient is alert and oriented. ? Abdomen is soft, no significantly tender, somehow distended. Data 08/23/24 20:14 08/23/24 20:14 A&P Assessment and plan (1) Acute mesenteric ischemia: (2) Atrial fibrillation: Qualifiers: Atrial fibrillation type: unspecified Qualified Code(s): I48.91 - Unspecified atrial fibrillation (3) Peripheral arterial disease: (4) Hypertension: Qualifiers: Hypertension type: unspecified Qualified Code(s): I10 - Essential (primary) hypertension Plan After a complete history, physical examination and review of all available clinical data the following is my assessment. This is a 84-year-old male with multiple medical comorbidities including A-fib, heart failure, history of lymphoma. He presents with a clinical picture concerning for acute mesenteric ischemia, including severe abdominal pain out of proportion to examination, and imaging findings concerning for gas in the mesenteric vessels. Per my personal review of imaging, I agree with radiology assessment. There is some a small bowel dilatation that was not present in July during his last CT scan, there is significant air in the mesenteric vessels and there is air in the liver. All of this findings are consistent with acute mesenteric ischemia. He does have severe atherosclerosis especially at the takeoff of the SMA but due to the lack of contrast is impossible to tell if there is a clot. I have extensive discussion with the patient and family members regarding the need for surgical intervention. I have informed them that at this point what we can offer is a laparotomy with bowel resection of old ischemic and nonviable intestine, I have explained to the patient and family member that we do not have a vascular surgery service in our institution and therefore we will not be able to proceed with either embolectomy or revascularization during the initial procedure. I have explained to them that the chances of mortality with this kind of pathology is close to 60%, I discussed the risk benefits of the operation including the risk of bleeding especially in the setting of current active anticoagulation, injury to surrounding structures, need for additional surgical interventions, intra-abdominal abscess formation, sepsis, , I have also explained that he will be leaving the OR with an open abdomen and we will do a second look laparotomy 48 hours later before deciding on proceeding with closure. Patient will be admitted to the medical team for medical ICU management. Of note he is also noted to have acute kidney injury with a creatinine of 1.7 which is slightly above his baseline. PDMP PDMP Reviewed: Not Reviewed Coding Level of Care Code Acute Code for Chg Fwd Diagnoses Acute mesenteric ischemia K55.059 Atrial fibrillation, unspecified type I48.91 Atrial fibrillation type: unspecified Peripheral arterial disease I73.9 Hypertension, unspecified type I10 Hypertension type: unspecified
--- NOTE | 2024-08-24 01:17 | ANES.PREANE2 ---
Pre-Anesthetic Assessment Height/Weight: Height 1.7 m Weight 90.718 kg Temp Pulse Resp BP Pulse Ox O2 Del Method O2 Flow Rate 97.8 F 87 18 123/90 92 Nasal Cannula 4 08/23/24 20:19 08/24/24 00:50 08/23/24 22:49 08/24/24 00:50 08/24/24 00:50 08/24/24 00:50 08/24/24 00:50 Familial anesthetic complications: none Last intake: > 8 hrs Social No alcohol and No tobacco Exam alert, oriented x 3, clear to auscultation bilaterally and regular rate & rhythm Pulmonary Chronic Obstructive Pulmonary Disease CV/HEM Atrial Fibrillation Pacemaker AAI Echo 2023 CONCLUSIONS Normal left ventricular size and systolic function, EF 60%. No gross wall motion abnormalities. Features of grade III left- ventricular diastolic dysfunction. Mild biatrial enlargement. Thickened mitral valve with mild mitral annular calcification. Mild mitral valve regurgitation. Fotj-xh-[id number] tricuspid valve regurgitation. Thickened aortic valve Wmru-ae-chzmccwx tricuspid valve regurgitation. Estimated PA pressure of 25 mmHg There is no pericardial effusion. There are no intracardiac masses. Compared to the study from 12/11/2022, there may not be a significant change. MARIA INES Metabolic Diabetes Mellitus Neuropsych Cerebrovascular Accident Vision impaired Anesthetic Plan ASA status: 4E Anesthesia: General Risk of > 500 ml blood loss (7ml/kg in children): Yes, adequate IV access and fluids planned Other Pertinent Information Family and patient decline chest compressions and shocks intraoperatively Medications/Allergies Home Medications ?Medication ?Instructions ?Recorded ?Confirmed ?Last Taken ?Type cholecalciferol (vitamin D3) 50 2,000 unit PO DAILY@0800 06/18/19 07/24/24 09/09/20 08:00 History mcg (2,000 unit) tablet insulin aspart U-100 100 unit/mL 14 unit SUBCUT TID@0800,1200,1700 06/18/19 07/24/24 09/09/20 08:00 History subcutaneous solution (Novolog U-100 Insulin aspart) apixaban 2.5 mg tablet (Eliquis) 2.5 mg PO BID 10/13/21 07/24/24 Unknown History finasteride 5 mg tablet 5 mg PO DAILY 10/13/21 07/24/24 Unknown History insulin glargine 100 unit/mL 30 unit SUBCUT BEDTIME@2100 10/13/21 07/24/24 Unknown History subcutaneous solution (Lantus U-100 Insulin) lisinopril 2.5 mg tablet 2.5 mg PO DAILY 10/13/21 07/24/24 Unknown History Diabetic shoes with 3 sets of #1 ea 09/05/23 07/24/24 Unknown Rx insoles baclofen 20 mg tablet 20 mg PO BEDTIME 10/05/23 07/24/24 Unknown History clotrimazole 1 % topical cream 1 applic topical BID 10/05/23 07/24/24 Unknown History diltiazem HCl 240 mg capsule,24 240 mg PO QAM 10/05/23 07/24/24 Unknown History hr,extended release (Tiazac) fluticasone 250 mcg-salmeterol 50 1 inh inhalation BID 10/05/23 07/24/24 Unknown History mcg/dose blistr powdr for inhalation (Advair Diskus) fluticasone propionate 50 2 spray intranasal DAILY 10/05/23 07/24/24 Unknown History mcg/actuation nasal spray,suspension (Flonase Allergy Relief) glucosamine sulfate 500 mg tablet 500 mg PO DAILY 10/05/23 07/24/24 Unknown History (Glucosamine) guaifenesin 400 mg tablet 400 mg PO Q4H PRN mucus 10/05/23 07/24/24 Unknown History lidocaine 5 % topical ointment 1 applic topical TID PRN Pain 10/05/23 07/24/24 Unknown History loratadine 10 mg tablet 10 mg PO DAILY allergies 10/05/23 07/24/24 Unknown History neomycin 3.5 mg/g-polymyxin B 1 applic ophthalmic (eye) TID 10/05/23 07/24/24 Unknown History 10,000 unit/g-dexameth 0.1 % eye oint (Maxitrol) prednisolone acetate 1 % eye 1 drp ophthalmic (eye) QID 10/05/23 07/24/24 Unknown History drops,suspension spironolactone 100 mg tablet 100 mg PO BID 10/05/23 07/24/24 Unknown History timolol maleate 0.5 % eye drops 1 drp ophthalmic (eye) BID 10/05/23 07/24/24 Unknown History isosorbide mononitrate 120 mg See Rx Instructions .Route 02/15/24 07/24/24 Unknown Rx tablet,extended release 24 hr .COMPLEX #90 tabs memantine 10 mg tablet 10 mg PO BID #180 tabs 03/12/24 07/24/24 Unknown Rx levofloxacin 750 mg tablet 750 mg PO DAILY #10 tabs 05/05/24 07/24/24 Unknown Rx Allergies Allergy/AdvReac Type Severity Reaction Status Date / Time calcitriol Allergy unknown Verified 08/06/24 17:54 fish oil Allergy unknown Verified 08/06/24 17:54 furosemide Allergy Unknown Verified 08/06/24 17:54 gabapentin Allergy unknown Verified 08/06/24 17:54 hydrocodone Allergy itching Verified 08/06/24 17:54 rash oxycodone Allergy unknown Verified 08/06/24 17:54 red dye Allergy ALGY-Hives Verified 08/06/24 17:54 sotalol Allergy Unknown Verified 08/06/24 17:54 Nybgyoz-EXW-PyO Reductase Allergy unknown Verified 08/06/24 17:54 Inhibitor (Djyuemh-Gam-Nto Reductase Inhibitor) Sulfa (Sulfonamide Allergy urticaria Verified 08/06/24 17:54 Antibiotics) pruritis tramadol Allergy unknown Verified 08/06/24 17:54 [facility] Anesthesia Medical History 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 Status post cryoablation H/O bilateral cataract extraction Family History Other CAD (coronary artery disease) Cancer Diabetes Family history of prostate cancer Social History Smoking and tobacco/nicotine status: former use of tobacco/nicotine Second hand smoke exposure: No Alcohol intake: never Substance/Drug Use: never Adopted: No Caregiver/support person: No Lives independently: No Household members: spouse Marital status: Current occupational status: retired Current gender identity: Male Special ana needs: No Data Anesthesia 08/23/24 20:14 08/23/24 20:14 Short CBC 08/23/24 Range/Units 20:14 WBC 11.64 H (3.29-11.43) 10^3/uL Hgb 14.60 (11.27-16.99) g/dL Hct 43.0 (37-53) % MCV 96.0 (82-101) fl Plt Count 215 (157-399) 10^3/cmm Neut % (Auto) 71.2 % Neut # (Auto) 8.28 H (1.8-7.7) 10^3/uL BMP 08/23/24 20:14 Sodium 136 Potassium 4.4 Chloride 100 Carbon Dioxide 22 BUN 33 H Creatinine 1.7 H Glucose 115 Calcium 9.6 Liver Function 08/23/24 Range/Units 20:14 Total Bilirubin 0.4 (0.15-1.2) mg/dL AST 13 (0-40) U/L ALT 8 (0-41) U/L Alkaline Phosphatase 69 (40-130) U/L Albumin 4.0 (3.5-5.2) g/dL Cardiac Studies: Echocardiogram 11/19/23 Echocardiogram Ultrasound 09/02/20
[2024-08-24] MEDS: sodium chloride 0.9% 1,000 ML 999 ML IV (01:47)
[2024-08-24] MEDS: piperacillin-tazobactam 3.375 GM in sodium chloride 0.9% (plus) 50 ML IV (01:55)
--- NOTE | 2024-08-24 01:58 | CTR_ITS ---
PROCEDURE INFORMATION: Exam: CTA Abdomen and Pelvis With Contrast Exam date and time: 08/24/2024 2:04 AM Age: 84 years old Clinical indication: Concern for ischemic bowel noted on abd CT without iv contrast. ; Additional info: Acute mesenteric ischemia, ok to proceed despite CR 1.7 TECHNIQUE: Imaging protocol: Computed tomographic angiography of the abdomen and pelvis with contrast. Exam focused on the arteries. 3D rendering (Not supervised by radiologist): MIP and/or 3D reconstructed images were created by the technologist. Radiation optimization: All CT scans at this facility use at least one of these dose optimization techniques: automated exposure control; mA and/or kV adjustment per patient size (includes targeted exams where dose is matched to clinical indication); or iterative reconstruction. Contrast material: OMNI 350; Contrast volume: 100 ml; Contrast route: INTRAVENOUS (IV); COMPARISON: CT abdomen pelvis wo con [id number] 08/23/2024 11:54 PM RADIATION DOSE METRICS: Total DLP (mGy-cm): 951.65 FINDINGS: Lungs: Strandy and patchy opacities are seen in the lung bases likely representing atelectasis. Aorta: See Celiac trunk and mesenteric arteries finding. Celiac trunk and mesenteric arteries: Calcifications are seen within the thoracic and abdominal aorta, iliac arteries and femoral arteries bilaterally and within branches of the celiac, superior and inferior mesenteric arteries and renal arteries. Renal arteries: See Celiac trunk and mesenteric arteries finding. Right iliac arteries: No occlusion or significant stenosis. Left iliac arteries: No occlusion or significant stenosis. Veins: Tubular gas profiles are seen within the mesentery compatible with portal venous gas. Additionally, gas densities are seen within distal branches of the superior mesenteric artery a finding seen in severe mesenteric ischemia. Liver: Branching peripheral gas densities are seen within the liver worrisome portal venous gas. Gallbladder and biliary ducts: Unremarkable. No calcified stones. No ductal dilation. Pancreas: Unremarkable. No mass. No ductal dilation. Spleen: Unremarkable. No splenomegaly. Adrenal glands: Unremarkable. No mass. Kidneys and ureters: Unremarkable. No solid mass. No hydronephrosis. Stomach and bowel: Gas densities are seen in a pattern suggesting pneumatosis intestinalis and to a lesser extent pneumatosis coli. Diverticula are again seen in the descending and sigmoid colon. There are no inflammatory changes present to suggest diverticulitis. Appendix: No evidence of appendicitis. Intraperitoneal space: Unremarkable. No free air. No significant fluid collection. Lymph nodes: Unremarkable. No enlarged lymph nodes. Urinary bladder: Unremarkable. No mass. Reproductive: Unremarkable as visualized. Bones/joints: No acute fracture. Soft tissues: Unremarkable. CT/CT angio abdomen pelvis [id number] IMPRESSION: 1. There is portal venous gas seen at periphery of the liver. 2. Mesenteric portal venous gas is seen diffusely within the abdomen. 3. There is diffuse pneumatosis intestinalis and mild pneumatosis coli. 4. There is gas present within distal branches of the superior mesenteric artery, a finding seen with severe mesenteric ischemia. 5. Diverticulosis of the descending and sigmoid colon 6. Bibasilar atelectasis
[2024-08-24] MEDS: iohexol 350 mg/mL 500 mL Btl (per mL) IV (02:32)
--- NOTE | 2024-08-24 03:04 | PC.NURSE ---
0254 dr. gaytan scrubbed out to talk to family about pt.
--- NOTE | 2024-08-24 03:10 | PC.NURSE ---
0306 Dr. Montoya scrubbed back into surgery.
--- NOTE | 2024-08-24 03:41 | PM.OP ---
Operative Report Date of procedure: August 24, 2024 Pre-op diagnosis: Acute mesenteric ischemia Post-op diagnosis: Same Post-op findings: There was extensive bowel ischemia. With ischemia starts at the level of the ligament of Treitz, the first 50 cm of small bowel already present scattered patches of necrosis, the following 110 cm of small bowel appears mottled and ischemic. About 50 cm from the level of the terminal ileum appear likely viable. Procedure done: Exploratory laparotomy Specimens removed/disposition: None Surgeon: Donavon Montoya MD Tool And Gauge Inspector: LESA OR STaff Estimated blood loss: 10 Brief History: Is a 84-year-old male who presents to the ER with acute mesenteric ischemia, he was immediately taken to the OR for emergent exploration after all risk and benefits of the procedure were discussed with patient and family members. Procedure: Patient was brought into the OR. He was placed in a supine position. General anesthesia was given. The abdomen was prepped and draped in the usual sterile fashion. A midline laparotomy incision measuring 25 cm was made in the upper abdomen extending to the infraumbilical region, the incision was deepened into the subcutaneous tissue until the fascia was identified. The anterior fascia was opened with electrocautery. The peritoneum was then grasped with hemostats and opened with a Metzenbaum scissor. No evidence of significant free intraperitoneal fluid was noted. No evidence of feculence. The small bowel was then delivered through the abdominal incision. I then proceeded to run the small bowel from the ligament of Treitz all the way down to the terminal ileum. There were severe ischemic changes of the small bowel starting at the level of the ligament of Treitz, with several patches of severe transmural ischemia (early necrosis) starting about 5 cm from the ligament of Treitz and running intermittently for about 50 cm. The next 100 cm of small bowel appeared deeply ischemic and mottled but no major patches of transmural ischemia was noted. The last 50 cm of small bowel appeared to have decreased perfusion but mostly viable. Due to this intraoperative findings I decided to scrub out to discuss with the family before proceeding with any kind of major intervention. I discussed the findings with the patient's and family members, I explained that the possible options was to proceed with aggressive resection of about 100 cm of small bowel, a limited resection attempting to resect only the areas with verified transmural necrosis and the last option would be to decide not to proceed with any resection and allow the patient to transition to comfort care taking consideration that likely he will progress to perforation in . After significant discussion with the family they have decided to proceed with with the comfort care route rather than subject the patient to bowel resection and additional surgeries. On my return to the OR I proceeded to run the small bowel once again in hopes of seeing any improvement on microscopic appearance that may change clinical course. I was not able to see an improvement and therefore in accordance to family wishes I proceeded to close the abdomen using #1 looped PDS. The skin was closed with samantha. At the end of the procedure all counts were correct, the patient tolerated well the procedure was transferred to the ICU intubated and in the stable condition.
--- NOTE | 2024-08-24 03:54 | PM.MISC ---
Miscellaneous Note Purpose of Documentation: Update on patient care Note: Intraoperative findings suggest extensive ischemia of the small bowel with early necrotic patches in the proximal small bowel extending all the way up to the ligament of Treitz. This is concordant with imaging and CTA of the abdomen which shows severe acute mesenteric ischemia. With this findings of family members have decided to proceed to a comfort care route rather than aggressive surgical intervention. I have discussed with the medical team and they will help us guide the transition to comfort care. I will continue to closely follow-up the patient while in-house.
--- NOTE | 2024-08-24 04:01 | XRR_ITS ---
PROCEDURE INFORMATION: Exam: XR Chest Exam date and time: 08/24/2024 4:05 AM Age: 84 years old Clinical indication: Device placement; Ett placement (vent status); Prior surgery; Surgery date: 6+ months; Surgery type: Cabg. Pacer. Coronary stents; Check S/P ett placement. ; Additional info: Et placement TECHNIQUE: Imaging protocol: Radiologic exam of the chest. Views: 1 view. COMPARISON: CR XR chest 1V portable [id number] 10/05/2023 12:02 PM FINDINGS: Tubes, catheters and devices: A nasogastric tube is placed with its tip at least the proximal stomach. An endotracheal tube is placed with its tip 2.4 cm from the zakiya. Lungs: There is mild indistinctness of the pulmonary vasculature. Hazy and linear opacities are seen in the lower minna thoraces, left more prominent than right. These findings could represent mild asymmetric pulmonary edema left basilar atelectasis and infiltrates can not excluded. Pleural spaces: Unremarkable. No pleural effusion. No pneumothorax. Heart/Mediastinum: Unremarkable. No cardiomegaly. Bones/joints: Unremarkable. XR/XR chest 1V portable [id number] IMPRESSION: 1. Endotracheal tube tip 2.4 cm from the zakiya. 2. Mild indistinctness of pulmonary vasculature and linear and hazy opacities present predominately within the left lower hemithorax, findings could represent asymmetric pulmonary edema. However, left basilar atelectasis or pneumonia can not excluded appropriate clinical setting.
[2024-08-24 04:15] LABS: Glucose Point of Care 303 mg/dL (70-110)
--- NOTE | 2024-08-24 04:30 | ANE.PACU2 ---
Inpatient post-anesthesia follow up: Airway intact: No Vital signs: Temperature 97.5 F Pulse Rate 0 Respiratory Rate 5 Blood Pressure 90/43 Pulse Oximetry 0 Oxygen Delivery Me thod Nasal Cannula Oxygen Flow Rate 2 Fraction of Inspir ed Oxygen 100 Hydration adequate: Yes Nausea and vomiting: No Pain level: Other Mental status: Altered
[2024-08-24 04:49] LABS: ABG PCO2 35.8 mmHg (35-45); Blood Gas Allen Test Pos; Blood Gas Sample Type Arterial; HCO3 ABG 17.5 mmol/L (22-26)
[2024-08-24] MEDS: morphine 4 mg/mL SDV 1 mL 2 MG IVP (05:53)
--- NOTE | 2024-08-24 06:37 | W.PM.EVENTAC ---
Event Note Event Note: Spoke with general surgery after exploratory laparotomy, considering extensive necrotic bowel, general surgery spoke with patient's and decided to proceed with comfort care, I spoke with patient's as well, sisters are present at the bedside as well, they want to proceed with extubation and comfort care ICU nurse notified along RT Patient is waking up, able to understand commands, while on a ventilator, I have requested morphine and comfort care/hospice orders
[2024-08-24] MEDS: morphine 4 mg/mL SDV 1 mL IVP ×2 (06:40→07:25)
--- NOTE | 2024-08-24 06:43 | PC.RESP ---
extubated patient to comfort care
--- NOTE | 2024-08-24 06:45 | PC.NURSE ---
Comfort Care/Extubation Dr. Shelby came to unit and discussed extubating patient and transitioning to comfort care. Order recieved from Dr. Shelby to extubate patient. Patient extubated at 0630 and placed on 2l nc per comfort care. Comfort measures started.
--- NOTE | 2024-08-24 12:13 | P.DES_ITS ---
Discharge Providers DDS Date of Admission: 08/24/24 03:55 Date Summary Completed: 08/24/24 Attending Provider at Admission: Thony Shelby MD Time of : 12:10 Attending Provider at Discharge: Edd Capps MD Primary Care Provider: Sandrita Almaguer MD DS Diagnoses Hospital Diagnoses (1) Acute intestinal ischemic syndrome: (2) Abdominal pain: (3) Acute kidney injury: (4) BPH NOS w ur obs/LUTS: Permanent Problem Comments: Good response to TAMSULOSIN. 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: (6) Other specified types of non-hodgkin lymphoma, intra-abdominal lymph nodes: (7) History of pacemaker: (8) Presence of permanent cardiac pacemaker: (9) Atrial fibrillation: Qualifiers: Atrial fibrillation type: unspecified Qualified Code(s): I48.91 - Unspecified atrial fibrillation (10) Carotid occlusion, bilateral: (11) Peripheral arterial disease: (12) Diastolic heart failure: (13) Hypertension: Qualifiers: Hypertension type: unspecified Qualified Code(s): I10 - Essential (primary) hypertension Reason for Visit Reason for Visit ABDOMEN PAIN Summary Date and Time of Date of : 08/24/24 Time of : 12:10 Summary Summary: This is a 84-year-old male with a past medical history of non-Hodgkin's lymphoma, with intra-abdominal lymphadenopathy, diabetes, hypertension, CABG, PCI, atrial fibrillation, chronic anticoagulation, who presents [facility] for abdominal pain, nausea, vomiting Patient was admitted to [facility] for acute mesenteric ischemia, received IV fluids, IV antibiotics, general surgery was consulted. Patient underwent exploratory laparotomy, with findings of extensive bowel ischemia, ischemia started at the level of the ligament of Treitz, the first 50 cm of small bowel had scattered patches of necrosis, following 110 cm of small bowel appears mottled and ischemic. Discussion between general surgery and patient's family of possible options, after due to the risk of benefits of all options, patient's family elected to proceed with comfort care. Patient was transitioned to comfort care, terminally extubated, comfort care medications started, time of 08/24/2024 at 12:10 PM Additional Data Confirmation of as documented by pronouncing clinician: no pulse, no respirations and no heart sounds Family: at bedside Additional persons at bedside: nursing staff Attending/PCP notified?: I am attending Was code activated?: No Autopsy requested?: No Advance directives?: Yes Hospice patient?: No Discharge Plan Discharge Patient Disposition: Home Condition: Serious Prescriptions: No Action cholecalciferol (vitamin D3) 2,000 unit tablet 2,000 unit PO DAILY@0800 Novolog U-100 Insulin aspart 100 unit/mL solution 14 unit SUBCUT TID@0800,1200,1700 Rx Instructions: SLIDING SCALE Lantus U-100 Insulin 100 unit/mL solution 30 unit SUBCUT BEDTIME@2100 Patient Comments: Patient states that he takes 30 u if he hasn't ate well that evening. Eliquis 2.5 mg tablet 2.5 mg PO BID lisinopril 2.5 mg tablet 2.5 mg PO DAILY finasteride 5 mg tablet 5 mg PO DAILY (DME) Diabetic shoes with 3 sets of insoles See Rx Instructions .Route .MEDSUPPLY Qty: 1 0RF Rx Instructions: As directed by [facility] memantine 10 mg tablet 10 mg PO BID Qty: 180 3RF levofloxacin 750 mg tablet 750 mg PO DAILY Qty: 10 0RF isosorbide mononitrate 120 mg tablet extended release 24 hr See Rx Instructions .ROUTE .COMPLEX Qty: 90 3RF Dose Instruction: TAKE ONE TABLET BY MOUTH ONCE A DAY TAKE ON EMPTY STOMACH. SWALLOW WHOLE. DO NOT CRUSH OR CHEW. Rx Instructions: TAKE ONE TABLET BY MOUTH ONCE A DAY TAKE ON EMPTY STOMACH. SWALLOW WHOLE. DO NOT CRUSH OR CHEW. Advair Diskus 250-50 mcg/dose Blister With Device 1 inh INHALATION BID spironolactone 100 mg Tablet 100 mg PO BID Tiazac 240 mg Capsule,Extended Release 24 Hr 240 mg PO QAM Glucosamine 500 mg Tablet 500 mg PO DAILY Rx Instructions: administer with a meal baclofen 20 mg Tablet 20 mg PO BEDTIME prednisolone acetate 1 % Drops,Suspension 1 drp OPHTHALMIC (EYE) QID timolol maleate 0.5 % Drops 1 drp OPHTHALMIC (EYE) BID Flonase Allergy Relief 50 mcg/actuation [place],Suspension 2 spray INTRANASAL DAILY Rx Instructions: administer into each nostril clotrimazole 1 % Cream 1 applic TOPICAL BID loratadine 10 mg Tablet 10 mg PO DAILY Maxitrol 3.5 mg/g-10,000 unit/g-0.1 % Ointment 1 applic OPHTHALMIC (EYE) TID Rx Instructions: space evenly during waking hours guaifenesin 400 mg Tablet 400 mg PO Q4H PRN (Reason: mucus) lidocaine 5 % Ointment 1 applic TOPICAL TID PRN (Reason: Pain) Referrals: Sandrita Almaguer MD [Primary Care Provider] - Patient Instructions: Opioid Safety DS Attestations Time Spent in /Discharge Care*: greater than 30 min Quality - AMI: AMI present?: No Quality - Stroke: CVA present?: No Quality - VTE: VTE present?: No Coding Level of Care Code 66828 Total time (in minutes) for Discharge: 35 Diagnoses Acute intestinal ischemic syndrome K55.059 Abdominal pain R10.9 Acute kidney injury N17.9 BPH NOS w ur obs/LUTS N40.1 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
--- NOTE | 2024-08-24 12:45 | PC.NURSE ---
TOD: 1210. Magnet to pacemaker. Dr Capps notified. [facility] notified, waiting pediatric orthodontist back.
--- NOTE | 2024-08-24 13:12 | PC.NURSE ---
Postmortem care completed: Both Peripheral IVs removed, galarza catheter removed and NG removed. All intact.
--- NOTE | 2024-08-24 13:41 | PC.NURSE ---
[facility] in [place] notified.
--- NOTE | 2024-08-24 14:47 | P.PN_ITS ---
Subjective 2 Subjective: Patient was seen this morning, family members at bedside, is hypotensive, tachypneic, family members tell me that he is resting more comfortably, currently on comfort care, discussed with family goals of comfort care to ease his pain and ease his suffering, allowing him to pass away comfortably, they voiced understanding, all questions answered Vitals/I&O/Wt Last Vital Signs Temp 97.5 F L 08/24/24 11:00 Pulse 0 L 08/24/24 12:10 Resp 5 L 08/24/24 12:00 BP 90/43 08/24/24 11:00 Pulse Ox 0 L 08/24/24 12:10 O2 Del Method Nasal Cannula 08/24/24 11:00 O2 Flow Rate 2 08/24/24 11:00 FiO2 100 08/24/24 05:18 08/23/24 08/24/24 08/24/24 22:59 06:59 14:59 Intake Total 500 / 500 1050 / 1550 0 / 0 Output Total 150 / 150 Balance 500 / 500 900 / 1400 0 / 0 Weight last 48 hrs Weight 94.302 kg Weight 94.302 kg Weight 90.718 kg Physical Exam 2 Const: COMMON NORMALS: no acute distress EXAM LIMITATIONS: altered mental status ORIENTATION/CONSCIOUSNESS: not awake, not oriented to person, not oriented to place and not oriented to time Resp: COMMON NORMALS: normal respiratory effort, No retractions and No use of accessory muscles AUSCULTATION: crackles and wheezes Cardio: COMMON NORMALS: regular rate and regular rhythm RATE: regular rate RHYTHM: regular rhythm GI: OTHER: Abdomen soft, distended, no bowel sounds Neuro: SENSORIUM/ORIENTATION: No oriented to person, No oriented to place and No oriented to time Urinary Catheter Management: Leung Latex: Cath Placed During This Visit: yes Reason for Continuing Indwelling Catheter: Accurate Measurement of Urinary Output in Critically Ill Patients Urinary Catheter Date of Insertion: 08/24/24 Urinary Catheter Time of Insertion: 02:33 Data 08/23/24 20:14 08/23/24 20:14 Micro: Microbiology 08/24/24 01:30 Blood Culture - Preliminary Blood SPECIMEN COLLECTED 08/24/24 01:47 Blood Culture - Preliminary Blood SPECIMEN COLLECTED A&P Assessment and plan (1) Need for comfort care: Plan Comfort care -Comfort care orders in Acute mesenteric ischemia -Status post exploratory laparotomy with findings of extensive ischemia of the small bowel with early necrotic patches in the proximal small bowel extending all the way up to the ligament of Treitz -After discussion with patient's family and general surgery, decision was made to pursue comfort care, PDMP PDMP Reviewed: Not Reviewed Attestations 2 Medical Necessity Statement*: Patient requires hospitalization for comfort care Diagnoses Need for comfort care
[2024-08-26 08:19] LABS: Blood Gas Operator Identificat BISJE; Blood Gas Sample Site Not specified
== END 2024-08-24 12:15 | disposition expired | DRG 357 ==
LOC: ER 08-24 00:51 → OPS 08-24 01:23 → ICU 08-24 03:57
PROVIDERS: Nurse Practitioner Family; Surgery; Admitting Provider Internal Medicine; Emergency Provider Family Medicine; PCP Family Medicine; Visit Provider Family Medicine
PROC: 0DJD0ZZ Inspection of Lower Intestinal Tract, Open Approach (ICD-10-PCS; CPT 49000; principal; 2024-08-24 01:35)
DX: K55.012 Diffuse acute (reversible) ischemia of small intestine (principal); C85.83 Other specified types of non-Hodgkin lymphoma, intra-abdominal lymph nodes; N17.9 Acute kidney failure, unspecified; E87.20 Acidosis, unspecified; I50.32 Chronic diastolic (congestive) heart failure; I13.0 Hypertensive heart and chronic kidney disease with heart failure and stage 1 through stage 4 chronic kidney disease, or unspecified chronic kidney disease; K55.022 Diffuse acute infarction of small intestine; N40.1 Benign prostatic hyperplasia with lower urinary tract symptoms; Z95.0 Presence of cardiac pacemaker; I48.91 Unspecified atrial fibrillation; I65.23 Occlusion and stenosis of bilateral carotid arteries; Z66 Do not resuscitate; E78.5 Hyperlipidemia, unspecified; E11.51 Type 2 diabetes mellitus with diabetic peripheral angiopathy without gangrene; E11.22 Type 2 diabetes mellitus with diabetic chronic kidney disease; N18.9 Chronic kidney disease, unspecified; Z88.8 Allergy status to other drugs, medicaments and biological substances; Z88.5 Allergy status to narcotic agent; Z87.891 Personal history of nicotine dependence; Z95.5 Presence of coronary angioplasty implant and graft; Z79.01 Long term (current) use of anticoagulants; Z79.899 Other long term (current) drug therapy; Z79.4 Long term (current) use of insulin; Z88.2 Allergy status to sulfonamides; Z51.5 Encounter for palliative care
CPT/HCPCS: 36415; 36416; 36600; 51702; 71045; 74174; 74176; 80053; 82803; 82962; 83605; 83690; 85025; 87040; 87205; 94799; 96365; 96375; 99285; J0330; J0780; J1100; J1171; J1200; J2270; J2543; J2704; J3010; J3490; J7030; J7040